=== PATIENT | female | born 1945 | race Caucasian/White ===

== ENCOUNTER 2019-09-20 18:37 | Emergency (ER) | payer MEDICARE, SELFPAY ==
--- NOTE | ~2019-09-20 | XR_ITS ---
XR chest 2V 09/20/2019 19:46 Indication: Shortness of breath. Pedal stuck in throat. Procedure: 2 views of the chest Comparison: 03/27/2019 Findings: Status post median sternotomy for CABG. Borderline heart size. No focal air space disease, pulmonary edema, pleural effusion or suspected pneumothorax. Impression: 1: No acute cardiopulmonary disease. Reviewed, dictated and finalized at location A. Impression: 1: No acute cardiopulmonary disease.
--- NOTE | ~2019-09-20 | XR_ITS ---
XR soft tissue neck 09/20/2019 19:47 Indication: Difficulty swallowing. Foreign body in throat. Procedure: 2 views of the neck soft tissues Comparison: No prior studies for comparison. Findings: Prevertebral soft tissues are normal. Epiglottis and area epiglottic folds are within aminata l limits. No significant subglottic narrowing. Visualized cervical spine is unremarkable. Impression: 1: No significant abnormality of the neck soft tissues. Reviewed, dictated and finalized at location A. Impression: 1: No significant abnormality of the neck soft tissues.
[2019-09-20 18:45] VITALS: BP 179/63; PULSE 76; RESP 25; TEMP 36.6; O2SAT 97
--- NOTE | 2019-09-20 18:55 | ECG_ITS ---
Measurements Intervals [place] Rate: 72 P: -33 IN: 110 QRS: -23 QRSD: 86 T: 150 QT: 358 QTc: 393 Interpretive Statements SINUS RHYTHM WITH SHORT IN INTERVAL INFERIOR INFARCT, AGE INDETERMINATE ST-T WAVE ABNORMALITY IN HIGH LATERAL LEADS- CONSIDER ISCHEMIA BASELINE WANDER- V1-V2 ABNORMAL ECG Electronically Signed On 09-21-2019 7:04:16 CDT by Howard Marino D.O.
[2019-09-20 19:29] VITALS: BP 150/95; PULSE 70; RESP 26; O2SAT 96
--- NOTE | 2019-09-20 19:29 | ED.GENADULT ---
HPI - General Adult General Chief complaint: Skin/Abscess/Foreign Body Stated complaint: pill stuck in throat Time Seen by Provider: 09/20/19 19:25 Source: RN notes reviewed History of Present Illness HPI narrative: Patient presents emergency department from home for pill stuck in throat. Patient states approximately 2 hours ago she attempted to swallow and atorvastatin pill became stuck in her throat. Patient states that since that time she is felt that something was stuck in her throat and is painful to swallow. She states she is able to drink water but that it does hurt. Patient states she has had difficulty swallowing before in the past with food impaction and has had to have EGD done in past. She denies any fevers or chills chest pain or any other symptoms at this time Related Data Home Medications Medication Instructions Recorded Confirmed clopidogrel [Plavix] 75 mg PO DAILY 03/27/19 05/01/19 Tylenol-Codeine #3 1 tablet PO BID 05/01/19 05/01/19 amlodipine [Norvasc] 5 mg PO DAILY 05/01/19 09/20/19 atorvastatin [Lipitor] 80 mg PO HS 05/01/19 05/01/19 metoprolol tartrate [Lopressor] 50 mg PO DAILY 05/01/19 05/01/19 acetaminophen-codeine tablet 09/20/19 aspirin 325 mg PO DAILY 09/20/19 09/20/19 ezetimibe [Zetia] mg 09/20/19 Allergies Allergy/AdvReac Type Severity Reaction Status Date / Time hydrocodone Allergy Unknown Vomiting Verified 09/20/19 18:50 Review of Systems Review of Systems: Narrative: Gen.: Denies fevers or chills ENT: Denies congestion Respiratory: Reports feeling of shortness of breath CV: Denies chest pain or palpitations GI: Denies abdominal pain nausea, emesis Musculoskeletal: Denies back pain or muscle pain Neuro: Denies numbness, tingling, weakness or focal weakness Skin: Denies rash Except as documented, all other systems reviewed and negative [facility] Past Medical History Medical History CAD (coronary artery disease) Erosive esophagitis Esophageal dilatation Esophageal stricture HLD (hyperlipidemia) HTN (hypertension) NSAID long-term use Surgical History Surgical History History of esophagogastroduodenoscopy (EGD) Hx of CABG Social History Social History Smoking status: Former smoker Gender identity (if verbalized by the patient): Female Exam Narrative: Exam Narrative: APPEARANCE: No acute distress, nontoxic, resting in bed EYES: EOMI HEENT: Normocephalic, atraumatic, OMMairway patent, tolerating own secretions, voice normal RESPIRATORY: No respiratory distress Clear to auscultation bilaterally with no rhonchi wheezing or rales. CARDIOVASCULAR: Regular rate and rhythm without murmurs rubs or gallops. ABDOMINAL: Soft, nontender, nondistended, MUSCULOSKELETAl: Moves all extremities. No clubbing, cyanosis or edema. NEURO: Awake and alert. Following commands, speech normal, no focal deficits SKIN:: Warm, dry. No rashes lesions or abrasions PSYCHIATRIC: Normal affect/mood,, Course Course Emergency Course: Patient able to drink GI cocktail with resolution of symptoms tolerating own secretions with no difficulty in ED As per Dr. Carrasquillo for GI presentation work-up recommends patient continue on PPI with follow-up with GI as outpatient Discussed with patient results of workup and diagnosis. Discussed need for follow-up with primary care, proper use of medication, and reasons to return to the emergency department. Patient understands and agrees to current treatment plan. Patient still on PPI will continue to take Vital Signs Vital signs: Vital Signs Temperature 97.8 F 09/20/19 18:45 Pulse Rate 76 09/20/19 18:45 Respiratory Rate 25 H 09/20/19 18:45 Blood Pressure 179/63 H 09/20/19 18:45 Pulse Oximetry 97 09/20/19 18:45 Temperature 97.8 F 09/20/19 18:45 Pulse Rate 60 09/20/19 20:40 Respira
--- NOTE | 2019-09-20 19:30 | PC.NURSE ---
Assumed care of pt at this time. Report from JUSTIN Bell
[2019-09-20 20:40] VITALS: BP 133/87; PULSE 60; RESP 13; O2SAT 100
[2019-09-20 21:15] VITALS: BP 171/66; PULSE 74; RESP 21; O2SAT 98
== END 2019-09-20 21:15 | disposition home or self-care (01) ==
PROVIDERS: Emergency Provider Emergency Medicine; PCP Family Medicine
DX: R13.10 Dysphagia, unspecified (principal); I25.10 Atherosclerotic heart disease of native coronary artery without angina pectoris; E78.5 Hyperlipidemia, unspecified; I10 Essential (primary) hypertension; Z95.1 Presence of aortocoronary bypass graft; R94.31 Abnormal electrocardiogram [ECG] [EKG]
CPT/HCPCS: 70360; 71046; 93005; 99283; A9270

== ENCOUNTER 2020-03-12 11:59 | Observation (INO) | payer MEDICARE, SELFPAY ==
--- NOTE | ~2020-03-12 | CT_ITS ---
EXAMINATION: CT abdomen pelvis wo con DATE: 03/12/2020 14:43 INDICATION: Left lower quadrant abdominal pain. TECHNIQUE: Computed tomography (CT) of the abdomen and pelvis was performed without intravenous contr ast. Automated exposure control and iterative reconstruction technique were employed. The dose-length product was 438.46 mGy-cm. COMPARISON: CT abdomen and pelvis 08/06/17 FINDINGS: The visualized portions of the lung bases demonstrate mild atelectasis. No pleural effusion . The heart size is normal. No pericardial effusion. There is a moderate-sized sliding hiatal hernia. The liver, gallbladder, spleen, pancreas, and adrenal glands are normal. There is a 1.3 cm cyst in r ight kidney. There are cysts in left kidney measuring up to 2.9 cm. There is mild left hydronephrosis and hydroureter. There is a 2 mm stone at left ureterovesicular junction. There is diverticulosis of the colon without evidence of diverticulitis. The appendix is normal. There are no dilated loops of bowel. There are no pathologically enlarged lymph nodes. There is no free intraperitoneal fluid. Ther e is a subxiphoid ventral hernia containing fat. There is a stent in right superficial femoral artery . There is severe lumbar spondylosis. IMPRESSION: 1. 2 mm stone at left ureterovesicular junction with mild left hydronephrosis and hydroureter. 2. Moderate-sized sliding hiatal hernia. 3. Subxiphoid ventral hernia containing fat. Reviewed, dictated and finalized at location A. PARTS DELIVERY DRIVER IMPRESSION: 1. 2 mm stone at left ureterovesicular junction with mild left hydronephrosis a nd hydroureter. 2. Moderate-sized sliding hiatal hernia. 3. Subxiphoid ventral hernia containing fat.
--- NOTE | ~2020-03-12 | US_ITS ---
EXAMINATION: US renal BI DATE: 03/13/2020 09:38 INDICATION: Left ureteral stone. TECHNIQUE: Multiple ultrasound grayscale images of the kidneys were obtained. COMPARISON: CT abdomen and pelvis 03/12/2020 FINDINGS: The right kidney measures 9.5 x 4.9 x 4.4 cm. The left kidney measures 7.7 x 4.6 x 3.4 cm. The kidney s demonstrate normal parenchymal echogenicity. There are cysts in the kidneys measuring up to 2.3 cm on the left. There is no hydronephrosis. The bladder is normal. IMPRESSION: 1. Mild atrophy of left kidney. No hydronephrosis. Reviewed, dictated and finalized at location A. /REC/DOC CONTROL
[2020-03-12 12:05] VITALS: BP 171/68; PULSE 68; RESP 69; TEMP 36.7; O2SAT 96
[2020-03-12 12:24] LABS: Basophils Absolute Auto 0.1 K/mm3 (0.0-0.1); Basophils Percent Auto 0.7 % (0.2-1.2); Eosinophils Absolute Auto 0.7 K/mm3 (0-0.3); Eosinophils Percent Auto 7.6 % (0-4.4); Hemoglobin 14.1 g/dL (12.0-15.0); Immature Granulocyte Absolute 0.04 K/mm3 (0.00-0.031); Immature Granulocyte Percent A 0.4 % (0-0.5); Lymphocytes Percent Auto 17.6 % (18.3-44.2); Mean Corpuscular HGB Conc 33.6 g/dl (32-36); Mean Corpuscular Hemoglobin 28.3 pg (26-34); Mean Corpuscular Volume 84.2 fl (80-100); Mean Platelet Volume 9.8 fl (7.4-10.4); Monocytes Absolute Auto 1.2 K/mm3 (0.1-0.6); Monocytes Percent Auto 12.7 % (2.6-8.5); Neutrophils Absolute Auto 5.6 K/mm3 (1.3-6.7); Platelet Count Result 324 k/mm3 (150-375); Red Blood Count 4.99 M/mm3 (4.2-5.4); Red Cell Distribution Width 14.9 % (11.5-14.5); White Blood Count 9.1 K/mm3 (4.5-10.0)
--- NOTE | 2020-03-12 12:34 | ED.GENADULT ---
HPI - General Adult General Chief complaint: Back Pain/Injury Stated complaint: lower mid back pain Time Seen by Provider: 03/12/20 12:16 Source: patient Mode of arrival: ambulatory Limitations: no limitations History of Present Illness HPI narrative: 74 years old white female came to the emergency room because of left lower quadrant pain started this morning. Constant. No radiation. Patient reports that the pain is associated with nausea. Patient denies any fever, chills, vomiting, radiation of pain. History of chronic lower back pain for 2 months. Today is not worse than before. Is okay Currently patient on aspirin and Plavix, history of hysterectomy Related Data Home Medications Medication Instructions Recorded Confirmed clopidogrel [Plavix] 75 mg PO DAILY 03/27/19 05/01/19 Tylenol-Codeine #3 1 tablet PO BID 05/01/19 05/01/19 amlodipine [Norvasc] 5 mg PO DAILY 05/01/19 09/20/19 metoprolol tartrate [Lopressor] 50 mg PO DAILY 05/01/19 05/01/19 acetaminophen-codeine tablet 09/20/19 ezetimibe [Zetia] mg 09/20/19 aspirin 325 mg tablet 81 mg PO DAILY tablet 10/02/19 atorvastatin 80 mg tablet 40 mg PO HS tablet 10/02/19 Allergies Allergy/AdvReac Type Severity Reaction Status Date / Time hydrocodone Allergy Unknown Vomiting Verified 03/12/20 12:09 Review of Systems Review of Systems: Narrative: CONSTITUTIONAL: Denies fever, chills, or sweats. EYES: Denies visual changes, redness, or discharge. ENT: Denies rhinorrhea, congestion, sore throat, or otalgia. CARDIOVASCULAR: Denies chest pain, palpitations, or edema. RESPIRATORY: Denies cough or dyspnea. GASTROINTESTINAL: Denies abdominal pain, nausea, vomiting, or diarrhea. GENITOURINARY: Denies dysuria or hematuria. SKIN: Denies rash or itching. MUSCULOSKELETAL: Denies back pain, joint pain, or myalgia. NEUROLOGIC: Denies headache, numbness, or weakness. PSYCHIATRIC: Denies anxiety or depression. [facility] Past Medical History Medical History CAD (coronary artery disease) Erosive esophagitis Esophageal dilatation Esophageal stricture GERD (gastroesophageal reflux disease) Hiatal hernia HLD (hyperlipidemia) HTN (hypertension) NSAID long-term use Surgical History Surgical History History of esophagogastroduodenoscopy (EGD) Hx of CABG Social History Social History Smoking status: Former smoker Gender identity (if verbalized by the patient): Female Exam Narrative: Exam Narrative: General appearance: Well-developed, well-nourished Skin: Normal color Head: Normocephalic, nontraumatic Eyes: Clear conjunctiva ENT: Oropharynx normal, ears normal, nose normal Neck: Supple, nontender Chest and respiratory: Airway patent, no respiratory distress, no accessory muscle use Heart: Regular rate/rhythm Abdomen: Soft, mild tenderness left lower quadrant with deep palpation, no organomegaly, quiet bowel sounds Vascular: Normal peripheral pulses, normal capillary refill. Musculoskeletal: Normal range of motion, nontender back Neurologic: Alert and oriented ?3, [employer] is normal as tested, no gross motor deficit Course Course Emergency Course: Stable Consultations Consultation #1: DR JOHSNON Date: 03/12/20 Time: 15:51 Vital Signs Vital signs: Vital Signs Temperature 36.7 C 03/12/20 12:05 Pulse Rate 68 03/12/20 12:05 Respiratory Rate 69 H 03/12/20 12:05 Blood Pressure 171/68 H 03/12/20 12:05 Pulse Oximetry 96 03/12/20 12:05 Temperature 36.7 C 03/12/20 12:05 Pulse Rate 68 03/12/20 12:05 Respiratory Rate 69 H 11
[2020-03-12 12:36] LABS: Alanine Aminotransferase 29 U/L (4-35); Albumin Level 4.5 g/dL (3.5-5.1); Alkaline Phosphatase 88 U/L (38-126); Anion Gap 12 mmol/L (8-16); Aspartate Amino Transferase 41 U/L (14-36); Bilirubin,Total 0.7 mg/dL (0.2-1.3); Blood Urea Nitrogen 27 mg/dL (7-17); Calcium 10.8 mg/dL (8.4-10.2); Carbon Dioxide 22 mmol/L (22-30); Chloride 109 mmol/L (98-107); Estimated CRCL calculation 18 ml/min; Estimated Glomerular Filt Rate 22; Glucose 100 mg/dL (65-105); Lipase 93 U/L (23-300); Sodium 143 mmol/L (137-145)
[2020-03-12] MEDS: MORPHINE SULFATE (*CRX) 4 MG/ML INJ IV PUSH ×2 (12:52→21:07)
[2020-03-12] MEDS: ONDANSETRON INJ 4 MG/2 ML VIAL IV PUSH (12:52)
[2020-03-12] MEDS: SODIUM CHLORIDE 0.9% IV 1,000 ML 999 ML IV CONT (12:52)
[2020-03-12 13:09] LABS: Add Urine Microscopic? YES; Appearance Urine Cloudy (Clear); Bacteria Urine Trace /hpf; Bilirubin Urine Negative (Negative); Blood Urine 3+ (Negative); Color Urine Yellow (Yellow); Glucose Urine UA Negative (Negative); Ketones Urine Negative (Negative); Leukocyte Esterase Ur Trace LEU/UL (Negative); Mucus Urine Rare /lpf; Nitrate Urine Negative (Negative); Protein Urine 1+ mg/dL (Negative); RBC Urine >75 /hpf (0-2); Specific Grav Ur 1.012 (1.001-1.035); Squamous Epithelial Cell Urine Occasional /hpf (Few); Urobilinogen Urine Negative mg/dL (<2.0); WBC Urine 31-50 /hpf
--- NOTE | 2020-03-12 16:45 | PM.IMHP ---
H&P: HPI History of Present Illness Date/Time: 03/12/20 16:45 Chief complaint: Left ureterolithiasis/PIPPA/Urinary Tract Infection Narrative: Danielle Swan is a 74 year old female Who stated that she has been having back pain on and off for couple months. 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 But she was not getting any relief. The patient has had no prior history of any kidney stones. She has had no fever chills but tells me that she feels cold in the emergency room. The patient stated that she had 2 cardiac caths [id number] years ago and it affected her kidneys in the past. She does not see a box sorter. She stated that her primary care doctor said she was going to be referred to a box sorter but has never seen one . Patient's creatinine is 2.2 today previously on 03/27/2019 is 1.4. The patient was not sure where her numbers usually stand. Calcium is 10.8 but had been 11.1 in the past. Abdominal pelvis CT was read as 2 mm stone at left ureterovesicalar junction with mild left hydronephrosis and hydroureter. Moderate size sliding hiatal hernia. Subxiphoid ventral hernia containing fat. urology has been consulted. Patient was started on normal saline Zofran morphine and ceftriaxone. Patient was admitted/ placed into observation status date of service 03/12/2020 Review of Systems Review of Systems: All systems reviewed & are unremarkable except as noted in HPI and below Constitutional: Constitutional: Reports as per HPI and Reports no additional constitutional complaints Eyes: Eyes: Reports as per HPI and Reports no additional eye complaints ENT: Reports system reviewed and no additional complaints, except as documented and Reports Normal hearing present Cardiovascular: Cardiovascular: Reports no additional cardiovascular complaints Respiratory: Respiratory: Reports no additional respiratory complaints and Reports no additional respiratory complaints Gastrointestinal: Gastrointestinal: Reports as per HPI and Reports no additional gastrointestinal complaints Musculoskeletal: Musculoskeletal: Reports no additional musculoskeletal complaints Integumentary/Breasts: Skin/Breast: Reports system reviewed and no additional complaints, except as docu and Reports as per HPI Neurologic: Reports system reviewed and no additional complaints, except as documented, Reports as per HPI and Reports Normal hearing present Psychiatric: Psychiatric: Reports no additional psychiatric complaints and Reports as per HPI Endocrine: Endocrine: Reports no additional endocrine complaints Hematologic/Lymphatic: Hematologic/Lymphatic: Reports no additional hematologic/lymphatic complaints Allergic/Immunologic: Allergic/Immunologic: Reports no additional allergic/immunologic complaints [facility] Past Medical History Medical History CAD (coronary artery disease) Erosive esophagitis Esophageal dilatation Esophageal stricture Esophageal stricture GERD (gastroesophageal reflux disease) Hiatal hernia HLD (hyperlipidemia) HTN (hypertension) NSAID long-term use Surgical History Surgical History H/O: hysterectomy History of coronary artery stent placement after her CABG 2 stents which she claims have restenosed History of esophagogastroduodenoscopy (EGD) Hx of CABG triple bypass Status post 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 She is retired from the [employer] in the [place] and the [facility]. She l
--- NOTE | 2020-03-12 16:55 | ADMGEN ---
This patient, Danielle Swan, was admitted to Medical Room 349-01. Patient/family oriented to hospital policies and general routines including ID bracelet, bed and alarms, visiting hours, pain management, procedures, bathroom and other care routines, personal items, smoking policy, room service/diet, and visiting hours. Information on how to activate the Rapid Response Team has been discussed. Patient/Family are encouraged to report perceived risks to care and to ask questions if they do not understand what they are told or what they should do.
[2020-03-12 17:05] VITALS: BMI 30.1
[2020-03-12 17:13] VITALS: BP 176/77; PULSE 72; RESP 16; TEMP 36; O2SAT 98
[2020-03-12 17:15] VITALS: BMI 30.2
[2020-03-12] MEDS: LACTATED RINGERS 1,000 ML 100 ML IV CONT (17:28)
--- NOTE | 2020-03-12 19:28 | WPDURCON ---
Assessment and Plan Assessment and plan (1) PIPPA (acute kidney injury): Code(s): N17.9 - Acute kidney failure, unspecified Status: Acute (2) Urinary tract infection: Qualifiers: Hematuria presence: with hematuria Urinary tract infection type: site unspecified Qualified Code(s): N39.0 - Urinary tract infection, site not specified; R31.9 - Hematuria, unspecified Code(s): N39.0 - Urinary tract infection, site not specified Status: Acute (3) Ureterolithiasis: Code(s): N20.1 - Calculus of ureter Status: Acute Assessment and Plan: Patient appears to have either mild chronic kidney disease or acute kidney injury of uncertain etiology. Possible urinary tract infection. - Ceftriaxone pending culture 2 mm calculus either at her left ureterovesical junction or possibly in her bladder. - Highly likely pt. will pass this tiny stone - will not make any immediate plans for intervention. - Will re-evaluate after morning labs and renal u/s tomorrow. Urology Consult Note HPI Date Seen: 03/12/20 Requesting Physician: Sierra Ortega MD Primary Care Provider: Bhavik Bah, DO Consult Narrative Narrative: Danielle Swan is a 74 year old female without prior significant urological history in without history of urolithiasis. She presents to the ER with some atypical complaints. First, she reports a several week history of atypical back pain that is more centered over her iliac crest then in her flank or abdomen. This is not been associated with irritable voiding or hematuria. Additionally, she reports having been told by her primary care physician that she has renal insufficiency and is awaiting referral to a sawyer helper for several weeks. When seen in the ER here she did have a rise in her baseline serum creatinine from approximately 1.4-2.2. A CT scan of the abdomen and pelvis without contrast shows a tiny, 2 mm stone either at her ureterovesical junction or in her bladder with very scant left hydronephrosis. Review of Systems Cardiovascular: Cardiovascular: Denies chest pain, Denies lightheadedness, Denies palpitations and Denies dyspnea Respiratory: Respiratory: Denies dyspnea Gastrointestinal: Gastrointestinal: Denies diarrhea, Denies nausea and Denies vomiting Genitourinary: Genitourinary: Denies hematuria and Denies dysuria Endocrine: Endocrine: Denies palpitations PMFSH Past Medical History Medical History CAD (coronary artery disease) Erosive esophagitis Esophageal dilatation Esophageal stricture Esophageal stricture GERD (gastroesophageal reflux disease) Hiatal hernia HLD (hyperlipidemia) HTN (hypertension) NSAID long-term use Surgical History Surgical History H/O: hysterectomy History of coronary artery stent placement after her CABG 2 stents which she claims have restenosed History of esophagogastroduodenoscopy (EGD) Hx of CABG triple bypass Status post surgical removal of neoplasm of skin right thigh Family History Family History Father Diabetes mellitus Heart disease Mother Acute myocardial infarction Sibling Diabetes mellitus Social History Social History Social History: patient has 3 daughters and she is . 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 She is retired from the [employer] in the [place] and the [employer]. She lives with daughter and son-in-law. She denies any current tobacco use alcohol marijuana or illicit drugs. Smoking packs per day: 1 Smoking cigarettes per day: 20.0 Years smoked: 10 Smoking pack-years: 10.00 Smoking status: Former smoker Additional smoking assessment comments: Haven't had one in almost 12 years. Alcohol intake: never [place]
[2020-03-12 20:32] VITALS: BP 155/72; PULSE 69; RESP 20; TEMP 36.6; O2SAT 93
[2020-03-12] MEDS: ATORVASTATIN 40 MG TABLET PO (21:03)
[2020-03-12] MEDS: ROSUVASTATIN 10 MG TABLET 40 MG PO (21:03)
[2020-03-13] MEDS: LACTATED RINGERS 1,000 ML 100 ML IV CONT (05:19)
[2020-03-13 06:00] VITALS: BP 152/53; PULSE 57; RESP 12; TEMP 36.2; O2SAT 96
[2020-03-13 08:25] LABS: Basophils Percent Auto 0.5 % (0.2-1.2); Eosinophils Absolute Auto 0.4 K/mm3 (0-0.3); Eosinophils Percent Auto 7.1 % (0-4.4); Hematocrit 38.4 % (37.0-47.0); Hemoglobin 12.6 g/dL (12.0-15.0); Immature Granulocyte Absolute 0.02 K/mm3 (0.00-0.031); Immature Granulocyte Percent A 0.3 % (0-0.5); Lymphocytes Absolute Auto 1.44 K/mm3 (0.9-3.2); Lymphocytes Percent Auto 23.2 % (18.3-44.2); Mean Corpuscular HGB Conc 32.8 g/dl (32-36); Mean Corpuscular Hemoglobin 27.4 pg (26-34); Mean Corpuscular Volume 83.5 fl (80-100); Mean Platelet Volume 9.9 fl (7.4-10.4); Monocytes Absolute Auto 0.8 K/mm3 (0.1-0.6); Monocytes Percent Auto 12.9 % (2.6-8.5); Neutrophils Absolute Auto 3.5 K/mm3 (1.3-6.7); Platelet Count Result 277 k/mm3 (150-375); Red Cell Distribution Width 14.8 % (11.5-14.5); White Blood Count 6.2 K/mm3 (4.5-10.0)
[2020-03-13 08:39] LABS: Alanine Aminotransferase 25 U/L (4-35); Albumin Level 3.7 g/dL (3.5-5.1); Alkaline Phosphatase 73 U/L (38-126); Anion Gap 6 mmol/L (8-16); Aspartate Amino Transferase 41 U/L (14-36); Bilirubin,Total 0.7 mg/dL (0.2-1.3); Blood Urea Nitrogen 23 mg/dL (7-17); Calcium 10.1 mg/dL (8.4-10.2); Carbon Dioxide 24 mmol/L (22-30); Chloride 109 mmol/L (98-107); Estimated CRCL calculation 21 ml/min; Estimated Glomerular Filt Rate 26; Glucose 91 mg/dL (65-105); Magnesium 2.1 mg/dL (1.6-2.3); Potassium 4.1 mmol/L (3.4-5.0); Sodium 139 mmol/L (137-145)
--- NOTE | 2020-03-13 09:08 | PC.NURSE ---
Patient to ultrasound via wheelchair.
--- NOTE | 2020-03-13 10:04 | PC.NURSE ---
Patient returned from ultrasound to room 349 via wheelchair.
[2020-03-13] MEDS: amLODIPine BESYLATE 5 MG TABLET 10 MG PO (10:20)
[2020-03-13] MEDS: ASPIRIN 81 MG CHEWABLE TABLET PO (10:20)
[2020-03-13 10:21] VITALS: PULSE 64
[2020-03-13] MEDS: TICAGRELOR 90 MG TABLET PO (10:21)
[2020-03-13] MEDS: METOPROLOL TARTRATE 50 MG TAB PO (10:21)
--- NOTE | 2020-03-13 11:11 | WPDUROPN2 ---
Progress Note: A&P Assessment and Plan (1) Ureterolithiasis: Code(s): N20.1 - Calculus of ureter Status: Acute Assessment and Plan: Given absence of pain, improvement in serum creatinine and normal renal u/s this morning (no hydronephrosis), I'll presume she has passed her tiny left UVJ stone. No plans for intervention. Subjective Subjective Date/Time Seen: 03/13/20 11:11 Comfortable, no complaints Review of Systems Cardiovascular: Cardiovascular: Denies chest pain, Denies lightheadedness, Denies palpitations and Denies dyspnea Respiratory: Respiratory: Denies dyspnea Gastrointestinal: Gastrointestinal: Denies diarrhea, Denies nausea and Denies vomiting Genitourinary: Genitourinary: Denies hematuria and Denies dysuria Endocrine: Endocrine: Denies palpitations Objective Data Vital Signs Vital Signs: Vital Signs - 24 hr 03/12/20 12:05 03/12/20 17:13 03/12/20 20:32 Temperature 98.0 F 96.8 F L 97.8 F Pulse Rate 68 72 69 Respiratory Rate 69 H 16 20 Blood Pressure 171/68 H 176/77 H 155/72 H Pulse Oximetry 96 98 93 03/13/20 06:00 03/13/20 10:21 Temperature 97.2 F L Pulse Rate 57 L 64 Respiratory Rate 12 Blood Pressure 152/53 H Pulse Oximetry 96 Intake/Output Intake/Output: Intake & Output 03/10/20 03/11/20 03/12/20 03/13/20 23:59 23:59 23:59 23:59 Intake Total 1290 1400 Output Total 600 Balance 1290 800 Meds/Results Medications: Active Medications Generic Name Dose Route Start Last Admin Trade Name Freq PRN Reason Stop Dose Admin Amlodipine Besylate 10 mg 03/13/20 09:00 03/13/20 10:20 Amlodipine Besylate 5 Mg Tablet PO 10 mg DAILY DEVON Administration Aspirin 81 mg 03/13/20 08:00 03/13/20 10:20 Aspirin 81 Mg Chewable Tablet PO 81 mg DAILY@0800 DEVON Administration Atorvastatin Calcium 40 mg 03/12/20 21:00 03/12/20 21:03 Atorvastatin 40 Mg Tablet PO 40 mg HS DEVON Administration Hydralazine HCl 10 mg 03/12/20 20:04 Hydralazine Hcl 20 Mg/Ml Vial IV PUSH Q8H PRN Blood Pressure - High Acetaminophen 1,000 mg in 100 mls @ 400 mls/hr 03/12/20 15:22 Ofirmev 1,000 Mg Ivpb IVPB 03/13/20 15:23 Q6H PRN Mild Pain (1-3) or Fever Lactated Ringer's 1,000 mls @ 100 mls/hr 03/12/20 15:25 03/13/20 05:19 Lr - Lactated Ringers Iv IV CONT 100 mls/hr .Q10H DEVON Administration Ceftriaxone Sodium/Dextrose 1 gm in 50 mls @ 100 mls/hr 03/13/20 12:00 Rocephin 1 Gm/D5w 50 Ml IVPB Q24H DEVON Lactated Ringer's 1,000 mls @ 30 mls/hr 03/13/20 08:15 Lr - Lactated Ringers Iv IV CONT .Q24H DEVON Metoprolol Tartrate 50 mg 03/13/20 09:00 03/13/20 10:21 Metoprolol Tartrate 50 Mg Tab PO 50 mg DAILY DEVON Administration Morphine Sulfate 4 mg 03/12/20 15:22 03/12/20 21:07 Morphine Sulfate (*Crx) 4 Mg/Ml Inj IV PUSH 4 mg Q2H PRN Administration Pain Rated 7-10 Ondansetron HCl 4 mg 03/12/20 15:22 Ondansetron Inj 4 Mg/2 Ml Vial IV PUSH Q4H PRN Nausea Rosuvastatin Calcium 40 mg 03/12/20 21:00 03/12/20 21:03 Rosuvastatin 10 Mg Tablet PO 40 mg HS DEVON Administration Ticagrelor 90 mg 03/13/20 09:00 03/13/20 10:21 Ticagrelor 90 Mg Tablet PO 90 mg DAILY DEVON Administration Radiology Results: ITS Impressions Abdomen/Pelvis CT 03/12/20 14:47 IMPRESSION: 1. 2 mm stone at left ureterovesicular junction with mild left hydronephrosis and hydroureter. 2. Moderate-sized sliding hiatal hernia. 3. Subxiphoid ventral hernia containing fat. Renal Ultrasound 03/13/20 09:45 IMPRESSION: 1. Mild atrophy of left kidney. No hydronephrosis. Labs Labs: Laboratory Results - last 24 hr 03/12/20 03/12/20 03/12/20 12:12 12:12 12:54 WBC 9.1 RBC 4.99 Hgb 14.1 Hct 42.0 MCV 84.2 MCH 28.3 MCHC 33.6 RDW 14.9 H Plt Count 324 MPV 9.8 Immature Gran % (Auto) 0.4 Neut % (Auto) 61.0 Lymph % (Auto) 17.
[2020-03-13 13:21] LABS: Free T4 Free Thyroxine Reflex 1.19 ng/dL (0.78-2.19)
[2020-03-13 14:00] VITALS: BP 186/68; PULSE 64; RESP 18; TEMP 36.2; O2SAT 98
--- NOTE | 2020-03-13 14:17 | PM.CNNEP ---
Assessment and Plan Assessment and plan (1) PIPPA (acute kidney injury): Code(s): N17.9 - Acute kidney failure, unspecified Status: Acute Assessment and Plan: The patient has acute kidney injury. Her creatinine is normally around 1. Her creatinine was high when she was admitted. She was felt to be dehydrated and she was given some IV fluids. Her creatinine has improved a little bit since admission. The patient also had a kidney stone with hydronephrosis on the left side. Interestingly the renal ultrasound shows that the left kidney is only 7cm long suggesting less than half of the total kidney function. However the renal function is improving after having passed the stone. There are other causes of kidney disease 2 including allergic interstitial nephritis or glomerulonephritis but in this scenario these are less likely. I will check urine electrolytes and eosinophils. (2) Urinary tract infection: Qualifiers: Hematuria presence: with hematuria Urinary tract infection type: site unspecified Qualified Code(s): N39.0 - Urinary tract infection, site not specified; R31.9 - Hematuria, unspecified Code(s): N39.0 - Urinary tract infection, site not specified Status: Acute Assessment and Plan: The patient is getting antibiotics. Culture is pending (3) Ureterolithiasis: Code(s): N20.1 - Calculus of ureter Status: Acute Assessment and Plan: The patient had a kidney stone. This is her 1st 1 and there are no others up there. I do not think she needs a in intensive workup for nephrolithiasis at this point. Advised to drink plenty of fluids to keep her urine colorless or very light jewell at the dark is to. I told her she should avoid dark sodas and that she should drink white sodas and better yet lemonade. She did have hypercalcemia on admission. I will check a PTH and vitamin-D to be sure that these are okay. She has never had pancreatitis. (4) HTN (hypertension): Code(s): I10 - Essential (primary) hypertension Status: Chronic Assessment and Plan: The patient's blood pressure is quite high. If her calcium remains normal going forward consider hydrochlorothiazide for blood pressure treatment as this would also help reduce calcium in the urine. (5) HLD (hyperlipidemia): Code(s): E78.5 - Hyperlipidemia, unspecified Status: Chronic Assessment and Plan: The patient is on a statin. (6) CAD (coronary artery disease): Code(s): I25.10 - Atherosclerotic heart disease of [place] coronary artery without angina pectoris Status: Acute Assessment and Plan: No chest pain History of Present Illness Reason for Consult Consult date: 03/13/20 Chief Complaint Chief complaint: Left ureterolithiasis/PIPPA/Urinary Tract Infection History of Present Illness Narrative: Danielle is a very pleasant 74-year-old lady who has multiple medical problems including hypertension, hyperlipidemia, coronary artery disease status post coronary artery bypass graft a long time ago and then CO earlier this year. She had cardiac catheterizations x2 and stents x2 just before the CO. The patient came in the hospital this time with back pain it had been going on for couple of weeks. She was evaluated found to have a bladder infection. CT scan was done which showed stone at the left ureteropelvic junction associated with some hydronephrosis.. She was admitted to the floor and given IV fluids and antibiotics. Her creatinine was elevated but improved today. Renal ultrasound done today showed no hydronephrosis. Urology saw the patient in felt the stone has passed. Renal consultation was requested because of the elevated creatinine. She has never had kidney problems before. No bloody urine, foamy urine, painful urination, or kidney stones in the past. There are no more kidney stones besides the 1 that past according to the CT. [facility]
--- NOTE | 2020-03-13 14:17 | PM.DS ---
DS: Admitting Diagnosis Admitting Diagnosis Admitting Diagnosis: Left ureterolithiasis/PIPPA/Urinary Tract Infection DS: Discharge Diagnosis Discharge Diagnosis (1) HLD (hyperlipidemia): Code(s): E78.5 - Hyperlipidemia, unspecified Status: Chronic Assessment and Plan: Monitor in the outpatient setting. Continue home meds. (2) HTN (hypertension): Code(s): I10 - Essential (primary) hypertension Status: Chronic Assessment and Plan: Stable Continue home meds (3) PIPPA (acute kidney injury): Code(s): N17.9 - Acute kidney failure, unspecified Status: Acute Assessment and Plan: Likely pre renal azotemia Resolved (4) Ureterolithiasis: Code(s): N20.1 - Calculus of ureter Status: Acute Assessment and Plan: Patient passed her kidney stone on her own as it was small able to pass. (5) GERD (gastroesophageal reflux disease): Code(s): K21.9 - Gastro-esophageal reflux disease without esophagitis Status: Acute Assessment and Plan: Stable Hx of Esophageal dilatation in the past Follow up in the outpatient setting. (6) CAD (coronary artery disease): Code(s): I25.10 - Atherosclerotic heart disease of [place] coronary artery without angina pectoris Status: Acute Assessment and Plan: Stable Continue home meds. DS: Summary Hospital Course Reason for hospitalization: Nephritic colic. Hospital Course: Patient was admitted to Med/Surg unit Urology was consulted as patient was found to have some hydronephrosis, elevated Cr as well, however no intervention was needed as patient was able to pass the stone on her own. Nephrology was consulted as well it was felt that her Bun/Cr transient elevation was due to pre renal azotemia. Patient was discharged home in good condition. Status at Discharge Cognitive/behavioral status at discharge: Patient's baseline. Functional status at discharge: independent ambulation Overall status at discharge: patient is back to baseline Time Spent with Patient Time attestation: Total time spent providing and/or coordinating discharge services: Time spent: Greater than 30 minutes Exam Narrative: Exam Narrative: Lying in bed. Const: General: cooperative, healthy appearing, comfortable, no acute distress, alert, awake and Physically active Nutritional Appearance: average body habitus Orientation/consciousness: patient oriented x3 HENMT: Head: normal to inspection and normocephalic Ears: hearing grossly normal bilaterally General nose exam: Normal external nose present Face and sinus: normal facial exam Mouth: Yes Normal oral and palatal mucosa present Eyes: General: appearance normal, both eyes and all related structures Conjunctivae: conjunctivae normal Pupils: Equal, round and reactive pupils present EOM: EOMs intact bilaterally Neck: Neck: full ROM, no lymphadenopathy and no JVD Resp: Effort & Inspection: normal respiratory effort Auscultation: clear to auscultation bilaterally Cardio: Jugular venous distension: no JVD Rate: regular rate Rhythm: regular rhythm GI: Inspection: normal to inspection GI Palp: Yes Soft to palpation and Yes No hepatosplenomegaly present : General: Yes no CVA tenderness Skin: General skin exam: normal color Wounds: no wounds Neuro: General: patient oriented x3 Cranial nerves: Yes CN's II-XII intact bilaterally and Yes Equal, round and reactive pupils present Cognition (Neuro): normal cognition Speech: normal speech Motor exam (neuro): 5/5 motor strength present throughout Sensory Exam: normal sensation Extrem: General: normal to inspection and full ROM DS: Data Data Completed and Pending Pending studies at discharge: Pending at discharge 03/13/20 09:04 Surgical [PTH] Routine Labs on day of discharge: Labs from last 24 hours 03/13/20 03/13/20 03/13/20 08:15 08:15 08:15 WBC RBC Hgb Hct MCV MCH MCHC RDW
--- NOTE | 2020-03-13 17:17 | PC.NURSE ---
Patient leaving via wheelchair through ED by personal vehicle. All belongings are with patient. Education has been given, and no further questions. IV has been removed.
== END 2020-03-13 17:18 | disposition home or self-care (01) ==
LOC: ANHED 15:50 → ANH3MED 03-13 07:00
PROVIDERS: Emergency Medicine; Nurse Practitioner; Admitting Provider Family Medicine; Emergency Provider Emergency Medicine; PCP Family Medicine; Visit Provider Internal Medicine
DX: N20.1 Calculus of ureter (principal); E78.5 Hyperlipidemia, unspecified; I10 Essential (primary) hypertension; K21.9 Gastro-esophageal reflux disease without esophagitis; I25.10 Atherosclerotic heart disease of native coronary artery without angina pectoris; K44.9 Diaphragmatic hernia without obstruction or gangrene; K43.9 Ventral hernia without obstruction or gangrene; N39.0 Urinary tract infection, site not specified; R31.9 Hematuria, unspecified; I25.2 Old myocardial infarction; Z79.82 Long term (current) use of aspirin; Z79.02 Long term (current) use of antithrombotics/antiplatelets; Z95.2 Presence of prosthetic heart valve; Z95.1 Presence of aortocoronary bypass graft; Z87.891 Personal history of nicotine dependence
CPT/HCPCS: 36415; 74176; 76775; 80053; 81001; 82365; 83690; 83735; 84439; 84443; 84480; 85025; 87040; 87086; 87088; 88300; 96361; 96365; 96375; 96376; 99285; A9270; G0378; J0696; J2270; J2405; J7030; J7120

== ENCOUNTER 2020-10-10 20:34 | Emergency (ER) | payer MEDICARE, SELFPAY ==
[2020-10-10] VITALS (7 sets, daily range): BP systolic 155–208; BP diastolic 54–94; PULSE 67–86; RESP 15–24; TEMP 36.7–37.2; O2SAT 93–99
--- NOTE | ~2020-10-10 | XR_ITS ---
XR chest 1V portable DATE: 10/10/2020 20:58 INDICATION: Left arm pain. History of coronary disease, gastritis and reflux, hypertension, coronary artery bypass graft surgery TECHNIQUE: Portable AP chest on 10/10/2020 at 2058 hours COMPARISON: 09/20/2019 AP and lateral chest FINDINGS: Status post sternotomy and coronary bypass graft surgery. Cardiomegaly. Aortic calcificatio n. No hilar or mediastinal enlargement. Lungs appear mildly hyperinflated but clear of infiltrate or con solidation. No pleural effusion or pulmonary vascular congestion or pneumothorax. Diffuse osteopenia. IMPRESSION: Status post sternotomy and coronary artery bypass graft surgery Cardiomegaly Aortic atherosclerosis Moderate hyperinflation; no active pulmonary disease Reviewed, dictated and finalized at location A.
--- NOTE | ~2020-10-10 | XR_ITS ---
EXAMINATION: XR elbow LT min 3V DATE: 10/10/2020 21:44 INDICATION: Left elbow pain and swelling TECHNIQUE: Anteroposterior, oblique, and lateral views of the left elbow were obtained. COMPARISON: 07/07/2011 FINDINGS: Alignment is normal. No fracture or joint effusion. There is unchanged mild osteoarthritis. Soft tissues are unremarkable. IMPRESSION: 1. No acute osseous abnormality. Reviewed, dictated and finalized at location A.
--- NOTE | 2020-10-10 20:45 | ECG_ITS ---
Measurements Intervals [place] Rate: 86 P: 27 NC: 134 QRS: -3 QRSD: 85 T: 33 QT: 304 QTc: 364 Interpretive Statements SINUS RHYTHM FREQUENT VENTRICULAR PREMATURE COMPLEXES LEFT VENTRICULAR HYPERTROPHY WITH ST-T CHANGE INFERIOR INFARCT, AGE INDETERMINATE BORDERLINE ST-T WAVE ABNORMALITY- ANTEROLATERAL LEADS BASELINE ARTIFACT- I, II, AVR, AVF, V1, V5 ABNORMAL ECG Electronically Signed On 10-11-2020 8:19:13 CDT by Howard Marino D.O.
[2020-10-10 21:04] LABS: Basophils Percent Auto 0.4 % (0.2-1.2); Eosinophils Absolute Auto 0.7 K/mm3 (0-0.3); Eosinophils Percent Auto 7.1 % (0-4.4); Hematocrit 38.2 % (37.0-47.0); Hemoglobin 12.4 g/dL (12.0-15.0); Immature Granulocyte Absolute 0.03 K/mm3 (0.00-0.031); Immature Granulocyte Percent A 0.3 % (0-0.5); Lymphocytes Percent Auto 25.7 % (18.3-44.2); Mean Corpuscular HGB Conc 32.5 g/dl (32-36); Mean Corpuscular Hemoglobin 27.5 pg (26-34); Mean Corpuscular Volume 84.7 fl (80-100); Monocytes Absolute Auto 1.2 K/mm3 (0.1-0.6); Monocytes Percent Auto 12.6 % (2.6-8.5); Neutrophils Percent Auto 53.9 % (45.5-73.1); Platelet Count Result 302 k/mm3 (150-375); Red Blood Count 4.51 M/mm3 (4.2-5.4); Red Cell Distribution Width 14.4 % (11.5-14.5); White Blood Count 9.4 K/mm3 (4.5-10.0)
[2020-10-10 21:14] LABS: Partial Thromboplastin Time 34.9 SECONDS (22.3-36.8); Prothrombin Time 13.3 Seconds (11.1-14.7)
[2020-10-10 21:15] LABS: Anion Gap 13 mmol/L (8-16); Blood Urea Nitrogen 16 mg/dL (7-17); Calcium 10.2 mg/dL (8.4-10.2); Carbon Dioxide 20 mmol/L (22-30); Chloride 113 mmol/L (98-107); Estimated CRCL calculation 21 ml/min; Estimated Glomerular Filt Rate 26; Glucose 117 mg/dL (65-105); Potassium 3.4 mmol/L (3.4-5.0); Sodium 146 mmol/L (137-145)
[2020-10-10 21:27] LABS: Troponin I 0.032 ng/mL (0.000-0.034)
[2020-10-10] MEDS: MORPHINE SULFATE (*CRX) 4 MG/ML INJ IV PUSH (21:48)
--- NOTE | 2020-10-10 23:15 | ED.GENADULT ---
HPI - General Adult General Chief complaint: Extremity Problem,Nontraumatic Stated complaint: Left arm swelling Time Seen by Provider: 10/10/20 20:46 History of Present Illness HPI narrative: Patient is a 75-year-old female who presents ER with left elbow/forearm pain and swelling. Sudden onset last couple of hours. Patient concerned she may have a DVT. Patient takes Brilinta. No known trauma to the affected area. Very tender to palpation. No redness. No rash. Patient denies any current chest pain or shortness of breath. Reports that over the last couple years she has been having brief less than 1 second episodes of chest pain underneath her left breast that does not seem to be related to this. Related Data Home Medications Medication Instructions Recorded Confirmed amlodipine [Norvasc] 10 mg PO DAILY 05/01/19 03/12/20 metoprolol tartrate [Lopressor] 50 mg PO DAILY 05/01/19 03/12/20 aspirin 325 mg tablet 81 mg PO DAILY tablet 10/02/19 03/12/20 atorvastatin 80 mg tablet 40 mg PO HS tablet 10/02/19 03/12/20 Brilinta 90 mg PO DAILY 03/12/20 03/12/20 rosuvastatin 40 mg PO HS 03/12/20 03/12/20 Allergies Allergy/AdvReac Type Severity Reaction Status Date / Time hydrocodone Allergy Unknown Vomiting Verified 03/12/20 17:04 Review of Systems Review of Systems: All systems reviewed & are unremarkable except as noted in HPI and below Constitutional: Constitutional: Denies chills, Denies fever(s) and Denies weakness ENT: Denies nasal congestion and Denies sore throat Cardiovascular: Cardiovascular: Denies chest pain and Denies radiating jaw, neck or arm pain Respiratory: Respiratory: Denies cough, Denies dyspnea and Denies wheezing Musculoskeletal: Musculoskeletal: Denies arthralgias and Denies joint swelling Comments: Left elbow/forearm pain and swelling not in the joint. Neurologic: Denies numbness and Denies weakness PMFSH Past Medical History Medical History CAD (coronary artery disease) Erosive esophagitis Esophageal dilatation Esophageal stricture Esophageal stricture GERD (gastroesophageal reflux disease) Hiatal hernia HLD (hyperlipidemia) HTN (hypertension) NSAID long-term use Surgical History Surgical History H/O: hysterectomy History of coronary artery stent placement after her CABG 2 stents which she claims have restenosed History of esophagogastroduodenoscopy (EGD) Hx of CABG triple bypass Status post surgical removal of neoplasm of skin right thigh Family History Family History Father Diabetes mellitus Heart disease Mother Acute myocardial infarction Sibling Diabetes mellitus Social History Social History Social History: patient has 3 daughters and she is . She is a full code but does not have a power of litigation attorney. She is retired from the [email or web address] in the [place] and the [facility]. She lives with daughter and son-in-law. She denies any current tobacco use alcohol marijuana or illicit drugs. Smoking packs per day: 1 Smoking cigarettes per day: 20.0 Years smoked: 10 Smoking pack-years: 10.00 Smoking status: Former smoker Additional smoking assessment comments: Haven't had one in almost 12 years. Alcohol intake: never Substance use: never Gender identity (if verbalized by the patient): Female Spiritual care concerns: No Exam Narrative: Exam Narrative: GENERAL: Well-appearing, well-nourished, and in no acute distress. HEAD: Normocephalic, atraumatic. CHEST: Clear to auscultation. No respiratory distress. HEART: Regular rate and rhythm. Normal peripheral pulses. ABDOMEN: Soft, nontender, nondistended. EXTREMITIES: Left upper extremity with tenderness at the medial aspect of the elbow and proximal forearm with patient pulls away
== END 2020-10-10 23:31 | disposition home or self-care (01) ==
PROVIDERS: Emergency Provider Emergency Medicine; PCP Family Medicine
DX: M79.89 Other specified soft tissue disorders (principal); M25.522 Pain in left elbow; I25.10 Atherosclerotic heart disease of native coronary artery without angina pectoris; K21.00 Gastro-esophageal reflux disease with esophagitis, without bleeding; K22.10 Ulcer of esophagus without bleeding; E78.5 Hyperlipidemia, unspecified; I10 Essential (primary) hypertension; Z79.82 Long term (current) use of aspirin; Z95.1 Presence of aortocoronary bypass graft; Z95.5 Presence of coronary angioplasty implant and graft; Z87.891 Personal history of nicotine dependence
CPT/HCPCS: 36415; 71045; 73080; 80048; 84484; 85025; 85610; 85730; 93005; 96374; 99284; J2270

== ENCOUNTER 2021-10-27 01:43 | Emergency (ER) | payer MEDICARE, SELFPAY ==
--- NOTE | ~2021-10-27 | CT_ITS ---
EXAMINATION: CT abdomen pelvis wo con DATE: 10/27/2021 02:56 INDICATION: Left lower quadrant pain TECHNIQUE: Computed tomography (CT) of the abdomen and pelvis was performed without intravenous contr ast. The dose-length product was 582.52 mGy-cm. Automated exposure control and iterative reconstructi on technique were employed. COMPARISON: CT dated 03/12/2020 FINDINGS: The liver, spleen, pancreas, adrenal glands and right kidney are unremarkable. Gallbladder is present. There is a 2.8 cm left renal cyst anteriorly. Gallbladder is present. Nonobstructive connre l gas pattern. Mild thickening of the sigmoid colon proximally with subtle pericolonic fatty infiltra tion, consistent with mild diverticulitis. There is mild-moderate lower thoracic and lumbar spondylos is. No acute osseous abnormality. IMPRESSION: 1. Mild uncomplicated sigmoid diverticulitis. Reviewed, dictated and finalized at location A.
[2021-10-27 02:25] VITALS: BP 155/50; PULSE 56; RESP 16; TEMP 36.9; O2SAT 99
[2021-10-27 02:25] LABS: Basophils Absolute Auto 0.1 K/mm3 (0.0-0.1); Basophils Percent Auto 0.6 % (0.2-1.2); Eosinophils Absolute Auto 0.6 K/mm3 (0-0.3); Eosinophils Percent Auto 5.1 % (0-4.4); Hematocrit 39.8 % (37.0-47.0); Immature Granulocyte Absolute 0.02 K/mm3 (0.00-0.031); Immature Granulocyte Percent A 0.2 % (0-0.5); Lymphocytes Absolute Auto 1.81 K/mm3 (0.9-3.2); Lymphocytes Percent Auto 16.7 % (18.3-44.2); Mean Corpuscular HGB Conc 32.7 g/dl (32-36); Mean Corpuscular Hemoglobin 28.6 pg (26-34); Mean Corpuscular Volume 87.5 fl (80-100); Mean Platelet Volume 9.8 fl (7.4-10.4); Monocytes Percent Auto 9.3 % (2.6-8.5); Neutrophils Absolute Auto 7.4 K/mm3 (1.3-6.7); Neutrophils Percent Auto 68.1 % (45.5-73.1); Platelet Count Result 285 k/mm3 (150-375); Red Blood Count 4.55 M/mm3 (4.2-5.4); Red Cell Distribution Width 13.8 % (11.5-14.5); White Blood Count 10.8 K/mm3 (4.5-10.0)
[2021-10-27 02:26] LABS: Appearance Urine Clear (Clear); Bilirubin Urine Negative (Negative); Blood Urine Negative (Negative); Color Urine Yellow (Yellow); Glucose Urine UA Negative (Negative); Ketones Urine Negative (Negative); Leukocyte Esterase Ur 3+ LEU/UL (Negative); Nitrate Urine Negative (Negative); Protein Urine Trace mg/dL (Negative); Specific Grav Ur 1.015 (1.001-1.035); Urobilinogen Urine 0.2 mg/dL (<2.0); pH Urine 5.5 (5.0-9.0)
--- NOTE | 2021-10-27 02:28 | ED.ABDPAIN ---
HPI - Abdominal Pain General Chief Complaint: Abdominal Pain Stated Complaint: LLQ pain x3 days Time Seen by Provider: 10/27/21 02:21 History of Present Illness HPI narrative: 76-year-old female presented to the emergency department for evaluation of left lower quadrant pain that has been persistent for the last 3 days. Patient denies any associated nausea or vomiting. Patient denies any pain with urination. Patient states she is still passing stool and passing flatus. Patient states her last bowel movement was this morning. Patient states an response to the above her pain did improve slightly. Patient denies any recent constipation. Patient does have a prior history of hysterectomy Related Data Home Medications Medication Instructions Recorded Confirmed amlodipine 5 mg tablet (Norvasc) 10 mg PO DAILY 05/01/19 03/12/20 metoprolol tartrate 50 mg tablet 50 mg PO DAILY 05/01/19 03/12/20 (Lopressor) aspirin 325 mg tablet 81 mg PO DAILY 10/02/19 03/12/20 atorvastatin 80 mg tablet (Lipitor) 40 mg PO HS 10/02/19 03/12/20 rosuvastatin 40 mg tablet 40 mg PO HS 03/12/20 03/12/20 ticagrelor 90 mg tablet (Brilinta) 90 mg PO DAILY 03/12/20 03/12/20 Allergies Allergy/AdvReac Type Severity Reaction Status Date / Time hydrocodone AdvReac Unknown Vomiting Verified 10/27/21 01:46 Review of Systems Review of Systems: CONSTITUTIONAL: Denies fever, chills, or sweats. EYES: Denies visual changes, redness, or discharge. ENT: Denies rhinorrhea, congestion, sore throat, or otalgia. CARDIOVASCULAR: Denies chest pain, palpitations, or edema. RESPIRATORY: Denies cough or dyspnea. GASTROINTESTINAL: See HPI GENITOURINARY: Denies dysuria or hematuria. SKIN: Denies rash or itching. MUSCULOSKELETAL: Denies back pain, joint pain, or myalgia. NEUROLOGIC: Denies headache, numbness, or weakness. [facility] Past Medical History Medical History CAD (coronary artery disease) Erosive esophagitis Esophageal dilatation Esophageal stricture Esophageal stricture GERD (gastroesophageal reflux disease) Hiatal hernia HLD (hyperlipidemia) HTN (hypertension) NSAID long-term use Surgical History Surgical History H/O: hysterectomy History of coronary artery stent placement after her CABG 2 stents which she claims have restenosed History of esophagogastroduodenoscopy (EGD) Hx of CABG triple bypass Status post surgical removal of neoplasm of skin right thigh Family History Family History Father Diabetes mellitus Heart disease Mother Acute myocardial infarction Sibling Diabetes mellitus Social History Social History Social History: patient has 3 daughters and she is . 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 She is retired from the [employer] in the [place] and the [facility]. She lives with daughter and son-in-law. She denies any current tobacco use alcohol marijuana or illicit drugs. Smoking packs per day: 1 Smoking cigarettes per day: 20.0 Years smoked: 10 Smoking pack-years: 10.00 Smoking status: Former smoker Additional smoking assessment comments: Haven't had one in almost 12 years. Alcohol intake: never Substance use: never Gender identity (if verbalized by the patient): Female Spiritual care concerns: No Exam Narrative: APPEARANCE: Well appearing, no pain, no distress, well-nourished. HEAD: normocephalic, atraumatic. EYES: PERRLA/EOMI, conjunctivae clear. NOSE: Normal no drainage THROAT: Pharynx clear, no exudate. NECK: Supple. No adenopathy, no masses. RESPIRATORY: Airway patent, respirations nonlabored. Clear to auscultation bilaterally, no rales, rhonchi, wheezing. CARDIOVASCULAR: Regular rate and rhythm without murmurs rubs or gallops. ABDOMINAL: Lower abdominal t
[2021-10-27 02:29] LABS: Bacteria Urine Trace /hpf; Mucus Urine Rare /lpf; Squamous Epithelial Cell Urine Few /hpf (Few)
[2021-10-27 02:30] LABS: Add Urine Microscopic? YES
[2021-10-27 02:40] LABS: Alanine Aminotransferase 18 U/L (6-35); Albumin Level 4.4 g/dL (3.5-5.1); Alkaline Phosphatase 90 U/L (38-126); Anion Gap 8 mmol/L (8-16); Aspartate Amino Transferase 25 U/L (14-36); Bilirubin,Total 0.5 mg/dL (0.2-1.3); Blood Urea Nitrogen 26 mg/dL (7-17); Calcium 10.2 mg/dL (8.4-10.2); Carbon Dioxide 22 mmol/L (22-30); Chloride 114 mmol/L (98-107); Estimated CRCL calculation 21 ml/min; Estimated Glomerular Filt Rate 26; Glucose 108 mg/dL (65-110); Lipase 88 U/L (23-300); Potassium 4.1 mmol/L (3.4-5.0); Sodium 144 mmol/L (137-145)
[2021-10-27] MEDS: ONDANSETRON INJ 4 MG/2 ML VIAL IV PUSH (02:42)
[2021-10-27] MEDS: fentaNYL CITRATE INJ (*CRX) 100 MCG/2 ML VIAL 50 MCG IV PUSH (02:43)
[2021-10-27] MEDS: AMOXICILLIN/CLAVULANATE K 875-125 MG TAB 1 TABLET PO (04:31)
[2021-10-27 04:32] VITALS: BP 146/57; PULSE 59; RESP 16; O2SAT 99
== END 2021-10-27 04:33 | disposition home or self-care (01) ==
PROVIDERS: Emergency Provider Emergency Medicine; PCP Family Medicine
DX: K57.92 Diverticulitis of intestine, part unspecified, without perforation or abscess without bleeding (principal); I25.10 Atherosclerotic heart disease of native coronary artery without angina pectoris; E78.5 Hyperlipidemia, unspecified; I10 Essential (primary) hypertension; Z87.891 Personal history of nicotine dependence
CPT/HCPCS: 36415; 74176; 80053; 81001; 83690; 85025; 96374; 96375; 99284; A9270; J2405; J3010

== ENCOUNTER 2022-10-02 12:29 | Emergency (ER) | payer MEDICARE, SELFPAY ==
--- NOTE | ~2022-10-02 | XR_ITS ---
XR elbow RT min 3V 10/02/2022 13:17 INDICATION: Right elbow pain after fall PROCEDURE: 4 views right elbow COMPARISON: No prior studies for comparison. FINDINGS: Fracture, dislocation or subluxation is not identified. There is osteoarthritis of the elbo w. No significant joint effusion. The soft tissues appear within normal limits. No foreign bodies ar e identified. IMPRESSION: 1: NO ACUTE BONE OR JOINT ABNORMALITY IDENTIFIED. Reviewed, dictated and finalized at location A.
[2022-10-02 12:41] VITALS: BP 151/57; PULSE 88; RESP 12; TEMP 37.1; O2SAT 100
--- NOTE | 2022-10-02 12:58 | ED.FALL ---
HPI - Fall General Chief Complaint: Fall Stated Complaint: Fall Right Arm pain Time Seen by Provider: 10/02/22 12:45 Source: patient Mode of arrival: ambulatory Limitations: no limitations History of Present Illness HPI Narrative: Danielle is a 77-year-old female patient presenting to the clinic today with complaints of a fall. She reports that she was standing on a 3 step step-stool reaching out to in cleaning when she fell down and hit her left elbow. She does have skin tear to left elbow and some discomfort to the distal humerus. She denies hitting her head or any loss of consciousness. She denies any neck or back pain. Related Data Home Medications Medication Instructions Recorded Confirmed amlodipine 5 mg tablet (Norvasc) 10 mg PO DAILY 05/01/19 03/12/20 metoprolol tartrate 50 mg tablet 50 mg PO DAILY 05/01/19 03/12/20 (Lopressor) aspirin 325 mg tablet 81 mg PO DAILY 10/02/19 03/12/20 atorvastatin 80 mg tablet (Lipitor) 40 mg PO HS 10/02/19 03/12/20 rosuvastatin 40 mg tablet 40 mg PO HS 03/12/20 03/12/20 ticagrelor 90 mg tablet (Brilinta) 90 mg PO DAILY 03/12/20 03/12/20 carvedilol 6.25 mg tablet mg 10/02/22 lisinopril 40 mg tablet mg 10/02/22 Allergies Allergy/AdvReac Type Severity Reaction Status Date / Time hydrocodone AdvReac Unknown Vomiting Verified 10/02/22 12:49 Review of Systems Review of Systems: Pertinent positives per HPI. Patient denies any fever, chills, rash, headache, visual changes, dizziness, cough, shortness of breath, chest pain, palpitations, nausea, vomiting, diarrhea, constipation, abdominal pain, or any urinary issues. [facility] Past Medical History Medical History CAD (coronary artery disease) Erosive esophagitis Esophageal dilatation Esophageal stricture Esophageal stricture GERD (gastroesophageal reflux disease) Hiatal hernia HLD (hyperlipidemia) HTN (hypertension) NSAID long-term use Surgical History Surgical History H/O: hysterectomy History of coronary artery stent placement after her CABG 2 stents which she claims have restenosed History of esophagogastroduodenoscopy (EGD) Hx of CABG triple bypass Status post surgical removal of neoplasm of skin right thigh Family History Family History Father Diabetes mellitus Heart disease Mother Acute myocardial infarction Sibling Diabetes mellitus Social History Social History Social History: patient has 3 daughters and she is . She is a full code but does not have a power of health care attorney. She is retired from the [employer] in the [place] and the [facility] [employer] [facility]. She lives with daughter and son-in-law. She denies any current tobacco use alcohol marijuana or illicit drugs. Smoking packs per day: 1 Smoking cigarettes per day: 20.0 Years smoked: 10 Smoking pack-years: 10.00 Smoking status: Former smoker Additional smoking assessment comments: Haven't had one in almost 12 years. Alcohol intake: never Substance use: never Occupation/Education: retired Gender identity (if verbalized by the patient): Female Spiritual care concerns: No Comments At the time of my signature, I reviewed and agree with the nursing past medical, surgical, social, and family history. There is no relevant family history pertinent to the patient complaint. Exam Narrative: General: Well-developed, well nourished, in no apparent distress Head: Normocephalic, atraumatic. Cardio: Regular rate and rhythm, s1 and s2 normal, no murmur appreciated. Resp: Clear to auscultation bilaterally, no rhonchi, rales, wheezing or rubs. Musculoskeletal: No deformity, tender to palpation over the distal humerus and elbow, skin tear measuring 5 cm in length noted over the posterior elbow, grossly amintaa
[2022-10-02] MEDS: TETANUS,DIPHTHERIA,AC PERTUSSIS ADULT (0.5 ML) BOOSTRIX IM (13:20)
== END 2022-10-02 13:39 | disposition home or self-care (01) ==
PROVIDERS: Emergency Provider Nurse Practitioner Family; PCP Family Medicine
DX: S51.011A Laceration without foreign body of right elbow, initial encounter (principal); S50.01XA Contusion of right elbow, initial encounter; W17.89XA Other fall from one level to another, initial encounter; Z23 Encounter for immunization; Z87.891 Personal history of nicotine dependence; I25.10 Atherosclerotic heart disease of native coronary artery without angina pectoris; K21.9 Gastro-esophageal reflux disease without esophagitis; E78.5 Hyperlipidemia, unspecified; I10 Essential (primary) hypertension; Z95.5 Presence of coronary angioplasty implant and graft; Z79.82 Long term (current) use of aspirin
CPT/HCPCS: 73080; 90471; 90715; 99213; G0463

== ENCOUNTER 2022-12-30 16:23 | Emergency (ER) | payer MEDICARE, SELFPAY ==
--- NOTE | ~2022-12-30 | XR_ITS ---
EXAMINATION: XR hand RT min 3V DATE: 12/30/2022 16:52 INDICATION: Pain at the base of the right thumb and at the right fourth digit post fall TECHNIQUE: Posteroanterior, oblique and lateral views of the right hand were obtained. COMPARISON: None. FINDINGS: Diffuse osteopenia. Second and fourth mallet finger deformities. There are small ossicles dorsal to t he heads of the second and fourth middle phalanges which appear chronic in corticated at the second d igit. Cortication cannot be definitively identified at the distal margin of the ossicle at the fourth digit and there appears to be a potential avulsion fracture donor site at the dorsal base of the fou rth distal phalanx and could not exclude an acute avulsion injury. No other lesions suspicious for ac jennifer fracture identified. Polyarticular osteoarthritis, severe at the second distal interphalangeal viridiana int, moderate severity at the first carpometacarpal, second and third metacarpophalangeal, the first interphalangeal and third-fifth distal interphalangeal joints and mild at the wrist, triscaphe, midca rpal and remaining metacarpophalangeal and interphalangeal joints. IMPRESSION: 1. Second and fourth mallet finger deformities with suggestion of a possible acute extensor tendon av ulsion fracture at the dorsal base of the fourth distal phalanx. Correlate for point tenderness at th is location. 2. Moderate to severe polyarticular osteoarthritis. Reviewed, dictated and finalized at location A. IMPRESSION: 1. Second and fourth mallet finger deformities with suggestion of a possible ac jennifer extensor tendon avulsion fracture at the dorsal base of the fourth distal p halanx. Correlate for point tenderness at this location. 2. Moderate to severe polyarticular osteoarthritis.
[2022-12-30 16:39] VITALS: BP 156/69; PULSE 67; RESP 16; TEMP 36.4; O2SAT 99
--- NOTE | 2022-12-30 17:16 | ED.UPPEXIN ---
HPI - Extremity Injury (Upper) General Chief Complaint: Extremity Injury, Upper Stated Complaint: right arm and finger injury Time Seen by Provider: 12/30/22 17:16 Source: patient Mode of arrival: ambulatory Limitations: no limitations History of Present Illness HPI narrative: 77-year-old female presents with skin tear to right forearm, pain to right ring finger. Patient reports that she was leaving a friend's house and was frightened by a bug and fell backwards. Patient states that she hit her head on air conditioner. Van dizzy initially after fall but that has resolved. Denies LOC. A neighbor helped her get up off the ground. She drove herself to the [place]. She is ambulatory with steady gait. Complaining of a mild headache.tetanus up-to-date. All systems reviewed and negative except as noted above. Related Data Home Medications Medication Instructions Recorded Confirmed amlodipine 5 mg tablet (Norvasc) 10 mg PO DAILY 05/01/19 03/12/20 metoprolol tartrate 50 mg tablet 50 mg PO DAILY 05/01/19 03/12/20 (Lopressor) aspirin 325 mg tablet 81 mg PO DAILY 10/02/19 03/12/20 rosuvastatin 40 mg tablet 40 mg PO HS 03/12/20 03/12/20 ticagrelor 90 mg tablet (Brilinta) 90 mg PO DAILY 03/12/20 03/12/20 carvedilol 6.25 mg tablet mg 10/02/22 Allergies Allergy/AdvReac Type Severity Reaction Status Date / Time hydrocodone AdvReac Unknown Vomiting Verified 12/30/22 16:31 Review of Systems Review of Systems: CONSTITUTIONAL: Denies fever, chills, or sweats. EYES: Denies visual changes, redness, or discharge. ENT: Denies rhinorrhea, congestion, sore throat, or otalgia. CARDIOVASCULAR: Denies chest pain, palpitations, or edema. RESPIRATORY: Denies cough or dyspnea. GASTROINTESTINAL: Denies abdominal pain, nausea, vomiting, or diarrhea. GENITOURINARY: Denies dysuria or hematuria. SKIN: Denies rash or itching. Skin tear to right forearm. MUSCULOSKELETAL: Denies back pain, joint pain, or myalgia. reports pain to right ring finger. NEUROLOGIC: Reports headache. Denies numbness, or weakness. PSYCHIATRIC: Denies anxiety or depression. All other systems reviewed are negative, except as documented in HPI. [facility] Past Medical History Medical History CAD (coronary artery disease) Erosive esophagitis Esophageal dilatation Esophageal stricture Esophageal stricture GERD (gastroesophageal reflux disease) Hiatal hernia HLD (hyperlipidemia) HTN (hypertension) NSAID long-term use Surgical History Surgical History H/O: hysterectomy History of coronary artery stent placement after her CABG 2 stents which she claims have restenosed History of esophagogastroduodenoscopy (EGD) Hx of CABG triple bypass Status post surgical removal of neoplasm of skin right thigh Family History Family History Father Diabetes mellitus Heart disease Mother Acute myocardial infarction Sibling Diabetes mellitus Social History Social History Social History: patient has 3 daughters and she is . 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 She is retired from the [employer] in the [place] and the [employer]. She lives with daughter and son-in-law. She denies any current tobacco use alcohol marijuana or illicit drugs. Smoking packs per day: 1 Smoking cigarettes per day: 20.0 Years smoked: 10 Smoking pack-years: 10.00 Smoking status: Former smoker Additional smoking assessment comments: Haven't had one in almost 12 years. Alcohol intake: never Substance use: never Occupation/Education: retired Gender identity (if verbalized by the patient): Female Spiritual care concerns: No Comments At time of signature, agree with nursing past medical, surgical, so
== END 2022-12-30 17:37 | disposition left against medical advice (07) ==
PROVIDERS: Emergency Provider Nurse Practitioner Family; PCP Family Medicine
DX: S62.604A Fracture of unspecified phalanx of right ring finger, initial encounter for closed fracture (principal); S51.811A Laceration without foreign body of right forearm, initial encounter; W19.XXXA Unspecified fall, initial encounter; Z87.891 Personal history of nicotine dependence; I25.10 Atherosclerotic heart disease of native coronary artery without angina pectoris; K21.9 Gastro-esophageal reflux disease without esophagitis; E78.5 Hyperlipidemia, unspecified; I10 Essential (primary) hypertension; Z95.5 Presence of coronary angioplasty implant and graft; Z79.82 Long term (current) use of aspirin
CPT/HCPCS: 29130; 73130; 99214; G0463

== ENCOUNTER 2023-12-08 15:33 | Emergency (ER) | payer MEDICARE, SELFPAY ==
[2023-12-08 15:42] VITALS: BP 150/49; PULSE 79; RESP 20; TEMP 37.5; O2SAT 94
--- NOTE | 2023-12-08 16:10 | ED.WOUNDLAC ---
HPI - Wound/Laceration General Chief Complaint: Wound/Laceration Stated Complaint: injury left arm Time Seen by Provider: 12/08/23 16:10 Source: patient Mode of arrival: ambulatory Limitations: no limitations History of Present Illness HPI narrative: 78-year-old female presents with skin tear to left forearm. Patient states that she was walking into room and bumped arm against light switch. Injury happened approximately 30 minutes prior to arrival. Bleeding controlled. All systems reviewed and negative except as noted above. Related Data Home Medications Medication Instructions Recorded Confirmed amlodipine 5 mg tablet (Norvasc) 10 mg PO DAILY 05/01/19 12/08/23 metoprolol tartrate 50 mg tablet 50 mg PO DAILY 05/01/19 12/08/23 (Lopressor) aspirin 325 mg tablet 81 mg PO DAILY 10/02/19 12/08/23 rosuvastatin 40 mg tablet 40 mg PO HS 03/12/20 12/08/23 ticagrelor 90 mg tablet (Brilinta) 90 mg PO DAILY 03/12/20 12/08/23 carvedilol 6.25 mg tablet 6.25 mg PO DAILY 10/02/22 12/08/23 Allergies Allergy/AdvReac Type Severity Reaction Status Date / Time hydrocodone AdvReac Unknown Vomiting Verified 12/08/23 15:50 Review of Systems Review of Systems: CONSTITUTIONAL: Denies fever, chills, or sweats. EYES: Denies visual changes, redness, or discharge. ENT: Denies rhinorrhea, congestion, sore throat, or otalgia. CARDIOVASCULAR: Denies chest pain, palpitations, or edema. RESPIRATORY: Denies cough or dyspnea. GASTROINTESTINAL: Denies abdominal pain, nausea, vomiting, or diarrhea. GENITOURINARY: Denies dysuria or hematuria. SKIN: Denies rash or itching. Reports skin tear to left forearm. MUSCULOSKELETAL: Denies back pain, joint pain, or myalgia. NEUROLOGIC: Denies headache, numbness, or weakness. PSYCHIATRIC: Denies anxiety or depression. All other systems reviewed are negative, except as documented in HPI. [facility] Past Medical History Medical History CAD (coronary artery disease) Erosive esophagitis Esophageal dilatation Esophageal stricture Esophageal stricture GERD (gastroesophageal reflux disease) Hiatal hernia HLD (hyperlipidemia) HTN (hypertension) NSAID long-term use Surgical History Surgical History H/O: hysterectomy History of coronary artery stent placement after her CABG 2 stents which she claims have restenosed History of esophagogastroduodenoscopy (EGD) Hx of CABG triple bypass Status post surgical removal of neoplasm of skin right thigh Family History Family History Father Diabetes mellitus Heart disease Mother Acute myocardial infarction Sibling Diabetes mellitus Social History Social History Social History: patient has 3 daughters and she is . 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 She is retired from the [employer] in the [place] and the [employer]. She lives with daughter and son-in-law. She denies any current tobacco use alcohol marijuana or illicit drugs. Smoking packs per day: 1 Smoking cigarettes per day: 20.0 Years smoked: 10 Smoking pack-years: 10.00 Smoking status: Former smoker Additional smoking assessment comments: Haven't had one in almost 12 years. Alcohol intake: never Substance use: never Occupation/Education: retired Gender identity (if verbalized by the patient): Female Spiritual care concerns: No Comments At time of signature, agree with nursing past medical, surgical, social and family history. There is no relevant family history pertinent to the presenting complaint. Exam Narrative: GENERAL: This is a well-nourished, well-developed patient, in no apparent distress. HEAD: normocephalic, atraumatic. EYES: PERRL. Sclera clear/white. Vision is grossly intact. EARS: Externa
== END 2023-12-08 16:25 | disposition home or self-care (01) ==
PROVIDERS: Emergency Provider Nurse Practitioner Family; PCP Family Medicine
DX: S51.812A Laceration without foreign body of left forearm, initial encounter (principal); W22.09XA Striking against other stationary object, initial encounter; Z87.891 Personal history of nicotine dependence; I25.10 Atherosclerotic heart disease of native coronary artery without angina pectoris; K22.10 Ulcer of esophagus without bleeding; E78.5 Hyperlipidemia, unspecified; I10 Essential (primary) hypertension; Z95.5 Presence of coronary angioplasty implant and graft
CPT/HCPCS: 99212; G0463

== ENCOUNTER 2024-01-08 17:52 | Emergency (ER) | payer MEDICARE, SELFPAY ==
--- NOTE | ~2024-01-08 | CT_ITS ---
Non-contrast CT scan of the Abdomen and Pelvis Clinical indication: Abdominal pain Technique: 2.5 mm axial scans were obtained through the abdomen and pelvis without intravenous or or al contrast. Dose reduction technique was used on this scan by utilizing automated exposure control a nd iterative reconstruction technique. The dose-length product (DLP) was 464.81 mGy-cm. COMPARISON: 10/27/2021 Findings: Images through the lung bases reveal moderate hiatal hernia. There is no evidence of renal or ureteral calculi. The kidneys and the ureters are nondilated. Stable 3 cm left renal mass. The liver, spleen, pancreas, gallbladder, and adrenals appear normal. There is sigmoid diverticulosis . There is no evidence of bowel obstruction. Small fat-containing superior ventral hernia present just below the xiphoid process. Images through the pelvis were performed. There is no evidence of ascites or lymphadenopathy. Urinary bladder unremarkable. No pelvic mass seen. Impression: No acute abnormality. Stable 3 cm left renal mass. Stability since 10/27/2021 suggests benignity. Small fat-containing ventral hernia just below the xiphoid process. Moderate hiatal hernia. Reviewed, dictated and finalized at [facility]. Impression: No acute abnormality. Stable 3 cm left renal mass. Stability since 10/27/2021 suggests benignity. Small fat-containing ventral hernia just below the xiphoid process. Moderate hiatal hernia.
[2024-01-08 18:03] VITALS: BP 174/54; PULSE 85; RESP 20; TEMP 36.6; O2SAT 97
[2024-01-08 23:01] VITALS: BP 167/60; PULSE 58; RESP 18; O2SAT 96
[2024-01-09 00:14] VITALS: BP 149/48; PULSE 63; RESP 19; TEMP 36.8; O2SAT 98
[2024-01-09] MEDS: ONDANSETRON INJ 4 MG/2 ML VIAL IV PUSH (00:17)
[2024-01-09] MEDS: SODIUM CHLORIDE 0.9% IV 1,000 ML 999 ML IV CONT ×2 (00:17→02:52)
[2024-01-09 00:20] LABS: Basophils Percent Auto 0.4 % (0.2-1.2); Eosinophils Absolute Auto 0.5 K/mm3 (0-0.3); Eosinophils Percent Auto 5.2 % (0-4.4); Hemoglobin 13.4 g/dL (12.0-15.0); Immature Granulocyte Absolute 0.02 K/mm3 (0.00-0.031); Immature Granulocyte Percent A 0.2 % (0-0.5); Lymphocytes Percent Auto 19.9 % (18.3-44.2); Mean Corpuscular HGB Conc 32.7 g/dl (32-36); Mean Corpuscular Hemoglobin 30.2 pg (26-34); Mean Corpuscular Volume 92.3 fl (80-100); Mean Platelet Volume 10.1 fl (7.4-10.4); Monocytes Absolute Auto 1.1 K/mm3 (0.1-0.6); Monocytes Percent Auto 10.6 % (2.6-8.5); Neutrophils Absolute Auto 6.4 K/mm3 (1.3-6.7); Neutrophils Percent Auto 63.7 % (45.5-73.1); Platelet Count Result 244 k/mm3 (150-375); Red Blood Count 4.44 M/mm3 (4.2-5.4); Red Cell Distribution Width 13.4 % (11.5-14.5)
[2024-01-09 00:37] LABS: Alanine Aminotransferase 20 U/L (6-35); Albumin Level 4.5 g/dL (3.5-5.1); Alkaline Phosphatase 81 U/L (38-126); Anion Gap 10 mmol/L (4-12); Aspartate Amino Transferase 32 U/L (14-36); Bilirubin,Total 0.6 mg/dL (0.2-1.3); Blood Urea Nitrogen 32 mg/dL (7-17); Calcium 10.9 mg/dL (8.4-10.2); Carbon Dioxide 18 mmol/L (22-30); Chloride 111 mmol/L (98-107); Estimated CRCL calculation 21 ml/min; Estimated Glomerular Filt Rate 29; Glucose 90 mg/dL (65-110); Lipase 94 U/L (23-300); Potassium 5.1 mmol/L (3.4-5.0); Sodium 139 mmol/L (137-145)
[2024-01-09 00:47] LABS: Strep Group A RT-PCR NOT DETECTED (Negative)
[2024-01-09 01:30] LABS: Lactic Acid Reflex 0.7 mmol/L (0.7-2.0)
[2024-01-09 01:48] LABS: Influenza A QL RT-PCR Negative (Negative); Influenza B QL RT-PCR Negative (Negative); RSV RNA, RT-PCR Negative (Negative); SARS-CoV-2 RNA PCR Negative (Negative)
--- NOTE | 2024-01-09 02:20 | ED.GENADULT ---
HPI - General Adult General Chief complaint: Abdominal Pain Stated complaint: abd pain Time Seen by Provider: 01/08/24 23:46 History of Present Illness HPI narrative: Patient is a 78-year-old female who presents emergency department with chief complaint body aches sore throat abdominal pain. Patient reports that study nausea vomiting or diarrhea reports no fever reports started having symptoms yesterday. The patient states she generally feels unwell Related Data Home Medications Medication Instructions Recorded Confirmed amlodipine 5 mg tablet (Norvasc) 10 mg PO DAILY 05/01/19 12/08/23 metoprolol tartrate 50 mg tablet 50 mg PO DAILY 05/01/19 12/08/23 (Lopressor) aspirin 325 mg tablet 81 mg PO DAILY 10/02/19 12/08/23 rosuvastatin 40 mg tablet 40 mg PO HS 03/12/20 12/08/23 ticagrelor 90 mg tablet (Brilinta) 90 mg PO DAILY 03/12/20 12/08/23 carvedilol 6.25 mg tablet 6.25 mg PO DAILY 10/02/22 12/08/23 Allergies Allergy/AdvReac Type Severity Reaction Status Date / Time hydrocodone AdvReac Unknown Vomiting Verified 01/08/24 17:53 Review of Systems Review of Systems: A 10 system review of systems was completed on the patient and is negative except for what is stated in the HPI. Nursing and ancillary documentation was reviewed. [facility] Past Medical History Medical History CAD (coronary artery disease) Erosive esophagitis Esophageal dilatation Esophageal stricture Esophageal stricture GERD (gastroesophageal reflux disease) Hiatal hernia HLD (hyperlipidemia) HTN (hypertension) NSAID long-term use Surgical History Surgical History H/O: hysterectomy History of coronary artery stent placement after her CABG 2 stents which she claims have restenosed History of esophagogastroduodenoscopy (EGD) Hx of CABG triple bypass Status post surgical removal of neoplasm of skin right thigh Family History Family History Father Diabetes mellitus Heart disease Mother Acute myocardial infarction Sibling Diabetes mellitus Social History Social History Social History: patient has 3 daughters and she is . She is a full code but does not have a power of criminal attorney. She is retired from the [employer] in the [place] and the [employer]. She lives with daughter and son-in-law. She denies any current tobacco use alcohol marijuana or illicit drugs. Smoking packs per day: 1 Smoking cigarettes per day: 20.0 Years smoked: 10 Smoking pack-years: 10.00 Smoking status: Former smoker Additional smoking assessment comments: Haven't had one in almost 12 years. Alcohol intake: never Substance use: never Occupation/Education: retired Gender identity (if verbalized by the patient): Female Spiritual care concerns: No Exam Narrative: GENERAL: Well-appearing, well-nourished, and in no acute distress. HEAD: Normocephalic, atraumatic. EYES: PERRLA and EOMI. ENT: Nares clear, no rhinorrhea or epistaxis. Mucous membranes moist. NECK: Supple. CHEST: Clear to auscultation. No respiratory distress. HEART: Regular rate and rhythm. No murmur heard. Normal peripheral pulses. ABDOMEN: Soft, tenderness to palpation in lower quadrants of the abdomen, nondistended, normal active bowel sounds. EXTREMITIES: Normal range of motion. No edema. SKIN: Warm, dry, no rash. NEURO: No focal deficits. Alert and oriented x3. PSYCH: Normal mood and affect. Course Vital Signs Vital signs: Vital Signs Temperature 36.6 C 01/08/24 18:03 Pulse Rate 85 01/08/24 18:03 Respiratory Rate 20 01/08/24 18:03 Blood Pressure 174/54 H 01/08/24 18:03 Pulse Oximetry 97 01/08/24 18:03 Oxygen Delivery Room Air 01/08/24 18:03 Temperature 36.6 C 01/09/24 02:43
[2024-01-09 02:43] VITALS: BP 160/61; PULSE 60; RESP 16; TEMP 36.6; O2SAT 95
--- NOTE | 2024-01-09 02:46 | PC.NURSE ---
Patient declines a straight catheter for a urine specimen
[2024-01-09 03:41] LABS: Add Urine Microscopic? NO; Appearance Urine Clear (Clear); Bilirubin Urine Negative (Negative); Blood Urine Negative (Negative); Color Urine Yellow (Yellow); Glucose Urine UA Negative (Negative); Ketones Urine Negative (Negative); Leukocyte Esterase Ur Negative LEU/UL (Negative); Nitrate Urine Negative (Negative); Protein Urine Negative (Negative); Specific Grav Ur 1.009 (1.001-1.035); Urobilinogen Urine 0.2 mg/dL (<2.0); pH Urine 5.5 (5.0-9.0)
[2024-01-09 04:00] VITALS: BP 150/63; PULSE 57; RESP 15; TEMP 36.6; O2SAT 96
== END 2024-01-09 05:20 | disposition home or self-care (01) ==
PROVIDERS: Emergency Provider Emergency Medicine; PCP Family Medicine
DX: R10.9 Unspecified abdominal pain (principal); N28.89 Other specified disorders of kidney and ureter; Z20.822 Contact with and (suspected) exposure to COVID-19; I25.10 Atherosclerotic heart disease of native coronary artery without angina pectoris; I10 Essential (primary) hypertension; E78.5 Hyperlipidemia, unspecified; K22.10 Ulcer of esophagus without bleeding; K21.9 Gastro-esophageal reflux disease without esophagitis; K44.9 Diaphragmatic hernia without obstruction or gangrene; Z95.5 Presence of coronary angioplasty implant and graft; Z95.1 Presence of aortocoronary bypass graft; Z87.891 Personal history of nicotine dependence; Z90.710 Acquired absence of both cervix and uterus; Z79.02 Long term (current) use of antithrombotics/antiplatelets; Z79.899 Other long term (current) drug therapy; Z79.82 Long term (current) use of aspirin
CPT/HCPCS: 36415; 74176; 80053; 81003; 83605; 83690; 85025; 87637; 87651; 96361; 96374; 99284; J2405; J7030

== ENCOUNTER 2024-01-17 13:56 | Emergency (ER) | payer MEDICARE, SELFPAY ==
[2024-01-17 13:59] VITALS: BP 187/71; PULSE 78; RESP 24; TEMP 37.1; O2SAT 97
--- NOTE | 2024-01-17 14:03 | ED.CHESTPAIN ---
HPI - Chest Pain General Chief Complaint: Chest Pain Stated Complaint: chest pain Time Seen by Provider: 01/17/24 14:02 Source: patient Mode of arrival: ambulatory Limitations: no limitations History of Present Illness HPI narrative: 78 year old female presents with concern for chest pain, SOB that started yesterday. She reports history of [place] and triple bipass. She reports symptoms worsen with exertion. MD complaint: chest pain Related Data Home Medications Medication Instructions Recorded Confirmed amlodipine 5 mg tablet (Norvasc) 10 mg PO DAILY 05/01/19 01/17/24 metoprolol tartrate 50 mg tablet 50 mg PO DAILY 05/01/19 01/17/24 (Lopressor) rosuvastatin 40 mg tablet 40 mg PO HS 03/12/20 01/17/24 ticagrelor 90 mg tablet (Brilinta) 90 mg PO DAILY 03/12/20 01/17/24 aspirin 81 mg tablet,delayed 81 mg DIRECTED 01/17/24 01/17/24 release (Adult Low Dose Aspirin) lisinopril 40 mg tablet 40 mg DIRECTED 01/17/24 01/17/24 Allergies Allergy/AdvReac Type Severity Reaction Status Date / Time hydrocodone AdvReac Unknown Vomiting Verified 01/17/24 14:53 Review of Systems Review of Systems: CONSTITUTIONAL: Denies malaise, chills, sweats, or fever. CARDIOVASCULAR: Reports chest pain, palpitations, or edema. RESPIRATORY: Denies cough. Reports dyspnea. SKIN: Denies rash or itching. MUSCULOSKELETAL: Denies back pain, joint pain, or myalgia. NEUROLOGIC: Denies numbness, weakness, or headache. All systems reviewed & are unremarkable except as noted in HPI and below PMFSH Past Medical History Medical History CAD (coronary artery disease) Erosive esophagitis Esophageal dilatation Esophageal stricture Esophageal stricture GERD (gastroesophageal reflux disease) Hiatal hernia HLD (hyperlipidemia) HTN (hypertension) NSAID long-term use Surgical History Surgical History H/O: hysterectomy History of coronary artery stent placement after her CABG 2 stents which she claims have restenosed History of esophagogastroduodenoscopy (EGD) Hx of CABG triple bypass Status post surgical removal of neoplasm of skin right thigh Family History Family History Father Diabetes mellitus Heart disease Mother Acute myocardial infarction Sibling Diabetes mellitus Social History Social History Social History: patient has 3 daughters and she is . 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 She is retired from the [employer] in [facility] and the [employer]. She lives with daughter and son-in-law. She denies any current tobacco use alcohol marijuana or illicit drugs. Smoking packs per day: 1 Smoking cigarettes per day: 20.0 Years smoked: 10 Smoking pack-years: 10.00 Smoking status: Former smoker Additional smoking assessment comments: Haven't had one in almost 12 years. Alcohol intake: never Substance use: never Occupation/Education: retired Gender identity (if verbalized by the patient): Female Spiritual care concerns: No Comments At time of signature, agree with nursing past medical, surgical, social and family history. There is no relevant family history pertinent to the presenting complaint Exam Narrative: GENERAL: Well-appearing, well-nourished, and in no acute distress. HEAD: Normocephalic, atraumatic. EYES: PERRLA, sclera clear, and EOMI. No nystagmus. ENT: Nares clear. Mucous membranes moist. NECK: Supple. CHEST: No respiratory distress. Clear to auscultation. No bony deformities, no asymmetry. Speaks in full sentences. HEART: Regular rate and rhythm. No murmur heard. Normal peripheral pulses. EXTREMITIES: Normal range of motion. No edema. SKIN: Warm, dry, no visible rash. NEURO: Alert and oriented x3. PSYCH: Nor
[2024-01-17] MEDS: ASPIRIN 81 MG CHEWABLE TABLET 324 MG PO (14:13)
[2024-01-17 14:24] VITALS: BP 154/69; PULSE 65; RESP 18; O2SAT 99
--- NOTE | 2024-01-17 14:26 | PC.NURSE ---
Ems here for pt. report given.
--- NOTE | 2024-01-17 14:35 | ECG_ITS ---
Test Date: 2024-01-17 14:05:31 Measurements Intervals [place] Rate: 71 P: 6 DC: 132 QRS: -3 QRSD: 85 T: 83 QT: 354 QTc: 386 Interpretive Statements SINUS RHYTHM LEFT VENTRICULAR HYPERTROPHY WITH ST-T CHANGE BASELINE ARTIFACT- I, II, III, AVR, AVF BORDERLINE ECG No previous ECG available for comparison Electronically Signed On 01-17-2024 14:53:58 CDT by Howard Marino D.O.
== END 2024-01-17 14:29 | disposition short-term general hospital (02) ==
PROVIDERS: Emergency Provider Nurse Practitioner; PCP Family Medicine
DX: R07.9 Chest pain, unspecified (principal); Z87.891 Personal history of nicotine dependence; I25.10 Atherosclerotic heart disease of native coronary artery without angina pectoris; K22.10 Ulcer of esophagus without bleeding; K21.9 Gastro-esophageal reflux disease without esophagitis; E78.5 Hyperlipidemia, unspecified; I10 Essential (primary) hypertension; Z95.5 Presence of coronary angioplasty implant and graft; I25.2 Old myocardial infarction; Z79.82 Long term (current) use of aspirin
CPT/HCPCS: 93005; 99215; A9270; G0463

== ENCOUNTER 2024-01-17 14:44 | Emergency (ER) | payer MEDICARE, SELFPAY ==
[2024-01-17] VITALS (23 sets, daily range): BP systolic 163–181; BP diastolic 54–73; PULSE 56–84; RESP 14–35; TEMP 36.6; O2SAT 93–100
--- NOTE | ~2024-01-17 | XR_ITS ---
EXAMINATION: XR chest 2V DATE: 01/17/2024 15:15 INDICATION: Chest pain TECHNIQUE: frontal and lateral views of the chest were obtained. COMPARISON: Chest radiograph dated 10/10/[address] abdomen and pelvis dated 01/09/2024 FINDINGS: The lungs are clear with no focal airspace opacities, pulmonary edema, pleural effusion or pneumothor ax. Heart size within normal limits for AP technique. Median sternotomy wires, ostial markers and med iastinal surgical clips consistent with prior coronary artery bypass grafting. Small to moderate-size d hiatal hernia. IMPRESSION: 1. No acute cardiopulmonary disease. 2. Small to moderate-sized hiatal hernia. Reviewed, dictated and finalized at location A.
--- NOTE | 2024-01-17 14:48 | ECG_ITS ---
Test Date: 2024-01-17 14:49:54 Measurements Intervals [place] Rate: 61 P: 24 [place]: 147 QRS: -5 QRSD: 85 T: 77 QT: 381 QTc: 386 Interpretive Statements SINUS RHYTHM LEFT VENTRICULAR HYPERTROPHY WITH ST-T CHANGE BASELINE ARTIFACT- I, II, III, AVR, AVL, AVF, V1 BORDERLINE ECG Compared to ECG 01/17/2024 14:05:31 No significant changes Electronically Signed On 01-17-2024 14:52:59 CDT by Howard Marino D.O.
[2024-01-17 14:58] LABS: Basophils Percent Auto 0.6 % (0.2-1.2); Eosinophils Absolute Auto 0.4 K/mm3 (0-0.3); Eosinophils Percent Auto 5.1 % (0-4.4); Hematocrit 40.2 % (37.0-47.0); Hemoglobin 13.3 g/dL (12.0-15.0); Immature Granulocyte Absolute 0.02 K/mm3 (0.00-0.031); Immature Granulocyte Percent A 0.3 % (0-0.5); Lymphocytes Absolute Auto 1.88 K/mm3 (0.9-3.2); Lymphocytes Percent Auto 25.9 % (18.3-44.2); Mean Corpuscular HGB Conc 33.1 g/dl (32-36); Mean Corpuscular Hemoglobin 29.8 pg (26-34); Mean Corpuscular Volume 90.1 fl (80-100); Mean Platelet Volume 9.9 fl (7.4-10.4); Monocytes Absolute Auto 0.8 K/mm3 (0.1-0.6); Monocytes Percent Auto 10.3 % (2.6-8.5); Neutrophils Absolute Auto 4.2 K/mm3 (1.3-6.7); Neutrophils Percent Auto 57.8 % (45.5-73.1); Platelet Count Result 279 k/mm3 (150-375); Red Blood Count 4.46 M/mm3 (4.2-5.4); Red Cell Distribution Width 13.1 % (11.5-14.5); White Blood Count 7.3 K/mm3 (4.5-10.0)
[2024-01-17 15:09] LABS: Prothrombin Time 13.3 Seconds (11.1-14.7)
[2024-01-17 15:10] LABS: Partial Thromboplastin Time 32.5 Seconds (22.3-36.8)
[2024-01-17 15:17] LABS: Alanine Aminotransferase 20 U/L (6-35); Albumin Level 4.3 g/dL (3.5-5.1); Alkaline Phosphatase 76 U/L (38-126); Anion Gap 9 mmol/L (4-12); Aspartate Amino Transferase 29 U/L (14-36); Bilirubin,Total 0.5 mg/dL (0.2-1.3); Blood Urea Nitrogen 18 mg/dL (7-17); Calcium 10.6 mg/dL (8.4-10.2); Carbon Dioxide 21 mmol/L (22-30); Chloride 110 mmol/L (98-107); Estimated CRCL calculation 24 ml/min; Estimated Glomerular Filt Rate 31; Glucose 86 mg/dL (65-110); Lipase 77 U/L (23-300); Potassium 4.3 mmol/L (3.4-5.0); Sodium 140 mmol/L (137-145)
[2024-01-17] MEDS: MORPHINE SULFATE (*CRX) 4 MG/ML INJ IV PUSH (15:20)
[2024-01-17 15:29] LABS: Troponin I 0.015 ng/mL (0.000-0.034)
--- NOTE | 2024-01-17 17:52 | ECG_ITS ---
Test Date: 2024-01-17 17:59:17 Measurements Intervals [place] Rate: 70 P: 20 [place]: 149 QRS: -7 QRSD: 78 T: 85 QT: 367 QTc: 399 Interpretive Statements SINUS RHYTHM LEFT VENTRICULAR HYPERTROPHY WITH ST-T CHANGE CONSIDER INFERIOR INFARCT, AGE INDETERMINATE BASELINE ARTIFACT- I, II, III, AVR, AVL, AVF, V1-V6 ABNORMAL ECG Compared to ECG 01/17/2024 14:49:54 NO SIGNIFICANT CHANGE Electronically Signed On 01-18-2024 05:32:48 CDT by Howard Marino D.O.
[2024-01-17 18:24] LABS: Troponin I 0.019 ng/mL (0.000-0.034)
--- NOTE | 2024-01-17 19:40 | ED.CHESTPAIN ---
HPI - Chest Pain General Chief Complaint: Chest Pain Stated Complaint: chest pain Time Seen by Provider: 01/17/24 14:46 History of Present Illness HPI narrative: Patient is a 78-year-old female who presents ER with left-sided chest pain. Aching in in the upper chest. Does not radiate down her arm. Reports she had been caring around 5 gal buckets of water because they were doing a planting activity where she lives. Pain is worse when she lifts her left arm. No exertional chest discomfort or dyspnea. Has history of heart disease. She has had an [place] before and this feels different. Related Data Home Medications Medication Instructions Recorded Confirmed amlodipine 5 mg tablet (Norvasc) 10 mg PO DAILY 05/01/19 01/17/24 metoprolol tartrate 50 mg tablet 50 mg PO DAILY 05/01/19 01/17/24 (Lopressor) rosuvastatin 40 mg tablet 40 mg PO HS 03/12/20 01/17/24 ticagrelor 90 mg tablet (Brilinta) 90 mg PO DAILY 03/12/20 01/17/24 aspirin 81 mg tablet,delayed 81 mg DIRECTED 01/17/24 01/17/24 release (Adult Low Dose Aspirin) lisinopril 40 mg tablet 40 mg DIRECTED 01/17/24 01/17/24 Allergies Allergy/AdvReac Type Severity Reaction Status Date / Time hydrocodone AdvReac Unknown Vomiting Verified 01/17/24 14:53 Review of Systems Review of Systems: All systems reviewed & are unremarkable except as noted in HPI and below Constitutional: Constitutional: Reports no additional constitutional complaints Cardiovascular: Cardiovascular: Reports no additional cardiovascular complaints Respiratory: Respiratory: Reports no additional respiratory complaints Musculoskeletal: Musculoskeletal: Reports no additional musculoskeletal complaints [facility] Past Medical History Medical History CAD (coronary artery disease) Erosive esophagitis Esophageal dilatation Esophageal stricture Esophageal stricture GERD (gastroesophageal reflux disease) Hiatal hernia HLD (hyperlipidemia) HTN (hypertension) NSAID long-term use Surgical History Surgical History H/O: hysterectomy History of coronary artery stent placement after her CABG 2 stents which she claims have restenosed History of esophagogastroduodenoscopy (EGD) Hx of CABG triple bypass Status post surgical removal of neoplasm of skin right thigh Family History Family History Father Diabetes mellitus Heart disease Mother Acute myocardial infarction Sibling Diabetes mellitus Social History Social History Social History: patient has 3 daughters and she is . 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 She is retired from the [employer] in [facility] and the [facility] [facility]. She lives with daughter and son-in-law. She denies any current tobacco use alcohol marijuana or illicit drugs. Smoking packs per day: 1 Smoking cigarettes per day: 20.0 Years smoked: 10 Smoking pack-years: 10.00 Smoking status: Former smoker Additional smoking assessment comments: Haven't had one in almost 12 years. Alcohol intake: never Substance use: never Occupation/Education: retired Gender identity (if verbalized by the patient): Female Spiritual care concerns: No Exam Narrative: GENERAL: Well-appearing, well-nourished, and in no acute distress. HEAD: Normocephalic, atraumatic. ENT: Mucous membranes moist. CHEST: Clear to auscultation. No respiratory distress. Tender palpation left upper chest wall HEART: Regular rate and rhythm. Normal peripheral pulses. ABDOMEN: Soft, nontender, nondistended. EXTREMITIES: Normal range of motion. No edema. SKIN: Warm, dry, no rash. NEURO: Alert and oriented x3. PSYCH: Normal mood and affect. Course Course Emergency Course: Pain resolved with morphine. Troponin
== END 2024-01-17 20:34 | disposition home or self-care (01) ==
PROVIDERS: Emergency Provider Emergency Medicine; PCP Family Medicine
DX: R07.89 Other chest pain (principal); I10 Essential (primary) hypertension; I25.10 Atherosclerotic heart disease of native coronary artery without angina pectoris; E78.5 Hyperlipidemia, unspecified; K22.10 Ulcer of esophagus without bleeding; K44.9 Diaphragmatic hernia without obstruction or gangrene; Z95.1 Presence of aortocoronary bypass graft; Z95.5 Presence of coronary angioplasty implant and graft; Z85.828 Personal history of other malignant neoplasm of skin; Z87.891 Personal history of nicotine dependence; Z90.710 Acquired absence of both cervix and uterus; Z79.82 Long term (current) use of aspirin; Z79.899 Other long term (current) drug therapy; Z79.02 Long term (current) use of antithrombotics/antiplatelets; I51.7 Cardiomegaly; R94.31 Abnormal electrocardiogram [ECG] [EKG]
CPT/HCPCS: 36415; 71046; 80053; 83690; 84484; 85025; 85610; 85730; 93005; 96374; 99284; A9270; J2270

== ENCOUNTER 2024-05-22 23:05 | Emergency (ER) | payer MEDICARE, SELFPAY ==
--- NOTE | ~2024-05-22 | XR_ITS ---
XR chest 1V portable 05/23/2024 02:21 Indication: Cough Procedure: AP portable chest Comparison: Comparison to multiple prior studies sequentially, with oldest reviewed study dated 07/2018. Findings: Status post median sternotomy for CABG. Cardiomegaly. Small hiatal hernia. No focal air spa ce disease, pulmonary edema, pleural effusion or suspected pneumothorax. Impression: 1: No acute cardiopulmonary disease. Reviewed, dictated and finalized at location A. S OFFICER Impression: 1: No acute cardiopulmonary disease.
--- OUTSIDE RECORDS SUMMARY | 2024-05-22 23:07 | XMS_ITS | Encounter Summary ---
Author Organization [facility] Healthcare Address [address] [place] [address] Care Team Providers Care Craniologist Name Role Phone Bhavik Bah DO Primary Care Provider Encounter Details Date Type Department Care Team (Late st Contact Info) Description 01/17/2024 Orders Only [facility] Health Information Management [address] [place] [id number] Scanning, Provider Social History Tobacco Use Types Packs/Day Years Used Date Smoking Tobacco: Former Cigarettes Smokeless Tobacco: Never [facility] Utilities Answer Date Recorded In the past 12 months has [employer], gas, oil, or water [employer] threatened to shut off services in your home? No 06/13/2023 Social Connection and Isolat ion Panel [NHANES] Answer Date Recorded In a typical week, how many times do you talk on the phone with family, friends, or neighbors? More than three times a week 06/14/2023 How often do you get togethe r with friends or relatives? More than three times a week 06/14/2023 How often do you attend chur ch or restorationism services? 1 to 4 times per year 06/14/2023 Do you belong to any clubs o r organizations such as tenriism groups, unions, fraternal or athletic groups, or school groups? No 06/14/2023 How often do you attend meet ings of the clubs or organizations you belong to? Never 06/14/2023 Are you , , di vorced, , never , or living with a partner? 06/14/2023 AUDIT-C Answer Date Recorded Q1: How often do you have a drink containing alcohol? Never 06/12/2023 Q2: How many drinks containi ng alcohol do you have on a typical day when you are drinking? Patient does not drink Q3: How often do you have si x or more drinks on one occasion? Never 06/12/2023 Overall Financial Resource Strain (CARDIA) Answe r Date Recorded How hard is it for you to pa y for the very basics like food, housing, medical care, and heating? Not very hard 06/13/2023 Hunger Vital Sign Answer Date Recorded Within the past 12 months, y ou worried that your food would run out before you got the money to buy more. Never true 06/13/19 24 Within the past 12 months, t he food you bought just didn't last and you didn't have money to get more. Never true 06/13/2023 PRAPARE - Transportation Answer Date Re corded In the past 12 months, has l ack of transportation kept you from medical appointments or from getting medications? No 05/26 In the past 12 months, has l ack of transportation kept you from meetings, work, or from getting things needed for daily living? No 06/13/2023 Housing Stability Vital Sign Answer Donavon e Recorded In the last 12 months, was t here a time when you were not able to pay the mortgage or rent on time? No 06/13/2023 In the last 12 months, how many places have you lived? 1 06/13/2023 In the last 12 months, was t here a time when you did not have a steady place to sleep or slept in a prison (including now)? No 06/13/2023 Personal Safety Answer Date Recorded Have you ever been in or are you currently in a harmful physical or emotional relationship or is someone making you feel afraid or unsafe? 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 Gender Identity Not on file Sexual Orientation Not on file documented as of this encounter Plan of Treatment Not on file documented as of this encounter Procedures Procedure Name Priority Date/Time Associated Diagnosis Comments SCAN - RADIOLOGY/IMAGING 01/17/2024 documented in this encounter Results * SCAN - RADIOLOGY/IMAGING (01/17/2024) Anatomical Region Laterality Modality Other us Provider Scanning Final Result documented in this encounter Visit Diagnoses Not on filedocumented in this encounter Care Teams Craniologist Relationship Specialty Start Date End Date Bhavik Bah DO PCP - General 09/02/18 documented as of this encounter
--- OUTSIDE RECORDS SUMMARY | 2024-05-22 23:07 | XMS_ITS | Clinical Summary ---
Author Organization [facility] Address [address] [place] [address] [place] [address] Care Team Providers Care Dispatch Officer Name Role Phone Bhavik Bah DO Primary Care Provider [phone] Rg Morgan MD Unavailable [phone] Allergies Active Allergy Reactions Criticality Noted Date Comments Hydrocodone-Acetaminophen Nausea and Vomiting 0 10/02/2015 Rosuvastatin Myalgias 02/17/2023 Medications aspirin 81 MG chewable tablet Chew 1 tablet (81 mg total) by mouth daily. Active nitroglycerin (NITROSTAT) 0.[address] 1 tablet (0.4 mg total) under the tongue every 5 (five) minutes as needed. Max 3 tabs, then call 911 25 tablet 1 1 Active lisinopril (PRINIVIL) 40 MG tablet TAKE 1 TABLET(40 MG) BY MOUTH DAILY 90 tablet 1 4 Active amLODIPine (NORVASC) 10 MG tabletIndications :Benign essential hypertension TAKE 1 TABLET(10 MG) BY MOUTH DAILY 90 tablet 1 4 Active ticagrelor (BRILINTA) 60 MG tablet Take 1 tablet (60 mg total) by mouth 2 (two) times daily. 180 tablet 4 4 Active atorvastatin (LIPITOR) 10 MG tablet TAKE 1 TABLET(10 MG) BY MOUTH EVERY NIGHT AT BEDTIME 90 tablet 1 4 Active Active Problems Problem Noted Date Diagnosed Date Acute cystitis without hematuria 06/15/2023 PIPPA (acute kidney injury) 06/12/2023 Influenza A 06/12/2023 Rash 06/12/2023 Coronary artery disease invo lving [place] coronary artery of [place] heart without angina pectoris 06/12/2023 Benign essential HTN 06/12/2023 Chronic kidney disease (CKD) , stage IV (severe) ([facility]) 06/12/2023 Assessment & Plan (11/07/2023 9:39 AM CDT): She had an acute and chronic kidney injury during hospitalization in May. We'll check another basic metabolic panel. Chest pain 08/30/2022 Diastolic dysfunction 11/15/2021 Overview (11/15/2021): Noted on Echo October 2021 Skin tear of right forearm without complication 01/27/2021 Stage 4 chronic kidney disease ([facility]) 03/27/2020 Assessment & Plan (09/29/2021 2:04 PM CDT): Followed by nephrology Lisinopril Assessment & Plan (04/01/2021 10:44 AM CHILD CARE TEAM LEAD): Stable with re-initiation of lisinopril at last appt - Assessment & Plan (02/26/2021 9:27 PM CDT): She has chronic kidney disease likely from hypertension and possibly peripheral vascular disease. I have started lisinopril as above. We will recheck a basic metabolic panel to make sure that there is not worsening renal function. Aortic atherosclerosis 10/14/2019 Overview (10/14/2019): Noted on CT abd/pelvis 09/24/19 Intracranial atherosclerosis 10/14/2019 Overview (10/14/2019): Noted on CT brain 01/28/19 Old myocardial infarction 10/14/2019 ST elevation myocardial infa rction involving left circumflex coronary artery ([facility]) 09/25/2019 STEMI involving oth coronary artery of inferior wall ([facility]) 09/25/2019 Stage 3 chronic kidney disease ([facility]) 08/28/2019 Trochanteric bursitis of left hip 06/15/2019 Right shoulder injury 11/02/2018 Hypertensive CHF ([facility]) 08/15/2018 Assessment & Plan (09/30/2021 9:15 AM CDT): Blood pressure is elevated today and confirmed at home - increasing lisinopril to 40mg daily Encouraged to continue to monitor at home and log and call office with any concerns in future. Peripheral arteriosclerosis 05/01/2018 Assessment & Plan (04/01/2021 10:44 AM CHILD CARE TEAM LEAD): Hx of peripheral vascular disease with prior interventions to her right superficial femoral artery Assessment & Plan (02/26/2021 9:29 PM CDT): She has a history of peripheral vascular disease with prior interventions to her right superficial femoral artery. Resume statin therapy continue dual antiplatelet therapy. 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 Continue Aspirin, Ticagrelor. She is currently on a PCSK9 inhibitor, but has not been approved by insurance. We'll check with the pharmacy about a smaller Statin pill to see if that will help with insurance coverage. Assessment & Plan (05/11/2023 12:14 PM CHILD CARE TEAM LEAD): She is not having angina.Continue aspirin, ticagrelor, metoprolol and Repatha Assessment & Plan (07/17/2022 10:26 AM CDT): She is not having angina.Continue aspirin, ticagrelor, metoprolol and Repatha S/P AVR (aortic valve replacement) 06/13/2016 Assessment & Plan (11/07/2023 9:38 AM CDT): She has aortic valve replacement in 2017 with a 21 millimeter mosaic. We'll get another echo next year. Assessment & Plan (05/11/2023 12:15 PM CHILD CARE TEAM LEAD): She requires dental prophylaxis and her most recent echo showed appropriate valve function. Assessment & Plan (07/17/2022 10:28 AM CDT): She requires dental prophylaxis and her most recent echo showed appropriate valve function. Assessment & Plan (09/29/2021 2:03 PM CDT): Last echo 2019 revealed a well functioning bioprosthetic aortic valve ? Assessment & Plan (04/01/2021 10:43 AM CHILD CARE TEAM LEAD): Last echo 2019 revealed a well functioning bioprosthetic aortic valve Assessment & Plan (02/26/2021 9:28 PM CDT): She requires dental prophylaxis and her most recent echo showed appropriate valve function. S/P CABG (coronary artery bypass graft) 06/13/19 17 Overview (10/26/2018): Description: AVR and 2v CABG 05/26/16 Aortic stenosis 12/07/2015 Fatigue 09/29/2014 Enteritis 03/04/2014 Backache 11/05/2013 Radiculopathy 11/05/2013 Diverticulitis of colon 10/01/2013 Coronary atherosclerosis 09/04/2013 Assessment & Plan (09/30/2021 9:14 AM CDT): S/p CABG S/p PCI CFX 09/2019 - Brilinta dose decreasing to 60mg BID continued with ASA 81mg daily crestor - Adding repatha ?? Assessment & Plan (04/01/2021 11:08 AM CHILD CARE TEAM LEAD): S/p CABG S/p PCI CFX 09/2019 - Brilinta dose decreasing to 60mg BID continued with ASA 81mg daily Statin therapy was restarted at last APPT - will need repeat lipid panel in 4-6 weeks Assessment & Plan (02/26/2021 9:19 PM CDT): She is not having angina.Continue aspirin, ticagrelor, metoprolol and I restarted rosuvastatin today. CHF (congestive heart failure) ([facility]) 09/02/2013 Gastroesophageal reflux disease without esophagi tis 09/02/2013 Mixed hyperlipidemia 09/02/2013 Assessment & Plan (11/07/2023 9:39 AM CDT): We checked with the pharmacy, Atorvastatin 10mg is a smaller pill. Start Atorvastatin 10mg, and we'll try to get her PCSK9 inhibitor approved. Assessment & Plan (05/11/2023 12:15 PM CHILD CARE TEAM LEAD): Her most recent LDL is elevated. She was not taking Repatha. Asked her to resume Repatha and continue fenofibrate. Assessment & Plan (07/17/2022 10:30 AM CDT): Continue Repatha and fenofibrate. Assessment & Plan (09/30/2021 9:14 AM CDT): Statin therapy is well tolerated without any reports of Statin-associated muscle symptoms ([facility]). Target goal of LDL < 70 Component Ref Range & Units 09/24/21 1044 CHOLESTEROL <200 MG/DL 266??High?? TRIGLYCERIDE <150 MG/DL 193??High?? HDL >40.0 MG/DL 55 LDL (CALCULATED) <100 MG/DL 172??High?? NON HDL CHOLESTEROL <130 MG/DL 211??High?? CHOL/HDL RATIO 0.0 - 4.5 4.8??High?? Adding repatha 420mg once monthly Assessment & Plan (02/26/2021 9:19 PM CDT): Her lipids are not well controlled. Her LDL is 197. I restart his statin therapy. We will need to recheck a lipid panel after 3 months to make sure her lipids have gone down appropriately. If they have not, we will have to consider PCSK9 inhibitor therapy. Primary hypertension 09/02/2013 Assessment & Plan (11/07/2023 9:39 AM CDT): Her blood pressure is well controlled. Continue antihypertensive therapy. Assessment & Plan (07/17/2022 10:30 AM CDT): Her BP is elevated in the office. Encouraged home BP monitoring. Continue amlodipine, metoprolol and lisinopril. Assessment & Plan (04/01/2021 11:07 AM CHILD CARE TEAM LEAD): Blood pressure is midly increased - increasing lisinopril to 20mg daily Encouraged to continue to monitor at home and log and call office with any concerns in future. Assessment & Plan (02/26/2021 9:20 PM CDT): Her blood pressure is not well controlled. I have asked her to start lisinopril and we will recheck a basic metabolic panel after 1 to 2 weeks to make sure that she does not have worsening kidney function. Peripheral vascular disease 09/02/2013 Overview (10/26/2018): Description: dt. [facility]erson Peptic ulcer 09/02/2013 Peripheral neuropathy 09/02/2013 Resolved Problems Problem Noted Date Diagnosed Date Resolved Date Encounter for preventive health examination 08/14/2013 01/03/2020 Encounters Date Type Department Care Team Description 02/29/2024 Telephone [facility] [address] Tonie Jeter, [facility] Patient Assistance (Tariqilinta - 2024) from Last 3 Months Immunizations Name Administration Dates Next Due Flublok (Quadrivalent) 02/05/2019 Influenza (Generic) 02/17/2017,02/23/2016,2013 Influenza Adult (Generic) 01/12/2023,09/2021,01/26/2021,2019,02/06/2018,03/09/2015 MODERNA COVID-19 (12+) MRNA, LNP-S, PF, 100 MCG/ 0.5 ML DOSE 06/16/2020,05/19/2020 MODERNA COVID-19 (DOWELER FRANCISCA NAIN), MRNA, LNP-S, PF, 50 MCG/ 0.25 ML DOSE 05/07/2021 PFIZER COVID-19 BIVALENT (12 +) mRNA, LNP-S, PF, 30 MCG/0.3 ML DOSE 01/05/2022 Pneumococcal (Prevnar 20) 01/27/2022 Shingrix 02/14/2023 Tdap (Generic) 10/02/2022 Family History Medical History Relation Comments Diabetes Father Heart Father CAD Heart Mother CAD Heart Sister CAD Relation Status Comments Father Mother Sister Social History Tobacco Use Types Packs/Day Years Used Date Smoking Tobacco: Former Cigarettes Q uit: 2007 Smokeless Tobacco: Never Tobacco Cessation:Counseling Given: Not Answered Alcohol Use Standard Drinks/Week Comments Not Currently 0 (1 standard drink = 0.6 oz pur e alcohol) Humiliation, Afraid, Rape, and Kick questionnair e Answer Date Recorded Within the last year, have y ou been afraid of your partner or ex-partner? No 08/31/2022 Within the last year, have y ou been humiliated or emotionally abused in other ways by your partner or ex-partner? No Within the last year, have y ou been kicked, hit, slapped, or otherwise physically hurt by your partner or ex-partner? No 08/31/2022 Within the last year, have y ou been raped or forced to have any kind of sexual activity by your partner or ex-partner? No 08/31/2022 Overall Financial Resource Strain (CARDIA) Answe r Date Recorded How hard is it for you to pa y for the very basics like food, housing, medical care, and heating? Not hard at all 08/31/2022 PHQ-2 Answer Date Recorded Patient Health Questionnaire-2 Score 0 02/17/2023 Hunger Vital Sign Answer Date Recorded Within the past 12 months, y ou worried that your food would run out before you got the money to buy more. Never true 09/01/19 23 Within the past 12 months, t he food you bought just didn't last and you didn't have money to get more. Never true 08/31/2022 PRAPARE - Transportation Answer Date Re corded In the past 12 months, has l ack of transportation kept you from medical appointments or from getting medications? No 08/22 In the past 12 months, has l ack of transportation kept you from meetings, work, or from getting things needed for daily living? No 08/31/2022 Housing Stability Vital Sign Answer Donavon e Recorded In the last 12 months, was t here a time when you were not able to pay the mortgage or rent on time? No 08/31/2022 In the last 12 months, how many places have you lived? 1 08/31/2022 In the last 12 months, was t here a time when you did not have a steady place to sleep or slept in a penitentiary (including now)? No 08/31/2022 Comments No Sex and Gender Information Value Date Recorded Sex Assigned at Female 10/13/2020 2:35 PM CDT Legal Sex Female 11:45 PM CDT Gender Identity Female 10/13/2020 2:35 PM CDT Sexual Orientation Straight 10/13/2020 2: 35 PM CDT Occupation Industry Job Start Date Job End Date Retired Not on file Not on file Not on file Last Filed Vital Signs Vital Sign Reading Time Taken Comments Blood Pressure 138/62 11/06/2023 1:00 PM CDT Pulse 88 11/06/2023 1:00 PM CDT Temperature 36.6 ??C (97.9 ??F) 09/01/2022 11:44 AM C DT Respiratory Rate 18 09/01/2022 11:44 AM CDT Oxygen Saturation 98% 11/06/2023 1:00 PM CDT Inhaled Oxygen Concentration - - Weight 63.6 kg (140 lb 3.2 oz) 11/06/2023 1:00 P M CDT Height 151.1 cm (4' 11.5 ) 11/06/2023 1:00 PM CD T Body Mass Index 27.84 11/06/2023 1:00 PM CDT Plan of Treatment Upcoming Encounters Date Type Department Care Team (Late st Contact Info) Description 06/24/2024 1:00 PM CHILD CARE TEAM LEAD Office Visit [facility], [address] [place] [address] Rg Morgan MD [facility]. [address] [place] [address] Mamta Plata PA [address] [facility], [address] [place] [address] Health Maintenance Due Date Last Done Comments Hepatitis C 1963 Dexa Scan (General) 07/23/2011 RSV Immunization or 60+ Years (1 - 1-dose 75+ series) 2021 Annual Medicare Wellness Visit 09/02/2021 09/01/2020 Zoster Vaccines (2 of 2) 04/11/2023 02/14/2023 COVID-19 Vaccine ( season) 2023 02/08/2023, 01/05/2022, 05/07/2021, Additional history exists Influenza Adult (#1) 2024 01/12/2023, 01/27/2022, 01/26/2021, Additional history exists ASCVD LDL 02/18/2024 02/17/2023, 0504/2022, 08/31/2022, Additional history exists DTaP, Tdap and Td Vaccines (2 - Td or Tdap) 10/02/2032 10/02/2022 Colorectal Cancer Screening Colonoscopy (10 Years) Discontinued 05/25/2013 Pneumococcal Vaccine: 65+ Years Completed 01/27/2022 Meningococcal B Vaccine Aged Out No l onger eligible based on patient's age to complete this topic Meningococcal Vaccine Aged Out No danielle armen eligible based on patient's age to complete this topic RSV Immunizations Under 20 Months Aged Out No longer eligible based on patient's age to complete this topic Goals Goal Patient Goal Type Associated Problems Recent Progress Patient-Stated? Author Patient will return to prior living situation and remain independent in ADLs upon discharge from hospital Lifestyle No Mamta Nunez, layout designer Procedure Name Priority Date/Time Associated Diagnosis Comments LIPID PANEL Routine 02/17/2023 10:04 AM CDT Mixed hyperlipidemia COLONOSCOPY Routine 05/25/2013 12:00 AM CHILD CARE TEAM LEAD from Last 3 Months or Most Recently Relevant to Health Maintenance Results * (ABNORMAL) LIPID PANEL (02/17/2023 10:04 AM CDT) [facility] CHOLESTEROL 251(H) 0 - 199 MG/DL [facility] TRIGLYCERIDES 228(H) 0.00 - 150.00 MG/DL [facility] Comment: NCEP REFERENCE VALUES FOR TRIGLYCERIDES: NORMAL: ? <150 MG/DL BORDERLINE HIGH: ?150 - 199 MG/DL HIGH: ? 200 - 499 MG/DL VERY HIGH: ?>/= 500 MG/DL HDL 61 >40 MG/DL [facility] LDL (CALCULATED) 151(H) 0 - 99 MG/DL [facility] Comment: CUTOFF VALUES RECOMMENDED BY THE NATIONAL CHOLESTEROL EDUCATION PROGRAM: DESIRABLE: ?CHOLESTEROL <200 MG/DL ? LDL <100 MG/DL BORDERLINE: ?? CHOLESTEROL 200-239 MG/DL ?LDL 101-159 MG/DL HIGHER RISK: ??CHOLESTEROL >240 MG/DL ? LDL >160 MG/DL, HDL <40 MG/DL NON HDL CHOLESTEROL 190 NO REFERENCE RANGE MG/DL [facility] Comment: A REASONABLE GOAL FOR NON-HDL CHOLESTEROL IS ONE THAT IS 30 MG/DL HIGHER THAN THE LDL CHOLESTEROL GOAL. CHOL/HDL RATIO 4.1 0.0 - 5.0 . [facility] Comment: IS PATIENT FASTING?->YES ON AUGUST 16, 2022, [facility] CHANGED THE EQUATION FOR CALCULATING ESTIMATED LOW-DENSITY LIPOPROTEIN-CHOLESTEROL (LDL-C) FROM THE FRIEDEWALD EQUATION TO THE EVAN/FITZPATRICK EQUATION. THIS NEW EQUATION IS ONLY VALID FOR LIPID PANELS WITH TRIGLYCERIDES < 400 MG/DL. STUDIES HAVE DEMONSTRATED THAT THIS NEW EQUATION WILL IMPROVE THE ACCURACY OF LDL-C, ESPECIALLY IN SCENARIOS WHEN LDL-C CONCENTRATIONS ARE RELATIVELY LOW (< 100 MG/DL), TRIGLYCERIDES ARE ELEVATED, OR PATIENT IS NON-FASTING. REFERENCES: - ARMOND GRODON, MARIFER RODRIGUEZ, AYESHA SANTIAGO, BERNADETTE YATES, BERNADETTE DALAL, GONSALO KAUFFMAN, AND COLIN ANDERSON. 2013. COMPARISON OF A NOVEL METHOD VS THE FRIEDEWALD EQUATION FOR ESTIMATING LOW-DENSITY LIPOPROTEIN CHOLESTEROL LEVELS FROM THE STANDARD LIPID PROFILE. RITU: THE JOURNAL OF THE [employer] 310 (19): 2061-68. - MEGHAN V, TRINA J, RAMON A, FRAN M, LILIA R, JOHN E, DALY RS, MONICA SR, EVAN SS. FASTING VERSUS NONFASTING AND LOW-DENSITY LIPOPROTEIN CHOLESTEROL ACCURACY. CIRCULATION. 2018 APR 25;137(1):10-19. 02/17/2023 10:0 4 AM CDT 02/18/2023 6:22 AM CDT Bhavik Bah DO LABORATORY Final Resul t [id number] [place] [address], * Colonoscopy (05/25/2013 12:00 AM CHILD CARE TEAM LEAD) 05/25/2013 05/25/2013 Narrative [facility] TO EPIC CONVERSION - 05/25/2013 12:00 AM CHILD CARE TEAM LEAD Documented hx of procedure Procedure Note Md Generic ConversionMD - 02/25/2018 Documented hx of procedure Generic Conversion Md [facility] PROCEDURE ORDERABLES Final Result [facility] TO EPIC CONVERSION from Last 3 Months or Most Recently Relevant to Health Maintenance Insurance UHC [facility] * Guarantor: Danielle Swan Account Type Relation to Patient Date of Phone Billing Address Personal/Family Self 1945 [address] [facility] [facility] [address] [address] [place] [address] [facility] Advance Directives * Full Code (Latest Code Status on File) Date Activated Date Inactivated Comments 08/31/2022 12:07 AM 09/01/2022 4:43 PM * Full Code Date Activated Date Inactivated Comments 09/25/2019 8:26 PM 09/27/2019 2:56 PM * Full Code Date Activated Date Inactivated Comments 09/25/2019 7:59 PM 09/25/2019 8:26 PM Care Teams Dispatch Officer Relationship Specialty Start Date End Date Bhavik Bah DO PCP - General 11/20/16 Rg Morgan MD [address] [id number] Consulting Physician INTERVENTIONAL CARDIOLOGY 03/31/22
--- OUTSIDE RECORDS SUMMARY | 2024-05-22 23:07 | XMS_ITS | Clinical Summary ---
Author Organization [facility] at [facility] [place] [facility] Address [address] [place] [address] Care Team Providers Care Host Hostess Name Role Phone [place] monk Primary Care Provider Allergies Active Allergy Reactions Criticality Noted Date Comments Acetaminophen Stomach upset Low 09/14/2019 Stomach/GI Upset Hydrocodone Stomach upset Low 09/14/2019 Stomach/GI Upset Metronidazole Unknown 09/14/2019 unknown-is per outside record Rosuvastatin Muscle pain Medium 02/17/2023 Hydrocodone-Acetaminophen Nausea & Vomiting Low Medications amLODIPine (NORVASC) 10 mg tablet Take 1 tablet (10 mg total) by mouth daily Active evolocumab (Repatha Pushtronex) 420 mg/3.5 mL wearable injector Inject 420 mg under the skin every 30 (thirty) days Near the end of the month Active aspirin 81 mg enteric coated tablet Take 1 tablet (81 mg total) by mouth daily Active ticagrelor (BRILINTA) 60 mg tablet Take 1 tablet (60 mg total) by mouth 2 (two) times a day Active cetirizine (ZyrTEC) 5 mg tablet Take 1 tablet (5 mg total) by mouth daily for 7 days 7 tablet 06/16/2023 Active lansoprazole (PREVACID) 30 mg capsuleIndicatio ns:Gastroesophag eal reflux disease without esophagitis Take 1 capsule (30 mg total) by mouth daily 90 capsule 3 03/19/2024 03/19/20 Active cyclobenzaprine (FLEXERIL) 5 mg tablet Take 1 tablet (5 mg total) by mouth 2 (two) times a day as needed for muscle spasms 60 tablet 1 03/19/2024 Active Active Problems Problem Noted Date Diagnosed Date Chronic obstructive pulmonary disease with bronc hospasm 03/19/2024 Overview (03/19/2024): COPD stable Former smoker No inhaler use necessary at this time Obstructive sleep apnea syndrome 03/19/2024 Overview (03/19/2024): MAREK is overall stable Routine physical examination 03/19/2024 Overview (03/19/2024): February 17, 2023 March 19, 2024 Stage 3b chronic kidney disease 03/19/2024 Overview (03/19/2024): GFR 32 in October 2023 GFR 33 in May 2023 Aortic atherosclerosis 03/19/2024 Overview (03/19/2024): Noted on CT September 24, 2019 Continue Repatha Intracranial atherosclerosis 03/19/2024 Overview (03/19/2024): Noted on CT brain January 28, 2019 No concerns or symptoms Continue her bath Coronary artery disease invo lving [place] coronary artery of [place] heart without angina pectoris 06/12/2023 Overview (03/19/2024): Coronary artery disease status post 2 vessel CABG in May 2016 with AVR She is on Repatha and Brilinta Continue same medications and routine follow up with Cardiology Benign essential HTN 06/12/2023 Overview (03/19/2024): Chronic, stable condition on Norvasc Continue same medications Mixed hyperlipidemia 06/12/2023 Overview (03/19/2024): Chronic, stable condition on Repatha Does not tolerate statins Continue same medications and follow up with Cardiology Gastroesophageal reflux disease without esophagi tis 06/12/2023 Overview (03/19/2024): Chronic, stable condition with p.r.n. use of Prevacid Continue same medications Diastolic dysfunction 11/15/2021 Overview (03/19/2024): Noted on Echo October 2021 Continue routine follow up with Cardiology Old myocardial infarction 10/14/2019 Overview (03/19/2024): Coronary artery disease status post CABG with old [place] Continue same medications and follow up with Cardiology Hypertensive CHF 08/15/2018 Overview (03/19/2024): Hypertension with congestive heart failure is overall stable Continue same medications Continue follow up with Cardiology S/P AVR (aortic valve replacement) 06/13/2016 Overview (03/19/2024): AVR and 2 vessel CABG May 26, 2016 S/P CABG (coronary artery bypass graft) 06/13/19 17 Overview (03/19/2024): Description: AVR and 2v CABG 05/26/16 Aortic valve stenosis 12/07/2015 Overview (03/19/2024): AV stenosis s/p AVR Doing well Continue with Cardiology CHF (congestive heart failure) ([facility] 014 Overview (03/19/2024): CHF is overall stable No volume overload Continue same medications Continue with Cardiology Peripheral neuropathy 09/02/2013 Overview (03/19/2024): Chronic, stable condition not on medication Trying to stay active Peripheral vascular disease 09/02/2013 Overview (03/19/2024): Chronic condition is stable She is on Repatha Continue same medications Resolved Problems Problem Noted Date Diagnosed Date Resolved Date Acute cystitis without hematuria 06/15/2023 03/19/2024 Influenza A 06/12/2023 03/19/2024 PIPPA (acute kidney injury) 06/12/2023 Chronic kidney disease (CKD) , stage IV (severe) (CMS/HCC) 06/12/2023 03/19/2024 Rash 06/12/2023 03/19/2024 Encounters Date Type Department Care Team Description 03/28/[address] [address] Rosaline Purdy, [facility] Chart Review 03/19/2024 2:00 PM SURGICAL TERRITORY MANAGER Office Visit [facility] Primary Care [address] [place] [phone] Bhavik Bah DO Routine physical examination (Primary Dx); Need for hepatitis C screening test; Benign essential HTN; Mixed hyperlipidemia; Hypertensive heart disease with congestive heart failure, unspecified heart failure type (HCC); Chronic congestive heart failure, unspecified heart failure type (HCC); Nonrheumatic aortic valve stenosis; Chronic obstructive pulmonary disease with bronchospasm (HCC); Coronary artery disease involving [place] coronary artery of [place] heart without angina pectoris; Diastolic dysfunction; Gastroesophageal reflux disease without esophagitis; Obstructive sleep apnea syndrome; Old myocardial infarction; Peripheral polyneuropathy (CMS/HCC); Peripheral vascular disease (HCC); S/P AVR (aortic valve replacement); S/P CABG (coronary artery bypass graft); Stage 3b chronic kidney disease (HCC); Aortic atherosclerosis (HCC); Intracranial atherosclerosis 03/12/2024 Telephone [facility] [address] [place] [phone] Mayra Thomas Unsuccessful Phone Call 1 ([facility] Med adherence) from Last 3 Months Immunizations Name Administration Dates Next Due Influenza, Quad, Adjuvantate d, Intramuscular 01/23/2020 Influenza, Quadrivalent, Hig h Dose, Preservative Free, Intrr 01/27/2022,01/26/2021 Influenza, Quadrivalent, Rec ombinant, Egg Free, Preservative Free, Intramuscular 02/05/2019 Influenza, Trivalent, High D ose, Split, Preservative Free, Intramuscular 03/08/2015 Influenza, Trivalent, IM (MDV) 01/23/2016 Influenza, Unspecified 02/23/2024,2022,02/06/2018,02/17,02/23/2016,03/09/2015,01/20/2014 Pneumococcal Conjugate Pcv20 01/27/2022 Tdap 10/02/2022 ZOSTER Recombinant 02/14/2023 Surgical History Surgery Date Site/Laterality Comments LEG SURGERY tumor removal VALVE REPLACEMENT CORONARY ARTERY BYPASS GRAFT Family History Medical History Relation Name Comments Heart attack Brother Diabetes Father Heart attack Father Heart attack Mother Heart attack Sister Relation Name Status Comments Brother Father Mother Sister Social History Tobacco Use Types Packs/Day Years Used Date Smoking Tobacco: Former Cigarettes 0.5 10 1 994 - 2003 Smokeless Tobacco: Never Tobacco Cessation:Counseling Given: Not Answered [facility] Utilities Answer Date Recorded In the past 12 months has [employer], gas, oil, or water company threatened to shut off services in your [...] often do you attend chur ch or rastafari services? 1 to 4 times per year 06/14/2023 Do you belong to any clubs o r organizations such as scientologist groups, unions, fraternal or athletic groups, or school groups? No 06/14/2023 How often do you attend meet ings of the clubs or organizations you belong to? Never 06/14/2023 Are you , , di vorced, , never , or living with a partner? 06/14/2023 AUDIT-C Answer Date Recorded Q1: How often do you have a drink containing alcohol? Never 03/19/2024 Q2: How many drinks containi ng alcohol do you have on a typical day when you are drinking? Patient does not drink Q3: How often do you have si x or more drinks on one occasion? Never 03/19/2024 Overall Financial Resource Strain (CARDIA) Answe r Date Recorded How hard is it for you to pa y for the very basics like food, housing, medical care, and heating? Not very hard 06/13/2023 PHQ-2 Answer Date Recorded PHQ-2 Total Score (If total score is 3 or more points, staff should administer the PHQ-9) 0 03/19/2024 Hunger Vital Sign Answer Date Recorded Within [...] place to sleep or slept in a custodial (including now)? No 06/13/2023 Personal Safety Answer Date Recorded Have you ever been in or are you currently in a harmful physical or emotional relationship or is someone making you feel afraid or unsafe? Denies 06/22/2023 Comments No Sex and Gender Information Value Date Recorded Sex Assigned at Not on file Legal Sex Female 6:42 PM SURGICAL TERRITORY MANAGER Gender Identity Not on file Sexual Orientation Not on file Obstetrics History Last Filed Vital Signs Vital Sign Reading Time Taken Comments Blood Pressure 120/68 03/19/2024 1:38 PM SURGICAL TERRITORY MANAGER Pulse 82 03/19/2024 1:38 PM SURGICAL TERRITORY MANAGER Temperature 36.3 ??C (97.4 ??F) 03/19/2024 1:38 PM CS T Respiratory Rate 18 03/19/2024 1:38 PM SURGICAL TERRITORY MANAGER Oxygen Saturation 96% 03/19/2024 1:38 PM SURGICAL TERRITORY MANAGER Inhaled Oxygen Concentration - - Weight 66.7 kg (147 lb) 03/19/2024 1:38 PM SURGICAL TERRITORY MANAGER Height 152.4 cm (5') 03/19/2024 1:38 PM SURGICAL TERRITORY MANAGER Body Mass Index 28.71 03/19/2024 1:38 PM SURGICAL TERRITORY MANAGER Plan of Treatment Health Maintenance Due Date Last Done Comments Hepatitis C Screening 1945 Osteoporosis Screening-Bone Density Scan 1945 Hepatitis B Screening 1963 Zoster Vaccine (2 of 2) 04/11/2023 02/14/2023 Covid-19 Vaccine (5 - 2023-2 5 season) 2023 01/05/2022, 05/07/2021, 06/16/2020, Additional history exists Depression Screening 03/19/2025 03/19/2024 Fall Risk Assessment 03/19/2025 03/19/2024, 06/16/19 Well Visit 65+ 03/19/2025 03/19/2024 DTaP/Tdap/Td Vaccine (2 - Td or Tdap) 10/02/2032 10/02/2022 Pneumococcal vaccine 65+ Completed 01/27/2022 Influenza Vaccine Completed 02/23/2024, , 01/27/2022, Additional history exists Insurance [address] [place] [address] MDCR HMO [facility] Address: [facility] [address] [place] [address] [place] [address] MEDICARE SOLUTIONS Advance Directives For more information, please contact: [phone] * LIMITED - No CPR (Latest Code Status on File) Date Activated Date Inactivated Comments 06/12/2023 5:01 PM 06/16/2023 7:03 PM Care Teams Host Hostess Relationship Specialty Start Date End Date Bhavik Bah DO PCP - General 09/02/18
--- OUTSIDE RECORDS SUMMARY | 2024-05-22 23:07 | XMS_ITS | Referral Summary ---
Author Organization [facility] Address [address] [place] [address] Care Team Providers Care Natural Gas Plant Technician Name Role Phone Bhavik Bah DO Primary Care Provider Encounters Date Type Department Care Team Description 03/28/2024 Telephone [facility] Care Organization [address] [place] [phone] Rosaline Purdy, [facility] Chart Review 03/19/2024 2:00 PM LIVESTOCK SALES REPRESENTATIVE Office Visit [facility] Primary Care [address] [place] [phone] Bhavik Bah DO Routine physical examination (Primary Dx); Need for hepatitis C screening test; Benign essential HTN; Mixed hyperlipidemia; Hypertensive heart disease with congestive heart failure, unspecified heart failure type (HCC); Chronic congestive heart failure, unspecified heart failure type (HCC); Nonrheumatic aortic valve stenosis; Chronic obstructive pulmonary disease with bronchospasm (HCC); Coronary artery disease involving [place] coronary artery of [place] heart without angina pectoris; Diastolic dysfunction; Gastroesophageal reflux disease without esophagitis; Obstructive sleep apnea syndrome; Old myocardial infarction; Peripheral polyneuropathy (CMS/HCC); Peripheral vascular disease (HCC); S/P AVR (aortic valve replacement); S/P CABG (coronary artery bypass graft); Stage 3b chronic kidney disease (HCC); Aortic atherosclerosis (HCC); Intracranial atherosclerosis 03/12/2024 Telephone [facility] [address] [place] [address] [address] [place] [phone] Mayra Thomas Unsuccessful Phone Call 1 ([facility] Med adherence) from Last 3 Months Allergies Active Allergy Reactions Criticality Noted Date [...] mouth daily 90 capsule 3 03/19/2024 03/19/20 25 Active cyclobenzaprine (FLEXERIL) 5 mg tablet Take [...] her bath Coronary artery disease invo lving [place] coronary artery of [place] heart without angina pectoris 06/12/2023 Overview (03/19/2024): [...] artery disease status post CABG with old [place] Continue same medications and follow up with [...] Continue with Cardiology CHF (congestive heart failure) ([facility]) 014 Overview (03/19/2024): CHF is overall stable [...] kidney disease (CKD) , stage IV (severe) ([facility]) 06/12/2023 03/19/2024 Rash 06/12/2023 03/19/2024 Immunizations Name Administration Dates Next Due Influenza, Quad, Adjuvantate d, Intramuscular 01/23/2020 Influenza, Quadrivalent, Hig h Dose, Preservative Free, Intrr 01/27/2022,01/26/2021 Influenza, Quadrivalent, Rec ombinant, Egg Free, Preservative Free, Intramuscular 02/05/2019 Influenza, Trivalent, High D ose, Split, Preservative Free, Intramuscular 03/08/2015 Influenza, Trivalent, IM (MDV) 01/23/2016 Influenza, Unspecified 02/23/2024,2022,02/06/2018,02/17,02/23/2016,03/09/2015,01/20/2014 Pneumococcal Conjugate Pcv20 01/27/2022 Tdap 10/02/2022 ZOSTER Recombinant 02/14/2023 Social History Tobacco Use Types Packs/Day Years Used Date Smoking Tobacco: Former Cigarettes 0.5 10 1 994 - 2004 Smokeless Tobacco: Never Tobacco Cessation:Counseling Given: Not Answered [facility] Utilities Answer Date Recorded In the past 12 months has [employer], [employer], [employer], or water [employer] threatened to shut off services in your [...] week 06/14/2023 How often do you attend [facility] or zoroastrianism services? 1 to 4 times per year 06/14/2023 Do you belong to any clubs o r organizations such as hinduism groups, unions, fraternal or athletic groups, or [...] place to sleep or slept in a chcf (including now)? No 06/13/2023 Personal Safety Answer Date Recorded Have you ever been in or are you currently in a harmful physical or emotional relationship or is someone making you feel afraid or unsafe? Denies 06/22/2023 Comments No Sex and Gender Information Value Date Recorded Sex Assigned at Not on file Legal Sex Female 6:42 PM LIVESTOCK SALES REPRESENTATIVE Gender Identity Not on file Sexual Orientation Not on file Last Filed Vital Signs Vital Sign Reading Time Taken Comments Blood Pressure 120/68 03/19/2024 1:38 PM LIVESTOCK SALES REPRESENTATIVE Pulse 82 03/19/2024 1:38 PM LIVESTOCK SALES REPRESENTATIVE Temperature 36.3 ??C (97.4 ??F) 03/19/2024 1:38 PM CS T Respiratory Rate 18 03/19/2024 1:38 PM LIVESTOCK SALES REPRESENTATIVE Oxygen Saturation 96% 03/19/2024 1:38 PM LIVESTOCK SALES REPRESENTATIVE Inhaled Oxygen Concentration - - Weight 66.7 kg (147 lb) 03/19/2024 1:38 PM LIVESTOCK SALES REPRESENTATIVE Height 152.4 cm (5') 03/19/2024 1:38 PM LIVESTOCK SALES REPRESENTATIVE Body Mass Index 28.71 03/19/2024 1:38 PM LIVESTOCK SALES REPRESENTATIVE Plan of Treatment Not on file Insurance [address] [facility] [address] [place] [id number] [facility] MDCR HMO [facility] Address: [address] [address] [place] [address] MEDICARE SOLUTIONS [facility] Address: [address] [address] [place] [address] Advance Directives For more information, please contact: [phone] * LIMITED - No CPR (Latest Code Status on File) Date Activated Date Inactivated Comments 06/12/2023 5:01 PM 06/16/2023 7:03 PM Care Teams Natural Gas Plant Technician Relationship Specialty Start Date End Date Bhavik Bah DO PCP - General 09/02/18
--- OUTSIDE RECORDS SUMMARY | 2024-05-22 23:07 | XMS_ITS | Encounter Summary ---
Author Organization [facility] Care Team Providers Care Overlay Plastician Name Role Phone Bhavik Bah Primary Care Provider Encounter Details Date Type Department Care Team (Latest Contact Info) Description 05/26/2016 Orders Only [facility]INCON[facility] ProviderSkyla MD [address] [place] [id number] Social History Tobacco Use Types Packs/Day Years Used Date Smoking Tobacco: Never Assessed Comments Unknown Sex and Gender Information Value Date Recorded Sex Assigned at Not on file Legal Sex Female 6:42 PM CANTEEN OPERATOR Gender Identity Not on file Sexual Orientation Not on file documented as of this encounter Plan of Treatment Not on file documented as of this encounter Procedures Procedure Name Priority Date/Time Associated Diagnosis Comments CARDIOLOGY REPORT 07/01/2016 12: 00 AM CANTEEN OPERATOR documented in this encounter Results * CARDIOLOGY REPORT (07/01/2016 12:00 AM CANTEEN OPERATOR) Anatomical Region Laterality Modality Other Narrative 07/01/2016 12:00 AM CANTEEN OPERATOR Ordered by an unspecified provider. Historical Provider [facility] LEXIE CARRENO Final Result documented in this encounter Visit Diagnoses Not on filedocumented in this encounter Additional Health Concerns Infection Onset Date Last Indicated Resolved Time COVID: Suspected 06/12/2023 06/12/2023 06/12/2023 12:05 PM CANTEEN OPERATOR Influenza, adult 06/12/2023 06/12/2023 06/19/2023 3:05 AM CANTEEN OPERATOR documented as of this encounter Care Teams Overlay Plastician Relationship Specialty Start Date End Date Bhavik Bah DO PCP - General 09/02/18 documented as of this encounter
--- OUTSIDE RECORDS SUMMARY | 2024-05-22 23:07 | XMS_ITS | Encounter Summary ---
Author Organization [facility] Address [address] [facility] [place] [address] [place] [address] Care Team Providers Care Assisted Sales Representative Name Role Phone Bhavik Bah DO Primary Care Provider [phone] Rg Morgan MD Unavailable [phone] Encounter Details Date Type Department Care Team (Late Contact Info) Description 09/30/2019 Hospital Follow-up Call [facility] Telemetry Unit [address] [place] [address] Tasia Blanca RN Social History Tobacco Use Types Packs/Day Years Used Date Smoking Tobacco: Former Cigarettes Q uit: 2008 Smokeless Tobacco: Never Alcohol Use Standard Drinks/Week Comments Not Currently 0 (1 standard drink = 0.6 oz pur e alcohol) PHQ-2 Answer Date Recorded PHQ-2 Score 0 08/28/2019 Comments Unknown Sex and Gender Information Value Date Recorded Sex Assigned at Female 10/13/2020 2:35 PM CDT Legal Sex Female 11:45 PM CDT Gender Identity Female 10/13/2020 2:35 PM CDT Sexual Orientation Straight 10/13/2020 2: 35 PM CDT Occupation Industry Job Start Date Job End Date Retired Not on file Not on file Not on file COVID-19 Exposure Response Date Recorded In the last month, have you been in contact with someone who was confirmed or suspected to have Coronavirus / COVID-19? No / Unsure 09/25/2019 5:28 PM CDT documented as of this encounter Plan of Treatment Upcoming Encounters Date Type Department Care Team (Late Contact Info) Description 06/24/2024 1:00 PM SCHOOL BUS MECHANIC Office Visit [facility], [address] [place] [address] Rg Morgan MD [facility]. [address] [place], [place] [address] Mamta Plata PA [address] [facility], [address] [place], [place] [id number] documented as of this encounter Visit Diagnoses Not on filedocumented in this encounter Care Teams Assisted Sales Representative Relationship Specialty Start Date End Date Bhavik Bah DO PCP - General 11/20/16 Rg Morgan MD Three [facility]. [address] [place], [place] [address] Consulting Physician INTERVENTIONAL CARDIOLOGY 03/31/22 documented as of this encounter
[2024-05-22 23:09] VITALS: BP 150/58; PULSE 86; RESP 19; TEMP 37.4; O2SAT 97
--- NOTE | 2024-05-23 01:52 | ED.URI ---
HPI - URI/Sore Throat General Chief Complaint: Upper Respiratory Infection Stated Complaint: flu-like sx Time Seen by Provider: 05/23/24 01:42 Source: patient Mode of arrival: ambulatory Limitations: no limitations History of Present Illness HPI Narrative: This is a 78-year-old female who presents to the ED via EMS from assisted living for chief complaint of URI symptoms beginning today. Patient reports cough, congestion, sore throat, body aches and headache. Patient states multiple people at the [facility] have been sick with similar symptoms but she has been trying to stay in her room. Denies chest pain, shortness of breath, back pain, syncope, sweats, dizziness, abdominal pain, nausea, vomiting, diarrhea. Related Data Home Medications ?Medication ?Instructions ?Recorded ?Confirmed ?Last Taken ?Type amlodipine 5 mg tablet (Norvasc) 10 mg PO DAILY 05/01/19 01/17/24 03/12/20 History metoprolol tartrate 50 mg tablet 50 mg PO DAILY 05/01/19 01/17/24 03/12/20 History (Lopressor) rosuvastatin 40 mg tablet 40 mg PO HS 03/12/20 01/17/24 03/12/20 History ticagrelor 90 mg tablet (Brilinta) 90 mg PO DAILY 03/12/20 01/17/24 03/12/20 History aspirin 81 mg tablet,delayed 81 mg DIRECTED 01/17/24 01/17/24 Unknown History release (Adult Low Dose Aspirin) lisinopril 40 mg tablet 40 mg DIRECTED 01/17/24 01/17/24 Unknown History Allergies Allergy/AdvReac Type Severity Reaction Status Date / Time hydrocodone AdvReac Unknown Vomiting Verified 05/22/24 23:12 Review of Systems Review of Systems: All systems as dictated in HPI COUNTS INCLUDE 234 BEDS AT THE [facility] Past Medical History Medical History CAD (coronary artery disease) Erosive esophagitis Esophageal dilatation Esophageal stricture Esophageal stricture GERD (gastroesophageal reflux disease) Hiatal hernia HLD (hyperlipidemia) HTN (hypertension) NSAID long-term use Surgical History Surgical History H/O: hysterectomy History of coronary artery stent placement after her CABG 2 stents which she claims have restenosed History of esophagogastroduodenoscopy (EGD) Hx of CABG triple bypass Status post surgical removal of neoplasm of skin right thigh Family History Family History Father Diabetes mellitus Heart disease Mother Acute myocardial infarction Sibling Diabetes mellitus Social History Social History Social History: patient has 3 daughters and she is . She is a full code but does not have a power of family law attorney. She is retired from the [employer] and the [employer]. She lives with daughter and son-in-law. She denies any current tobacco use alcohol marijuana or illicit drugs. Smoking packs per day: 1 Smoking cigarettes per day: 20.0 Years smoked: 10 Smoking pack-years: 10.00 Smoking status: Former smoker Additional smoking assessment comments: Haven't had one in almost 12 years. Alcohol intake: never Substance use: never Occupation/Education: retired Gender identity (if verbalized by the patient): Female Spiritual care concerns: No Exam Narrative: GENERAL: Well-appearing, well-nourished, and in no acute distress. HEAD: Normocephalic, atraumatic. EYES: PERRLA and EOMI. ENT: Nares clear, no rhinorrhea or epistaxis. Mucous membranes moist. Oropharynx without tonsillar hypertrophy exudate or other lesions. NECK: Supple. No adenopathy or masses. CHEST: No respiratory distress. Clear to auscultation. No wheezes rales or rhonchi HEART: Regular rate and rhythm. No murmur heard. Normal peripheral pulses. ABDOMEN: Soft, nontender, nondistended, normal active bowel sounds. MSK: Normal range of motion. No edema. SKIN: Warm, dry, no rash. NEURO: Alert and oriented x4. No focal deficits. PSYCH: Normal mood and affect. Course Vital Signs Vital signs: Vital Signs Temperature 99.4 F 05/22/24 23:09 Pulse Rate 86 05/22/24 23:09 Respiratory Rate 19 05/22/24 23:09 Blood Pressure 150/58 H 05/22/24 23:09 Pulse Oximetry 97 05/22/24 23:09 Oxygen Delivery Room Air 05/22/24 23:09 Temperature 99.4 F 05/22/24 23:09 Pulse Rate 80 05/23/24 02:31 Respiratory Rate 17 05/23/24 02:31 Blood Pressure 164/60 H 05/23/24 02:31 Pulse Oximetry 97 05/23/24 02:31 Oxygen Delivery Room Air 05/23/24 02:30 MDM - URI/Sore Throat MDM Narrative Medical decision making narrative: This is a 78-year-old female who presents to the ED for chief complaint of cough, congestion, body aches beginning today. Vitals are normal. Exam is benign and she does not appear toxic. Fully alert oriented. Viral swabs are negative. Lab work unremarkable. Chest x-ray preliminary read shows no acute findings. She is saturating well on room air and does not appear to be in respiratory distress. Presentation consistent with viral syndrome. DX include pneumonia, dehydration, streptococcal pharyngitis, URI. Patient will be discharged in stable condition. Supportive measures discussed and return precautions given. Patient is understanding and agreeable with plan for discharge with PCP follow-up. Differential Diagnosis Differential diagnosis: Likely upper respiratory infection, otitis media, sinusitis, viral infection, bronchitis, influenza and pharyngitis Lab Data 05/23/24 01:54 05/23/24 01:54 Labs: Lab Results 05/23/24 Range/Units 01:54 WBC 9.8 (4.5-10.0) K/mm3 RBC 4.51 (4.2-5.4) M/mm3 Hgb 13.4 (12.0-15.0) g/dL Hct 40.8 (37.0-47.0) % MCV 90.5 (80-100) fl MCH 29.7 (26-34) pg MCHC 32.8 (32-36) g/dl RDW 13.5 (11.5-14.5) % Plt Count 256 (150-375) k/mm3 MPV 10.0 (7.4-10.4) fl Immature Gran % (Auto) 0.2 (0-0.5) % Neut % (Auto) 79.5 H (45.5-73.1) % Lymph % (Auto) 6.5 L (18.3-44.2) % [place] % (Auto) 10.2 H (2.6-8.5) % Eos % (Auto) 3.1 (0-4.4) % Baso % (Auto) 0.5 (0.2-1.2) % Lymph # (Auto) 0.64 L (0.9-3.2) K/mm3 [place] # (Auto) 1.0 H (0.1-0.6) K/mm3 Eos # (Auto) 0.3 (0-0.3) K/mm3 Baso # (Auto) 0.1 (0.0-0.1) K/mm3 Abs Immat Gran (auto) 0.02 (0.00-0.031) K/mm3 Absolute Neuts (auto) 7.8 H (1.3-6.7) K/mm3 Absolute Nucleated RBC 0.000 (0.0-0.012) K/mm3 Nucleated RBC % 0.0 (0.0-0.2) % Sodium 143 (137-145) mmol/L Potassium 4.8 (3.4-5.0) mmol/L Chloride 110 H (98-107) mmol/L Carbon Dioxide 22 (22-30) mmol/L Anion Gap 11 (4-12) mmol/L BUN 22 H (7-17) mg/dL Creatinine 1.63 H (0.7-1.0) mg/dL Estim Creat Clear Calc 22 ml/min Estimated GFR 31 L (59 - ) Glucose 109 (65-110) mg/dL Calcium 10.9 H (8.4-10.2) mg/dL Influenza A (RT-PCR) Negative (Negative) Influenza B (RT-PCR) Negative (Negative) RSV (RT-PCR) Negative (Negative) SARS-CoV-2 RNA (RT-PCR) Negative (Negative) Discharge Plan Discharge Clinical Impression: Upper respiratory infection Patient Disposition: NH Longterm/Asst Living Condition: Stable Instructions: Antibiotic Form Additional Instructions: Exam and imaging today are reassuring overall. No evidence of pneumonia on the chest x-ray. Viral swabs came back negative for COVID or influenza, however symptoms are probably related to a viral syndrome which should resolve over the next several days. If you have any new or worsening symptoms please return to the ER for further evaluation. Patient Language: Czech Prescriptions: No Action lisinopril 40 mg tablet 40 mg DIRECTED aspirin [Adult Low Dose Aspirin] 81 mg Tablet,Delayed Release (Dr/Ec) 81 mg DIRECTED cyclobenzaprine 7.5 mg tablet 7.5 mg PO TID PRN (Reason: muscle spasm) Qty: 14 0RF amlodipine [Norvasc] 5 mg Tablet 10 mg PO DAILY metoprolol tartrate [Lopressor] 50 mg Tablet 50 mg PO DAILY Brilinta 90 mg tablet 90 mg PO DAILY rosuvastatin 40 mg Tablet 40 mg PO HS Follow-up/Referrals: Niurka,Bhavik Khan DO [Primary Care Provider] - Stand Alone Forms: Half-Way Discharge Time of Disposition: 02:48
[2024-05-23] MEDS: ACETAMINOPHEN 500 MG TABLET 1000 MG PO (01:59)
[2024-05-23 02:10] LABS: Basophils Absolute Auto 0.1 K/mm3 (0.0-0.1); Basophils Percent Auto 0.5 % (0.2-1.2); Eosinophils Absolute Auto 0.3 K/mm3 (0-0.3); Eosinophils Percent Auto 3.1 % (0-4.4); Hematocrit 40.8 % (37.0-47.0); Hemoglobin 13.4 g/dL (12.0-15.0); Immature Granulocyte Absolute 0.02 K/mm3 (0.00-0.031); Immature Granulocyte Percent A 0.2 % (0-0.5); Lymphocytes Absolute Auto 0.64 K/mm3 (0.9-3.2); Lymphocytes Percent Auto 6.5 % (18.3-44.2); Mean Corpuscular HGB Conc 32.8 g/dl (32-36); Mean Corpuscular Hemoglobin 29.7 pg (26-34); Mean Corpuscular Volume 90.5 fl (80-100); Monocytes Percent Auto 10.2 % (2.6-8.5); Neutrophils Absolute Auto 7.8 K/mm3 (1.3-6.7); Neutrophils Percent Auto 79.5 % (45.5-73.1); Platelet Count Result 256 k/mm3 (150-375); Red Blood Count 4.51 M/mm3 (4.2-5.4); Red Cell Distribution Width 13.5 % (11.5-14.5); White Blood Count 9.8 K/mm3 (4.5-10.0)
[2024-05-23 02:21] LABS: Anion Gap 11 mmol/L (4-12); Blood Urea Nitrogen 22 mg/dL (7-17); Calcium 10.9 mg/dL (8.4-10.2); Carbon Dioxide 22 mmol/L (22-30); Chloride 110 mmol/L (98-107); Estimated CRCL calculation 22 ml/min; Estimated Glomerular Filt Rate 31; Glucose 109 mg/dL (65-110); Potassium 4.8 mmol/L (3.4-5.0); Sodium 143 mmol/L (137-145)
[2024-05-23 02:30] VITALS: O2SAT 97
[2024-05-23 02:31] VITALS: BP 164/60; PULSE 80; RESP 17; O2SAT 97
--- OUTSIDE RECORDS SUMMARY | 2024-05-23 02:36 | XMS_ITS | Encounter Summary ---
Author Organization [facility] Address [address] [place] [address] [place] [address] Care Team Providers Care Environmental Aide Name Role Phone Bhavik Bah DO Primary Care Provider [phone] Rg Morgan MD Unavailable [phone] Encounter Details Date Type Department Care Team (Late Contact Info) Description 09/30/2019 Hospital Follow-up Call [facility] [place] Telemetry Unit [address] [place] [address] Tasia Blanca RN Social History Tobacco Use [...] (Late Contact Info) Description 06/24/2024 1:00 PM RADIATION / CHEMISTRY TECHNICIAN Office Visit [facility] THREE [facility], [address] [place], [place] [address] Rg Morgan MD Three [facility]. [address] [place], [place] [address] Mamta Plata PA [address] [facility], [address] [place], [place] [id number] documented as of this encounter Visit Diagnoses Not on filedocumented in this encounter Care Teams Environmental Aide Relationship Specialty Start Date End Date Bhavik Bah DO PCP - General 11/20/16 Rg Morgan MD Three [facility]. [address] [place], [place] [phone] Consulting Physician INTERVENTIONAL CARDIOLOGY 03/31/22 documented as of this encounter
--- OUTSIDE RECORDS SUMMARY | 2024-05-23 02:36 | XMS_ITS | Encounter Summary ---
Author Organization [facility] Care Team Providers Care Bobcat Operator Name Role Phone Bhavik Bah Primary Care Provider Encounter Details Date Type Department Care Team (Latest Contact Info) Description 05/26/2016 Orders Only [facility] CLINCONV ProviderSkyla MD [address] [place] [id number] Social History Tobacco Use Types Packs/Day Years Used Date Smoking Tobacco: Never Assessed Comments Unknown Sex and Gender Information Value Date Recorded Sex Assigned at Not on file Legal Sex Female 6:42 PM CLASSIFIED ADVERTISING MANAGER Gender Identity Not on file Sexual Orientation Not on file documented as of this encounter Plan of Treatment Not on file documented as of this encounter Procedures Procedure Name Priority Date/Time Associated Diagnosis Comments CARDIOLOGY REPORT 07/01/2016 12: 00 AM CLASSIFIED ADVERTISING MANAGER documented in this encounter Results * CARDIOLOGY REPORT (07/01/2016 12:00 AM CLASSIFIED ADVERTISING MANAGER) Anatomical Region Laterality Modality Other Narrative 07/01/2016 12:00 AM CLASSIFIED ADVERTISING MANAGER Ordered by an unspecified provider. Historical Provider [facility] LEXIE CARRENO Final Result documented in this encounter Visit Diagnoses Not on filedocumented in this encounter Additional Health Concerns Infection Onset Date Last Indicated Resolved Time COVID: Suspected 06/12/2023 06/12/2023 06/12/2023 12:05 PM CLASSIFIED ADVERTISING MANAGER Influenza, adult 06/12/2023 06/12/2023 06/19/2023 3:05 AM CLASSIFIED ADVERTISING MANAGER documented as of this encounter Care Teams Bobcat Operator Relationship Specialty Start Date End Date Bhavik Bah DO PCP - General 09/02/18 documented as of this encounter
--- OUTSIDE RECORDS SUMMARY | 2024-05-23 02:36 | XMS_ITS | Clinical Summary ---
Author Organization [facility] Address [address] [place] [address] [place] [address] Care Team Providers Care Sandwich And Drink Cart Operator Name Role Phone Bhavik Bah DO Primary Care Provider Rg Morgan MD Unavailable [phone] Allergies Active Allergy Reactions Criticality Noted Date [...] Rash 06/12/2023 Coronary artery disease invo lving tonawanda coronary artery of tonawanda heart without angina pectoris 06/12/2023 Benign essential HTN 06/12/2023 Chronic kidney disease (CKD) , stage IV (severe) ([facility]) 06/12/2023 Assessment & Plan (11/07/2023 9:39 AM CDT): She had an acute and chronic kidney injury during hospitalization in May. We'll check another basic metabolic panel. Chest pain 08/30/2022 Diastolic dysfunction 11/15/2021 Overview (11/15/2021): Noted on Echo October 2021 Skin tear of right forearm without complication 01/27/2021 Stage 4 chronic kidney disease ([facility]) 03/27/2020 Assessment & Plan (09/29/2021 2:04 PM CDT): Followed by nephrology Lisinopril Assessment & Plan (04/01/2021 10:44 AM SEARCH MARKETING ANALYST): Stable with re-initiation of lisinopril at last [...] infa rction involving left circumflex coronary artery ([facility]) 09/25/2019 STEMI involving oth coronary artery of inferior wall ([facility]) 09/25/2019 Stage 3 chronic kidney disease ([facility]) 08/28/2019 Trochanteric bursitis of left hip 06/15/2019 Right shoulder injury 11/02/2018 Hypertensive CHF ([facility]) 08/15/2018 Assessment & Plan (09/30/2021 9:15 AM CDT): Blood pressure is elevated today and confirmed at home - increasing lisinopril to 40mg daily Encouraged to continue to monitor at home and log and call office with any concerns in future. 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 Continue Aspirin, Ticagrelor. She is currently on a PCSK9 inhibitor, but has not been approved by insurance. We'll check with the pharmacy about a smaller Statin pill to see if that will help with insurance coverage. Assessment & Plan (05/11/2023 12:14 PM SEARCH MARKETING ANALYST): She is not having angina.Continue aspirin, ticagrelor, [...] year. Assessment & Plan (05/11/2023 12:15 PM SEARCH MARKETING ANALYST): She requires dental prophylaxis and her most recent echo showed appropriate valve function. Assessment & Plan (07/17/2022 10:28 AM CDT): She requires dental prophylaxis and her most recent echo showed appropriate valve function. Assessment & Plan (09/29/2021 2:03 PM CDT): Last echo 2019 revealed a well functioning bioprosthetic aortic valve ? Assessment & Plan (04/01/2021 10:43 AM SEARCH MARKETING ANALYST): Last echo 2019 revealed a well functioning [...] ?? Assessment & Plan (04/01/2021 11:08 AM SEARCH MARKETING ANALYST): S/p CABG S/p PCI CFX 09/2019 - Brilinta dose decreasing to 60mg BID continued with ASA 81mg daily Statin therapy was restarted at last APPT - will need repeat lipid panel in 4-6 weeks Assessment & Plan (02/26/2021 9:19 PM CDT): She is not having angina.Continue aspirin, ticagrelor, metoprolol and I restarted rosuvastatin today. CHF (congestive heart failure) ([facility]) 09/02/2013 Gastroesophageal reflux disease without esophagi tis 09/02/2013 Mixed hyperlipidemia 09/02/2013 Assessment & Plan (11/07/2023 9:39 AM CDT): We checked with the pharmacy, Atorvastatin 10mg is a smaller pill. Start Atorvastatin 10mg, and we'll try to get her PCSK9 inhibitor approved. Assessment & Plan (05/11/2023 12:15 PM SEARCH MARKETING ANALYST): Her most recent LDL is elevated. She [...] lisinopril. Assessment & Plan (04/01/2021 11:07 AM SEARCH MARKETING ANALYST): Blood pressure is midly increased - increasing [...] Type Department Care Team Description 02/29/2024 Telephone [facility] [address] Tonie Jeter, [facility] Patient Assistance (Tariqilinta - 2024) from Last 3 Months Immunizations Name Administration Dates Next Due Flublok (Quadrivalent) 02/05/2019 Influenza (Generic) 02/17/2017,02/23/2016,2013 Influenza Adult (Generic) 01/12/2023,09/2021,01/26/2021,2019,02/06/2018,03/09/2015 MODERNA COVID-19 (12+) MRNA, LNP-S, PF, 100 MCG/ 0.5 ML DOSE 06/16/2020,05/19/2020 MODERNA COVID-19 (TERRAZZO POLISHER FRANCISCA NAIN), MRNA, LNP-S, PF, 50 MCG/ [...] slept in a custodial (including now)? No 08/31/2022 Comments No Sex [...] st Contact Info) Description 06/24/2024 1:00 PM SEARCH MARKETING ANALYST Office Visit [facility], [address] [place] [address] Rg Morgan MD [facility] [place] [address] Mamta Plata PA [address] [facility], [address] [place] [address] Health Maintenance Due Date Last Done Comments [...] discharge from hospital Lifestyle No Mamta Nunez, bath attendant Procedure Name Priority Date/Time Associated Diagnosis Comments LIPID PANEL Routine 02/17/2023 10:04 AM CDT Mixed hyperlipidemia COLONOSCOPY Routine 05/25/2013 12:00 AM SEARCH MARKETING ANALYST from Last 3 Months or Most Recently Relevant to Health Maintenance Results * (ABNORMAL) LIPID PANEL (02/17/2023 10:04 AM CDT) [facility] CHOLESTEROL 251(H) 0 - 199 MG/DL [facility] TRIGLYCERIDES 228(H) 0.00 - 150.00 MG/DL [facility] Comment: NCEP REFERENCE VALUES FOR TRIGLYCERIDES: NORMAL: ? <150 MG/DL BORDERLINE HIGH: ?150 - 199 MG/DL HIGH: ? 200 - 499 MG/DL VERY HIGH: ?>/= 500 MG/DL HDL 61 >40 MG/DL [facility] LDL (CALCULATED) 151(H) 0 - 99 MG/DL [facility] Comment: CUTOFF VALUES RECOMMENDED BY THE NATIONAL CHOLESTEROL EDUCATION PROGRAM: DESIRABLE: ?CHOLESTEROL <200 MG/DL ? LDL <100 MG/DL BORDERLINE: ?? CHOLESTEROL 200-239 MG/DL ?LDL 101-159 MG/DL HIGHER RISK: ??CHOLESTEROL >240 MG/DL ? LDL >160 MG/DL, HDL <40 MG/DL NON HDL CHOLESTEROL 190 NO REFERENCE RANGE MG/DL [facility] Comment: A REASONABLE GOAL FOR NON-HDL CHOLESTEROL IS ONE THAT IS 30 MG/DL HIGHER THAN THE LDL CHOLESTEROL GOAL. CHOL/HDL RATIO 4.1 0.0 - 5.[address] [facility] Comment: IS PATIENT FASTING?->YES ON AUGUST 16, 2022, [facility] CHANGED THE EQUATION FOR CALCULATING ESTIMATED [...] OR PATIENT IS NON-FASTING. REFERENCES: - ARMOND GORDON, MARIFER RODRIGUEZ, AYESHA SANTIAGO, BERNADETTE YATES, BERNADETTE DALAL, GONSALO KAUFFMAN, AND COLIN ANDERSON. 2013. COMPARISON OF A NOVEL METHOD VS THE [employer] EQUATION FOR ESTIMATING LOW-DENSITY LIPOPROTEIN CHOLESTEROL LEVELS FROM THE STANDARD LIPID PROFILE. RITU: THE JOURNAL OF THE [employer] 310 (19): 2061-68. - MEGHAN V, TRINA J, RAMON A, FRAN M, LILIA R, JOHN E, DALY RS, MONICA SR, EVAN SS. FASTING VERSUS NONFASTING AND LOW-DENSITY LIPOPROTEIN CHOLESTEROL ACCURACY. CIRCULATION. 2018 APR 25;137(1):10-19. 02/17/2023 10:0 4 AM CDT 02/18/2023 6:22 AM CDT Bhavik Bah DO LABORATORY Final Resul t [facility] [address] [place] [address], * Colonoscopy (05/25/2013 12:00 AM SEARCH MARKETING ANALYST) 05/25/2013 05/25/2013 Narrative [facility] TO EPIC CONVERSION - 05/25/2013 12:00 AM SEARCH MARKETING ANALYST Documented hx of procedure Procedure Note Md Generic ConversionMD - 02/25/2018 Documented hx of procedure Generic Conversion Md [facility] PROCEDURE ORDERABLES Final Result [facility] TO EPIC CONVERSION from Last 3 Months or Most Recently Relevant to Health Maintenance Insurance [employer] [facility] * Guarantor: Danielle Swan Account Type Relation to Patient Date of Phone Billing Address Personal/Family Self 1945 [address] [facility] [address] [place] [address] [facility] Advance Directives * Full Code (Latest Code Status on File) Date Activated Date Inactivated Comments 08/31/2022 12:07 AM 09/01/2022 4:43 PM * Full Code Date Activated Date Inactivated Comments 09/25/2019 8:26 PM 09/27/2019 2:56 PM * Full Code Date Activated Date Inactivated Comments 09/25/2019 7:59 PM 09/25/2019 8:26 PM Care Teams Sandwich And Drink Cart Operator Relationship Specialty Start Date End Date Bhavik Bah DO PCP - General 11/20/16 Rg Morgan MD [address] [id number] Consulting Physician INTERVENTIONAL CARDIOLOGY 03/31/22
--- OUTSIDE RECORDS SUMMARY | 2024-05-23 02:36 | XMS_ITS | Referral Summary ---
Author Organization [facility] Address [address] [place] [address] Care Team Providers Care Tonnage Compilation Clerk Name Role Phone Bhavik Bah DO Primary Care Provider Encounters Date Type Department Care Team Description 03/28/2024 Telephone [facility] Care Organization [address] [place] [address] Rosaline Purdy, [facility] Chart Review 03/19/2024 2:00 PM FURNACE ERECTOR Office Visit [facility] Primary Care [address] [place] [phone] Bhavik Bah DO Routine physical examination (Primary Dx); Need for hepatitis C screening test; Benign essential HTN; Mixed hyperlipidemia; Hypertensive heart disease with congestive heart failure, unspecified heart failure type (HCC); Chronic congestive heart failure, unspecified heart failure type (HCC); Nonrheumatic aortic valve stenosis; Chronic obstructive pulmonary disease with bronchospasm (HCC); Coronary artery disease involving comanche coronary artery of comanche heart without angina pectoris; Diastolic dysfunction; Gastroesophageal reflux disease without esophagitis; Obstructive sleep apnea syndrome; Old myocardial infarction; Peripheral polyneuropathy (CMS/HCC); Peripheral vascular disease (HCC); S/P AVR (aortic valve replacement); S/P CABG (coronary artery bypass graft); Stage 3b chronic kidney disease (HCC); Aortic atherosclerosis (HCC); Intracranial atherosclerosis 03/12/2024 Telephone [facility] Care [address] [place] [address] [address] [place] [phone] Mayra Thomas Unsuccessful Phone Call 1 ([facility] Med adherence) from Last 3 Months Allergies [...] her bath Coronary artery disease invo lving comanche coronary artery of comanche heart without angina pectoris 06/12/2023 Overview (03/19/2024): [...] artery disease status post CABG with old NV Continue same medications and follow up with [...] Continue with Cardiology CHF (congestive heart failure) ([facility]) 014 Overview (03/19/2024): CHF is overall stable [...] kidney disease (CKD) , stage IV (severe) ([facility]) 06/12/2023 03/19/2024 Rash 06/12/2023 03/19/2024 Immunizations Name [...] Tobacco: Never Tobacco Cessation:Counseling Given: Not Answered [facility] Utilities Answer Date Recorded In the past 12 months has [employer], [employer], [employer] or water [employer] threatened to shut off services in your [...] week 06/14/2023 How often do you attend [facility] or jain services? 1 to 4 times per year 06/14/2023 Do you belong to any clubs o r organizations such as lutheran groups, unions, fraternal or athletic groups, or [...] place to sleep or slept in a assisted (including now)? No 06/13/2023 Personal Safety Answer Date Recorded Have you ever been in or are you currently in a harmful physical or emotional relationship or is someone making you feel afraid or unsafe? Denies 06/22/2023 Comments No Sex and Gender Information Value Date Recorded Sex Assigned at Not on file Legal Sex Female 6:42 PM FURNACE ERECTOR Gender Identity Not on file Sexual Orientation Not on file Last Filed Vital Signs Vital Sign Reading Time Taken Comments Blood Pressure 120/68 03/19/2024 1:38 PM FURNACE ERECTOR Pulse 82 03/19/2024 1:38 PM FURNACE ERECTOR Temperature 36.3 ??C (97.4 ??F) 03/19/2024 1:38 PM CS T Respiratory Rate 18 03/19/2024 1:38 PM FURNACE ERECTOR Oxygen Saturation 96% 03/19/2024 1:38 PM FURNACE ERECTOR Inhaled Oxygen Concentration - - Weight 66.7 kg (147 lb) 03/19/2024 1:38 PM FURNACE ERECTOR Height 152.4 cm (5') 03/19/2024 1:38 PM FURNACE ERECTOR Body Mass Index 28.71 03/19/2024 1:38 PM FURNACE ERECTOR Plan of Treatment Not on file Insurance [employer] Advance Directives For more information, please contact: [phone] * LIMITED - No CPR (Latest Code Status on File) Date Activated Date Inactivated Comments 06/12/2023 5:01 PM 06/16/2023 7:03 PM Care Teams Tonnage Compilation Clerk Relationship Specialty Start Date End Date Bhavik Bah DO PCP - General 09/02/18
--- OUTSIDE RECORDS SUMMARY | 2024-05-23 02:36 | XMS_ITS | Encounter Summary ---
Author Organization [facility] Healthcare Address [address] [place] [address] Care Team Providers Care Greek Professor Name Role Phone Bhavik Bah DO Primary Care Provider Encounter Details Date Type Department Care Team (Late st Contact Info) Description 01/17/2024 [place] Only [facility] [place] Information Management [address] [place] [id number] Scanning, Provider Social History Tobacco Use Types Packs/Day Years Used Date Smoking Tobacco: Former Cigarettes Smokeless Tobacco: Never [facility] Utilities Answer Date Recorded In the past 12 months has [employer], gas, oil, or water [employer] threatened to shut off services in your [...] often do you attend chur ch or confucianist services? 1 to 4 times per year 06/14/2023 Do you belong to any clubs o r organizations such as anabaptism groups, unions, fraternal or athletic groups, or [...] place to sleep or slept in a care home (including now)? No 06/13/2023 Personal Safety Answer Date Recorded Have you ever been in or are you currently in a harmful physical or emotional relationship or is someone making you feel afraid or unsafe? Denies 06/22/2023 Comments No Sex and Gender Information Value Date Recorded Sex Assigned at Not on file Legal Sex Female 6:42 PM DEPARTMENT OPERATIONS MANAGER Gender Identity Not on file Sexual [...] on filedocumented in this encounter Care Teams Greek Professor Relationship Specialty Start Date End Date Bhavik Bah DO PCP - General 09/02/18 documented as of this encounter
--- OUTSIDE RECORDS SUMMARY | 2024-05-23 02:36 | XMS_ITS | Clinical Summary ---
Author Organization [facility] Address [address] [place] [address] Care Team Providers Care Division Roadmaster Name Role Phone [place] monk Primary Care Provider Allergies Active Allergy [...] her bath Coronary artery disease invo lving [place] coronary artery of [place] heart without angina pectoris 06/12/2023 Overview (03/19/2024): [...] artery disease status post CABG with old UT Continue same medications and follow up with [...] Continue with Cardiology CHF (congestive heart failure) ([facility]) 014 Overview (03/19/2024): CHF is [...] Type Department Care Team Description 03/28/[address] [address] Rosaline Purdy, [facility] Chart Review 03/19/2024 2:00 PM DIRECTOR FIXED INCOME Office Visit [facility] Primary Care [address] [place] [phone] Bhavik Bah DO Routine physical examination (Primary Dx); Need for hepatitis C screening test; Benign essential HTN; Mixed hyperlipidemia; Hypertensive heart disease with congestive heart failure, unspecified heart failure type (HCC); Chronic congestive heart failure, unspecified heart failure type (HCC); Nonrheumatic aortic valve stenosis; Chronic obstructive pulmonary disease with bronchospasm (HCC); Coronary artery disease involving [place] coronary artery of [place] heart without angina pectoris; Diastolic dysfunction; Gastroesophageal reflux disease without esophagitis; Obstructive sleep apnea syndrome; Old myocardial infarction; Peripheral polyneuropathy (CMS/HCC); Peripheral vascular disease (HCC); S/P AVR (aortic valve replacement); S/P CABG (coronary artery bypass graft); Stage 3b chronic kidney disease (HCC); Aortic atherosclerosis (HCC); Intracranial atherosclerosis 03/12/2024 Telephone [facility] Care [address] [place] [phone] Mayra Thomas Unsuccessful Phone Call 1 ([facility] Med adherence) from Last 3 Months Immunizations [...] Tobacco: Never Tobacco Cessation:Counseling Given: Not Answered [facility] Utilities Answer Date Recorded In the past 12 months has [employer], gas, oil, or water company threatened to [...] often do you attend chur ch or orthodox services? 1 to 4 times per year 06/14/2023 Do you belong to any clubs o r organizations such as episcopal groups, unions, fraternal or athletic groups, or [...] place to sleep or slept in a long-term (including now)? No 06/13/2023 Personal Safety Answer Date Recorded Have you ever been in or are you currently in a harmful physical or emotional relationship or is someone making you feel afraid or unsafe? Denies 06/22/2023 Comments No Sex and Gender Information Value Date Recorded Sex Assigned at Not on file Legal Sex Female 6:42 PM DIRECTOR FIXED INCOME Gender Identity Not on file Sexual Orientation Not on file Obstetrics History Last Filed Vital Signs Vital Sign Reading Time Taken Comments Blood Pressure 120/68 03/19/2024 1:38 PM DIRECTOR FIXED INCOME Pulse 82 03/19/2024 1:38 PM DIRECTOR FIXED INCOME Temperature 36.3 ??C (97.4 ??F) 03/19/2024 1:38 PM CS T Respiratory Rate 18 03/19/2024 1:38 PM DIRECTOR FIXED INCOME Oxygen Saturation 96% 03/19/2024 1:38 PM DIRECTOR FIXED INCOME Inhaled Oxygen Concentration - - Weight 66.7 kg (147 lb) 03/19/2024 1:38 PM DIRECTOR FIXED INCOME Height 152.4 cm (5') 03/19/2024 1:38 PM DIRECTOR FIXED INCOME Body Mass Index 28.71 03/19/2024 1:38 PM DIRECTOR FIXED INCOME Plan of Treatment Health Maintenance Due Date [...] , 01/27/2022, Additional history exists Insurance [address] [place] [address] [employer] HMO REF [address] [place] [address] MEDICARE [employer]UTIONS Advance Directives For more information, please contact: [phone] * LIMITED - No CPR (Latest Code Status on File) Date Activated Date Inactivated Comments 06/12/2023 5:01 PM 06/16/2023 7:03 PM Care Teams Division Roadmaster Relationship Specialty Start Date End Date Bhavik Bah DO PCP - General 09/02/18
[2024-05-23 02:45] LABS: Influenza A QL RT-PCR Negative (Negative); Influenza B QL RT-PCR Negative (Negative); RSV RNA, RT-PCR Negative (Negative); SARS-CoV-2 RNA PCR Negative (Negative)
== END 2024-05-23 03:14 ==
PROVIDERS: Emergency Provider Physician Assistant; PCP Family Medicine
DX: J06.9 Acute upper respiratory infection, unspecified (principal); Z20.822 Contact with and (suspected) exposure to COVID-19; I10 Essential (primary) hypertension; I25.10 Atherosclerotic heart disease of native coronary artery without angina pectoris; E78.5 Hyperlipidemia, unspecified; K21.9 Gastro-esophageal reflux disease without esophagitis; K44.9 Diaphragmatic hernia without obstruction or gangrene; Z95.1 Presence of aortocoronary bypass graft; Z95.5 Presence of coronary angioplasty implant and graft; Z87.891 Personal history of nicotine dependence; Z90.710 Acquired absence of both cervix and uterus
CPT/HCPCS: 36415; 71045; 80048; 85025; 87637; 99283; A9270

== ENCOUNTER 2024-06-17 20:06 | Emergency (ER) | payer MEDICARE, SELFPAY ==
--- NOTE | ~2024-06-17 | CT_ITS ---
CT of the Abdomen and Pelvis: Indication: Abdominal pain Technique: 2.5 mm axial scans were obtained through the abdomen and pelvis following intravenous adm inistration of 100 cc of Omnipaque 350. Dose reduction technique was used on this scan by utilizing a utomated exposure control and iterative reconstruction technique. The dose-length product (DLP) was 5 43.22 mGy-cm. COMPARISON: 01/09/2024 Findings: Scans through the lung bases are unremarkable. Moderate hiatal hernia present. The liver, spleen, pancreas, gallbladder, and left adrenal gland are within normal limits. Small bila teral renal cysts are present. Stable small right adrenal nodule, likely adenoma. There are extensive atherosclerotic calcifications of the aorta and iliac vessels. No lymphadenopathy. No bowel obstruction. Possible minimal acute sigmoid diverticulitis versus chronic muscular hypertrop hy due to diverticular disease. Images through the pelvis were performed. Urinary bladder unremarkable. Status post hysterectomy. No pelvic mass seen. No ascites. Impression: Probable minimal acute sigmoid diverticulitis. Stable small right adrenal nodule, likely adenoma. Moderate hiatal hernia. Reviewed, dictated and finalized at [facility]. [place] PROJECT MANAGER Impression: Probable minimal acute sigmoid diverticulitis. Stable small right adrenal nodule, likely adenoma. Moderate hiatal hernia.
--- OUTSIDE RECORDS SUMMARY | 2024-06-17 20:09 | XMS_ITS | Encounter Summary ---
Author Organization [facility] Care Team Providers Care Machine Washer Name Role Phone Bhavik Bah Primary Care Provider Encounter Details Date Type Department Care Team (Latest Contact Info) Description 05/26/2016 Orders Only [facility] ProviderSkyla MD [address] [place] [id number] Social History Tobacco Use Types Packs/Day Years Used Date Smoking Tobacco: Never Assessed Comments Unknown Sex and Gender Information Value Date Recorded Sex Assigned at Not on file Legal Sex Female 6:42 PM STEP DOWN NURSE Gender Identity Not on file Sexual Orientation Not on file documented as of this encounter Plan of Treatment Not on file documented as of this encounter Procedures Procedure Name Priority Date/Time Associated Diagnosis Comments CARDIOLOGY REPORT 07/01/2016 12: 00 AM STEP DOWN NURSE documented in this encounter Results * CARDIOLOGY REPORT (07/01/2016 12:00 AM STEP DOWN NURSE) Anatomical Region Laterality Modality Other Narrative 07/01/2016 12:00 AM STEP DOWN NURSE Ordered by an unspecified provider. Historical Provider [facility] LEXIE CARRENO Final Result documented in this encounter Visit Diagnoses Not on filedocumented in this encounter Additional Health Concerns Infection Onset Date Last Indicated Resolved Time COVID: Suspected 06/12/2023 06/12/2023 06/12/2023 12:05 PM STEP DOWN NURSE Influenza, adult 06/12/2023 06/12/2023 06/19/2023 3:05 AM STEP DOWN NURSE COVID: Suspected 05/24/2024 05/24/2024 05/24/2024 8:36 PM STEP DOWN NURSE documented as of this encounter Care Teams Machine Washer Relationship Specialty Start Date End Date Bhavik Bah DO PCP - General 09/02/18 documented as of this encounter
--- OUTSIDE RECORDS SUMMARY | 2024-06-17 20:09 | XMS_ITS | Referral Summary ---
Author Organization [facility] Address [address] [place] [address] Care Team Providers Care Blood Bank Specialist Name Role Phone Bhavik Bah DO Primary Care Provider Encounters Date Type Department Care Team Description 05/24/2024 7:15 PM DEPUTY DIRECTOR OF FINANCE - 05/25/2024 3:50 AM [facility] Emergency [facility] [address] [place] [address] Nausea and vomiting, unspecified vomiting type (Primary Dx); Urinary tract infection in female Discharge Disposition: Discharge to home or self care 05/23/2024 Orders Only [facility] Health Information Management [address] [place] [address] Scanning, Provider 03/28/[address] [facility] Accountable Care Organization [address] [place] [address] Rosaline Purdy [facility] Chart Review 03/19/2024 2:00 PM DEPUTY DIRECTOR OF FINANCE Office Visit [facility] Medical Group Primary Care [address] [place] [phone] Bhavik Bah DO Routine physical examination (Primary Dx); Need for hepatitis C screening test; Benign essential HTN; Mixed hyperlipidemia; Hypertensive heart disease with congestive heart failure, unspecified heart failure type (HCC); Chronic congestive heart failure, unspecified heart failure type (HCC); Nonrheumatic aortic valve stenosis; Chronic obstructive pulmonary disease with bronchospasm (HCC); Coronary artery disease involving [place] coronary artery of [place] heart without angina pectoris; Diastolic dysfunction; Gastroesophageal reflux disease without esophagitis; Obstructive sleep apnea syndrome; Old myocardial infarction; Peripheral polyneuropathy (CMS/HCC); Peripheral vascular disease ([facility]); S/P AVR (aortic valve replacement); S/P CABG (coronary artery bypass graft); Stage 3b chronic kidney disease ([facility]); Aortic atherosclerosis ([facility]); Intracranial atherosclerosis from Last 3 Months Allergies Active Allergy [...] mouth daily for 7 days 7 tablet 4 Active lansoprazole (PREVACID) 30 mg capsuleIndications :Gastroesophageal reflux disease without esophagitis Take 1 capsule (30 mg total) by mouth daily 90 capsule 3 4 03/19/20 25 Active cyclobenzaprine (FLEXERIL) 5 mg tablet Take 1 tablet (5 mg total) by mouth 2 (two) times a day as needed for muscle spasms 60 tablet 1 4 Active ondansetron ODT (ZOFRAN-ODT) 4 mg disintegrating tablet Take 1 tablet (4 mg total) by mouth every 8 (eight) hours as needed for nausea or vomiting 20 tablet 5 Active cephalexin (KEFLEX) 500 mg capsule Take 0.5 capsules (250 mg total) by mouth 3 (three) times a day for 10 days 30 capsule 5 06/04/19 25 Active Problems Problem Noted Date Diagnosed Date [...] her bath Coronary artery disease invo lving [place] coronary artery of [place] heart without angina pectoris 06/12/2023 Overview (03/19/2024): [...] artery disease status post CABG with old SD Continue same medications and follow up with Cardiology Hypertensive CHF 08/15/2018 Overview (03/19/2024): Hypertension with congestive heart failure is overall stable Continue same medications Continue follow up with Cardiology S/P AVR (aortic valve replacement) 06/13/2016 Overview (03/19/2024): AVR and 2 vessel CABG May 26, 2016 S/P CABG (coronary artery bypass graft) 06/13/19 Overview (03/19/2024): Description: AVR and 2v CABG 05/26/16 Aortic valve stenosis 12/07/2015 Overview (03/19/2024): AV stenosis s/p AVR Doing well Continue with Cardiology CHF (congestive heart failure) ([facility]) 014 Overview (03/19/2024): CHF is overall [...] kidney disease (CKD) , stage IV (severe) ([facility]) 06/12/2023 03/19/2024 Rash 06/12/2023 03/19/2024 Immunizations Immunization Administration Dates Next Due Influenza, Quad, Adjuvantate [...] Smoking Tobacco: Former Cigarettes 0.5 10 1 4 - 2003 Smokeless Tobacco: Never Tobacco Cessation:Counseling Given: Not Answered [facility] [employer] Answer Date Recorded In the past 12 months has [employer], gas, oil, or water [employer] threatened to shut off services in your [...] week 06/14/2023 How often do you attend [facility] or hoahaoism services? 1 to 4 times per year 06/14/2023 Do you belong to any clubs o r organizations such as amish groups, unions, fraternal or athletic groups, or [...] place to sleep or slept in a residential (including now)? No 06/13/2023 Personal Safety Answer Date Recorded Have you ever been in or are you currently in a harmful physical or emotional relationship or is someone making you feel afraid or unsafe? Denies 05/24/2024 Comments No Sex and Gender Information Value Date Recorded Sex Assigned at Not on file Legal Sex Female 6:42 PM DEPUTY DIRECTOR OF FINANCE Gender Identity Not on file Sexual Orientation Not on file Last Filed Vital Signs Vital Sign Reading Time Taken Comments Blood Pressure 138/70 05/25/2024 1:37 AM DEPUTY DIRECTOR OF FINANCE Pulse 78 05/25/2024 1:37 AM DEPUTY DIRECTOR OF FINANCE Temperature 37.1 C (98.7 F) 05/24/2024 7:17 PM DEPUTY DIRECTOR OF FINANCE Respiratory Rate 16 05/25/2024 1:37 AM DEPUTY DIRECTOR OF FINANCE Oxygen Saturation 98% 05/25/2024 1:37 AM DEPUTY DIRECTOR OF FINANCE Inhaled Oxygen Concentration - - Weight 66.7 kg (147 lb) 03/19/2024 1:38 PM DEPUTY DIRECTOR OF FINANCE Height 152.4 cm (5') 05/24/2024 7:17 PM DEPUTY DIRECTOR OF FINANCE Body Mass Index 28.71 03/19/2024 1:38 PM DEPUTY DIRECTOR OF FINANCE Plan of Treatment Not on file Procedures Procedure Name Priority Date/Time Associated Diagnosis Comments CT ABDOMEN PELVIS WO CONTRAST ED 05/24/2024 9:23 PM DEPUTY DIRECTOR OF FINANCE URINALYSIS, MICROSCOPIC ONLY STAT 05/24/2024 7:54 PM DEPUTY DIRECTOR OF FINANCE URINE CULTURE STAT 05/24/2024 7:54 PM DEPUTY DIRECTOR OF FINANCE URINALYSIS AND REFLEX TO MICROSCOPIC AND CULTURE STAT 05/24/2024 7:54 PM DEPUTY DIRECTOR OF FINANCE EGFR STAT 05/24/2024 7:46 PM DEPUTY DIRECTOR OF FINANCE DIFFERENTIAL AUTO STAT 05/24/2024 7:4 6 PM DEPUTY DIRECTOR OF FINANCE COMPREHENSIVE METABOLIC PANEL STAT 05/24/2024 7:46 PM DEPUTY DIRECTOR OF FINANCE CBC WITH AUTO DIFFERENTIAL STAT 05/24/2024 7:46 PM DEPUTY DIRECTOR OF FINANCE INFLUENZA A/B, RSV, AND COVID-19 PCR Routine 05/24/2024 7:46 PM DEPUTY DIRECTOR OF FINANCE SCAN - RADIOLOGY/IMAGING 05/23/2024 from Last 3 Months Results * CT Abdomen Pelvis WO Contrast (05/24/2024 9:23 PM DEPUTY DIRECTOR OF FINANCE) Anatomical Region Laterality Modality Body N/A Computed Tomogra phy 05/24/2024 9:26 PM DEPUTY DIRECTOR OF FINANCE Narrative 05/24/2024 9:37 PM DEPUTY DIRECTOR OF FINANCE EXAM DESCRIPTION: CT ABDOMEN PELVIS WO CONTRAST REASON FOR STUDY: Nausea with vomiting. Vomiting since Monday. TECHNIQUE: CT scan of the abdomen and pelvis performed without intravenous and without oral contrast using helical scanning technique. Reconstructed coronal and sagittal MPR images reviewed. All images stored on PACS. Automated exposure control was used as a dose optimization technique for this examination. COMPARISON: CT abdomen and pelvis 09/23/2019 FINDINGS: The sensitivity for detection of visceral lesions is diminished without the use of intravenous contrast. LOWER CHEST: Noncalcified 4 mm nodule in the lingula (image 14) is new. According to recent guidelines by the Fleischner Society, no follow up is required for incidental nodules less than 6 mm found on incomplete thoracic imaging on the basis of estimated low risk of malignancy. These recommendations do not apply to patients with immunosuppression, or patients with known primary cancer. Prior sternotomy. Aortic valve replacement. LIVER: No focal liver lesion. GALLBLADDER: No calcified gallstones. BILE DUCTS: No intrahepatic or extrahepatic ductal dilatation. SPLEEN: Normal size. No focal lesions. PANCREAS: No masses. No adjacent inflammation or peripancreatic fluid collections. No pancreatic ductal dilatation. ADRENALS: Normal. KIDNEYS/URINARY TRACT: Cyst in the interpolar left kidney with a thin peripheral calcification measures 2.3 cm and requires no specific follow-up. Small cyst in the upper pole of the right kidney is unchanged and requires no specific follow-up. Cyst in the lower pole of the right kidney requires no specific follow-up. No hydronephrosis. Urinary bladder is unremarkable. GI: Severe sigmoid colon diverticulosis. No diverticulitis. Normal appendix. Small to moderate-sized hiatal hernia. No dilated loops of bowel to suggest obstruction. PERITONEUM: No ascites or free air. RETROPERITONEUM: No mass or lymphadenopathy. REPRODUCTIVE: No significant abnormality. VASCULATURE: Atherosclerotic calcification of the abdominal aorta without aneurysm. MUSCULOSKELETAL: Moderate thoracolumbar spondylosis. OTHER: No other abnormality. IMPRESSION: No abnormality to explain the patient's symptoms. Severe sigmoid colon diverticulosis. No diverticulitis. Small to moderate-sized hiatal hernia. THIS IS AN ELECTRONICALLY VERIFIED FINAL REPORT 05/24/2024 9:37 PM - Electronically signed by Jaziel Casillas M.D. LB T: Report ID: [id number] Reading Location: [id number] Procedure Note Jaziel Casillas MD - 05/24/2024 EXAM DESCRIPTION: CT ABDOMEN PELVIS WO CONTRAST REASON FOR STUDY: Nausea with vomiting. Vomiting since Monday. TECHNIQUE: CT scan of the abdomen and pelvis performed without intravenousand without oral contrast using helical scanning technique. Reconstructed coronal and sagittal MPR images reviewed. All images stored on PACS.Automated exposure control was used as a dose optimization technique for this examination. COMPARISON: CT abdomen and pelvis 09/23/2019 FINDINGS: The sensitivity for detection of visceral lesions is diminished withoutthe use of intravenous contrast. LOWER CHEST: Noncalcified 4 mm nodule in the lingula (image 14) is new. According to recent guidelines by the Fleischner Society, no follow up is required for incidental nodules less than 6 mm found on incompletethoracic imaging on the basis of estimated low risk of malignancy. These recommendations do not apply to patients with immunosuppression, orpatients with known primary cancer. Prior sternotomy. Aortic valve replacement. LIVER: No focal liver lesion. GALLBLADDER: No calcified gallstones. BILE DUCTS: No intrahepatic or extrahepatic ductal dilatation. SPLEEN: Normal size. No focal lesions. PANCREAS: No masses. No adjacent inflammation or peripancreatic fluid collections. No pancreatic ductal dilatation. ADRENALS: Normal. KIDNEYS/URINARY TRACT: Cyst in the interpolar left kidney with a thin peripheral calcification measures 2.3 cm and requires no specificfollow-up. Small cyst in the upper pole of the right kidney is unchanged and requiresno specific follow-up. Cyst in the lower pole of the right kidney requiresno specific follow-up. No hydronephrosis. Urinary bladder isunremarkable. GI: Severe sigmoid colon diverticulosis. No diverticulitis. Normal appendix. Small to moderate-sized hiatal hernia. No dilated loops ofbowel to suggest obstruction. PERITONEUM: No ascites or free air. RETROPERITONEUM: No mass or lymphadenopathy. REPRODUCTIVE: No significant abnormality. VASCULATURE: Atherosclerotic calcification of the abdominal aortawithout aneurysm. MUSCULOSKELETAL: Moderate thoracolumbar spondylosis. OTHER: No other abnormality. IMPRESSION: No abnormality to explain the patient's symptoms. Severe sigmoid colon diverticulosis. No diverticulitis. Small to moderate-sized hiatal hernia. THIS IS AN ELECTRONICALLY VERIFIED FINAL REPORT 05/24/2024 9:37 PM - Electronically signed by Jazielgabe Casillas M.D. LB T: Report ID: [id number] Reading Location: [id number] Jennyfer Srivastava MAINTENANCE CUSTODIAN IMG CT PROCEDURES Final Result * (ABNORMAL) Urinalysis reflex to microscopic and culture Urine (05/24/2024 7:54 PM DEPUTY DIRECTOR OF FINANCE) Color, ur Yellow Yellow Clarity, ur Cloudy(A) Clear [facility] Specific gravity, ur 1.015 1.003 - 1.030 [facility] pH, urine 5.5 [facility] Comment: Interpretive Data U rine pH is affected by diet, medications, systemic acid-base disturbances, and renal tubular function. pH may affect urinary stone formation. For example, urine pH below 6.0 may help reduce the tendency for calcium phosphate stones and pH greater than 6.0 may reduce the tendency for uric acid stone formation. Source: [facility] Current Interpretive Data was last revised on 2017 Protein, ur ql 1+(A) Negative [facility] Glucose, ur ql Negative Negative [facility] Ketones, ur Negative Negative [facility] Bilirubin, ur Negative Negative [facility] Blood, ur Negative Negative [facility] Urobilinogen, ur <2.0 <2.0 mg/dL [facility] Nitrite, ur Negative Negative [facility] Leukocyte esterase, ur 4+(A) Negative [facility] UA reflex comment Reflex to microscopic UA will be performed. [facility] Urine 05/24/2024 7:54 PM DEPUTY DIRECTOR OF FINANCE 05/24/2024 8:00 PM DEPUTY DIRECTOR OF FINANCE us Nadege BARAKAT LAB MICROBIOLOGY - GENERAL ORDER ENEIDA Final Result [facility] [address] [facility] [place] [address] * (ABNORMAL) Urinalysis, microscopic only (05/24/2024 7:54 PM DEPUTY DIRECTOR OF FINANCE) WBC, ur >50(A) 0 - 5 /HPF RBC, ur 11-20(A) 0 - 2 /HPF [facility] Epithelial cells, squamous, ur 6-10(A) 0 - 5 /HPF [facility] Comment:Suggestive of contam ination. Consider recollection by clean catch. Mucous, ur Present(A) [facility] Culture Reflex Comment Reflex to urine culture will be performed. [facility] Urine 05/24/2024 7:54 PM DEPUTY DIRECTOR OF FINANCE 05/24/2024 8:00 PM DEPUTY DIRECTOR OF FINANCE [facility] [place] LAB URINE ORDERABLES Final Resul t Performing Organization Address [facility] de Phone Number [place] [phone] [facility] [place] [address] * Urine culture Urine (05/24/2024 7:54 PM DEPUTY DIRECTOR OF FINANCE) Report Final Report: Less than 100,000 colonies/mL (clinically insignificant growth based on current clinical standards) Comment:Testing performed by : [facility], [address] [place]., [address] Organism (CLINICALLY INSIGNIFICANT GROWTH [facility] Urine 05/24/2024 7:54 PM DEPUTY DIRECTOR OF FINANCE 05/25/2024 1:24 AM DEPUTY DIRECTOR OF FINANCE Narrative [facility] - 05/26/2024 7:09 AM DEPUTY DIRECTOR OF FINANCE Urine culture reflexed based upon urinalysis results. Testing performed by [facility] ([phone]) Nadege BARAKAT [facility] MICROBIOLOGY - GENERAL ORDER ENEIDA Final Result Performing Organization Address [facility] de Phone Number [facility] [address] [facility] Department [place] [address] * Influenza A/B, RSV, and COVID-19 PCR Nasopharyngeal (05/24/2024 7:46 PM DEPUTY DIRECTOR OF FINANCE) COVID-19 RNA Negative Negative Influenza A RNA Negative Negative [facility] Influenza B RNA Negative Negative [facility] RSV RNA Negative Negative [facility] Comment: Interpretive data: Testing performed by [facility]. This test is performed using the RadPadert Xpress CoV-2/Flu/RSV plus assay. This is a multiplex, real-time reverse transcriptase PCR assay intended for the qualitative detection of nucleic acid from SARS-CoV-2, influenza A, influenza B, and respiratory syncytial virus. This assay has been cleared by the [place] Food and Drug administration. The performance characteristics have been verified by the [facility]. Results must be considered in the clinical context, and a negative result does not rule out infection. Interpretive Data last revised 2023 Nasopharyngeal 05/24/2024 7: 46 PM DEPUTY DIRECTOR OF FINANCE 05/24/2024 7:54 PM DEPUTY DIRECTOR OF FINANCE Narrative [facility] - 05/24/2024 8:34 PM DEPUTY DIRECTOR OF FINANCE Is the Patient experiencing symptoms consistent with COVID?->Yes Nadege BARAKAT LAB MICROBIOLOGY - GENERAL ORDER ENEIDA Final Result [facility] [address] [facility] Department [place] [address] * (ABNORMAL) eGFR (05/24/2024 7:46 PM DEPUTY DIRECTOR OF FINANCE) eGFR 28(L) >=60 mL/min/1. 73 m2 Comment: Interpretive Data Reference Interval Normal >/= 90 mL/min/1.73m2 Mildly decreased* 60 - 89 mL/min/1.73m2 Mildly to moderately decreased 45 - 59 mL/min/1.73m2 Moderately to severely decreased 30 - 44 mL/min/1.73m2 Severely decreased 15 - 29 mL/min/1.73m2 Kidney Failure < 15 mL/min/1.73m2 *Relative to young adult level Estimated glomerular filtration rate is determined by the 2020 CKD-EPI equation recommended by the National Kidney Foundation (A Unifying Approach to GFR Estimation: Recommendations of the NKF-ASK Task Force on Reassessing the Inclusion of Race in Diagnosing Kidney Disease, JASN 202). The CKD-EPI equation should not be used for patients with unstable renal function and has not been validated in children and those over 70. Current interpretive data was last reviewed 2021. Blood 05/24/2024 7:46 PM DEPUTY DIRECTOR OF FINANCE 05/24/2024 7:54 PM DEPUTY DIRECTOR OF FINANCE us Nadege BARAKAT LAB BLOOD ORDERABLES Final Resul t [facility] [address] [facility] Department [place] [address] * (ABNORMAL) Differential, auto (05/24/2024 7:46 PM DEPUTY DIRECTOR OF FINANCE) Neutrophil abs 6.6(H) 1.5 - 6.5 K/cumm Imm gran abs 0.0 0.0 - 0.1 K/cumm [facility] Lymphocyte abs 1.0 0.8 - 3.3 K/cumm [facility] Monocyte abs 0.6 0.2 - 0.8 K/cumm [facility] Eosinophil abs 0.0 0.0 - 0.5 K/cumm [facility] Basophil abs 0.0 0.0 - 0.1 K/cumm [facility] Neutrophil pct 79.8 % [facility] Comment: Interpretive Data Percent cell count reference ranges are not reported, since discordance with absolute values may lead to misinterpretation of CBC data. Current Interpretive Data was last revised on 2017. Imm gran pct 0.2 % [facility] Comment: Interpretive Data Percent cell count reference ranges are not reported, since discordance with absolute values may lead to misinterpretation of CBC data. Current Interpretive Data was last revised on 2017. Lymphocyte pct 11.5 % [facility] Comment: Interpretive Data Percent cell count reference ranges are not reported, since discordance with absolute values may lead to misinterpretation of CBC data. Current Interpretive Data was last revised on 2017. Monocyte pct 7.6 % [facility] Comment: Interpretive Data Percent cell count reference ranges are not reported, since discordance with absolute values may lead to misinterpretation of CBC data. Current Interpretive Data was last revised on 2017. Eosinophil pct 0.5 % [facility] Comment: Interpretive Data Percent cell count reference ranges are not reported, since discordance with absolute values may lead to misinterpretation of CBC data. Current Interpretive Data was last revised on 2017. Basophil pct 0.4 % [facility] Comment: Interpretive Data Percent cell count reference ranges are not reported, since discordance with absolute values may lead to misinterpretation of CBC data. Current Interpretive Data was last revised on 2017. Blood 05/24/2024 7:46 PM DEPUTY DIRECTOR OF FINANCE 05/24/2024 7:54 PM DEPUTY DIRECTOR OF FINANCE Nadege BARAKAT LAB BLOOD ORDERABLES Final Resul t Performing Organization Address [facility] de Phone Number [facility] [address] [place] [address] * (ABNORMAL) CBC with auto differential (05/24/2024 7:46 PM DEPUTY DIRECTOR OF FINANCE) WBC 8.3 3.8 - 9.9 K/cumm Hgb 14.5 11.9 - 15.5 g/dL [facility] Hct 45.2 35.6 - 45.5 % [facility] Plt 235 150 - 400 K/cumm [facility] MPV 10.4 9.1 - 12.3 fL [facility] RBC 4.96 3.90 - 5.20 M/cumm [facility] MCV 91.1 81.3 - 96.4 fL [facility] MCH 29.2 27.1 - 33.3 pg [facility] MCHC 32.1(L) 32.3 - 35.7 g/dL [facility] RDW CV 13.5 11.1 - 14.9 % [facility] RDW SD 45.7 35.7 - 48.1 fL [facility] NRBC abs 0.00 0.00 - 0.01 K/cumm [facility] Blood (Blood, Venous) 05/24/2024 7:46 PM DEPUTY DIRECTOR OF FINANCE 05/24/2024 7:54 PM DEPUTY DIRECTOR OF FINANCE Nadege BARAKAT LAB BLOOD ORDERABLES Final Resul t Performing Organization Address [facility] de Phone Number [facility] [address] [place] [address] * (ABNORMAL) Comprehensive metabolic panel (05/24/2024 7:46 PM DEPUTY DIRECTOR OF FINANCE) Sodium 142 135 - 145 mmol/L Potassium, pl 4.3 3.3 - 4.9 mmol/L [facility] Comment:Hemolyzed; Potassium value may be falsely elevated by as much as 1.0 mmol/L. Suggest redraw and reanalysis. Chloride 109 97 - 110 mmol/L [facility] CO2 20(L) 22 - 32 mmol/L [facility] Anion gap 13 2 - 15 mmol/L [facility] BUN 23 6 - 25 mg/dL [facility] Creatinine 1.81(H) 0.60 - 1.10 mg/dL [facility] Glucose 116 70 - 199 mg/dL [facility] Comment: Interpretive Data Fasting glucose >/= 126 mg/dl is diagnostic for diabetes. Fasting is defined as no caloric intake for at least 8 hours. Fasting glucose between 100 mg/dl to 125 mg/dl is diagnostic of prediabetes. In a patient with classic symptoms of hyperglycemia or hyperglycemic crisis, a random glucose >/= 200 mg/dl is diagnostic for diabetes. In the absence of unequivocal hyperglycemia, results should be confirmed by repeat testing. The classification and Diagnosis of Diabetes Diabetes Care 202; 46: S19-S40. Current interpretive data was last revised 2022. Calcium 10.1 8.5 - 10.3 mg/dL [facility] Bilirubin, total 0.4 0.1 - 1.2 mg/dL [facility] Protein, pl 7.2 6.5 - 8.5 g/dL [facility] Albumin 4.2 3.5 - 5.0 g/dL [facility] Alk phos 72 40 - 130 Units/L [facility] ALT 23 7 - 45 Units/L [facility] AST 36 10 - 45 Units/L [facility] Comment:Hemolyzed; result ma y be falsely elevated Blood (Blood, Venous) 05/24/2024 7:46 PM DEPUTY DIRECTOR OF FINANCE 05/24/2024 7:54 PM DEPUTY DIRECTOR OF FINANCE us Nadege BARAKAT LAB BLOOD ORDERABLES Final Resul t [facility] [address] [facility] [place] [address] * SCAN - RADIOLOGY/IMAGING (05/23/2024) Anatomical Region Laterality Modality Other us Provider Scanning Final Result from Last 3 Months Insurance [facility] MDCR HMO REF [facility] MEDICARE Address: [facility] [address] [place] [address] [address]IONS [facility] MEDICARE Address: [address] [address] [place] [address] Advance Directives For more information, please contact: [phone] * LIMITED - No CPR (Latest Code Status on File) Date Activated Date Inactivated Comments 06/12/2023 5:01 PM 06/16/2023 7:03 PM Care Teams Blood Bank Specialist Relationship Specialty Start Date End Date Bhavik Bah DO PCP - General 09/02/18
--- OUTSIDE RECORDS SUMMARY | 2024-06-17 20:09 | XMS_ITS | Encounter Summary ---
Author Organization [facility] Healthcare Address [address] [place] [address] Care Team Providers Care Bobtail Driver Name Role Phone Bhavik Bah DO Primary Care Provider Encounter Details Date Type Department Care Team (Late st Contact Info) Description 01/17/2024 Orders Only [facility] Health Information Management [address] [place] [id number] Scanning, Provider Social History Tobacco Use Types Packs/Day Years Used Date Smoking Tobacco: Former Cigarettes Smokeless Tobacco: Never [facility] Utilities Answer Date Recorded In the past 12 months has [facility], gas, oil, or water [employer] threatened to shut off services in your [...] often do you attend chur ch or scientology services? 1 to 4 times per year 06/14/2023 Do you belong to any clubs o r organizations such as caodaism groups, unions, fraternal or athletic groups, or [...] on file Legal Sex Female 6:42 PM CLUB FORMER Gender Identity Not on file Sexual Orientation [...] Date Last Indicated Resolved Time COVID: Suspected 05/24/2024 05/24/2024 05/24/2024 8:36 PM CLUB FORMER documented as of this encounter Care Teams Bobtail Driver Relationship Specialty Start Date End Date Bhavik Bah DO PCP - General 09/02/18 documented as of this encounter
--- OUTSIDE RECORDS SUMMARY | 2024-06-17 20:09 | XMS_ITS | Encounter Summary ---
Author Organization [facility] Address [address] [place] [address] Care Team Providers Care Oil Heat Technician Name Role Phone Bhavik Bah DO Primary Care Provider [phone] Rg Morgan MD Unavailable [phone] Encounter Details Date Type Department Care Team (Late Contact Info) Description 09/30/2019 Hospital Follow-up Call [facility] [place] [address] Tasia Blanca, RN Social History Tobacco Use Types Packs/Day [...] (Late Contact Info) Description 06/24/2024 1:00 PM MOLD WORKER Office Visit [facility], [address] [place], [place] [id number] Rg Morgan MD Three [facility]. [address] [place], [place] [id number] Mamta Plata PA [address] [facility], [address] [place], [place] [address] documented as of this encounter Visit Diagnoses Not on filedocumented in this encounter Care Teams Oil Heat Technician Relationship Specialty Start Date End Date Bhavik Bah DO PCP - General 11/20/16 Rg Morgan MD Three [facility]. [address] [place] [address] Consulting Physician [facility] CARDIOLOGY 03/31/22 documented as of this encounter
--- OUTSIDE RECORDS SUMMARY | 2024-06-17 20:09 | XMS_ITS | Clinical Summary ---
Author Organization 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 06/12/2023 Overview (03/19/2024): [...] artery disease status post CABG with old OK Continue same medications and follow up with [...] Cardiology CHF (congestive heart failure) ([facility]) 014 Overview (03/19/2024): CHF is overall stable [...] Department Care Team Description 05/24/2024 7:15 PM STITCH RUBBER - 05/25/2024 3:50 AM STITCH RUBBER Emergency [address] [address] Nausea and vomiting, unspecified vomiting type (Primary Dx); Urinary tract infection in female Discharge Disposition: Discharge to home or self care 05/23/2024 Orders Only [facility] Health Information Management [address] [place] [address] Scanning, Provider 03/28/2024 Telephone [facility] Accountable Care Organization [address] [place] [address] Rosaline Purdy, [facility] Chart Review 03/19/2024 2:00 PM STITCH RUBBER Office Visit [facility] Medical Group Primary Care [address] [place] [address] [phone] Bhavik Bah, Routine physical examination (Primary Dx); Need for hepatitis C screening test; Benign essential HTN; Mixed hyperlipidemia; Hypertensive heart disease with congestive heart failure, unspecified heart failure type (HCC); Chronic congestive heart failure, unspecified heart failure type (HCC); Nonrheumatic aortic valve stenosis; Chronic obstructive pulmonary disease with bronchospasm (HCC); 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; Diastolic dysfunction; Gastroesophageal reflux disease without esophagitis; Obstructive sleep apnea syndrome; Old myocardial infarction; Peripheral polyneuropathy (CMS/HCC); Peripheral vascular disease (HCC); S/P AVR (aortic valve replacement); S/P CABG (coronary artery bypass graft); Stage 3b chronic kidney disease (HCC); Aortic atherosclerosis (HCC); Intracranial atherosclerosis from Last 3 Months Immunizations Immunization Administration Dates Next Due Influenza, [...] Tobacco: Never Tobacco Cessation:Counseling Given: Not Answered [facility] [employer] Answer Date Recorded In the past 12 months has th e [employer], gas, oil, or water [employer] threatened to shut off services in your [...] often do you attend chur ch or orthodoxy services? 1 to 4 times per year 06/14/2023 Do you belong to any clubs o r organizations such as mormon groups, unions, fraternal or athletic groups, or [...] place to sleep or slept in a fdc (including now)? No 06/13/2023 Personal Safety Answer Date Recorded Have you ever been in or are you currently in a harmful physical or emotional relationship or is someone making you feel afraid or unsafe? Denies 05/24/2024 Comments No Sex and Gender Information Value Date Recorded Sex Assigned at Not on file Legal Sex Female 6:42 PM STITCH RUBBER Gender Identity Not on file Sexual Orientation Not on file Obstetrics History Last Filed Vital Signs Vital Sign Reading Time Taken Comments Blood Pressure 138/70 05/25/2024 1:37 AM STITCH RUBBER Pulse 78 05/25/2024 1:37 AM STITCH RUBBER Temperature 37.1 C (98.7 F) 05/24/2024 7:17 PM STITCH RUBBER Respiratory Rate 16 05/25/2024 1:37 AM STITCH RUBBER Oxygen Saturation 98% 05/25/2024 1:37 AM STITCH RUBBER Inhaled Oxygen Concentration - - Weight 66.7 kg (147 lb) 03/19/2024 1:38 PM STITCH RUBBER Height 152.4 cm (5') 05/24/2024 7:17 PM STITCH RUBBER Body Mass Index 28.71 03/19/2024 1:38 PM STITCH RUBBER Plan of Treatment Health Maintenance Due Date Last Done Comments Hepatitis C Screening 1945 Osteoporosis Screening-Bone Density Scan 1945 Hepatitis B Screening 1963 Zoster Vaccine (2 of 2) 04/11/2023 02/14/2023 Covid-19 Vaccine (5 - 2023-2 5 season) 2023 01/05/2022, 05/07/2021, 06/16/2020, Additional history exists Depression Screening 03/19/2025 03/19/2024 Fall Risk Assessment 03/19/2025 03/19/2024, 06/16/19 24 Well Visit 65+ 03/19/2025 03/19/2024 DTaP/Tdap/Td Vaccine (2 - Td or Tdap) 10/02/2032 10/02/2022 Breast Cancer Screening-Mammogram Discontinued 016 Pneumococcal vaccine 65+ Completed 01/27/2022 Influenza Vaccine Completed 02/23/2024, , 01/27/2022, Additional history exists Procedures Procedure Name Priority Date/Time Associated Diagnosis Comments CT ABDOMEN PELVIS WO CONTRAST ED 05/24/2024 9:23 PM STITCH RUBBER URINALYSIS, MICROSCOPIC ONLY STAT 05/24/2024 7:54 PM STITCH RUBBER URINE CULTURE STAT 05/24/2024 7:54 PM STITCH RUBBER URINALYSIS AND REFLEX TO MICROSCOPIC AND CULTURE STAT 05/24/2024 7:54 PM STITCH RUBBER EGFR STAT 05/24/2024 7:46 PM STITCH RUBBER DIFFERENTIAL AUTO STAT 05/24/2024 7:4 6 PM STITCH RUBBER COMPREHENSIVE METABOLIC PANEL STAT 05/24/2024 7:46 PM STITCH RUBBER CBC WITH AUTO DIFFERENTIAL STAT 05/24/2024 7:46 PM STITCH RUBBER INFLUENZA A/B, RSV, AND COVID-19 PCR Routine 05/24/2024 7:46 PM STITCH RUBBER SCAN - RADIOLOGY/IMAGING 05/23/2024 from Last 3 Months Results * CT Abdomen Pelvis WO Contrast (05/24/2024 9:23 PM STITCH RUBBER) Anatomical Region Laterality Modality Body N/A Computed Tomogra phy 05/24/2024 9:26 PM STITCH RUBBER Narrative 05/24/2024 9:37 PM STITCH RUBBER EXAM DESCRIPTION: CT ABDOMEN PELVIS WO CONTRAST [...] Jaziel Casillas M.D. LB T: Report ID: [id number] Reading Location: [id number] Procedure Note Jaziel Casillas MD - 05/24/2024 [...] - Electronically signed by Jaziel Casillas M.D. T: Report ID: [id number] Reading Location: [place] [address] [address] PROCEDURES Final Result * (ABNORMAL) Urinalysis reflex to microscopic and culture Urine (05/24/2024 7:54 PM STITCH RUBBER) Color, ur Yellow Yellow Clarity, ur Cloudy(A) Clear [facility] Specific gravity, ur 1.015 1.003 - 1.030 EDGAR GUZMAN pH, urine 5.5 ED[facility]AR GUZMAN Comment: Interpretive Data U rine pH is affected by diet, medications, systemic acid-base disturbances, and renal tubular function. pH may affect urinary stone formation. For example, urine pH below 6.0 may help reduce the tendency for calcium phosphate stones and pH greater than 6.0 may reduce the tendency for uric acid stone formation. Source: [employer] Current Interpretive Data was last revised on 2017 Protein, ur ql 1+(A) Negative [facility] Glucose, ur ql Negative Negative [facility] Ketones, ur Negative Negative [facility] Bilirubin, ur Negative Negative [facility] Blood, ur Negative Negative [facility] Urobilinogen, ur <2.0 <2.0 mg/dL [facility] Nitrite, ur Negative Negative [facility] Leukocyte esterase, ur 4+(A) Negative [facility] UA reflex comment Reflex to microscopic UA will be performed. [facility] Urine 05/24/2024 7:54 PM STITCH RUBBER 05/24/2024 8:00 PM STITCH RUBBER Nade[facility] MICROBIOLOGY - GENERAL ORDER ENEIDA Final Result Performing Organization Address [facility] de Phone Number [address] [place] [address] * (ABNORMAL) Urinalysis, microscopic only (05/24/2024 7:54 PM STITCH RUBBER) WBC, ur >50(A) 0 - 5 /HPF RBC, ur 11-20(A) 0 - 2 /HPF [facility] Epithelial cells, squamous, ur 6-10(A) 0 - 5 /HPF [facility] Comment:Suggestive of contam ination. Consider recollection by clean catch. Mucous, ur Present(A) [facility] Culture Reflex Comment Reflex to urine culture will be performed. [facility] Urine 05/24/2024 7:54 PM STITCH RUBBER 05/24/2024 8:00 PM STITCH RUBBER [facility] URINE ORDERABLES Final Resul t Performing Organization Address [facility] Co de Phone Number [address] [place] [address] * Urine culture Urine (05/24/2024 7:54 PM STITCH RUBBER) Report Final Report: Less than 100,000 colonies/mL (clinically insignificant growth based on current clinical standards) Comment:Testing performed by : [facility], [address] [place]., [address] Organism (CLINICALLY INSIGNIFICANT GROWTH [facility] Urine 05/24/2024 7:54 PM STITCH RUBBER 05/25/2024 1:24 AM STITCH RUBBER Narrative EDGAR - 05/26/2024 7:09 AM STITCH RUBBER Urine culture reflexed based upon urinalysis results. Testing performed by [facility] ([phone]) [facility] MICROBIOLOGY - GENERAL ORDER ENEIDA Final Result Performing Organization Address City/[facility]/ZIP Co de Phone Number [place] [address] [facility] [place] [address] * Influenza A/B, RSV, and COVID-19 PCR Nasopharyngeal (05/24/2024 7:46 PM STITCH RUBBER) Pathologist [facility] COVID-19 RNA Negative Negative Influenza A RNA Negative Negative [facility] Influenza B RNA Negative Negative [facility] RSV RNA Negative Negative [facility] Comment: Interpretive data: Testing performed by [facility]. This test is performed using the [employer] Xpert Xpress CoV-2/Flu/RSV plus assay. This is a multiplex, real-time reverse transcriptase PCR assay intended for the qualitative detection of nucleic acid from SARS-CoV-2, influenza A, influenza B, and respiratory syncytial virus. This assay has been cleared by the [place] Food and Drug administration. The performance characteristics have been verified by the [facility]. Results must be considered in the clinical context, and a negative result does not rule out infection. Interpretive Data last revised 2023 Nasopharyngeal 05/24/2024 7: 46 PM STITCH RUBBER 05/24/2024 7:54 PM STITCH RUBBER Narrative [facility] - 05/24/2024 8:34 PM STITCH RUBBER Is the Patient experiencing symptoms consistent with COVID?->Yes [facility] MICROBIOLOGY - GENERAL ORDER ENEIDA Final Result Performing Organization Address City/[facility]/ZIP Co de Phone Number [facility] [address] [facility] [place] [address] * (ABNORMAL) eGFR (05/24/2024 7:46 PM STITCH RUBBER) [facility] eGFR 28(L) >=60 mL/min/1. 73 m2 Comment: [...] of Race in Diagnosing Kidney Disease, JASN 2020). The CKD-EPI equation should not be used for patients with unstable renal function and has not been validated in children and those over 70. Current interpretive data was last reviewed 2021. Blood 05/24/2024 7:46 PM STITCH RUBBER 05/24/2024 7:54 PM STITCH RUBBER us Nadege [facility] BLOOD ORDERABLES Final Resul t [facility] [address] [facility] Department [place] [address] * (ABNORMAL) Differential, auto (05/24/2024 7:46 PM STITCH RUBBER) [facility] Neutrophil abs 6.6(H) 1.5 - 6.5 K/cumm Imm gran abs 0.0 0.0 - 0.1 K/cumm [facility] Lymphocyte abs 1.0 0.8 - 3.3 K/cumm [facility] Monocyte abs 0.6 0.2 - 0.8 K/cumm [facility] Eosinophil abs 0.0 0.0 - 0.5 K/cumm [facility] Basophil abs 0.0 0.0 - 0.1 K/cumm [facility] Neutrophil pct 79.8 % [facility] Comment: Interpretive Data Percent cell count reference ranges are not reported, since discordance with absolute values may lead to misinterpretation of CBC data. Current Interpretive Data was last revised on 2017. Imm gran pct 0.2 % [facility] Comment: Interpretive Data Percent cell count reference ranges are not reported, since discordance with absolute values may lead to misinterpretation of CBC data. Current Interpretive Data was last revised on 2017. Lymphocyte pct 11.5 % [facility] Comment: Interpretive Data Percent cell count reference ranges are not reported, since discordance with absolute values may lead to misinterpretation of CBC data. Current Interpretive Data was last revised on 2017. Monocyte pct 7.6 % [facility] Comment: Interpretive Data Percent cell count reference ranges are not reported, since discordance with absolute values may lead to misinterpretation of CBC data. Current Interpretive Data was last revised on 2017. Eosinophil pct 0.5 % [facility] Comment: Interpretive Data Percent cell count reference ranges are not reported, since discordance with absolute values may lead to misinterpretation of CBC data. Current Interpretive Data was last revised on 2017. Basophil pct 0.4 % [facility] Comment: Interpretive Data Percent cell count reference ranges are not reported, since discordance with absolute values may lead to misinterpretation of CBC data. Current Interpretive Data was last revised on 2017. Blood 05/24/2024 7:46 PM STITCH RUBBER 05/24/2024 7:54 PM STITCH RUBBER us Nadege [facility] LAB BLOOD ORDERABLES Final Resul t [facility] [address] [facility] Department [place] [address] * (ABNORMAL) CBC with auto differential (05/24/2024 7:46 PM STITCH RUBBER) WBC 8.3 3.8 - 9.9 K/cumm Hgb 14.5 11.9 - 15.5 g/dL [facility] Hct 45.2 35.6 - 45.5 % [facility] Plt 235 150 - 400 K/cumm [facility] MPV 10.4 9.1 - 12.3 fL [facility] RBC 4.96 3.90 - 5.20 M/cumm [facility] MCV 91.1 81.3 - 96.4 fL [facility] MCH 29.2 27.1 - 33.3 pg [facility] MCHC 32.1(L) 32.3 - 35.7 g/dL [facility] RDW CV 13.5 11.1 - 14.9 % [facility] RDW SD 45.7 35.7 - 48.1 fL [facility] NRBC abs 0.00 0.00 - 0.01 K/cumm [facility] Blood (Blood, Venous) 05/24/2024 7:46 PM STITCH RUBBER 05/24/2024 7:54 PM STITCH RUBBER us Nadege [facility] LAB BLOOD ORDERABLES Final Resul t [facility] [address] [facility] Department [place] [address] * (ABNORMAL) Comprehensive metabolic panel (05/24/2024 7:46 PM STITCH RUBBER) Sodium 142 135 - 145 mmol/L Potassium, pl 4.3 3.3 - 4.9 mmol/L [facility] Comment:Hemolyzed; Potassium value may be falsely elevated by as much as 1.0 mmol/L. Suggest redraw and reanalysis. Chloride 109 97 - 110 mmol/L [facility] CO2 20(L) 22 - 32 mmol/L [facility] Anion gap 13 2 - 15 mmol/L [facility] BUN 23 6 - 25 mg/dL [facility] Creatinine 1.81(H) 0.60 - 1.10 mg/dL [facility] Glucose 116 70 - 199 mg/dL [facility] Comment: Interpretive Data Fasting glucose >/= 126 [...] classification and Diagnosis of Diabetes Diabetes Care 2021; 46: S19-S40. Current interpretive data was last revised 2022. Calcium 10.1 8.5 - 10.3 mg/dL [facility] Bilirubin, total 0.4 0.1 - 1.2 mg/dL [facility] Protein, pl 7.2 6.5 - 8.5 g/dL [facility] Albumin 4.2 3.5 - 5.0 g/dL [facility] Alk phos 72 40 - 130 Units/L [facility] ALT 23 7 - 45 Units/L [facility] AST 36 10 - 45 Units/L [facility] Comment:Hemolyzed; result ma y be falsely elevated Blood (Blood, Venous) 05/24/2024 7:46 PM STITCH RUBBER 05/24/2024 7:54 PM STITCH RUBBER us Nadege [facility] BLOOD ORDERABLES Final Resul t Performing Organization Address City/State/[facility] Co de Phone Number [facility] [address] [facility] [place] [address] * SCAN - RADIOLOGY/IMAGING (05/23/2024) Anatomical Region Laterality Modality Other us Provider Scanning Final Result from Last 3 Months Insurance [facility] MDCR HMO REF MEDICARE SOLUTIONS Advance Directives For more information, please contact: [phone] * LIMITED - No CPR (Latest Code Status on File) Date Activated Date Inactivated Comments 06/12/2023 5:01 PM 06/16/2023 7:03 PM Care Teams Uptwist Spinner Relationship Specialty Start Date End Date Bhavik Bah DO PCP - General 09/02/18
--- OUTSIDE RECORDS SUMMARY | 2024-06-17 20:09 | XMS_ITS | Clinical Summary ---
Author Organization [facility] Address [address] [place] [address] Care Team Providers Care Nozzle Tender Name Role Phone Bhavik Bah DO Primary Care Provider [phone] Rg Morgan MD Unavailable [phone] Allergies Active Allergy Reactions Criticality Noted Date [...] Rash 06/12/2023 Coronary artery disease invo lving [place] coronary artery of [place] heart without angina pectoris 06/12/2023 Benign essential HTN 06/12/2023 Chronic kidney disease (CKD) , stage IV (severe) ([facility]) 06/12/2023 Assessment & Plan (11/07/2023 9:39 AM CDT): She had an acute and chronic kidney injury during hospitalization in May. We'll check another basic metabolic panel. Chest pain 08/30/2022 Diastolic dysfunction 11/15/2021 Overview (11/15/2021): Noted on Echo October 2021 Skin tear of right forearm without complication 01/27/2021 Stage 4 chronic kidney disease ([facility]) 03/27/2020 Assessment & Plan (09/29/2021 2:04 PM CDT): Followed by nephrology Lisinopril Assessment & Plan (04/01/2021 10:44 AM BLASTER HELPER): Stable with re-initiation of lisinopril at last [...] infa rction involving left circumflex coronary artery ([facility]) 09/25/2019 STEMI involving oth coronary artery of inferior wall ([facility]) 09/25/2019 Stage 3 chronic kidney disease ([facility]) 08/28/2019 Trochanteric bursitis of left hip 06/15/2019 Right shoulder injury 11/02/2018 Hypertensive CHF ([facility]) 08/15/2018 Assessment & Plan (09/30/2021 9:15 AM CDT): Blood pressure is elevated today and confirmed at home - increasing lisinopril to 40mg daily Encouraged to continue to monitor at home and log and call office with any concerns in future. Peripheral arteriosclerosis 05/01/2018 Assessment & Plan (04/01/2021 10:44 AM BLASTER HELPER): Hx of peripheral vascular disease with prior [...] AM CDT): She has a history of SD involving her circumflex arteries, for which she underwent PTCA. Continue Aspirin, Ticagrelor. She is currently on a PCSK9 inhibitor, but has not been approved by insurance. We'll check with the pharmacy about a smaller Statin pill to see if that will help with insurance coverage. Assessment & Plan (05/11/2023 12:14 PM BLASTER HELPER): She is not having angina.Continue aspirin, ticagrelor, metoprolol and Repatha Assessment & Plan (07/17/2022 10:26 AM CDT): She is not having angina.Continue aspirin, ticagrelor, metoprolol and Repatha S/P AVR (aortic valve replacement) 06/13/2016 Assessment & Plan (11/07/2023 9:38 AM CDT): She has aortic valve replacement in 2016 with a 21 millimeter mosaic. We'll get another echo next year. Assessment & Plan (05/11/2023 12:15 PM BLASTER HELPER): She requires dental prophylaxis and her most recent echo showed appropriate valve function. Assessment & Plan (07/17/2022 10:28 AM CDT): She requires dental prophylaxis and her most recent echo showed appropriate valve function. Assessment & Plan (09/29/2021 2:03 PM CDT): Last echo 2019 revealed a well functioning bioprosthetic aortic valve Assessment & Plan (04/01/2021 10:43 AM BLASTER HELPER): Last echo 2019 revealed a well functioning [...] ASA 81mg daily crestor - Adding repatha Assessment & Plan (04/01/2021 11:08 AM BLASTER HELPER): S/p CABG S/p PCI CFX 09/2019 - Brilinta dose decreasing to 60mg BID continued with ASA 81mg daily Statin therapy was restarted at last APPT - will need repeat lipid panel in 4-6 weeks Assessment & Plan (02/26/2021 9:19 PM CDT): She is not having angina.Continue aspirin, ticagrelor, metoprolol and I restarted rosuvastatin today. CHF (congestive heart failure) ([facility]) 09/02/2013 Gastroesophageal reflux disease without esophagi tis 09/02/2013 Mixed hyperlipidemia 09/02/2013 Assessment & Plan (11/07/2023 9:39 AM CDT): We checked with the pharmacy, Atorvastatin 10mg is a smaller pill. Start Atorvastatin 10mg, and we'll try to get her PCSK9 inhibitor approved. Assessment & Plan (05/11/2023 12:15 PM BLASTER HELPER): Her most recent LDL is elevated. She [...] & Units 09/24/21 1044 CHOLESTEROL <200 MG/DL 266 High TRIGLYCERIDE <150 MG/DL 193 High HDL >40.0 MG/DL 55 LDL (CALCULATED) <100 MG/DL 172 High NON HDL CHOLESTEROL <130 MG/DL 211 High CHOL/HDL RATIO 0.0 - 4.5 4.8 High Adding repatha 420mg once monthly Assessment & [...] lisinopril. Assessment & Plan (04/01/2021 11:07 AM BLASTER HELPER): Blood pressure is midly increased - increasing [...] Encounter for preventive health examination 08/14/2013 01/03/2020 Immunizations Name Administration Dates Next Due Flublok (Quadrivalent) 02/05/2019 Influenza (Generic) 02/17/2017,02/23/2016,2013 Influenza Adult (Generic) 01/12/2023,09/2021,01/26/2021,2019,02/06/2018,03/09/2015 MODERNA COVID-19 (12+) MRNA, LNP-S, PF, 100 MCG/ 0.5 ML DOSE 06/16/2020,05/19/2020 MODERNA COVID-19 (GARMENT SORTER FRANCISCA NAIN), MRNA, LNP-S, PF, 50 MCG/ [...] Cigarettes Q uit: 2008 Smokeless Tobacco: Never Tobacco Cessation:Counseling Given: Not [...] in a care home (including now)? No 08/31/2022 Comments No Sex [...] 89 11/06/2023 1:00 PM CDT Temperature 36.6 C (97.9 F) 09/01/2022 11:44 AM CDT Respiratory Rate 18 09/01/2022 11:44 AM CDT [...] st Contact Info) Description 06/24/2024 1:00 PM BLASTER HELPER Office Visit [facility], [address] [place], [place] [phone] Rg Morgan MD [facility]. [address] [place], [place] [phone] Mamta Plata PA [address] [facility], [address] [place], [place] [phone] Health Maintenance Due Date Last Done Comments Hepatitis C 1963 Dexa Scan (General) 07/23/2011 RSV Immunization or 60+ Years (1 - 1-dose 75+ series) 2021 Annual Medicare Wellness Visit 09/02/2021 09/01/2020 Zoster Vaccines (2 of 2) 04/11/2023 02/14/2023 COVID-19 Vaccine ( - season) 2023 02/08/2023, 01/05/2022, 05/07/2021, Additional history exists Influenza Adult (#1) 2024 02/23/2024, 01/12/2023, 01/27/2022, Additional history exists ASCVD LDL 02/18/2024 02/17/2023, 08/22, 08/31/2022, Additional history exists DTaP, Tdap and [...] upon discharge from hospital Lifestyle No Mamta Nunez intrusion analyst Procedure Name Priority Date/Time Associated Diagnosis Comments LIPID PANEL Routine 02/17/2023 10:04 AM CDT Mixed hyperlipidemia COLONOSCOPY Routine 05/25/2013 12:00 AM BLASTER HELPER from Last 3 Months or Most Recently Relevant to Health Maintenance Results * (ABNORMAL) LIPID PANEL (02/17/2023 10:04 AM CDT) [facility] CHOLESTEROL 251(H) 0 - 199 MG/DL [facility] TRIGLYCERIDES 228(H) 0.00 - 150.00 MG/DL [facility] Comment: NCEP REFERENCE VALUES FOR TRIGLYCERIDES: NORMAL: <150 MG/DL BORDERLINE HIGH: 150 - 199 MG/DL HIGH: 200 - 499 MG/DL VERY HIGH: >/= 500 MG/DL HDL 61 >40 MG/DL [facility] LDL (CALCULATED) 151(H) 0 - 99 MG/DL [facility] Comment: CUTOFF VALUES RECOMMENDED BY THE NATIONAL CHOLESTEROL EDUCATION PROGRAM: DESIRABLE: CHOLESTEROL <200 MG/DL LDL <100 MG/DL BORDERLINE: CHOLESTEROL 200-239 MG/DL LDL 101-159 MG/DL HIGHER RISK: CHOLESTEROL >240 MG/DL LDL >160 MG/DL, HDL <40 MG/DL NON HDL CHOLESTEROL 190 NO REFERENCE RANGE MG/DL [facility] Comment: A REASONABLE GOAL FOR NON-HDL CHOLESTEROL IS ONE THAT IS 30 MG/DL HIGHER THAN THE LDL CHOLESTEROL GOAL. CHOL/HDL RATIO 4.1 0.0 - 5.0 . [facility] Comment: IS PATIENT FASTING?->YES ON AUGUST 16, 2022, [facility] CHANGED THE EQUATION FOR CALCULATING ESTIMATED LOW-DENSITY LIPOPROTEIN-CHOLESTEROL (LDL-C) FROM THE FRIEDEWALD EQUATION TO THE EVAN/NANETTE EQUATION. THIS NEW EQUATION IS ONLY VALID [...] LIPID PROFILE. RITU: THE JOURNAL OF THE [employer] 310 (19): [id number]. - MEGHAN V, TRINA J, RAMON A, FRAN M, LILIA R, JOHN E, DALY RS, MONICA SR, EVAN SS. FASTING VERSUS NONFASTING AND LOW-DENSITY LIPOPROTEIN CHOLESTEROL ACCURACY. CIRCULATION. 2018 APR 25;137(1):10-19. 02/17/2023 10:0 4 AM CDT 02/18/2023 6:22 AM CDT us Bhavik Bah DO LABORATORY Final Resul t [employer] [address] [place] [address], * Colonoscopy (05/25/2013 12:00 AM BLASTER HELPER) 05/25/2013 05/25/2013 Narrative [facility] TO EPIC CONVERSION - 05/25/2013 12:00 AM BLASTER HELPER Documented hx of procedure Procedure Note Aleksandra Viera MD - 02/25/2018 Documented hx of procedure us Generic Conversion Md [facility] PROCEDURE ORDERABLES Final Result [facility] TO EPIC CONVERSION from Last 3 Months or Most Recently Relevant to Health Maintenance Insurance * Guarantor: BenyDanielle Account Type Relation to Patient Date of Phone Billing Address Personal/Family Self 1945 [address] [place] [address] [facility] Advance Directives * Full Code (Latest Code Status on File) Date Activated Date Inactivated Comments 08/31/2022 12:07 AM 09/01/2022 4:43 PM * Full Code Date Activated Date Inactivated Comments 09/25/2019 8:26 PM 09/27/2019 2:56 PM * Full Code Date Activated Date Inactivated Comments 09/25/2019 7:59 PM 09/25/2019 8:26 PM Care Teams Nozzle Tender Relationship Specialty Start Date End Date Bhavik Bah DO PCP - General 11/20/16 Rg Morgan MD [address] [address] Consulting Physician INTERVENTIONAL CARDIOLOGY 03/31/22
[2024-06-17 20:10] VITALS: BP 106/80; PULSE 78; RESP 22; TEMP 36.7; O2SAT 100
[2024-06-18] VITALS (7 sets, daily range): BP systolic 138–163; BP diastolic 47–63; PULSE 60–79; RESP 16–21; TEMP 36.4–36.7; O2SAT 94–100
[2024-06-18 02:15] LABS: Basophils Percent Auto 0.3 % (0.2-1.2); Eosinophils Absolute Auto 0.1 K/mm3 (0-0.3); Eosinophils Percent Auto 0.6 % (0-4.4); Hematocrit 39.7 % (37.0-47.0); Immature Granulocyte Absolute 0.07 K/mm3 (0.00-0.031); Immature Granulocyte Percent A 0.5 % (0-0.5); Lymphocytes Absolute Auto 1.29 K/mm3 (0.9-3.2); Lymphocytes Percent Auto 8.7 % (18.3-44.2); Mean Corpuscular HGB Conc 32.7 g/dl (32-36); Mean Corpuscular Hemoglobin 29.7 pg (26-34); Mean Corpuscular Volume 90.8 fl (80-100); Mean Platelet Volume 9.4 fl (7.4-10.4); Monocytes Absolute Auto 0.9 K/mm3 (0.1-0.6); Monocytes Percent Auto 5.8 % (2.6-8.5); Neutrophils Absolute Auto 12.5 K/mm3 (1.3-6.7); Neutrophils Percent Auto 84.1 % (45.5-73.1); Platelet Count Result 360 k/mm3 (150-375); Red Blood Count 4.37 M/mm3 (4.2-5.4); Red Cell Distribution Width 13.3 % (11.5-14.5); White Blood Count 14.8 K/mm3 (4.5-10.0)
--- NOTE | 2024-06-18 02:28 | ECG_ITS ---
Test Date: 2024-06-18 02:43:33 Measurements Intervals [place] Rate: 75 P: 6 WI: 132 QRS: 5 QRSD: 74 T: 112 QT: 342 QTc: 382 Interpretive Statements SINUS RHYTHM LEFT VENTRICULAR HYPERTROPHY WITH ST-T CHANGE CONSIDER INFERIOR INFARCT, AGE INDETERMINATE BASELINE ARTIFACT- I, II, III, AVR, AVL, AVF, V1-V6 ABNORMAL ECG Compared to ECG 01/17/2024 17:59:17 NO SIGNIFICANT CHANGE Electronically Signed On 06-18-2024 06:51:38 SNUFF MAKER by Howard Marino D.O.
--- NOTE | 2024-06-18 02:41 | ED_ITS ---
HPI - Nausea/Vomiting/Diarrhea General Chief complaint: Nausea/Vomiting/Diarrhea Stated complaint: n/v/d Time Seen by Provider: 06/18/24 02:24 History of Present Illness HPI Narrative: 78-year-old female with a past medical history including coronary artery disease, hypertension, hyperlipidemia, esophagitis, strictures, esophageal dilatation. Patient presents to the emergency room with a chief complaint of profound diarrhea and nauseousness and vomiting. Patient states symptoms going on for several days. Recently was admitted to [facility] and treated with antibiotics but is not sure what they were treating. Patient states that this feels similar to last time she had C diff infection. She denies any fever chills. No chest pain shortness a breath. She has been going to bathroom with frequent loose watery stools throughout the last few days associated with some vomiting. No one around her with similar symptoms. Related Data Home Medications ?Medication ?Instructions ?Recorded ?Confirmed ?Last Taken ?Type amlodipine 5 mg tablet (Norvasc) 10 mg PO DAILY 05/01/19 01/17/24 03/12/20 History metoprolol tartrate 50 mg tablet 50 mg PO DAILY 05/01/19 01/17/24 03/12/20 History (Lopressor) rosuvastatin 40 mg tablet 40 mg PO HS 03/12/20 01/17/24 03/12/20 History ticagrelor 90 mg tablet (Brilinta) 90 mg PO DAILY 03/12/20 01/17/24 03/12/20 History aspirin 81 mg tablet,delayed 81 mg DIRECTED 01/17/24 01/17/24 Unknown History release (Adult Low Dose Aspirin) lisinopril 40 mg tablet 40 mg DIRECTED 01/17/24 01/17/24 Unknown History Allergies Allergy/AdvReac Type Severity Reaction Status Date / Time hydrocodone AdvReac Unknown Vomiting Verified 06/17/24 20:16 Review of Systems 2 Review of Systems: As reviewed above in HPI [facility] Past Medical History Medical History Esophageal stricture Hiatal hernia GERD (gastroesophageal reflux disease) Erosive esophagitis NSAID long-term use HLD (hyperlipidemia) HTN (hypertension) CAD (coronary artery disease) Esophageal dilatation Esophageal stricture Surgical History Surgical History H/O: hysterectomy Status 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 She is a full code but does not have a power of trust and estates attorney. She is retired from the [employer] in [employer] and the [employer]. She lives with daughter and son-in-law. She denies any current tobacco use alcohol marijuana or illicit drugs. Smoking packs per day: 1 Smoking cigarettes per day: 20.0 Years smoked: 10 Smoking pack-years: 10.00 Smoking status: Former smoker Additional smoking assessment comments: Haven't had one in almost 12 years. Alcohol intake: never Substance use: never Occupation/Education: retired Gender identity (if verbalized by the patient): Female Spiritual care concerns: No Exam 2 Narrative: GENERAL: [Well-appearing, well-nourished, and in no acute distress.] HEAD: [Normocephalic, atraumatic.] EYES: [PERRLA and EOMI.] ENT: Nares clear, no rhinorrhea or epistaxis. Mucous membranes mildly dehydrated. NECK: Supple. CHEST: [Clear to auscultation. No respiratory distress.] HEART: [Regular rate and rhythm]. No murmur heard. [Normal peripheral pulses.] ABDOMEN: [Soft, nondistended], minimally tender in the bilateral lower quadrants without any overlying skin changes, [No rigidity or guarding] EXTREMITIES: Normal range of motion. [No edema.] SKIN: Warm, dry, no rash. NEURO: [No focal deficits]. Alert and oriented [x3.] PSYCH: [Normal mood and affect.] Course Vital Signs Vital signs: Vital Signs Temperature 36.7 C 06/17/24 20:10 Pulse Rate 78 06/17/24 20:10 Respiratory Rate 22 H 06/17/24 20:10 Blood Pressure 106/80 06/17/24 20:10 Pulse Oximetry 100 06/17/24 20:10 Oxygen Delivery Room Air 06/17/24 20:10 Temperature 36.7 C 06/18/24 03:52 Pulse Rate 71 06/18/24 03:52 Respiratory Rate 16 06/18/24 03:52 Blood Pressure 150/47 H 06/18/24 03:52 Pulse Oximetry 94 06/18/24 03:52 Oxygen Delivery Nasal Cannula 06/18/24 03:37 Oxygen Flow Rate 2 06/18/24 03:37 MDM - Nausea/Vomiting/Diarrhea MDM Narrative Medical decision making narrative: 78-year-old female with history of coronary disease, hypertension, hyperlipidemia, esophagitis and esophageal stricture status post dilation. Patient presents to the emergency room with complaints of profoundly watery diarrhea, nauseous with vomiting and some bilateral lower quadrant abdominal pain. She has otherwise been in her normal state of health but had the symptoms for last 3 days. Recently had outpatient treatment with antibiotics for unclear etiology or infection. Patient has a history of C diff according to herself. She is otherwise well-appearing, not any acute distress but does have some mild dehydration in her mucous membranes and mild tenderness on examination. Suspicion presently is for potential diarrheal illness, gastroenteritis, rotavirus or norovirus. Suspicion for intra-abdominal pathology such as appendicitis, pancreatitis or bowel ischemia is very low. C difficile is on the differential special within recent antibiotics. Stool sample testing was ordered including toxigenic C diff, laboratory studies such as CBC, CMP, urinalysis, coagulation studies obtained as well as an EKG given her cardiac history and presentations including nauseousness although suspicion for coronary syndrome is low. She was treated with morphine, Zofran and fluid bolus. CT scan with contrast ordered. Workup shows patient has leukocytosis of 14.8, normal hemoglobin, normal platelet count. Electrolytes show mild hyperkalemia 5.2, BUN and creatinine are elevated secondary to dehydration volume deficits. Normal glucose, normal lactic acid, normal LFTs. Urinalysis shows some white blood cells and leukocyte esterase. Rare bacteria and she has no urinary complaints of this could be asymptomatic bacteriuria. Negative viral panel. CT scan reveals diverticulitis which likely explains basis divert Lety, abdominal discomfort and laboratory studies. Unlikely she has C difficile and she was not able to give us any stool samples here in the emergency department. I discussed the CT results and plan of care going forward. Original plan was to admit the patient for IV antibiotics including ciprofloxacin Flagyl and continued hydration and evaluation. Patient politely declined and wished to go home with oral antibiotics. She felt that other people needed the hospital more than she did and she felt comfortable going home. After some shared decision- making I was comfortable with this plan given her vital stability, overall well appearance and clinical exam and ability to tolerate oral intake with oral antibiotics. She was given very strict return precautions however which she verbalized understanding. We will send her home with 10days of ciprofloxacin and Flagyl and Zofran. Patient is safe for discharge at this time. Medical Records Attestation: I reviewed the patient's medical records. Lab Data Attestation: I reviewed the patient's lab results. 06/18/24 02:08 06/18/24 02:08 Labs: Lab Results 06/18/24 06/18/24 06/18/24 Range/Units 02:08 02:31 03:35 WBC 14.8 H (4.5-10.0) K/mm3 RBC 4.37 (4.2-5.4) M/mm3 Hgb 13.0 (12.0-15.0) g/dL Hct 39.7 (37.0-47.0) % MCV 90.8 (80-100) fl MCH 29.7 (26-34) pg MCHC 32.7 (32-36) g/dl RDW 13.3 (11.5-14.5) % Plt Count 360 (150-375) k/mm3 MPV 9.4 (7.4-10.4) fl Immature Gran % (Auto) 0.5 (0-0.5) % Neut % (Auto) 84.1 H (45.5-73.1) % Lymph % (Auto) 8.7 L (18.3-44.2) % [place] % (Auto) 5.8 (2.6-8.5) % Eos % (Auto) 0.6 (0-4.4) % Baso % (Auto) 0.3 (0.2-1.2) % Lymph # (Auto) 1.29 (0.9-3.2) K/mm3 [place] # (Auto) 0.9 H (0.1-0.6) K/mm3 Eos # (Auto) 0.1 (0-0.3) K/mm3 Baso # (Auto) 0.0 (0.0-0.1) K/mm3 Abs Immat Gran (auto) 0.07 H (0.00-0.031) K/mm3 Absolute Neuts (auto) 12.5 H (1.3-6.7) K/mm3 Absolute Nucleated RBC 0.000 (0.0-0.012) K/mm3 Nucleated RBC % 0.0 (0.0-0.2) % Sodium 144 (137-145) mmol/L Potassium 5.2 H (3.4-5.0) mmol/L Chloride 114 H (98-107) mmol/L Carbon Dioxide 17 L (22-30) mmol/L Anion Gap 13 H (4-12) mmol/L BUN 37 H D (7-17) mg/dL Creatinine 1.97 H (0.7-1.0) mg/dL Estim Creat Clear Calc 19 ml/min Estimated GFR 25 L (59 - ) Glucose 115 H (65-110) mg/dL Lactic Acid 1.5 (0.7-2.0) mmol/L Calcium 11.2 H (8.4-10.2) mg/dL Total Bilirubin 0.6 (0.2-1.3) mg/dL AST 29 (14-36) U/L ALT 19 (6-35) U/L Alkaline Phosphatase 84 (38-126) U/L Total Protein 8.0 (6.3-8.2) g/dL Albumin 4.4 (3.5-5.1) g/dL Lipase 52 (23-300) U/L Urine Color Yellow (Yellow) Urine Appearance Cloudy H (Clear) Urine pH 5.0 (5.0-9.0) Ur Specific [place] 1.014 (1.001-1.035) Urine Protein Negative (Negative) mg/dL Urine Glucose (UA) Negative (Negative) mg/dL Urine Ketones Negative (Negative) mg/dL Ur Blood (Man) Negative (Negative) Urine Nitrate Negative (Negative) Urine Bilirubin Negative (Negative) Urine Urobilinogen 0.2 (<2.0) mg/dL Add Ur Microanalysis Reviewed Leukocyte Esterase Rfl 3+ H (Negative) WES/UL Urine RBC 0-2 (0-2) /hpf Urine WBC 51-100 H (0-3) /hpf Ur Squamous Epith Cells Moderate (Few) /hpf Urine Bacteria Rare /hpf Urine Casts 6-10 Influenza A (RT-PCR) Negative (Negative) Influenza B (RT-PCR) Negative (Negative) RSV (RT-PCR) Negative (Negative) SARS-CoV-2 RNA (RT-PCR) Negative (Negative) Imaging Data Attestation: I personally reviewed and interpreted this imaging study as follows: My impression: Acute diverticulitis, uncomplicated Discharge Plan Discharge Clinical Impression: Acute diverticulitis, Abdominal pain, vomiting, and diarrhea, Leukocytosis Patient Disposition: Home, Self-Care Condition: Stable Instructions: Antibiotic Form, Diverticulitis (ED), Dehydration (ED), Clear Liquid Diet (ED), Acute Nausea and Vomiting (ED), Acute Diarrhea (ED) Additional Instructions: You have acute diverticulitis which is an inflammation of some outpouches in your colon. We will treat this with oral antibiotics and nausea controlling medications. Finish the antibiotics as prescribed. If you have any worsening pain, inability to tolerate oral intake, profound diarrhea or bloody diarrhea, worsening fever or any other concerns please return to the emergency department. Call your doctor for close outpatient follow-up. Patient Language: Nepalese Prescriptions: New ciprofloxacin HCl 500 mg tablet 500 mg PO Q12H 10 Days Qty: 20 0RF metronidazole 500 mg tablet 500 mg PO Q12H 10 Days Qty: 20 0RF ondansetron 4 mg tablet,disintegrating 4 mg PO Q8H PRN (Reason: nausea and vomiting) Qty: 20 0RF No Action lisinopril 40 mg tablet 40 mg DIRECTED aspirin [Adult Low Dose Aspirin] 81 mg Tablet,Delayed Release (Dr/Ec) 81 mg DIRECTED cyclobenzaprine 7.5 mg tablet 7.5 mg PO TID PRN (Reason: muscle spasm) Qty: 14 0RF amlodipine [Norvasc] 5 mg Tablet 10 mg PO DAILY metoprolol tartrate [Lopressor] 50 mg Tablet 50 mg PO DAILY Brilinta 90 mg tablet 90 mg PO DAILY rosuvastatin 40 mg Tablet 40 mg PO HS Follow-up/Referrals: Niurka,Bhavik Khan DO [Primary Care Provider] - Time of Disposition: 05:51
[2024-06-18 02:45] LABS: Alanine Aminotransferase 19 U/L (6-35); Albumin Level 4.4 g/dL (3.5-5.1); Alkaline Phosphatase 84 U/L (38-126); Anion Gap 13 mmol/L (4-12); Aspartate Amino Transferase 29 U/L (14-36); Bilirubin,Total 0.6 mg/dL (0.2-1.3); Blood Urea Nitrogen 37 mg/dL (7-17); Calcium 11.2 mg/dL (8.4-10.2); Carbon Dioxide 17 mmol/L (22-30); Chloride 114 mmol/L (98-107); Estimated CRCL calculation 19 ml/min; Estimated Glomerular Filt Rate 25; Glucose 115 mg/dL (65-110); Lipase 52 U/L (23-300); Potassium 5.2 mmol/L (3.4-5.0); Sodium 144 mmol/L (137-145)
--- OUTSIDE RECORDS SUMMARY | 2024-06-18 02:46 | XMS_ITS | Referral Summary ---
Author Organization [facility] Address [address] [place] [address] Care Team Providers Care Relationship Counselor Name Role Phone Bhavik Bah DO Primary Care Provider Encounters Date Type Department Care Team Description 05/24/2024 7:15 PM FLUE GAS ANALYST - 05/25/2024 3:50 AM [facility] [[email or web address] Emergency [facility] [address] [place] [address] Nausea and vomiting, unspecified vomiting type (Primary Dx); Urinary tract infection in female Discharge Disposition: Discharge to home or self care 05/23/2024 Orders Only [facility] Health Information Management [address] [place] [address] Scanning, Provider 03/28/2024 Telephone [facility] Accountable Care Organization [address] [place] [address] Rosaline Purdy [facility] Chart Review 03/19/2024 2:00 PM FLUE GAS ANALYST Office Visit [facility] Medical [facility] Primary Care [address] [place] [phone] Bhavik Bah DO Routine physical examination (Primary Dx); Need for hepatitis C screening test; Benign essential HTN; Mixed hyperlipidemia; Hypertensive heart disease with congestive heart failure, unspecified heart failure type (HCC); Chronic congestive heart failure, unspecified heart failure type (HCC); Nonrheumatic aortic valve stenosis; Chronic obstructive pulmonary disease with bronchospasm (HCC); Coronary artery disease involving [place] coronary artery of [place] heart without angina pectoris; Diastolic dysfunction; Gastroesophageal reflux disease without esophagitis; Obstructive sleep apnea syndrome; Old myocardial infarction; Peripheral polyneuropathy (CMS/HCC); Peripheral vascular disease ([facility]); S/P AVR (aortic valve replacement); S/P CABG (coronary artery bypass graft); Stage 3b chronic kidney disease ([facility]); Aortic atherosclerosis ([facility]); Intracranial atherosclerosis from Last 3 Months [...] her bath Coronary artery disease invo lving [place] coronary artery of [place] heart without angina pectoris 06/12/2023 Overview (03/19/2024): [...] Continue with Cardiology CHF (congestive heart failure) ([facility]) 014 Overview (03/19/2024): CHF is overall [...] kidney disease (CKD) , stage IV (severe) ([facility]) 06/12/2023 03/19/2024 Rash 06/12/2023 03/19/2024 Immunizations [...] Tobacco Cessation:Counseling Given: Not Answered [facility] [employer] Answer Date Recorded In the past 12 months has [employer], gas, oil, or water [employer] threatened to shut off services in your [...] week 06/14/2023 How often do you attend [facility] or [facility] services? 1 to 4 times per year 06/14/2023 Do you belong to any clubs o r organizations such as samaritan groups, unions, fraternal or athletic groups, or [...] place to sleep or slept in a usp (including now)? No 06/13/2023 Personal Safety Answer Date Recorded Have you ever been in or are you currently in a harmful physical or emotional relationship or is someone making you feel afraid or unsafe? Denies 05/24/2024 Comments No Sex and Gender Information Value Date Recorded Sex Assigned at Not on file Legal Sex Female 6:42 PM FLUE GAS ANALYST Gender Identity Not on file Sexual Orientation Not on file Last Filed Vital Signs Vital Sign Reading Time Taken Comments Blood Pressure 138/70 05/25/2024 1:37 AM FLUE GAS ANALYST Pulse 78 05/25/2024 1:37 AM FLUE GAS ANALYST Temperature 37.1 C (98.7 F) 05/24/2024 7:17 PM FLUE GAS ANALYST Respiratory Rate 16 05/25/2024 1:37 AM FLUE GAS ANALYST Oxygen Saturation 98% 05/25/2024 1:37 AM FLUE GAS ANALYST Inhaled Oxygen Concentration - - Weight 66.7 kg (147 lb) 03/19/2024 1:38 PM FLUE GAS ANALYST Height 152.4 cm (5') 05/24/2024 7:17 PM FLUE GAS ANALYST Body Mass Index 28.71 03/19/2024 1:38 PM FLUE GAS ANALYST Plan of Treatment Not on file Procedures Procedure Name Priority Date/Time Associated Diagnosis Comments CT ABDOMEN PELVIS WO CONTRAST ED 05/24/2024 9:23 PM FLUE GAS ANALYST URINALYSIS, MICROSCOPIC ONLY STAT 05/24/2024 7:54 PM FLUE GAS ANALYST URINE CULTURE STAT 05/24/2024 7:54 PM FLUE GAS ANALYST URINALYSIS AND REFLEX TO MICROSCOPIC AND CULTURE STAT 05/24/2024 7:54 PM FLUE GAS ANALYST EGFR STAT 05/24/2024 7:46 PM FLUE GAS ANALYST DIFFERENTIAL AUTO STAT 05/24/2024 7:4 6 PM FLUE GAS ANALYST COMPREHENSIVE METABOLIC PANEL STAT 05/24/2024 7:46 PM FLUE GAS ANALYST CBC WITH AUTO DIFFERENTIAL STAT 05/24/2024 7:46 PM FLUE GAS ANALYST INFLUENZA A/B, RSV, AND COVID-19 PCR Routine 05/24/2024 7:46 PM FLUE GAS ANALYST SCAN - RADIOLOGY/IMAGING 05/23/2024 from Last 3 Months Results * CT Abdomen Pelvis WO Contrast (05/24/2024 9:23 PM FLUE GAS ANALYST) Anatomical Region Laterality Modality Body N/A Computed Tomogra phy 05/24/2024 9:26 PM FLUE GAS ANALYST Narrative 05/24/2024 9:37 PM FLUE GAS ANALYST EXAM DESCRIPTION: CT ABDOMEN PELVIS WO CONTRAST [...] Jaziel Casillas M.D. LB T: Report ID: [id number] Reading Location: [id number] Procedure Note Jaziel Casillas MD - 05/24/2024 [...] Jazielgabe Casillas M.D. LB T: Report ID: [id number] Reading Location: [id number] Jennyfer Srivastava DELINQUENT [employer] COLLECTION ASSISTANT IMG CT PROCEDURES Final Result * (ABNORMAL) Urinalysis reflex to microscopic and culture Urine (05/24/2024 7:54 PM FLUE GAS ANALYST) Color, ur Yellow Yellow Clarity, ur Cloudy(A) Clear [facility] Specific gravity, ur 1.015 1.003 - 1.030 [facility] pH, urine 5.5 [facility] Comment: Interpretive Data U rine pH is affected by diet, medications, systemic acid-base disturbances, and renal tubular function. pH may affect urinary stone formation. For example, urine pH below 6.0 may help reduce the tendency for calcium phosphate stones and pH greater than 6.0 may reduce the tendency for uric acid stone formation. Source: [facility] Current Interpretive Data was last revised on 2017 Protein, ur ql 1+(A) Negative [facility] Glucose, ur ql Negative Negative [facility] Ketones, ur Negative Negative [facility] Bilirubin, ur Negative Negative [facility] Blood, ur Negative Negative [facility] Urobilinogen, ur <2.0 <2.0 mg/dL [facility] Nitrite, ur Negative Negative [facility] Leukocyte esterase, ur 4+(A) Negative [facility] UA reflex comment Reflex to microscopic UA will be performed. [facility] Urine 05/24/2024 7:54 PM FLUE GAS ANALYST 05/24/2024 8:00 PM FLUE GAS ANALYST us Nadege [facility] LAB MICROBIOLOGY - GENERAL ORDER ENEIDA Final Result [facility] [address] [facility] Department [place] [address] * (ABNORMAL) Urinalysis, microscopic only (05/24/2024 7:54 PM FLUE GAS ANALYST) WBC, ur >50(A) 0 - 5 /HPF RBC, ur 11-20(A) 0 - 2 /HPF [facility] Epithelial cells, squamous, ur 6-10(A) 0 - 5 /HPF [facility] Comment:Suggestive of contam ination. Consider recollection by clean catch. Mucous, ur Present(A) [facility] Culture Reflex Comment Reflex to urine culture will be performed. [facility] Urine 05/24/2024 7:54 PM FLUE GAS ANALYST 05/24/2024 8:00 PM FLUE GAS ANALYST [facility] [place] LAB URINE ORDERABLES Final Resul t Performing Organization Address [facility] de Phone Number [place] [phone] [facility] [place] [address] * Urine culture Urine (05/24/2024 7:54 PM FLUE GAS ANALYST) Report Final Report: Less than 100,000 colonies/mL (clinically insignificant growth based on current clinical standards) Comment:Testing performed by : [facility], [address] [place]., [address] Organism (CLINICALLY INSIGNIFICANT GROWTH [facility] Urine 05/24/2024 7:54 PM FLUE GAS ANALYST 05/25/2024 1:24 AM FLUE GAS ANALYST Narrative [facility] - 05/26/2024 7:09 AM FLUE GAS ANALYST Urine culture reflexed based upon urinalysis results. Testing performed by [facility] Microbiology Laboratory ([phone]) Nadege [facility] MICROBIOLOGY - GENERAL ORDER ENEIDA Final Result Performing Organization Address [facility] de Phone Number [facility] [address] [facility] Department [place] [address] * Influenza A/B, RSV, and COVID-19 PCR Nasopharyngeal (05/24/2024 7:46 PM FLUE GAS ANALYST) COVID-19 RNA Negative Negative Influenza A RNA Negative Negative [facility] Influenza B RNA Negative Negative [facility] RSV RNA Negative Negative [facility] Comment: Interpretive data: Testing performed by [facility]. This test is performed using the [employer] Xpress CoV-2/Flu/RSV plus assay. This is a multiplex, real-time reverse transcriptase PCR assay intended for the qualitative detection of nucleic acid from SARS-CoV-2, influenza A, influenza B, and respiratory syncytial virus. This assay has been cleared by the [place] Food and Drug administration. The performance characteristics have been verified by the [facility]. Results must be considered in the clinical context, and a negative result does not rule out infection. Interpretive Data last revised 2023 Nasopharyngeal 05/24/2024 7: 46 PM FLUE GAS ANALYST 05/24/2024 7:54 PM FLUE GAS ANALYST Narrative [facility] - 05/24/2024 8:34 PM FLUE GAS ANALYST Is the Patient experiencing symptoms consistent with COVID?->Yes Nadege [facility] MICROBIOLOGY - GENERAL ORDER ENEIDA Final Result [facility] [address] [facility] Department [place] [address] * (ABNORMAL) eGFR (05/24/2024 7:46 PM FLUE GAS ANALYST) eGFR 28(L) >=60 mL/min/1. 73 m2 Comment: [...] last reviewed 2021. Blood 05/24/2024 7:46 PM FLUE GAS ANALYST 05/24/2024 7:54 PM FLUE GAS ANALYST us Nadege [facility]AK[facility] LAB BLOOD ORDERABLES Final Resul t [facility] [address] [facility] Department [place] [address] * (ABNORMAL) Differential, auto (05/24/2024 7:46 PM FLUE GAS ANALYST) Neutrophil abs 6.6(H) 1.5 - 6.5 K/cumm Imm gran abs 0.0 0.0 - 0.1 K/cumm [facility] Lymphocyte abs 1.0 0.8 - 3.3 K/cumm [facility] Monocyte abs 0.6 0.2 - 0.8 K/cumm [facility] Eosinophil abs 0.0 0.0 - 0.5 K/cumm [facility] Basophil abs 0.0 0.0 - 0.1 K/cumm [facility] Neutrophil pct 79.8 % [facility] Comment: Interpretive Data Percent cell count reference ranges are not reported, since discordance with absolute values may lead to misinterpretation of CBC data. Current Interpretive Data was last revised on 2017. Imm gran pct 0.2 % [facility] Comment: Interpretive Data Percent cell count reference ranges are not reported, since discordance with absolute values may lead to misinterpretation of CBC data. Current Interpretive Data was last revised on 2017. Lymphocyte pct 11.5 % [facility] Comment: Interpretive Data Percent cell count reference ranges are not reported, since discordance with absolute values may lead to misinterpretation of CBC data. Current Interpretive Data was last revised on 2017. Monocyte pct 7.6 % [facility] Comment: Interpretive Data Percent cell count reference ranges are not reported, since discordance with absolute values may lead to misinterpretation of CBC data. Current Interpretive Data was last revised on 2017. Eosinophil pct 0.5 % [facility] Comment: Interpretive Data Percent cell count reference ranges are not reported, since discordance with absolute values may lead to misinterpretation of CBC data. Current Interpretive Data was last revised on 2017. Basophil pct 0.4 % [facility] Comment: Interpretive Data Percent cell count reference ranges are not reported, since discordance with absolute values may lead to misinterpretation of CBC data. Current Interpretive Data was last revised on 2017. Blood 05/24/2024 7:46 PM FLUE GAS ANALYST 05/24/2024 7:54 PM FLUE GAS ANALYST Nadege [facility]AK[facility] LAB BLOOD ORDERABLES Final Resul t Performing Organization Address [facility] de Phone Number [facility] [address] [place] [address] * (ABNORMAL) CBC with auto differential (05/24/2024 7:46 PM FLUE GAS ANALYST) WBC 8.3 3.8 - 9.9 K/cumm Hgb 14.5 11.9 - 15.5 g/dL [facility] Hct 45.2 35.6 - 45.5 % [facility] Plt 235 150 - 400 K/cumm [facility] MPV 10.4 9.1 - 12.3 fL [facility] RBC 4.96 3.90 - 5.20 M/cumm [facility] MCV 91.1 81.3 - 96.4 fL [facility] MCH 29.2 27.1 - 33.3 pg [facility] MCHC 32.1(L) 32.3 - 35.7 g/dL [facility] RDW CV 13.5 11.1 - 14.9 % [facility] RDW SD 45.7 35.7 - 48.1 fL [facility] NRBC abs 0.00 0.00 - 0.01 K/cumm [facility] Blood (Blood, Venous) 05/24/2024 7:46 PM FLUE GAS ANALYST 05/24/2024 7:54 PM FLUE GAS ANALYST Nadege [facility]AK[facility] LAB BLOOD ORDERABLES Final Resul t Performing Organization Address [facility] Co de Phone Number [facility] [address] [place] [address] * (ABNORMAL) Comprehensive metabolic panel (05/24/2024 7:46 PM FLUE GAS ANALYST) Sodium 142 135 - 145 mmol/L Potassium, pl 4.3 3.3 - 4.9 mmol/L [facility] Comment:Hemolyzed; Potassium value may be falsely elevated by as much as 1.0 mmol/L. Suggest redraw and reanalysis. Chloride 109 97 - 110 mmol/L [facility] CO2 20(L) 22 - 32 mmol/L [facility] Anion gap 13 2 - 15 mmol/L [facility] BUN 23 6 - 25 mg/dL [facility] Creatinine 1.81(H) 0.60 - 1.10 mg/dL [facility] Glucose 116 70 - 199 mg/dL [facility] Comment: Interpretive Data Fasting glucose >/= 126 [...] 2022. Calcium 10.1 8.5 - 10.3 mg/dL [facility] Bilirubin, total 0.4 0.1 - 1.2 mg/dL [facility] Protein, pl 7.2 6.5 - 8.5 g/dL [facility] Albumin 4.2 3.5 - 5.0 g/dL [facility] Alk phos 72 40 - 130 Units/L [facility] ALT 23 7 - 45 Units/L [facility] AST 36 10 - 45 Units/L [facility] Comment:Hemolyzed; result ma y be falsely elevated Blood (Blood, Venous) 05/24/2024 7:46 PM FLUE GAS ANALYST 05/24/2024 7:54 PM FLUE GAS ANALYST us Nadege [facility]AK[facility] LAB BLOOD ORDERABLES Final Resul t [facility] [address] [facility] Department [place] [address] * SCAN - RADIOLOGY/IMAGING (05/23/2024) Anatomical Region Laterality Modality Other us Provider Scanning Final Result from Last 3 Months Insurance [facility] MDCR HMO REF MEDICARE SOLUTIONS Advance Directives For more information, please contact: [phone] * LIMITED - No CPR (Latest Code Status on File) Date Activated Date Inactivated Comments 06/12/2023 5:01 PM 06/16/2023 7:03 PM Care Teams Relationship Counselor Relationship Specialty Start Date End Date Bhavik Bah DO PCP - General 09/02/18
--- OUTSIDE RECORDS SUMMARY | 2024-06-18 02:46 | XMS_ITS | Clinical Summary ---
Author Organization [facility] Office Center Address [address] [place] [address] Care Team Providers Care Monkey Keeper Name Role Phone TempletonBhavik monk Primary Care Provider Allergies Active Allergy [...] her bath Coronary artery disease invo [place]ving [place] coronary artery of [place] heart without angina pectoris 06/12/2023 Overview (03/19/2024): [...] Continue with Cardiology CHF (congestive heart failure) ([facility]) 014 Overview (03/19/2024): CHF is overall stable [...] Department Care Team Description 05/24/2024 7:15 PM FLOOR COVERING PRINTER ASSISTANT - 05/25/2024 3:50 AM FLOOR COVERING PRINTER ASSISTANT Emergency [address] [address] Nausea and vomiting, unspecified vomiting type (Primary Dx); Urinary tract infection in female Discharge Disposition: Discharge to home or self care 05/23/2024 Orders Only [facility] Health Information Management [address] [place] [address] Scanning, Provider 03/28/2024 Telephone [facility] Accountable Care Organization [address] [place] [address] Rosaline Purdy, [facility] Chart Review 03/19/2024 2:00 PM FLOOR COVERING PRINTER ASSISTANT Office Visit [facility] Medical Group Primary Care [address] [place] [phone] Bhavik Bah, Routine physical examination (Primary Dx); Need for hepatitis C screening test; Benign essential HTN; Mixed hyperlipidemia; Hypertensive heart disease with congestive heart failure, unspecified heart failure type (HCC); Chronic congestive heart failure, unspecified heart failure type (HCC); Nonrheumatic aortic valve stenosis; Chronic obstructive pulmonary disease with bronchospasm (HCC); Coronary artery disease involving [place] coronary artery of [place] heart without angina pectoris; Diastolic dysfunction; Gastroesophageal [...] Tobacco Cessation:Counseling Given: Not Answered [facility] [employer] Answer Date Recorded In the past 12 months has th e [employer], gas, oil, or water [employer] threatened to shut off services in your [...] often do you attend chur ch or islam services? 1 to 4 times per year 06/14/2023 Do you belong to any clubs o r organizations such as sikhism groups, unions, fraternal or athletic groups, or [...] place to sleep or slept in a fci (including now)? No 06/13/2023 Personal Safety Answer Date Recorded Have you ever been in or are you currently in a harmful physical or emotional relationship or is someone making you feel afraid or unsafe? Denies 05/24/2024 Comments No Sex and Gender Information Value Date Recorded Sex Assigned at Not on file Legal Sex Female 6:42 PM FLOOR COVERING PRINTER ASSISTANT Gender Identity Not on file Sexual Orientation Not on file Obstetrics History Last Filed Vital Signs Vital Sign Reading Time Taken Comments Blood Pressure 138/70 05/25/2024 1:37 AM FLOOR COVERING PRINTER ASSISTANT Pulse 78 05/25/2024 1:37 AM FLOOR COVERING PRINTER ASSISTANT Temperature 37.1 C (98.7 F) 05/24/2024 7:17 PM FLOOR COVERING PRINTER ASSISTANT Respiratory Rate 16 05/25/2024 1:37 AM FLOOR COVERING PRINTER ASSISTANT Oxygen Saturation 98% 05/25/2024 1:37 AM FLOOR COVERING PRINTER ASSISTANT Inhaled Oxygen Concentration - - Weight 66.7 kg (147 lb) 03/19/2024 1:38 PM FLOOR COVERING PRINTER ASSISTANT Height 152.4 cm (5') 05/24/2024 7:17 PM FLOOR COVERING PRINTER ASSISTANT Body Mass Index 28.71 03/19/2024 1:38 PM FLOOR COVERING PRINTER ASSISTANT Plan of Treatment Health Maintenance Due Date [...] PELVIS WO CONTRAST ED 05/24/2024 9:23 PM FLOOR COVERING PRINTER ASSISTANT URINALYSIS, MICROSCOPIC ONLY STAT 05/24/2024 7:54 PM FLOOR COVERING PRINTER ASSISTANT URINE CULTURE STAT 05/24/2024 7:54 PM FLOOR COVERING PRINTER ASSISTANT URINALYSIS AND REFLEX TO MICROSCOPIC AND CULTURE STAT 05/24/2024 7:54 PM FLOOR COVERING PRINTER ASSISTANT EGFR STAT 05/24/2024 7:46 PM FLOOR COVERING PRINTER ASSISTANT DIFFERENTIAL AUTO STAT 05/24/2024 7:4 6 PM FLOOR COVERING PRINTER ASSISTANT COMPREHENSIVE METABOLIC PANEL STAT 05/24/2024 7:46 PM FLOOR COVERING PRINTER ASSISTANT CBC WITH AUTO DIFFERENTIAL STAT 05/24/2024 7:46 PM FLOOR COVERING PRINTER ASSISTANT INFLUENZA A/B, RSV, AND COVID-19 PCR Routine 05/24/2024 7:46 PM FLOOR COVERING PRINTER ASSISTANT SCAN - RADIOLOGY/IMAGING 05/23/2024 from Last 3 Months Results * CT Abdomen Pelvis WO Contrast (05/24/2024 9:23 PM FLOOR COVERING PRINTER ASSISTANT) Anatomical Region Laterality Modality Body N/A Computed Tomogra phy 05/24/2024 9:26 PM FLOOR COVERING PRINTER ASSISTANT Narrative 05/24/2024 9:37 PM FLOOR COVERING PRINTER ASSISTANT EXAM DESCRIPTION: CT ABDOMEN PELVIS WO CONTRAST [...] Jaziel Casillas M.D. LB T: Report ID: [id number] Reading Location: [id number] Procedure Note Jaziel Casillas MD - 05/24/2024 [...] by Jaziel Casillas M.D. T: Report ID: [id number] Reading Location: [place] [address] [address] PROCEDURES Final Result * (ABNORMAL) Urinalysis reflex to microscopic and culture Urine (05/24/2024 7:54 PM FLOOR COVERING PRINTER ASSISTANT) Color, ur Yellow Yellow Clarity, ur Cloudy(A) [...] tendency for uric acid stone formation. Source: Linkage Current Interpretive Data was last revised on 2017 Protein, ur ql 1+(A) Negative [facility] Glucose, ur ql Negative Negative [facility] Ketones, ur Negative Negative [facility] Bilirubin, ur Negative Negative [facility] Blood, ur Negative Negative [facility] Urobilinogen, ur <2.0 <2.0 mg/dL [facility] Nitrite, ur Negative Negative [facility] Leukocyte esterase, ur 4+(A) Negative [facility] UA reflex comment Reflex to microscopic UA will be performed. [facility] Urine 05/24/2024 7:54 PM FLOOR COVERING PRINTER ASSISTANT 05/24/2024 8:00 PM FLOOR COVERING PRINTER ASSISTANT Nadege [facility] LAB MICROBIOLOGY - GENERAL ORDER ENEIDA Final Result Performing Organization Address [facility] de Phone Number [address] [employer] [place] [address] * (ABNORMAL) Urinalysis, microscopic only (05/24/2024 7:54 PM FLOOR COVERING PRINTER ASSISTANT) WBC, ur >50(A) 0 - 5 /HPF RBC, ur 11-20(A) 0 - 2 /HPF [facility] Epithelial cells, squamous, ur 6-10(A) 0 - 5 /HPF [facility] Comment:Suggestive of contam ination. Consider recollection by clean catch. Mucous, ur Present(A) [facility] Culture Reflex Comment Reflex to urine culture will be performed. [facility] Urine 05/24/2024 7:54 PM FLOOR COVERING PRINTER ASSISTANT 05/24/2024 8:00 PM FLOOR COVERING PRINTER ASSISTANT [facility] OR LAB URINE ORDERABLES Final Resul t Performing Organization Address [facility] Co de Phone Number [address] [employer] [place] [address] * Urine culture Urine (05/24/2024 7:54 PM FLOOR COVERING PRINTER ASSISTANT) Report Final Report: Less than 100,000 colonies/mL (clinically insignificant growth based on current clinical standards) Comment:Testing performed by : [facility], [address] [place]., [address] Organism (CLINICALLY INSIGNIFICANT GROWTH [facility] Urine 05/24/2024 7:54 PM FLOOR COVERING PRINTER ASSISTANT 05/25/2024 1:24 AM FLOOR COVERING PRINTER ASSISTANT Narrative [facility] - 05/26/2024 7:09 AM FLOOR COVERING PRINTER ASSISTANT Urine culture reflexed based upon urinalysis results. Testing performed by [facility] ([phone]) [facility] OR LAB MICROBIOLOGY - GENERAL ORDER ENEIDA Final Result Performing Organization Address City/[facility]/ZIP Co de Phone Number [place] [address] [facility] [employer] [address] * Influenza A/B, RSV, and COVID-19 PCR Nasopharyngeal (05/24/2024 7:46 PM FLOOR COVERING PRINTER ASSISTANT) Pathologist [facility] COVID-19 RNA Negative Negative Influenza A RNA Negative Negative [facility] Influenza B RNA Negative Negative [facility] RSV RNA Negative Negative [facility] Comment: Interpretive data: Testing performed by [facility]. This test is performed using the [employer] Xpert Xpress CoV-2/Flu/RSV plus assay. This is a multiplex, real-time reverse transcriptase PCR assay intended for the qualitative detection of nucleic acid from SARS-CoV-2, influenza A, influenza B, and respiratory syncytial virus. This assay has been cleared by the [place] Food and Drug administration. The performance characteristics have been verified by the [facility]. Results must be considered in the clinical context, and a negative result does not rule out infection. Interpretive Data last revised 2023 Nasopharyngeal 05/24/2024 7: 46 PM FLOOR COVERING PRINTER ASSISTANT 05/24/2024 7:54 PM FLOOR COVERING PRINTER ASSISTANT Narrative [facility] - 05/24/2024 8:34 PM FLOOR COVERING PRINTER ASSISTANT Is the Patient experiencing symptoms consistent with COVID?->Yes [facility] MICROBIOLOGY - GENERAL ORDER ENEIDA Final Result Performing Organization Address City/[facility]/ZIP Co de Phone Number [facility] [address] [facility] [employer] [place] [address] * (ABNORMAL) eGFR (05/24/2024 7:46 PM FLOOR COVERING PRINTER ASSISTANT) [facility] eGFR 28(L) >=60 mL/min/1. 73 m2 Comment: [...] last reviewed 2021. Blood 05/24/2024 7:46 PM FLOOR COVERING PRINTER ASSISTANT 05/24/2024 7:54 PM FLOOR COVERING PRINTER ASSISTANT us Nadege [facility] LAB BLOOD ORDERABLES Final Resul t [facility] [address] [facility] [place] [address] * (ABNORMAL) Differential, auto (05/24/2024 7:46 PM FLOOR COVERING PRINTER ASSISTANT) [facility] Neutrophil abs 6.6(H) 1.5 - 6.5 K/cumm Imm gran abs 0.0 0.0 - 0.1 K/cumm [facility] Lymphocyte abs 1.0 0.8 - 3.3 K/cumm [facility] Monocyte abs 0.6 0.2 - 0.8 K/cumm [facility] Eosinophil abs 0.0 0.0 - 0.5 K/cumm [facility] Basophil abs 0.0 0.0 - 0.1 K/cumm [facility] Neutrophil pct 79.8 % [facility] Comment: Interpretive Data Percent cell count reference ranges are not reported, since discordance with absolute values may lead to misinterpretation of CBC data. Current Interpretive Data was last revised on 2017. Imm gran pct 0.2 % [facility] Comment: Interpretive Data Percent cell count reference ranges are not reported, since discordance with absolute values may lead to misinterpretation of CBC data. Current Interpretive Data was last revised on 2017. Lymphocyte pct 11.5 % [facility] Comment: Interpretive Data Percent cell count reference ranges are not reported, since discordance with absolute values may lead to misinterpretation of CBC data. Current Interpretive Data was last revised on 2017. Monocyte pct 7.6 % [facility] Comment: Interpretive Data Percent cell count reference ranges are not reported, since discordance with absolute values may lead to misinterpretation of CBC data. Current Interpretive Data was last revised on 2017. Eosinophil pct 0.5 % [facility] Comment: Interpretive Data Percent cell count reference ranges are not reported, since discordance with absolute values may lead to misinterpretation of CBC data. Current Interpretive Data was last revised on 2017. Basophil pct 0.4 % [facility] Comment: Interpretive Data Percent cell count reference ranges are not reported, since discordance with absolute values may lead to misinterpretation of CBC data. Current Interpretive Data was last revised on 2017. Blood 05/24/2024 7:46 PM FLOOR COVERING PRINTER ASSISTANT 05/24/2024 7:54 PM FLOOR COVERING PRINTER ASSISTANT us Nadege BARAKAT LAB BLOOD ORDERABLES Final Resul t [facility] [address] [facility] [place] [address] * (ABNORMAL) CBC with auto differential (05/24/2024 7:46 PM FLOOR COVERING PRINTER ASSISTANT) WBC 8.3 3.8 - 9.9 K/cumm Hgb 14.5 11.9 - 15.5 g/dL [facility] Hct 45.2 35.6 - 45.5 % [facility] Plt 235 150 - 400 K/cumm [facility] MPV 10.4 9.1 - 12.3 fL [facility] RBC 4.96 3.90 - 5.20 M/cumm [facility] MCV 91.1 81.3 - 96.4 fL [facility] MCH 29.2 27.1 - 33.3 pg [facility] MCHC 32.1(L) 32.3 - 35.7 g/dL [facility] RDW CV 13.5 11.1 - 14.9 % [facility] RDW SD 45.7 35.7 - 48.1 fL [facility] NRBC abs 0.00 0.00 - 0.01 K/cumm [facility] Blood (Blood, Venous) 05/24/2024 7:46 PM FLOOR COVERING PRINTER ASSISTANT 05/24/2024 7:54 PM FLOOR COVERING PRINTER ASSISTANT us Nadege BARAKAT LAB BLOOD ORDERABLES Final Resul t [facility] [address] [facility] [place] [address] * (ABNORMAL) Comprehensive metabolic panel (05/24/2024 7:46 PM FLOOR COVERING PRINTER ASSISTANT) Sodium 142 135 - 145 mmol/L Potassium, pl 4.3 3.3 - 4.9 mmol/L [facility] Comment:Hemolyzed; Potassium value may be falsely elevated by as much as 1.0 mmol/L. Suggest redraw and reanalysis. Chloride 109 97 - 110 mmol/L [facility] CO2 20(L) 22 - 32 mmol/L [facility] Anion gap 13 2 - 15 mmol/L [facility] BUN 23 6 - 25 mg/dL [facility] Creatinine 1.81(H) 0.60 - 1.10 mg/dL [facility] Glucose 116 70 - 199 mg/dL [facility] Comment: Interpretive Data Fasting glucose [...] 2022. Calcium 10.1 8.5 - 10.3 mg/dL [facility] Bilirubin, total 0.4 0.1 - 1.2 mg/dL [facility] Protein, pl 7.2 6.5 - 8.5 g/dL [facility] Albumin 4.2 3.5 - 5.0 g/dL [facility] Alk phos 72 40 - 130 Units/L [facility] ALT 23 7 - 45 Units/L [facility] AST 36 10 - 45 Units/L [facility] Comment:Hemolyzed; result ma y be falsely elevated Blood (Blood, Venous) 05/24/2024 7:46 PM FLOOR COVERING PRINTER ASSISTANT 05/24/2024 7:54 PM FLOOR COVERING PRINTER ASSISTANT us Nadege BARAKAT LAB BLOOD ORDERABLES Final Resul t Performing Organization Address City/State/[facility] Co de Phone Number [facility] [address] [facility] [place] [address] * SCAN - RADIOLOGY/IMAGING (05/23/2024) Anatomical Region Laterality Modality Other us Provider Scanning Final Result from Last 3 Months Insurance [facility] MDCR HMO [facility]F [facility] MEDICARE Address: [facility] [address] [place] [address] MEDICARE SOLUTIONS Advance Directives For more information, please contact: [phone] * LIMITED - No CPR (Latest Code Status on File) Date Activated Date Inactivated Comments 06/12/2023 5:01 PM 06/16/2023 7:03 PM Care Teams Monkey Keeper Relationship Specialty Start Date End Date Bhavik Bah DO PCP - General 09/02/18
--- OUTSIDE RECORDS SUMMARY | 2024-06-18 02:46 | XMS_ITS | Encounter Summary ---
Author Organization [facility] Healthcare Address [address] [place] [address] Care Team Providers Care Waiter/Waitress Cafeteria Name Role Phone Bhavik Bah DO Primary Care Provider Encounter Details Date Type Department Care Team (Late st Contact Info) Description 01/17/2024 Orders Only [facility] [place] Health Information Management [address] [place] [id number] Scanning, Provider Social History Tobacco Use Types Packs/Day Years Used Date Smoking Tobacco: Former Cigarettes Smokeless Tobacco: Never [facility] Utilities Answer Date Recorded In the past 12 months has [employer], gas, oil, or water [employer] threatened to shut off services in your [...] often do you attend chur ch or baptism services? 1 to 4 times per year 06/14/2023 Do you belong to any clubs o r organizations such as confucianist groups, unions, fraternal or athletic groups, or [...] on file Legal Sex Female 6:42 PM [employer] Gender Identity Not on file Sexual Orientation [...] COVID: Suspected 05/24/2024 05/24/2024 05/24/2024 8:36 PM [employer] documented as of this encounter Care Teams Waiter/Waitress Cafeteria Relationship Specialty Start Date End Date Bhavik Bah DO PCP - General 09/02/18 documented as of this encounter
--- OUTSIDE RECORDS SUMMARY | 2024-06-18 02:46 | XMS_ITS | Clinical Summary ---
Author Organization [facility] Address [address] [place] [address] Care Team Providers Care Wood Machinist Name Role Phone Bhavik Bah DO Primary Care Provider [phone] Rg Morgan MD Unavailable Allergies Active Allergy Reactions Criticality Noted Date [...] Rash 06/12/2023 Coronary artery disease invo lving minto coronary artery of minto heart without angina pectoris 06/12/2023 Benign essential HTN 06/12/2023 Chronic kidney disease (CKD) , stage IV (severe) ([facility]) 06/12/2023 Assessment & Plan (11/07/2023 9:39 AM CDT): She had an acute and chronic kidney injury during hospitalization in May. We'll check another basic metabolic panel. Chest pain 08/30/2022 Diastolic dysfunction 11/15/2021 Overview (11/15/2021): Noted on Echo October 2021 Skin tear of right forearm without complication 01/27/2021 Stage 4 chronic kidney disease ([facility]) 03/27/2020 Assessment & Plan (09/29/2021 2:04 PM CDT): Followed by nephrology Lisinopril Assessment & Plan (04/01/2021 10:44 AM HEALTHCARE SALES REPRESENTATIVE): Stable with re-initiation of lisinopril at last [...] infa rction involving left circumflex coronary artery ([facility]) 09/25/2019 STEMI involving oth coronary artery of inferior wall ([facility]) 09/25/2019 Stage 3 chronic kidney disease ([facility]) 08/28/2019 Trochanteric bursitis of left hip 06/15/2019 Right shoulder injury 11/02/2018 Hypertensive CHF ([facility]) 08/15/2018 Assessment & Plan (09/30/2021 9:15 AM CDT): Blood pressure is elevated today and confirmed at home - increasing lisinopril to 40mg daily Encouraged to continue to monitor at home and log and call office with any concerns in future. Peripheral arteriosclerosis 05/01/2018 Assessment & Plan (04/01/2021 10:44 AM HEALTHCARE SALES REPRESENTATIVE): Hx of peripheral vascular disease with prior [...] AM CDT): She has a history of NC involving her circumflex arteries, for which she underwent PTCA. Continue Aspirin, Ticagrelor. She is currently on a PCSK9 inhibitor, but has not been approved by insurance. We'll check with the pharmacy about a smaller Statin pill to see if that will help with insurance coverage. Assessment & Plan (05/11/2023 12:14 PM HEALTHCARE SALES REPRESENTATIVE): She is not having angina.Continue aspirin, ticagrelor, [...] year. Assessment & Plan (05/11/2023 12:15 PM HEALTHCARE SALES REPRESENTATIVE): She requires dental prophylaxis and her most recent echo showed appropriate valve function. Assessment & Plan (07/17/2022 10:28 AM CDT): She requires dental prophylaxis and her most recent echo showed appropriate valve function. Assessment & Plan (09/29/2021 2:03 PM CDT): Last echo 2019 revealed a well functioning bioprosthetic aortic valve Assessment & Plan (04/01/2021 10:43 AM HEALTHCARE SALES REPRESENTATIVE): Last echo 2019 revealed a well functioning [...] repatha Assessment & Plan (04/01/2021 11:08 AM HEALTHCARE SALES REPRESENTATIVE): S/p CABG S/p PCI CFX 09/2019 - Brilinta dose decreasing to 60mg BID continued with ASA 81mg daily Statin therapy was restarted at last APPT - will need repeat lipid panel in 4-6 weeks Assessment & Plan (02/26/2021 9:19 PM CDT): She is not having angina.Continue aspirin, ticagrelor, metoprolol and I restarted rosuvastatin today. CHF (congestive heart failure) ([facility]) 09/02/2013 Gastroesophageal reflux disease without esophagi tis 09/02/2013 Mixed hyperlipidemia 09/02/2013 Assessment & Plan (11/07/2023 9:39 AM CDT): We checked with the pharmacy, Atorvastatin 10mg is a smaller pill. Start Atorvastatin 10mg, and we'll try to get her PCSK9 inhibitor approved. Assessment & Plan (05/11/2023 12:15 PM HEALTHCARE SALES REPRESENTATIVE): Her most recent LDL is elevated. She [...] lisinopril. Assessment & Plan (04/01/2021 11:07 AM HEALTHCARE SALES REPRESENTATIVE): Blood pressure is midly increased - increasing [...] MCG/ 0.5 ML DOSE 06/16/2020,05/19/2020 MODERNA COVID-19 (STEAK TENDERIZER MACHINE FRANCISCA NAIN), MRNA, LNP-S, PF, 50 MCG/ [...] place to sleep or slept in a longterm (including now)? No 08/31/2022 Comments No Sex [...] st Contact Info) Description 06/24/2024 1:00 PM HEALTHCARE SALES REPRESENTATIVE Office Visit [facility] [address] [facility], [address] [place], [place] [id number] Rg Morgan MD [address] [facility], [place] [id number] Mamta Plata PA [address] [facility], [address] [place], [place] [id number] Health Maintenance Due Date Last Done Comments Hepatitis C 1963 Dexa Scan (General) 07/23/2011 RSV Immunization or 60+ Years (1 - 1-dose 75+ series) 2021 Annual Medicare Wellness Visit 09/02/2021 09/01/2020 Zoster Vaccines (2 of 2) 04/11/2023 02/14/2023 COVID-19 Vaccine ( - season) 2023 02/08/2023, 01/05/2022, 05/07/2021, Additional history exists ASCVD LDL 02/18/2024 02/17/2023, 08/22, 08/31/2022, Additional history exists DTaP, Tdap and Td Vaccines (2 - Td or Tdap) 10/02/2032 10/02/2022 Colorectal Cancer Screening Colonoscopy (10 Years) Discontinued 05/25/2013 Pneumococcal Vaccine: 65+ Years Completed 01/27/2022 Influenza Adult Completed 02/23/2024, 12/24, 01/27/2022, Additional history exists Meningococcal B Vaccine Aged Out No l [...] discharge from hospital Lifestyle No Mamta Nunez computer networking instructor Procedure Name Priority Date/Time Associated Diagnosis Comments LIPID PANEL Routine 02/17/2023 10:04 AM CDT Mixed hyperlipidemia COLONOSCOPY Routine 05/25/2013 12:00 AM HEALTHCARE SALES REPRESENTATIVE from Last 3 Months or Most Recently Relevant to Health Maintenance Results * (ABNORMAL) LIPID PANEL (02/17/2023 10:04 AM CDT) [facility] CHOLESTEROL 251(H) 0 - 199 MG/DL [facility] TRIGLYCERIDES 228(H) 0.00 - 150.00 MG/DL [facility] Comment: NCEP REFERENCE VALUES FOR TRIGLYCERIDES: NORMAL: <150 MG/DL BORDERLINE HIGH: 150 - 199 MG/DL HIGH: 200 - 499 MG/DL VERY HIGH: >/= 500 MG/DL HDL 61 >40 MG/DL [facility] LDL (CALCULATED) 151(H) 0 - 99 MG/DL [facility] Comment: CUTOFF VALUES RECOMMENDED BY THE NATIONAL CHOLESTEROL EDUCATION PROGRAM: DESIRABLE: CHOLESTEROL <200 MG/DL LDL <100 MG/DL BORDERLINE: CHOLESTEROL 200-239 MG/DL LDL 101-159 MG/DL HIGHER RISK: CHOLESTEROL >240 MG/DL LDL >160 MG/DL, HDL <40 MG/DL NON HDL CHOLESTEROL 190 NO REFERENCE RANGE MG/DL [facility] Comment: A REASONABLE GOAL FOR NON-HDL CHOLESTEROL IS ONE THAT IS 30 MG/DL HIGHER THAN THE LDL CHOLESTEROL GOAL. CHOL/HDL RATIO 4.1 0.0 - 5.0 . [facility] Comment: IS PATIENT FASTING?->YES ON AUGUST 16, 2022, [facility] CHANGED THE EQUATION FOR CALCULATING ESTIMATED [...] LIPID PROFILE. RITU: THE J[employer]RNA[employer] 310 (19): [id number]. - MEGHAN V, TRINA J, RAMON A, FRAN M, LILIA R, JOHN E, DALY RS, MONICA SR, EVAN SS. FASTING VERSUS NONFASTING AND LOW-DENSITY LIPOPROTEIN CHOLESTEROL ACCURACY. CIRCULATION. 2018 APR 25;137(1):10-19. 02/17/2023 10:0 4 AM CDT 02/18/2023 6:22 AM CDT Bhavik Bah DO LABORATORY Final Resul t [facility] [address] [place], [place] [id number] [place] [address] * Colonoscopy (05/25/2013 12:00 AM HEALTHCARE SALES REPRESENTATIVE) 05/25/2013 05/25/2013 Narrative [facility] TO EPIC CONVERSION - 05/25/2013 12:00 AM HEALTHCARE SALES REPRESENTATIVE Documented hx of procedure Procedure Note , Aleksandra De Leon, - 02/25/2018 Documented hx of procedure us Generic Conversion Md [facility] PROCEDURE ORDERABLES Final Result [facility] TO EPIC CONVERSION from Last 3 Months or Most Recently Relevant to Health Maintenance Insurance * Guarantor: Danielle Swan Account Type Relation to Patient Date of Phone Billing Address Personal/Family Self 1945 [address] [place] [address] [facility] Advance Directives * Full Code (Latest Code Status on File) Date Activated Date Inactivated Comments 08/31/2022 12:07 AM 09/01/2022 4:43 PM * Full Code Date Activated Date Inactivated Comments 09/25/2019 8:26 PM 09/27/2019 2:56 PM * Full Code Date Activated Date Inactivated Comments 09/25/2019 7:59 PM 09/25/2019 8:26 PM Care Teams Wood Machinist Relationship Specialty Start Date End Date Bhavik Bah DO PCP - General 11/20/16 Rg Morgan MD [address] [address] Consulting Physician INTERVENTIONAL CARDIOLOGY 03/31/22
--- OUTSIDE RECORDS SUMMARY | 2024-06-18 02:46 | XMS_ITS | Encounter Summary ---
Author Organization [facility] Care Team Providers Care Traveler Changer Name Role Phone Bhavik Bah Primary Care Provider Encounter Details Date Type Department Care Team (Latest Contact Info) Description 05/26/2016 Orders Only [facility] CLINCONV ProviderSkyla MD [address] [place] [id number] Social History Tobacco Use Types Packs/Day Years Used Date Smoking Tobacco: Never Assessed Comments Unknown Sex and Gender Information Value Date Recorded Sex Assigned at Not on file Legal Sex Female 6:42 PM ORTHOTIST OR PROSTHETIST Gender Identity Not on file Sexual Orientation Not on file documented as of this encounter Plan of Treatment Not on file documented as of this encounter Procedures Procedure Name Priority Date/Time Associated Diagnosis Comments CARDIOLOGY REPORT 07/01/2016 12: 00 AM ORTHOTIST OR PROSTHETIST documented in this encounter Results * CARDIOLOGY REPORT (07/01/2016 12:00 AM ORTHOTIST OR PROSTHETIST) Anatomical Region Laterality Modality Other Narrative 07/01/2016 12:00 AM ORTHOTIST OR PROSTHETIST Ordered by an unspecified provider. Historical Provider [facility] LEXIE CARRENO Final Result documented in this encounter Visit Diagnoses Not on filedocumented in this encounter Additional Health Concerns Infection Onset Date Last Indicated Resolved Time COVID: Suspected 06/12/2023 06/12/2023 06/12/2023 12:05 PM ORTHOTIST OR PROSTHETIST Influenza, adult 06/12/2023 06/12/2023 06/19/2023 3:05 AM ORTHOTIST OR PROSTHETIST COVID: Suspected 05/24/2024 05/24/2024 05/24/2024 8:36 PM ORTHOTIST OR PROSTHETIST documented as of this encounter Care Teams Traveler Changer Relationship Specialty Start Date End Date Bhavik Bah DO PCP - General 09/02/18 documented as of this encounter
--- OUTSIDE RECORDS SUMMARY | 2024-06-18 02:46 | XMS_ITS | Encounter Summary ---
Author Organization [facility] Address [address] [place] [address] Care Team Providers Care Hairmasters Manager Name Role Phone Bhavik Bah DO Primary Care Provider [phone] Rg Morgan MD Unavailable [phone] Encounter Details Date Type Department Care Team (Late Contact Info) Description 09/30/2019 Hospital Follow-up Call [facility] [place] [address] Tasia Blanca, RN Social History Tobacco Use [...] (Late Contact Info) Description 06/24/2024 1:00 PM ENVIRONMENTAL HEALTH TECHNICIAN Office Visit [facility] THREE [facility], [address] [place], [place] [phone] Rg Morgan MD Three [facility]. [address] [place], [place] [address] Mamta Plata PA [address] [facility], [address] [place], [place] [address] documented as of this encounter Visit Diagnoses Not on filedocumented in this encounter Care Teams Hairmasters Manager Relationship Specialty Start Date End Date Bhavik Bah DO PCP - General 11/20/16 Rg Morgan MD Three [facility]. [address] [place] [address] Consulting Physician INTERVENTIONAL CARDIOLOGY 03/31/22 documented as of this encounter
[2024-06-18] MEDS: LACTATED RINGERS 1,000 ML 999 ML IV CONT (02:48)
[2024-06-18] MEDS: ONDANSETRON INJ 4 MG/2 ML VIAL IV PUSH (02:49)
[2024-06-18] MEDS: MORPHINE SULFATE (*CRX) 4 MG/ML INJ IV PUSH (02:50)
[2024-06-18 02:51] LABS: Influenza A QL RT-PCR Negative (Negative); Influenza B QL RT-PCR Negative (Negative); RSV RNA, RT-PCR Negative (Negative); SARS-CoV-2 RNA PCR Negative (Negative)
[2024-06-18 03:14] LABS: Add Urine Microscopic? YES; Appearance Urine Cloudy (Clear); Bacteria Urine Rare /hpf; Bilirubin Urine Negative (Negative); Blood Urine Negative (Negative); Color Urine Yellow (Yellow); Glucose Urine UA Negative (Negative); Ketones Urine Negative (Negative); Leukocyte Esterase Ur 3+ LEU/UL (Negative); Need Manual Microscopic Reviewed; Nitrate Urine Negative (Negative); Protein Urine Negative (Negative); RBC Urine 0-2 /hpf (0-2); Specific Grav Ur 1.014 (1.001-1.035); Squamous Epithelial Cell Urine Moderate /hpf (Few); Urobilinogen Urine 0.2 mg/dL (<2.0); WBC Urine 51-100 /hpf (0-3)
[2024-06-18 04:04] LABS: Lactic Acid Reflex 1.5 mmol/L (0.7-2.0)
[2024-06-18] MEDS: metroNIDAZOLE 500 MG/ISO 100ML 500 MG/100 ML BAG 100 MG IVPB (05:49)
[2024-06-18] MEDS: CIPROFLOXACIN 400 MG/D5W 200ML 200 ML 200 MG IVPB (06:37)
== END 2024-06-18 09:38 | disposition home or self-care (01) ==
PROVIDERS: Emergency Provider Student in an Organized Health Care Education/Training Program; PCP Family Medicine
DX: K57.32 Diverticulitis of large intestine without perforation or abscess without bleeding (principal); R11.10 Vomiting, unspecified; R19.7 Diarrhea, unspecified; D72.829 Elevated white blood cell count, unspecified; Z20.822 Contact with and (suspected) exposure to COVID-19; I25.10 Atherosclerotic heart disease of native coronary artery without angina pectoris; I10 Essential (primary) hypertension; E78.5 Hyperlipidemia, unspecified; K21.9 Gastro-esophageal reflux disease without esophagitis; K44.9 Diaphragmatic hernia without obstruction or gangrene; Z95.1 Presence of aortocoronary bypass graft; Z95.5 Presence of coronary angioplasty implant and graft; Z85.828 Personal history of other malignant neoplasm of skin; Z87.891 Personal history of nicotine dependence; Z90.710 Acquired absence of both cervix and uterus; Z79.82 Long term (current) use of aspirin; Z79.899 Other long term (current) drug therapy; Z79.02 Long term (current) use of antithrombotics/antiplatelets; E27.9 Disorder of adrenal gland, unspecified
CPT/HCPCS: 36415; 74177; 80053; 81001; 83605; 83690; 85025; 87637; 93005; 96361; 96365; 96367; 96375; 99284; J0744; J1836; J2270; J2405; J7120; Q9967

== ENCOUNTER 2024-11-07 17:50 | Observation (INO) | payer MEDICARE, SELFPAY ==
--- NOTE | ~2024-11-07 | CT_ITS ---
CT brain wo con Ordering provider: Darci Tobin MD History: 79 years Female with . Dizziness . Comparison: January 28, 2019 Technique: CT of the head without contrast. Radiation reduction technique utilized.The dose-length pr oduct was 605.33 mGy-cm. FINDINGS: BRAIN PARENCHYMA AND CSF SPACES: Mild leukoaraiosis and diffuse cortical atrophy. Mild atheromatous d isease. No midline shift, mass effect or hemorrhage. The brain parenchyma and CSF spaces are otherwi se normal. Empty sella turcica. VISUALIZED PARANASAL SINUSES: Well aerated. MASTOIDS: Well aerated. BONES: The bones appear intact. SOFT TISSUES: Visualized nasopharynx is normal. Superficial soft tissues are normal. IMPRESSION: No acute intracranial findings. Reviewed, dictated and finalized at location A.
--- NOTE | ~2024-11-07 | US_ITS ---
US arterial ankle brachial ind INDICATION: Leg pain TECHNIQUE: Segmental pressures and plethysmographic and Doppler waveforms of the brachial and lower e xtremity arteries were obtained. COMPARISON: None. FINDINGS: Right and left brachial artery pressures of 170 mm Hg and 172 mm Hg, respectively, are concordant (no rmal difference <= 30 mmHg). The right ankle-brachial index (COLLETTE) is 0.45 (normal >= 0.9-1.0). The right great toe-brachial index (TBI) is 0.22 (normal >= 0.60). The left COLLETTE is 0.58. The left TBI is 0.3. IMPRESSION: 1. Diminished bilateral ankle and toe brachial indices consistent with moderate bilateral peripheral arterial disease. Reviewed, dictated and finalized at location B.
--- NOTE | ~2024-11-07 | XR_ITS ---
EXAMINATION: XR chest 2V Exam Date/Time: 11/07/2024 18:06 CDT HISTORY: chest pain Comparison: 05/23/2024, 01/17/2024. RESULT: Lines, tubes, and devices: Intact sternotomy wires. Ostial markers. Mediastinal surgical clips. Lungs and pleura: Clear. Cardiomediastinal silhouette: Stable. Hiatal hernia. Other: No acute osseous or upper abdominal finding. IMPRESSION: No acute cardiopulmonary process. Reviewed, dictated and finalized at location K.
--- OUTSIDE RECORDS SUMMARY | 2024-11-07 17:52 | XMS_ITS | Clinical Summary ---
Author Organization [facility] Office Center Address [address] [place] [address] Care Team Providers Care Hog Raiser Name Role Phone StoddardBhavik monk Primary Care Provider Allergies Active Allergy Reactions Criticality Noted Date Comments Acetaminophen Stomach upset Low 09/14/2019 Stomach/GI Upset Hydrocodone Stomach upset Low 09/14/2019 Stomach/GI Upset Metronidazole Unknown 09/14/2019 unknown-is per outside record Rosuvastatin Muscle pain Medium 02/17/2023 Yolmacg-Tbr-Ijf Reductase Inhibitors Diarrhea Low 09/26/2024 Hydrocodone-Acetaminophen Nausea & Vomiting Low Medications amLODIPine (NORVASC) 10 mg tablet Take 1 tablet (10 mg total) by mouth daily Active aspirin 81 mg enteric coated tablet Take 1 tablet (81 mg total) by mouth daily Active ticagrelor (BRILINTA) 60 mg tablet Take 1 tablet (60 mg total) by mouth 2 (two) times a day Active cetirizine (ZyrTEC) 5 mg tablet Take 1 tablet (5 mg total) by mouth daily for 7 days 7 tablet 06/16/19 24 026 Active Additional Information Patient not taking.Reported on 11/05/2024 lansoprazole (PREVACID) 30 mg capsuleIndications :Gastroesophageal reflux disease without esophagitis Take 1 capsule (30 mg total) by mouth daily 90 capsule 3 03/19/20 24 025 Active ondansetron ODT (ZOFRAN-ODT) 4 mg disintegrating tablet Take 1 tablet (4 mg total) by mouth every 4 (four) hours as needed for nausea or vomiting 20 tablet 08/30/19 25 Active Additional Information Patient not taking.Reported on 11/05/2024 cyclobenzaprine (FLEXERIL) 5 mg tablet Take 1 tablet (5 mg total) by mouth 2 (two) times a day as needed for muscle spasms 60 tablet 1 09/27/19 25 Active Additional Information Patient not taking.Reported on 11/05/2024 Active Problems Problem Noted Date Diagnosed Date [...] her bath Coronary artery disease invo lving [place] coronary artery of [place] heart without angina pectoris 06/12/2023 Overview (03/19/2024): [...] 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 Continue same medications and follow up with [...] Continue with Cardiology CHF (congestive heart failure) 09/02/2013 Overview (03/19/2024): CHF is overall stable No [...] kidney disease (CKD) , stage IV (severe) 06/12/2023 03/19/2024 Rash 06/12/2023 03/19/2024 Encounters Date Type Department Care Team Description 11/05/2024 3:15 PM CDT Office Visit [facility] [address] [place] [address] [address] [place] [address] Bhavik Bah DO Bilateral hip pain (Primary Dx); Sacroiliitis; Peripheral polyneuropathy 11/05/2024 Telephone [facility] [address] [place] [address] [address] [place] [address] Bhavik Bah DO Medical Question/Miscellaneous 11/04/2024 Nurse Triage [facility] Primary [address] [address] Bhavik Bah DO 09/26/2024 4:00 PM CDT Office Visit [address] [place] [address] Bhavik Bah DO Benign essential HTN (Primary Dx); Postmenopausal; Peripheral polyneuropathy; Chronic right-sided thoracic back pain 09/26/2024 Nurse Triage [address] [address] Bhavik Bah DO 09/26/[address] [address] Bhavik Bah DO Additional Services Or Orders 09/02/[address] [address] Bhavik Bah DO Hospital Follow Up (ED f/u from 08/28 and 09/02) 09/02/2024 [facility] Accountable Care Organization [address] [place] [address] Amisha Wilson MA 08/30/2024 [facility] Out[facility] Care [address] [address] Amisha Wilson MA 08/28/2024 9:13 PM CDT - 08/29/2024 2:06 AM CDT Emergency [address] [address] Ahsan Anderson DO Gastroenteritis (Primary Dx) Discharge Disposition: Discharge to home or self care from Last 3 Months Immunizations Immunization Administration [...] Tobacco: Never Tobacco Cessation:Counseling Given: Not Answered [facility] Utilities Answer Date Recorded In the past 12 months has [place], gas, oil, or water company threatened to [...] often do you attend chur ch or sikh services? 1 to 4 times per year 06/14/2023 Do you belong to any clubs o r organizations such as gnosticist groups, unions, fraternal or athletic groups, or [...] points, staff should administer the PHQ-9) 0 09/26/2024 Hunger Vital Sign Answer Date Recorded Within [...] slept in a penitentiary (including now)? No 06/13/2023 Personal Safety Answer Date Recorded Have you ever been in or are you currently in a harmful physical or emotional relationship or is someone making you feel afraid or unsafe? Denies 08/28/2024 Comments No Sex and Gender Information Value Date Recorded Sex Assigned at Not on file Legal Sex Female 6:42 PM [facility] Gender Identity Not on file Sexual Orientation Not on file Obstetrics History Last Filed Vital Signs Vital Sign Reading Time Taken Comments Blood Pressure 106/62 11/05/2024 2:30 PM CDT Pulse 56 11/05/2024 2:30 PM CDT Temperature 36 C (96.8 F) 11/05/2024 2:30 PM CDT Respiratory Rate 20 09/26/2024 3:34 PM CDT Oxygen Saturation 97% 11/05/2024 2:30 PM CDT Inhaled Oxygen Concentration - - Weight 67.1 kg (147 lb 14.4 oz) 11/05/2024 2:30 PM CDT Height 152.4 cm (5') 11/05/2024 2:30 PM CDT Body Mass Index 28.88 11/05/2024 2:30 PM CDT Plan of Treatment Health Maintenance Due Date Last Done Comments Hepatitis C Screening 1945 Osteoporosis Screening-Bone Density Scan 1945 Hepatitis B Screening 1963 Zoster Vaccine (2 of 2) 04/11/2023 02/14/2023 Covid-19 Vaccine (2023-2 5 season) 2023 01/05/2022, 05/07/2021, 06/16/2020, Additional history exists Influenza Vaccine (#1) 2024 , 01/12/2023, 01/27/2022, Additional history exists Fall Risk Assessment 03/19/2025 03/19/2024, 06/16/19 24 Well Visit 65+ 03/19/2025 03/19/2024 Depression Screening 09/26/2025 09/26/2024, 03/19/20 24 DTaP/Tdap/Td Vaccine (2 - Td or Tdap) 10/02/2032 10/02/2022 Breast Cancer Screening-Mammogram Discontinued 016 Pneumococcal vaccine 65+ Completed 01/27/2022 Procedures Procedure Name Priority Date/Time Associated Diagnosis Comments URINALYSIS, MICROSCOPIC ONLY STAT 08/29/2024 12:58 AM CDT URINALYSIS AND REFLEX TO MICROSCOPIC AND CULTURE STAT 08/29/2024 12:[address] ABDOMEN PELVIS W CONTRAST ED 08/28/2024 11:44 PM CDT ECG 12-LEAD STAT 08/28/2024 10:58 PM CDT TROPONIN T HIGH-SENSITIVITY SERIES (BASELINE, 2HR, 4HR, 6HR) STAT 08/28/2024 9:30 PM CDT EGFR STAT 08/28/2024 9:30 PM CDT DIFFERENTIAL AUTO STAT 08/28/2024 9:3 0 PM CDT LIPASE STAT 08/28/2024 9:30 PM CDT COMPREHENSIVE METABOLIC PANEL STAT 08/28/2024 9:30 PM CDT CBC WITH AUTO DIFFERENTIAL STAT 08/28/2024 9:30 PM CDT from Last 3 Months Results * (ABNORMAL) Urinalysis reflex to microscopic and culture Urine (08/29/2024 12:58 AM CDT) Color, ur Yellow Yellow Clarity, ur Clear Clear [facility] Specific gravity, ur 1.019 1.003 - 1.030 [facility] pH, urine 5.0 [facility] GUZMAN Comment: Interpretive Data U rine pH is affected by diet, medications, systemic acid-base disturbances, and renal tubular function. pH may affect urinary stone formation. For example, urine pH below 6.0 may help reduce the tendency for calcium phosphate stones and pH greater than 6.0 may reduce the tendency for uric acid stone formation. Source: [facility] Current Interpretive Data was last revised on 2017 Protein, ur ql Negative Negative [facility] Glucose, ur ql Negative Negative [facility] Ketones, ur Negative Negative [facility] Bilirubin, ur Negative Negative [facility] Blood, ur Negative Negative [facility] Urobilinogen, ur <2.0 <2.0 mg/dL [facility] Nitrite, ur Negative Negative [facility] Leukocyte esterase, ur 2+(A) Negative [facility] UA reflex comment Reflex to microscopic UA will be performed. [facility] Urine 08/29/2024 12:5 8 AM CDT 08/29/2024 1:07 AM CDT curated.by LAB MICROBIOLOGY - GENERAL ORD ERABLES Final Result Performing Organization Address [facility] de Phone Number [address] [place] [address] * (ABNORMAL) Urinalysis, microscopic only (08/29/2024 12:58 AM CDT) WBC, ur 0-5 0 - 5 /HPF RBC, ur 0-2 0 - 2 /HPF [facility] Epithelial cells, squamous, ur 1-5 0 - 5 /HPF [facility] Bacteria, ur Trace(A) [facility] Mucous, ur Present(A) [facility] Culture Reflex Comment Reflex conditions for urine culture (WBC >10) not met. [facility] Urine 08/29/2024 12:5 8 AM CDT 08/29/2024 1:07 AM CDT curated.by LAB URINE ORDERABLES Final Res ult Performing Organization Address [facility] Co de Phone Number [address] [place] [place] [address] * CT Abdomen Pelvis W Contrast (08/28/2024 11:44 PM CDT) Anatomical Region Laterality Modality Body N/A Computed Tomogra phy 08/28/2024 11:5 8 PM CDT Narrative 08/29/2024 12:05 AM CDT EXAM DESCRIPTION: CT ABDOMEN PELVIS W CONTRAST REASON FOR STUDY: LLQ abdominal pain Danielle Swan is a 79 y.o. female w/ PMHx including CAD, HTN, HLD, GERD, presenting to the ED w/ c/o abdominal pain. Pt arrives to the ED c/o abdominal pain that onset earlier today primarily located in the LLQ. Pt states she tried laying down throughout the day, hoping the abdominal pain would go away, but this didn't help. Pt reports that she's been having episodes of diarrhea throughout the day as well. Pt reports her LLE felt huge on her way to the bathroom and caused a mechanical fall w/ no sustained injury or complaints. Pt notes she has a Hx of diverticulitis, and has reportedly been sticking to the recommended diet as appropriate. Pt has no other acute complaints. TECHNIQUE: CT scan of the abdomen and pelvis performed with intravenous and without oral contrast using helical scanning technique with dynamic intravenous contrast injection. Reconstructed coronal and sagittal MPR images reviewed. All images stored on PACS. Automated exposure control was used as a dose optimization technique for this examination. CONTRAST TYPE/DOSE: 100mL of IOVERSOL 350 MG IODINE/ML INTRAVENOUS SYRINGE injected via intravenous COMPARISON: 05/24/2024 FINDINGS: LOWER CHEST: Lung bases clear. Mild cardiomegaly. Coronary artery calcification. LIVER/BILIARY: Liver unremarkable. Biliary tree normal in caliber. GALLBLADDER: Normal. SPLEEN: Moderate atrophy. PANCREAS: Normal. ADRENAL GLANDS: Normal. KIDNEYS/URINARY TRACT: Moderate renal atrophy. Renal cysts. Ureters and bladder unremarkable. GI: Moderate to large hiatal hernia. No wall thickening or inflammation is seen. Fluid-filled but nondistended. Small bowel appears normal. Numerous large sigmoid diverticula including a dominant diverticulum along the inferior margin of the sigmoid colon filled with hyperdense debris. No acute inflammation is seen. Liquid contents in the ascending and transverse colon without wall thickening or inflammation. Normal appendix. OTHER ABDOMINAL/PELVIS: Major vascular structures are grossly patent and normal in caliber with heavy diffuse atherosclerotic plaque. Moderate to severe stenoses of the iliac arteries. Chronic appearing occlusion of the left SFA. Questionable filling defect in the left femoral vein. Right SFA stent with no clear contrast within the lumen. MSK: Moderate disc disease and facet arthropathy. Hip and SI joint arthrosis. BODY WALL: Unremarkable. IMPRESSION: 1. Extensive sigmoid diverticulosis appears similar to priors. No acute inflammation is seen. 2. Liquid contents in the ascending and transverse colon are evidence for mild diarrheal state. No wall thickening/inflammation of the colon is seen. 3. Fluid-filled hiatal hernia. No outlet obstruction is suspected but this could represent an aspiration risk. 4. Questionable thrombus in the left femoral vein versus mixing artifact. Ultrasound correlation may be prudent. THIS IS AN ELECTRONICALLY VERIFIED FINAL REPORT 08/29/2024 12:05 AM - Electronically signed by Sherif SANTOS T: Report ID: [id number] Reading Location: [id number] Procedure Note Sherif Borjas MD - 08/29/2024 EXAM DESCRIPTION: CT ABDOMEN PELVIS W CONTRAST REASON FOR STUDY: LLQ abdominal pain Danielle Swan is a 79 y.o. female w/ PMHx including CAD, HTN, HLD, GERD, presenting to the ED w/ c/o abdominal pain. Pt arrives to the ED c/oabdominal pain that onset earlier today primarily located in the LLQ. Pt statesshe tried laying down throughout the day, hoping the abdominal pain would go away, but this didn't help. Pt reports that she's been having episodes of diarrhea throughout the day as well. Pt reports her LLE felt huge on herway to the bathroom and caused a mechanical fall w/ no sustained injury or complaints. Pt notes she has a Hx of diverticulitis, and has reportedlybeen sticking to the recommended diet as appropriate. Pt has no other acute complaints. TECHNIQUE: CT scan of the abdomen and pelvis performed with intravenousand without oral contrast using helical scanning technique with dynamic intravenous contrast injection. Reconstructed coronal and sagittal MPRimages reviewed. All images stored on PACS. Automated exposure control was usedas a dose optimization technique for this examination. CONTRAST TYPE/DOSE: 100mL of IOVERSOL 350 MG IODINE/ML INTRAVENOUSSYRINGE injected via intravenous COMPARISON: 05/24/2024 FINDINGS: LOWER CHEST: Lung bases clear. Mild cardiomegaly. Coronary artery calcification. LIVER/BILIARY: Liver unremarkable. Biliary tree normal in caliber. GALLBLADDER: Normal. SPLEEN: Moderate atrophy. PANCREAS: Normal. ADRENAL GLANDS: Normal. KIDNEYS/URINARY TRACT: Moderate renal atrophy. Renal cysts. Ureters and bladder unremarkable. GI: Moderate to large hiatal hernia. No wall thickening or inflammationis seen. Fluid-filled but nondistended. Small bowel appears normal.Numerous large sigmoid diverticula including a dominant diverticulum along theinferior margin of the sigmoid colon filled with hyperdense debris. No acute inflammation is seen. Liquid contents in the ascending and transversecolon without wall thickening or inflammation. Normal appendix. OTHER ABDOMINAL/PELVIS: Major vascular structures are grossly patent and normal in caliber with heavy diffuse atherosclerotic plaque. Moderate to severe stenoses of the iliac arteries. Chronic appearing occlusion of the left SFA. Questionable filling defect in the left femoral vein. RightSFA stent with no clear contrast within the lumen. MSK: Moderate disc disease and facet arthropathy. Hip and SI joint arthrosis. BODY WALL: Unremarkable. IMPRESSION: 1. Extensive sigmoid diverticulosis appears similar to priors. No acute inflammation is seen. 2. Liquid contents in the ascending and transverse colon are evidencefor mild diarrheal state. No wall thickening/inflammation of the colon isseen. 3. Fluid-filled hiatal hernia. No outlet obstruction is suspected butthis could represent an aspiration risk. 4. Questionable thrombus in the left femoral vein versus mixingartifact. Ultrasound correlation may be prudent. THIS IS AN ELECTRONICALLY VERIFIED FINAL REPORT 08/29/2024 12:05 AM - Electronically signed by Sherif SANTOS T: Report ID: [id number] Reading Location: [place] [address] Ahsan Anderson DO IMG CT PROCEDURES Final Result * ECG 12 lead (08/28/2024 10:58 PM CDT) Ventricular Rate EKG/Min 84 BPM [facility] Atrial Rate 84 BPM [facility] NV-Interval (MSEC) 112 ms [facility] QRS-Interval (MSEC) 66 ms [facility] QT-Interval (MSEC) 350 ms [facility] QTc 413 ms [facility] P Dwight 5 degrees [facility] R Dwight 12 degrees [facility] T Dwight 121 degrees [facility] Diagnosis Normal sinus rhythm Nonspecific T wave abnormality Confirmed by ERICH SOARES M.D. ([id number]) on 08/29/2024 10:16:52 PM [facility] 08/28/2024 10:5 8 PM CDT 08/29/2024 10:16 PM CDT Ahsan Anderson DO ECG ORDERABLES Final Result Performing Organization Address [facility] de Phone Number [facility] * (ABNORMAL) Troponin T high-sensitivity series (baseline, 2hr, 4hr, 6hr) (08/28/2024 9:30 PM CDT) Trop T hs 28(H) <=14 ng/L Comment: Interpretive Data For further hscTnT resources including the diagnostic algorithm and an aid in interpretation, copy and paste this link: https://nrl.testcatalog.org/show/[email or web address] Current Interpretive Data last revised 2020. Blood 08/28/2024 9:30 PM CDT 08/28/2024 9:32 PM CDT Ahsan Anderson DO LAB BLOOD ORDERABLES Final Res ult Performing Organization Address [facility] Co de Phone Number [facility] [address] [facility] Department [place] [address] * (ABNORMAL) eGFR (08/28/2024 9:30 PM CDT) eGFR 36(L) >=60 mL/min/1. 73 m2 Comment: Interpretive Data [...] interpretive data was last reviewed 2021. Blood 08/28/2024 9:30 PM CDT 08/28/2024 9:32 PM CDT us Javi Major MD LAB BLOOD ORDERABLES Fi nal Result [place] [address] [facility] Department [place] [address] * (ABNORMAL) Differential, auto (08/28/2024 9:30 PM CDT) Neutrophil abs 10.10(H) 1.50 - 6.50 K/cumm Imm gran abs 0.05 0.00 - 0.10 K/cumm [facility] Lymphocyte abs 1.34 0.80 - 3.30 K/cumm [facility] Monocyte abs 1.06(H) 0.20 - 0.80 K/cumm [facility] Eosinophil abs 0.49 0.00 - 0.50 K/cumm [facility] Basophil abs 0.05 0.00 - 0.10 K/cumm [facility] Neutrophil pct 77.2 % [facility] Comment: Interpretive Data Percent cell count reference ranges are not reported, since discordance with absolute values may lead to misinterpretation of CBC data. Current Interpretive Data was last revised on 2017. Imm gran pct 0.4 % [facility] Comment: Interpretive Data Percent cell count reference ranges are not reported, since discordance with absolute values may lead to misinterpretation of CBC data. Current Interpretive Data was last revised on 2017. Lymphocyte pct 10.2 % [facility] Comment: Interpretive Data Percent cell count reference ranges are not reported, since discordance with absolute values may lead to misinterpretation of CBC data. Current Interpretive Data was last revised on 2017. Monocyte pct 8.1 % [facility] Comment: Interpretive Data Percent cell count reference ranges are not reported, since discordance with absolute values may lead to misinterpretation of CBC data. Current Interpretive Data was last revised on 2017. Eosinophil pct 3.7 % [facility] Comment: Interpretive Data Percent cell count reference ranges are not reported, since discordance with absolute values may lead to misinterpretation of CBC data. Current Interpretive Data was last revised on 2017. Basophil pct 0.4 % [facility] Comment: Interpretive Data Percent cell count reference ranges are not reported, since discordance with absolute values may lead to misinterpretation of CBC data. Current Interpretive Data was last revised on 2017. Blood 08/28/2024 9:30 PM CDT 08/28/2024 9:32 PM CDT us Ahsan Anderson DO LAB BLOOD ORDERABLES Final Res ult [facility] [address] [facility] Department [place] [address] * (ABNORMAL) CBC with auto differential (08/28/2024 9:30 PM CDT) WBC 13.09(H) 3.80 - 9.90 K/cumm Hgb 13.6 11.9 - 15.5 g/dL [facility] Hct 42.0 35.6 - 45.5 % [facility] Plt 266 150 - 400 K/cumm [facility] MPV 10.3 9.1 - 12.3 fL [facility] RBC 4.66 3.90 - 5.20 M/cumm [facility] MCV 90.1 81.3 - 96.4 fL [facility] MCH 29.2 27.1 - 33.3 pg [facility] MCHC 32.4 32.3 - 35.7 g/dL [facility] RDW CV 13.9 11.1 - 14.9 % [facility] RDW SD 45.8 35.7 - 48.1 fL [facility] NRBC abs 0.00 0.00 - 0.01 K/cumm [facility] Blood Venous blood specimen / Unknown 08/28/2024 9:30 PM CDT 08/28/2024 9:32 PM CDT Ahsan Anderson DO LAB BLOOD ORDERABLES Final Res ult Performing Organization Address [facility] Co de Phone Number [address] [place] [address] * Lipase (08/28/2024 9:30 PM CDT) Pathologist [facility] Lipase 31 10 - 99 Units/L Blood Venous blood specimen / Unknown 08/28/2024 9:30 PM CDT 08/28/2024 9:32 PM CDT Ahsan Anderson LAB BLOOD ORDERABLES Final Res ult Performing Organization Address [facility] de Phone Number [address] [address] * (ABNORMAL) Comprehensive metabolic panel (08/28/2024 9:30 PM CDT) [facility] Sodium 143 135 - 145 mmol/L Potassium, pl 3.9 3.3 - 4.9 mmol/L [facility] Comment:Hemolyzed; Potassium value may be falsely elevated by as much as 1.0 mmol/L. Suggest redraw and reanalysis. Chloride 121(H) 97 - 110 mmol/L [facility] CO2 10(L) 22 - 32 mmol/L [facility] Anion gap 12 2 - 15 mmol/L [facility] BUN 33(H) 6 - 25 mg/dL [facility] Creatinine 1.48(H) 0.60 - 1.10 mg/dL [facility] Glucose 78 70 - 199 mg/dL [facility] Comment: Interpretive Data Fasting glucose [...] interpretive data was last revised 2022. Calcium 7.3(L) 8.5 - 10.3 mg/dL [facility] Bilirubin, total 0.2 0.1 - 1.2 mg/dL [facility] Protein, pl 4.9(L) 6.5 - 8.5 g/dL [facility] Albumin 2.9(L) 3.5 - 5.0 g/dL [facility] Alk phos 62 40 - 130 Units/L [facility] ALT 13 7 - 45 Units/L [facility] AST See Comment 10 [facility] Comment:Credited; Hemolyzed Specimen Blood 08/28/2024 9:30 PM CDT 08/28/2024 9:32 PM CDT us Ahsan Anderson DO LAB BLOOD ORDERABLES Final Res ult [facility] [address] [facility] Department [place] [address] from Last 3 Months Insurance [facility] MDCR HMO REF [facility] MEDICARE Address: [facility] [address] [place] [address] [facility] MEDICARE ADVANTAGE [facility] MEDICARE Address: [facility] [address] [place] [address] Advance Directives For more information, please contact: [phone] * LIMITED - No CPR (Latest Code Status on File) Date Activated Date Inactivated Comments 06/12/2023 5:01 PM 06/16/2023 7:03 PM Care Teams Hog Raiser Relationship Specialty Start Date End Date Bhavik Bah DO PCP - General 09/02/18
--- OUTSIDE RECORDS SUMMARY | 2024-11-07 17:52 | XMS_ITS | Referral Summary ---
Author Organization [facility] Address [address] [place] [address] Care Team Providers Care Netbackup Engineer Name Role Phone Bhavik Bah DO Primary Care Provider Encounters Date Type Department Care Team Description 11/05/2024 Telephone [facility] [address] [place] [phone] Bhavik Bah DO Medical Question/Miscellaneous 11/05/2024 3:15 PM CDT Office Visit [facility] [address] [place] [phone] Bhavik Bah DO Bilateral hip pain (Primary Dx); Sacroiliitis; Peripheral polyneuropathy 11/04/2024 Nurse Triage [facility] [address] [place] [phone] Bhavik Bah DO 09/26/2024 4:00 PM CDT Office Visit [facility] [address] [place] [phone] Bhavik Bah DO Benign essential HTN (Primary Dx); Postmenopausal; Peripheral polyneuropathy; Chronic right-sided thoracic back pain 09/26/2024 Nurse Triage [facility] [address] [place] [phone] Bhavik Bah DO 09/26/2024 Telephone [facility] [address] [place] [address] [address] [place] [phone] Bhavik Bah DO Additional Services Or Orders 09/02/2024 Telephone [facility] [address] [place] [address] [address] [place] [phone] Bhavik Bah DO Hospital Follow Up (ED f/u from 08/28 and 09/02) 09/02/2024 [facility] [address] [address] Amisha Wilson MA 08/30/2024 [facility] [address] [address] Amisha Wilson MA 08/28/2024 9:13 PM CDT - 08/29/2024 2:06 AM CDT Emergency [address] [address] Ahsan Anderson DO Gastroenteritis (Primary Dx) Discharge Disposition: Discharge to home or self care from Last 3 Months Allergies Active Allergy Reactions Criticality Noted Date Comments Acetaminophen Stomach upset Low 09/14/2019 Stomach/GI Upset Hydrocodone Stomach upset Low 09/14/2019 Stomach/GI Upset Metronidazole Unknown 09/14/2019 unknown-is per outside record Rosuvastatin Muscle pain Medium 02/17/2023 Ahhhpoj-Ulq-Qup Reductase Inhibitors Diarrhea Low 09/26/2024 Hydrocodone-Acetaminophen Nausea [...] her bath Coronary artery disease invo lving [place] coronary artery of [place] heart without angina pectoris 06/12/2023 Overview (03/19/2024): [...] 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 pH may affect urinary stone formation. For example, urine pH below 6.0 may help reduce the tendency for calcium phosphate stones and pH greater than 6.0 may reduce the tendency for uric acid stone formation. Source: [facility] Current Interpretive Data was last revised on [...] 8 AM CDT 08/29/2024 1:07 AM CDT us Ahsan Anderson DO LAB MICROBIOLOGY - GENERAL ORD ERABLES Final Result [facility] [address] [facility] Department [place] [address] * (ABNORMAL) Urinalysis, microscopic only (08/29/2024 12:58 [...] 8 AM CDT 08/29/2024 1:07 AM CDT us Ahsan Anderson DO LAB URINE ORDERABLES Final Res ult [facility] [address] [facility] Department [place] [address] * CT Abdomen Pelvis W Contrast (08/28/2024 [...] signed by Sherif SANTOS T: Report ID: [id number] Reading Location: [id number] Procedure Note Sherif Borjas MD - 08/29/2024 [...] 12:05 AM - Electronically signed by Sherif Borjas M.D. AR T: Report ID: [id number] Reading Location: [place] [address] Ahsan Anderson DO IMG CT PROCEDURES Final Result * ECG 12 lead (08/28/2024 10:58 PM CDT) Pathologist [facility] Ventricular Rate EKG/Min 84 BPM [facility] Atrial Rate 84 BPM [facility] RI-Interval (MSEC) 112 ms [facility] QRS-Interval (MSEC) 66 ms [facility] QT-Interval (MSEC) 350 ms [facility] QTc 413 ms [facility] P [place] 5 degrees [facility] R [place] 12 degrees [facility] T [place] 121 degrees [facility] Diagnosis Normal sinus rhythm Nonspecific T wave abnormality Confirmed by ERICH SOARES M.D. ([id number]) on 08/29/2024 10:16:52 PM [facility] 08/28/2024 10:5 8 PM CDT 08/29/2024 10:16 PM CDT Ahsan Anderson DO ECG ORDERABLES Final Result [facility] * (ABNORMAL) Troponin T high-sensitivity series (baseline, 2hr, 4hr, 6hr) (08/28/2024 9:30 PM CDT) Pathologist [facility] Trop T hs 28(H) <=14 ng/L Comment: Interpretive Data For further hscTnT resources including the diagnostic algorithm and an aid in interpretation, copy and paste this link: https://nrl.testcatalog.org/show/hsTrop Current Interpretive Data last revised 2020. Blood 08/28/2024 9:30 PM CDT 08/28/2024 9:32 PM CDT Ahsan Anderson DO LAB BLOOD ORDERABLES Final Res ult Performing Organization Address [facility] Co de Phone Number [facility] [address] [place] [address] * (ABNORMAL) eGFR (08/28/2024 9:30 PM CDT) [...] 9:30 PM CDT 08/28/2024 9:32 PM CDT Javi Major MD LAB BLOOD ORDERABLES Fi nal Result Performing Organization Address City/[facility]/ZIP Co de Phone Number MARIA TERESA[address] [place] [address] * (ABNORMAL) Differential, auto (08/28/2024 9:30 PM [...] LAB BLOOD ORDERABLES Final Res ult [facility] [address] [facility] Department [place] [address] * (ABNORMAL) CBC with auto differential (08/28/2024 9:30 PM CDT) [facility] WBC 13.09(H) 3.80 - 9.90 K/cumm Hgb [...] ORDERABLES Final Res ult Performing Organization Address City/[facility] Co de Phone Number [address] [place] [address] * Lipase (08/28/2024 9:30 PM CDT) [facility] Lipase 31 10 - 99 Units/L Blood Venous blood specimen / Unknown 08/28/2024 9:30 PM CDT 08/28/2024 9:32 PM CDT Ahsan Anderson DO LAB BLOOD ORDERABLES Final Res ult Performing Organization Address City/[facility]/ZIP Co de Phone Number [address] [place] [address] * (ABNORMAL) Comprehensive metabolic panel (08/28/2024 9:30 PM CDT) Sodium 143 135 - 145 mmol/L Potassium, [...] [facility] AST See Comment 10 - 45 [facility] Comment:Credited; Hemolyzed Specimen Blood 08/28/2024 9:30 PM CDT 08/28/2024 9:32 PM CDT us Ahsan Anderson DO LAB BLOOD ORDERABLES Final Res ult [facility] [address] [facility] Department [place] [address] from Last 3 Months Insurance [employer] HMO REF MEDICARE ADVANTAGE Advance Directives For more information, please contact: [phone] * LIMITED - No CPR (Latest Code Status on File) Date Activated Date Inactivated Comments 06/12/2023 5:01 PM 06/16/2023 7:03 PM Care Teams Netbackup Engineer Relationship Specialty Start Date End Date Bhavik Bah DO PCP - General 09/02/18
--- OUTSIDE RECORDS SUMMARY | 2024-11-07 17:52 | XMS_ITS | Clinical Summary ---
Author Organization [facility] Address [address] [place] [address] Care Team Providers Care Traffic Signal Repairer Name Role Phone Bhavik Bah DO Primary Care Provider [phone] Rg Morgan MD Unavailable [phone] Allergies Active Allergy Reactions Criticality Noted Date Comments Acetaminophen GI Upset Low 09/14/2019 Stomach/GI Upset Hydrocodone GI Upset Low 09/14/2019 Stomach/GI Upset Hydrocodone-Acetaminophe n Nausea and Vomiting 10/02/2015 Metronidazole Unknown 09/14/2019 unknown-is per outside record Rosuvastatin Myalgias 02/17/2023 Medications aspirin 81 MG chewable tablet Chew 1 tablet (81 mg total) by mouth daily. Active nitroglycerin (NITROSTAT) 0.[address] 1 tablet (0.4 mg total) under the tongue every 5 (five) minutes as needed. Max 3 tabs, then call 911 25 tablet 1 1 Active lansoprazole (PREVACID) 30 MG capsule Take 1 capsule (30 mg total) by mouth daily. 4 03/19/20 25 Active amLODIPine (NORVASC) 10 MG tabletIndications :Benign essential hypertension TAKE 1 TABLET(10 MG) BY MOUTH DAILY 90 tablet 1 5 Active lisinopril (PRINIVIL) 40 MG tablet TAKE 1 TABLET(40 MG) BY MOUTH DAILY 90 tablet 1 5 Active ezetimibe (ZETIA) 10 MG tablet Take 1 tablet (10 mg total) by mouth daily. 30 tablet 3 5 Active ticagrelor (BRILINTA) 60 MG tablet Take 1 tablet (60 mg total) by mouth 2 (two) times daily. 180 tablet 4 5 Active atorvastatin (LIPITOR) 10 MG tablet TAKE 1 TABLET(10 MG) BY MOUTH EVERY NIGHT AT BEDTIME 90 tablet 1 5 Active Active Problems Problem Noted Date Diagnosed Date Acute cystitis without hematuria 06/15/2023 PIPPA (acute kidney injury) 06/12/2023 Influenza A 06/12/2023 Rash 06/12/2023 Coronary artery disease invo lving kaguy[place] coronary artery of [place] heart without angina pectoris 06/12/2023 Assessment & Plan (06/24/2024 3:55 PM SAWMILLING OPERATOR): She denies any recent chest pain. Continue aspirin, brilinta, and atorvastatin. If shortness of breath continues consider repeat ischemic evaluation. Benign essential HTN 06/12/2023 Assessment & Plan (06/24/2024 3:57 PM SAWMILLING OPERATOR): Blood pressure well controlled in office today. Continue metoprolol, amlodipine, and lisinopril Chronic kidney disease (CKD) , stage IV (severe) ([facility]) 06/12/2023 Assessment & Plan (11/07/2023 9:39 AM CDT): She had an acute and chronic kidney injury during hospitalization in May. We'll check another basic metabolic panel. Chest pain 08/30/2022 Diastolic dysfunction 11/15/2021 Overview (11/15/2021): Noted on Echo October 2021 Skin tear of right forearm without complication 01/27/2021 Stage 4 chronic kidney disease ([facility]) 03/27/2020 Assessment & Plan (09/29/2021 2:04 PM CDT): Followed by nephrology Lisinopril Assessment & Plan (04/01/2021 10:44 AM SAWMILLING OPERATOR): Stable with re-initiation of lisinopril at last [...] infa rction involving left circumflex coronary artery ([facility]) 09/25/2019 STEMI involving oth coronary artery of inferior wall ([facility]) 09/25/2019 Stage 3 chronic kidney disease 08/28/2019 Trochanteric bursitis of left hip 06/15/2019 Right shoulder injury 11/02/2018 Hypertensive CHF ([facility]) 08/15/2018 Assessment & Plan (09/30/2021 9:15 AM CDT): Blood pressure is elevated today and confirmed at home - increasing lisinopril to 40mg daily Encouraged to continue to monitor at home and log and call office with any concerns in future. Peripheral arteriosclerosis 05/01/2018 Assessment & Plan (04/01/2021 10:44 AM SAWMILLING OPERATOR): Hx of peripheral vascular disease with prior [...] AM CDT): She has a history of UT involving her circumflex arteries, for which she underwent PTCA. Continue Aspirin, Ticagrelor. She is currently on a PCSK9 inhibitor, but has not been approved by insurance. We'll check with the pharmacy about a smaller Statin pill to see if that will help with insurance coverage. Assessment & Plan (05/11/2023 12:14 PM SAWMILLING OPERATOR): She is not having angina.Continue aspirin, ticagrelor, metoprolol and Repatha Assessment & Plan (07/17/2022 10:26 AM CDT): She is not having angina.Continue aspirin, ticagrelor, metoprolol and Repatha S/P AVR (aortic valve replacement) 06/13/2016 Assessment & Plan (06/24/2024 3:56 PM SAWMILLING OPERATOR): History of aortic valve replacement in 2017 with a 21 millimeter mosaic. Will repeat echo now. She requires antibiotic prophylaxis prior to all dental procedures. Assessment & Plan (11/07/2023 9:38 AM CDT): She has aortic valve replacement in 2017 with a 21 millimeter mosaic. We'll get another echo next year. Assessment & Plan (05/11/2023 12:15 PM SAWMILLING OPERATOR): She requires dental prophylaxis and her most recent echo showed appropriate valve function. Assessment & Plan (07/17/2022 10:28 AM CDT): She requires dental prophylaxis and her most recent echo showed appropriate valve function. Assessment & Plan (09/29/2021 2:03 PM CDT): Last echo 2019 revealed a well functioning bioprosthetic aortic valve Assessment & Plan (04/01/2021 10:43 AM SAWMILLING OPERATOR): Last echo 2019 revealed a well functioning [...] repatha Assessment & Plan (04/01/2021 11:08 AM SAWMILLING OPERATOR): S/p CABG S/p PCI CFX 09/2019 - Brilinta dose decreasing to 60mg BID continued with ASA 81mg daily Statin therapy was restarted at last APPT - will need repeat lipid panel in 4-6 weeks Assessment & Plan (02/26/2021 9:19 PM CDT): She is not having angina.Continue aspirin, ticagrelor, metoprolol and I restarted rosuvastatin today. CHF (congestive heart failure) ([facility]) 09/02/2013 Gastroesophageal reflux disease without esophagi tis 09/02/2013 Mixed hyperlipidemia 09/02/2013 Assessment & Plan (06/24/2024 4:01 PM SAWMILLING OPERATOR): Last lipid panel uncontrolled. Patient recently stopped atorvastatin due to myalgias. Previously tried rosuvastatin with associated myalgias. Will repeat lipid panel now and try to get PCSK9 inhibitor approved pending lipid panel results. Assessment & Plan (11/07/2023 9:39 AM CDT): We checked with the pharmacy, Atorvastatin 10mg is a smaller pill. Start Atorvastatin 10mg, and we'll try to get her PCSK9 inhibitor approved. Assessment & Plan (05/11/2023 12:15 PM SAWMILLING OPERATOR): Her most recent LDL is elevated. She [...] lisinopril. Assessment & Plan (04/01/2021 11:07 AM SAWMILLING OPERATOR): Blood pressure is midly increased - increasing [...] Encounters Date Type Department Care Team Description 10/03/2024 Telephone [facility], [address] [address] Tonie Jeter [facility] Patient Assistance (brilinta) 09/02/2024 10:15 AM CDT - 09/02/2024 2:15 PM CDT Emergency [facility] [place] [place] [address] Jodie Carrero MD Back Pain; Weakness Discharge Disposition: Home or Self Care (Routine Discharge) 09/02/2024 Travel from Last 3 Months Immunizations Immunization Administration Dates Next Due Flublok (Quadrivalent) 02/05/2019 Influenza (Generic) 02/17/2017,02/23/2016,2013 Influenza Adult (Generic) 01/12/2023,09/2021,01/26/2021,2019,02/06/2018,03/09/2015 MODERNA COVID-19 (12+) MRNA, LNP-S, PF, 100 MCG/ 0.5 ML DOSE 06/16/2020,05/19/2020 MODERNA COVID-19 (CURRENCY EXAMINER FRANCISCA NAIN), MRNA, LNP-S, PF, 50 MCG/ [...] Smoking Tobacco: Former Cigarettes Q uit: 2008 Passive Smoke Exposure: Past Smokeless Tobacco: Never Tobacco Cessation:Counseling Given: Not [...] place to sleep or slept in a senior care (including now)? No 08/31/2022 Comments No Sex [...] Sign Reading Time Taken Comments Blood Pressure 143/78 09/02/2024 1:30 PM CDT Pulse 66 09/02/2024 1:30 PM CDT Temperature 36.1 C (97 F) 09/02/2024 9:52 AM CDT Respiratory Rate 20 09/02/2024 1:30 PM CDT Oxygen Saturation 99% 09/02/2024 1:30 PM CDT Inhaled Oxygen Concentration - - Weight 67.1 kg (148 lb) 09/02/2024 9:52 AM CDT Height 152.4 cm (5') 09/02/2024 9:52 AM CDT Body Mass Index 28.9 09/02/2024 9:52 AM CDT Plan of Treatment Upcoming Encounters Date Type Department Care Team (Late st Contact Info) Description 01/06/2025 1:45 PM CDT Office Visit [facility], [address] [place], [place] [id number] Rg Morgan MD [facility]. [address] [place] [address] Health Maintenance Due Date Last Done Comments Hepatitis C 1963 Dexa Scan (General) 07/23/2011 RSV Immunization or 60+ Years (1 - 1-dose 75+ series) 2021 Annual Medicare Wellness Visit 09/02/2021 09/01/2020 Zoster Vaccines (2 of 2) 04/11/2023 02/14/2023 COVID-19 Vaccine ( season) 2023 02/08/2023, 01/05/2022, 05/07/2021, Additional history exists DTaP, Tdap and Td Vaccines (2 - Td or Tdap) 10/02/2032 10/02/2022 Colorectal Cancer Screening Colonoscopy (10 Years) Discontinued 05/25/2013 Pneumococcal Vaccine: 50+ Years Completed 01/27/2022 Meningococcal B Vaccine Aged [...] discharge from hospital Lifestyle No Mamta Nunez mercerizing range controller Procedure Name Priority Date/Time Associated Diagnosis Comments URINALYSIS, AUTO, COMPLETE STAT 09/02/2024 12:[address] ABD+PEL WO CON STAT 09/02/2024 11: 38 AM CDT ECG 12-LEAD STAT 09/02/2024 10:23 AM CDT XR CHEST PORTABLE STAT 09/02/2024 10: 19 AM CDT TROPONIN, QUANT STAT 09/02/2024 10:19 AM CDT LIPASE STAT 09/02/2024 10:19 AM CDT COMPREHENSIVE METABOLIC PANEL STAT 09/02/2024 10:19 AM CDT CBC W/DIFF AUTOMATED STAT 09/02/2024 10:19 AM CDT COLONOSCOPY Routine 05/25/2013 12:00 AM SAWMILLING OPERATOR from Last 3 Months or Most Recently Relevant to Health Maintenance Results * (ABNORMAL) Urinalysis, Auto, Complete (09/02/2024 12:16 PM CDT) SPECIMEN TYPE URINE CLEAN CATCH 09/02/2024 12:17 PM CDT [facility] COLOR (U) LIGHT YELLOW 09/02/2024 1:08 PM CDT [facility] TRANSPARENCY CLEAR 09/02/2024 1:08 PM CDT [facility] SPECIFIC GRAVITY (U) 1.015 1.001 - 1.030 09/02/2024 1:08 PM CDT [facility] U PH 5.0 5.0 - 9.0 09/02/2024 1:08 PM CDT [facility] LEUKOCYTES (U) 75(A) NEGATIVE 09/02/2024 1:08 PM CDT [facility] NITRITES NEGATIVE NEGATIVE 09/02/2024 1:08 PM CDT [facility] PROTEIN RANDOM (U) NEGATIVE <30 MG/DL 09/02/2024 1:08 PM CDT [facility] GLUCOSE (U) NORMAL NORMAL MG/DL 09/02/2024 1:08 PM CDT [facility] KETONES MG/DL (U) NEGATIVE NEGATIVE MG/DL 09/02/2024 1:08 PM CDT [facility] UROBILINOGEN NORMAL NORMAL MG/DL 09/02/2024 1:08 PM CDT [facility] BILIRUBIN (U) NEGATIVE NEGATIVE MG/DL 09/02/2024 1:08 PM CDT [facility] BLOOD (U) NEGATIVE NEGATIVE 09/02/2024 1:08 PM CDT [facility] MUCUS RARE /LPF 09/02/2024 1:08 PM CDT [facility] HYALINE CASTS RARE /LPF 09/02/2024 1:08 PM CDT [facility] WBC/HPF 3 <6 /HPF 09/02/2024 1:08 PM CDT [facility] RBC/HPF 2 <6 /HPF 09/02/2024 1:08 PM CDT [facility] BACTERIA (U) RARE(A) NONE /HPF 09/02/2024 1:08 PM CDT [facility] SQUAMOUS EPITHELIALS RARE /HPF 09/02/2024 1:08 PM CDT [facility] URINE SPECIMEN OBTAINED BY CLEAN CATCH PROCEDURE / Unknown 09/02/2024 12:16 PM CDT Jodie Carrero MD URINE ORDERABLES Final Result [facility] [address] [place] [address], [place] [phone] * CT ABD+PEL WO CON (09/02/2024 11:38 AM CDT) Anatomical Region Laterality Modality Abdomen Computed Tomogra phy 09/02/2024 11:4 1 AM CDT Impressions 09/02/2024 12:10 PM CDT IMPRESSION: 1. No apparent bowel obstruction or acute focal inflammation. Stable hiatal hernia. Distal colon diverticulosis with chronic thickening of the sigmoid colon but no appreciable acute diverticulitis. Stable fat-containing ventral abdominal wall hernia inferior to the xiphoid. 2. No acute urinary tract obstruction. Bilateral renal cysts. Evaluation for renal lesions is limited without intravenous contrast. 3. Hysterectomy. Ordered By: JODIE CARRERO Interpreted By: Tone Arellano, 09/02/2024 11:41 AM Narrative 09/02/2024 12:[address] [facility] [address] [place], [place] [address] IMAGING STUDIES: CT ABD+PEL WO CON DATE: 09/02/2024 11:32 AM HISTORY: flank pain 79-year-old female. Right lower flank pain, lower abdominal pain, and diarrhea since 08/28/2024. Patient reports also following that day and undergoing evaluation at [facility] emergency department with CT scan reportedly performed at that time. Patient reports lack of bowel movement since , 08/29/2024. COMPARISON: Chest portable 09/02/2024. CT abdomen and pelvis without contrast 08/30/2022. Ultrasound limited abdomen 07/19/2022. DISCUSSION: CT abdomen and pelvis without intravenous contrast. Coronal and sagittal reconstructions. No enteric contrast. Automated exposure control with radiation dose reduction techniques were used. CHEST: Mild scarring in the lung bases. No acute infiltrate or consolidation in the lung bases. Stable 4 mm subpleural nodule in the posterior left lower lobe on current axial image 19 compared to image 4 on 08/30/2022 and can be considered benign with stability over 2 years. CARDIOVASCULAR: Sternotomy. Heart size is normal. No pericardial effusion. Coronary artery atherosclerotic calcifications. Valvular calcifications. No abdominal aortic aneurysm. At least moderate atherosclerotic calcification of the aorta, aortic branch arteries, iliac arteries, and femoral arteries. Partially visualized stent in the right femoral artery. UPPER ABDOMEN: No apparent acute abnormality of the unopacified liver, gallbladder, common bile duct, pancreas, spleen, and adrenal glands. GENITOURINARY: No hydronephrosis. Stable 2.6 cm maximal dimension cyst with density 14 HU extending from the anterior lower pole left kidney with stable peripheral 3.5 mm calcification. Stable 7.5 mm partially exophytic cyst from the lateral mid left kidney as on axial image 47. Stable 1.5 cm left renal parapelvic cyst. 2.1 cm cyst with density 5 Hu extending from the medial lower pole right kidney. And additional 1.3 cm cyst noted in the lower pole right kidney on 07/19/2022 ultrasound study but not well defined on noncontrast CT studies. No acute urinary bladder abnormality. Hysterectomy. No inguinal hernia. LYMPHATIC: No apparent pathologic adenopathy given limitations of noncontrast study. GASTROINTESTINAL: Stable fat-containing midline anterior abdominal wall hernia just inferior to the xiphoid compared to 08/30/2022. Mild thickening of the distal esophagus suggesting esophagitis. Stable small to moderate-sized hiatal hernia. Colonic diverticulosis most prominent in the sigmoid colon and descending colon with no appreciable acute diverticulitis. Chronic inflammatory thickening of the sigmoid colon. No apparent bowel obstruction or focal inflammation. No appendicitis. No free fluid in the abdomen or pelvis. MUSCULOSKELETAL: Spinal curvature with progressive substantial degenerative changes. Degenerative changes of the pelvis and hips. Procedure Note Tone Arellano MD - 09/02/[address] [address] IMAGING STUDIES: CT ABD+PEL WO CONDATE: 09/02/2024 11:32 AM HISTORY: flank pain 79-year-old female. Right lower flank pain, lowerabdominal pain, and diarrhea since 08/28/2024. Patient reportsalso following that day and undergoing evaluation at [facility] Emergency Room department with CT scan reportedly performed at that time.Patient reports lack of bowel movement since , 08/29/2024. COMPARISON: Chest portable 09/02/2024. CT abdomen and pelvis withoutcontrast 08/30/2022. Ultrasound limited abdomen 07/19/2022. DISCUSSION: CT abdomen and pelvis without intravenous contrast. Coronal and sagittalreconstructions. No enteric contrast. Automated exposure control withradiation dose reduction techniques were used. CHEST: Mild scarring in the lung bases. No acute infiltrate orconsolidation in the lung bases. Stable 4 mm subpleural nodule in theposterior left lower lobe on current axial image 19 compared to image 4 on08/30/2022 and can be considered benign with stability over 2 years. CARDIOVASCULAR: Sternotomy. Heart size is normal. No pericardial effusion.Coronary artery atherosclerotic calcifications. Valvular calcifications. No abdominal aortic aneurysm. At least moderate atheroscleroticcalcification of the aorta, aortic branch arteries, iliac arteries, andfemoral arteries. Partially visualized stent in the right femoralartery. UPPER ABDOMEN: No apparent acute abnormality of the unopacified liver,gallbladder, common bile duct, pancreas, spleen, and adrenal glands. GENITOURINARY: No hydronephrosis. Stable 2.6 cm maximal dimension cystwith density 14 HU extending from the anterior lower pole left kidney withstable peripheral 3.5 mm calcification. Stable 7.5 mm partially exophyticcyst from the lateral mid left kidney as on axial image 47. Stable 1.5 cmleft renal parapelvic cyst. 2.1 cm cyst with density 5 Hu extending fromthe medial lower pole right kidney. And additional 1.3 cm cyst noted inthe lower pole right kidney on 07/19/2022 ultrasound study but not welldefined on noncontrast CT studies. No acute urinary bladder abnormality. Hysterectomy. No inguinal hernia. LYMPHATIC: No apparent pathologic adenopathy given limitations ofnoncontrast study. GASTROINTESTINAL: Stable fat-containing midline anterior abdominal wallhernia just inferior to the xiphoid compared to 08/30/2022. Mild thickeningof the distal esophagus suggesting esophagitis. Stable small tomoderate-sized hiatal hernia. Colonic diverticulosis most prominent in thesigmoid colon and descending colon with no appreciable acutediverticulitis. Chronic inflammatory thickening of the sigmoid colon. No apparent bowel obstruction or focal inflammation. No appendicitis. Nofree fluid in the abdomen or pelvis. MUSCULOSKELETAL: Spinal curvature with progressive substantialdegenerative changes. Degenerative changes of the pelvis and hips. IMPRESSION: 1. No apparent bowel obstruction or acute focal inflammation. Stablehiatal hernia. Distal colon diverticulosis with chronic thickening of thesigmoid colon but no appreciable acute diverticulitis. Stablefat-containing ventral abdominal wall hernia inferior to the xiphoid. 2. No acute urinary tract obstruction. Bilateral renal cysts. Evaluationfor renal lesions is limited without intravenous contrast. 3. Hysterectomy. Ordered By: JODIE CARRERO Interpreted By: Tone Arellano, 09/02/2024 11:41 AM Jodie Carrero MD CT Final Result * ECG 12 lead (09/02/2024 10:23 AM CDT) 09/02/2024 10:2 3 AM CDT Narrative [facility] ([facility] - 09/03/2024 4:[address] [facility] [address] Test Date: 2024-09-02 Pat Name: DANIELLE JUAREZ Department: 41 Room: 3 Gender: Female C.O.D. Audit Clerk: : 1945 Requested By: LLOY BLACKWELL Order Number: [id number] Reading ARABELLA Syed Measurements Intervals [place] Rate: 76 P: 10 AL: 141 QRS: -1 QRSD: 74 T: 108 QT: 337 QTc: 381 Interpretive Statements SINUS RHYTHM MODERATE VOLTAGE CRITERIA FOR LVH, CONSIDER NORMAL VARIANT [MEETS CRITERIA IN ONE OF: R(aVL), S(V1), R(V5), R(V5/V6)+S(V1)] MODERATE T-WAVE ABNORMALITY, CONSIDER LATERAL ISCHEMIA [-0.1+ mV T-WAVE IN I/aVL/V5/V6] Compared to ECG 08/31/2022 07:52:55 Possible ischemia now present Sinus bradycardia no longer present T-wave abnormality still present Procedure Note Zurdo Syed MD - 09/03/[address] Test Date: 2024-09-02 Pat Name: DANIELLE JUAREZ Department: 41 Room: 3 Gender: Female C.O.D. Audit Clerk: : 1945 Requested By: LOLY BLACKWELL Order Number: [id number] Reading ARABELLA Syed Measurements Intervals [place] Rate: 76 P: 10 AL: 141 QRS: -1 QRSD: 74 T: 108 QT: 337 QTc: 381 Interpretive Statements SINUS RHYTHM MODERATE VOLTAGE CRITERIA FOR LVH, CONSIDER NORMAL VARIANT [MEETSCRITERIA IN ONE OF: R(aVL), S(V1), R(V5), R(V5/V6)+S(V1)] MODERATE T-WAVE ABNORMALITY, CONSIDER LATERAL ISCHEMIA [-0.1+ mV T-WAVEIN I/aVL/V5/V6] Compared to ECG 08/31/2022 07:52:55 Possible ischemia now present Sinus bradycardia no longer present T-wave abnormality still present us Loly BARAKAT ECG ORDERABLES Final Result [facility] * XR CHEST PORTABLE (09/02/2024 10:19 AM CDT) Anatomical Region Laterality Modality Chest Radiographic Paige ging 09/02/2024 10:2 0 AM CDT Impressions 09/02/2024 10:20 AM CDT IMPRESSION: No acute findings Ordered By: LOLY BLACKWELL Interpreted By: Silvio Canales MD, 09/02/2024 10:20 AM Narrative 09/02/2024 10:20 AM CDT [place] [address] SINGLE VIEW OF THE CHEST Clinical history: Weakness Comparison: August 30, 2022 A single view of the chest demonstrates the cardiac silhouette to be at the upper limits of normal in size but appears stable. Sternotomy changes are again evident. The pulmonary vessels appear normal. The Lungs are clear. No consolidations or effusions are seen. Procedure Note Silvio Canales MD - 09/02/[address] [address] SINGLE VIEW OF THE CHEST Clinical history: Weakness Comparison: August 30, 2022 A single view of the chest demonstrates the cardiac silhouette to be atthe upper limits of normal in size but appears stable. Sternotomy changesare again evident. The pulmonary vessels appear normal. The Lungs areclear. No consolidations or effusions are seen. IMPRESSION: No acute findings Ordered By: LOLY BLACKWELL Interpreted By: Silvio Canales MD, 09/02/2024 10:20 AM Loly BARAKAT GENERAL IMAGING Final Result * (ABNORMAL) COMPREHENSIVE METABOLIC PANEL (09/02/2024 10:19 AM CDT) [facility] GLUCOSE 90 70 - 99 MG/DL 09/02/2024 10:54 AM CDT [facility] BUN 27(H) 7 - 18 MG/DL 09/02/2024 10:54 AM CDT [facility] CREATININE S/P/B 2.45(H) 0.55 - 1.02 MG/DL 09/02/2024 10:54 AM CDT [facility] SODIUM S/P/B 138 136 - 145 MMOL/L 09/02/2024 10:54 AM CDT [facility] POTASSIUM S/P/B 4.9 3.5 - 5.1 MMOL/L 09/02/2024 10:54 AM CDT [facility] CHLORIDE S/P/B 111 97 - 115 MMOL/L 09/02/2024 10:54 AM CDT [facility] CO2 21.3 21 - 32 MMOL/L 09/02/2024 10:54 AM CDT [facility] CALCIUM S/P/B 11.7(H) 8.5 - 10.1 MG/DL 09/02/2024 10:54 AM CDT [facility] BILIRUBIN TOTAL S/P/B 0.6 0.2 - 1.2 MG/DL 09/02/2024 10:54 AM CDT [facility] Comment: THIS ASSAY IS NOT RECOMMENDED FOR PATIENTS UNDERGOING TREATMENT WITH ELTROMBOPAG DUE TO THE POTENTIAL FOR FALSELY ELEVATED RESULTS. TOTAL PROTEIN S/P/B 7.5 6.4 - 8.2 G/DL 09/02/2024 10:54 AM CDT [facility] ALBUMIN S/P/B 3.8 3.4 - 5.0 G/DL 09/02/2024 10:54 AM CDT [facility] AST 21 15 - 37 U/L 09/02/2024 10:54 AM CDT [facility] ALT 22 14 - 55 U/L 09/02/2024 10:54 AM CDT [facility] ALKALINE PHOSPHATASE S/P/B 86 50 - 136 U/L 09/02/2024 10:54 AM CDT [facility] ANION GAP 5.7 2 - 10 MMOL/L 09/02/2024 10:54 AM CDT [facility] BUN CREATININE RATIO 11.0 6 - 26 09/02/2024 10:54 AM CDT [facility] A/G RATIO 1.0 1.0 - 2.0 RATIO 09/02/2024 10:54 AM T [facility] GFR ESTIMATE 20(L) >90 ML/MIN/1.7 3 M2 09/02/2024 10:54 AM CDT [facility] Comment: NOTE: eGFR is not calculated for patients <18 years of age or gender unknown. This is an estimated GFR calculation using the new CKD EPI creatinine equation without race and so does not require a correction factor for race. This estimated GFR should not be used for calculating drug doses. 09/02/2024 10:1 9 AM CDT [facility] Final Result [facility] [address] [place] [address], [place] [phone] * (ABNORMAL) CBC W/DIFF AUTOMATED (09/02/2024 10:19 AM CDT) WBC 10.94 4.5 - 11.0 x10'3/uL 09/02/2024 10:30 AM CDT [facility] RBC 5.00 4.20 - 5.40 x10'6/uL 09/02/2024 10:30 AM CDT [facility] HGB 14.5 12.0 - 16.0 G/DL 09/02/2024 10:30 AM CDT [facility] HCT 43.8 38.0 - 48.0 % 09/02/2024 10:30 AM CDT [facility] MCV 87.6 81.0 - 99.0 FL 09/02/2024 10:30 AM CDT [facility] MCH 29.0 27.0 - 31.0 PG 09/02/2024 10:30 AM CDT [facility] MCHC 33.1 32.0 - 36.0 G/DL 09/02/2024 10:30 AM CDT [facility] RDW 13.7 11.5 - 14.5 % 09/02/2024 10:30 AM CDT [facility] PLT 339 130 - 400 x10'3/uL 09/02/2024 10:30 AM CDT [facility] MPV 9.8 9.3 - 12.2 FL 09/02/2024 10:30 AM CDT [facility] DIFFERENTIAL TYPE AUTOMATED DIFFERENTIAL 09/02/2024 10:30 AM CDT [facility] NEUTROPHILS % 76.3 % 09/02/2024 10:30 AM CDT [facility] LYMPHOCYTES % 11.2 % 09/02/2024 10:30 AM CDT [facility] MONOCYTES % 8.7 % 09/02/2024 10:30 AM CDT [facility] EOSINOPHILS 2.9 % 09/02/2024 10:30 AM CDT [facility] BASOPHILS 0.5 % 09/02/2024 10:30 AM CDT [facility] IMMATURE GRANS % 0.4 % 09/03/19 10:30 AM CDT [facility] ABS. NEUTROPHILS 8.35(H) 1.80 - 7.70 x10'3/uL 09/02/2024 10:30 AM CDT [facility] ABS. LYMPHOCYTES 1.23 1.00 - 4.80 x10'3/uL 09/02/2024 10:30 AM CDT [facility] ABS. MONOCYTES 0.95(H) 0.24 - 0.86 x10'3/uL 09/02/2024 10:30 AM CDT [facility] ABS. EOSINOPHILS 0.32 0.04 - 0.36 x10'3/uL 09/02/2024 10:30 AM CDT [facility] ABS. BASOPHILS 0.05 0.01 - 0.08 x10'3/uL 09/02/2024 10:30 AM CDT [facility] ABS. IMMATURE GRANULOCYTES 0.04 0.00 - 0.49 x10'3/uL 09/02/2024 10:30 AM CDT [facility] 09/02/2024 10:1 9 AM CDT [facility] Final Result [facility] [address] [place] [address], * TROPONIN, QUANT (09/02/2024 10:19 AM CDT) TROPONIN I HIGH SENSITIVITY 17 <54 ng/L 09/02/2024 10:54 AM CDT [facility] Comment: HIGH DOSES OF BIOTIN, TROPONIN-SPECIFIC AUTOANTIBODIES, AND ANTIBODY THERAPY CONTAINING HAMA MAY INTERFERE WITH THIS TEST RESULT. CORRELATION TO CLINICAL HISTORY AND PRESENTATION RECOMMENDED. 09/02/2024 10:1 9 AM CDT [facility] Final Result Performing Organization Address City/[facility]/ZIP Co de Phone Number [facility] [address] [place] [address], [place] [phone] * LIPASE (09/02/2024 10:19 AM CDT) LIPASE 31 13 - 75 UNITS/L 09/02/2024 10:54 AM CDT [facility] 09/02/2024 10:1 9 AM CDT [facility] Final Result Performing Organization Address [facility] Co de Phone Number [facility] [address] [place] [address], [place] [phone] * Colonoscopy (05/25/2013 12:00 AM SAWMILLING OPERATOR) 05/25/2013 05/25/2013 Narrative [facility] TO EPIC CONVERSION - 05/25/2013 12:00 AM SAWMILLING OPERATOR Documented hx of procedure Procedure Note Md Generic ConversionMD - 02/25/2018 Documented hx of procedure Generic Conversion Md [facility] GI PROCEDURE ORDERABLES Final Result Performing Organization Address City/[facility] Co de Phone Number [facility] TO EPIC CONVERSION from Last 3 Months or Most Recently Relevant to Health Maintenance Insurance [facility] Advance Directives * Full Code (Latest Code Status on File) Date Activated Date Inactivated Comments 08/31/2022 12:07 AM 09/01/2022 4:43 PM * Full Code Date Activated Date Inactivated Comments 09/25/2019 8:26 PM 09/27/2019 2:56 PM * Full Code Date Activated Date Inactivated Comments 09/25/2019 7:59 PM 09/25/2019 8:26 PM Care Teams Traffic Signal Repairer Relationship Specialty Start Date End Date Bhavik Bah DO PCP - General 11/20/16 Rg Morgan MD [address] [address] Consulting Physician INTERVENTIONAL CARDIOLOGY 03/31/22
--- OUTSIDE RECORDS SUMMARY | 2024-11-07 17:52 | XMS_ITS | Encounter Summary ---
Author Organization [facility] Facility Care Team Providers Care Photoresist Contact Printer Name Role Phone Bhavik Bah DO Primary Care Provider Amisha Wilson MA Unavailable [phone] Encounter Details Date Type Department Care Team (Latest Contact Info) Description 05/26/2016 Orders Only [facility] CLINCONV Provider, MD Skyla [address] [place] [id number] Social History Tobacco Use Types Packs/Day Years Used Date Smoking Tobacco: Never Assessed Comments Unknown Sex and Gender Information Value Date Recorded Sex Assigned at Not on file Legal Sex Female 6:42 PM RADIOLOGIC TECH Gender Identity Not on file Sexual Orientation Not on file documented as of this encounter Plan of Treatment Not on file documented as of this encounter Procedures Procedure Name Priority Date/Time Associated Diagnosis Comments CARDIOLOGY REPORT 07/01/2016 12: 00 AM RADIOLOGIC TECH documented in this encounter Results * CARDIOLOGY REPORT (07/01/2016 12:00 AM RADIOLOGIC TECH) Anatomical Region Laterality Modality Other Narrative 07/01/2016 12:00 AM RADIOLOGIC TECH Ordered by an unspecified provider. Historical Provider [facility] LEXIE CARRENO Final Result documented in this encounter Visit Diagnoses Not on filedocumented in this encounter Additional Health Concerns Infection Onset Date Last Indicated Resolved Time COVID: Suspected 06/12/2023 06/12/2023 06/12/2023 12:05 PM RADIOLOGIC TECH Influenza, adult 06/12/2023 06/12/2023 06/19/2023 3:05 AM RADIOLOGIC TECH COVID: Suspected 05/24/2024 05/24/2024 05/24/2024 8:36 PM RADIOLOGIC TECH documented as of this encounter Care Teams Photoresist Contact Printer Relationship Specialty Start Date End Date Bhavik Bah DO Brandyn PCP - General 09/02/18 Amisha Wilson MA [address] [place] [address] [address] [place] [address] ACO Care Expense Clerk 08/30/24 09/01/24 documented as of this encounter
--- OUTSIDE RECORDS SUMMARY | 2024-11-07 17:52 | XMS_ITS | Encounter Summary ---
Author Organization [facility] Healthcare Address [address] [place] [address] Care Team Providers Care Guardian Ad Litem Name Role Phone Bhavik Bah DO Primary Care Provider Amisha Wilson MA Unavailable [phone] Encounter Details Date Type Department Care Team (Late st Contact Info) Description 01/17/2024 Orders Only [facility] Health Information Management [address] [place] [address] Scanning, Provider Social History Tobacco Use Types Packs/Day Years Used Date Smoking Tobacco: Former Cigarettes Smokeless Tobacco: Never [facility] Answer Date Recorded In the past 12 months has [employer] electric, gas, oil, or water company threatened to [...] any clubs o r organizations such as yazidism groups, unions, fraternal or athletic groups, or [...] place to sleep or slept in a mcfp (including now)? No 06/13/2023 Personal Safety Answer Date Recorded Have you ever been in or are you currently in a harmful physical or emotional relationship or is someone making you feel afraid or unsafe? Denies 06/22/2023 Comments No Sex and Gender Information Value Date Recorded Sex Assigned at Not on file Legal Sex Female 6:42 PM ANIMAL TRAINER SUPERVISOR Gender Identity Not on file Sexual Orientation [...] COVID: Suspected 05/24/2024 05/24/2024 05/24/2024 8:36 PM ANIMAL TRAINER SUPERVISOR documented as of this encounter Care Teams Guardian Ad Litem Relationship Specialty Start Date End Date Bhavik Bah DO PCP - General 09/02/18 Amsiha Wilson MA [address] [place] [address] [address] [place] [address] ACO Care Fleet Service Clerk 08/30/24 09/01/24 documented as of this encounter
--- OUTSIDE RECORDS SUMMARY | 2024-11-07 17:52 | XMS_ITS | Encounter Summary ---
Author Organization [facility] Healthcare Address [address] [place] [address] Care Team Providers Care Otolaryngologist Name Role Phone Bhavik Bah DO Primary Care Provider Reason for Visit * Reason Onset Date Comments Medical Question/Miscellaneous 11/05/2024 Encounter Details Date Type Department Care Team ([facility] st Contact Info) Description 11/05/2024 Telephone [facility] Primary Care [address] [facility] [address] [place] [phone] Bhavik Bah DO [address] [place] [address] [address] [place] [address] Medical Question/Miscellaneous Social History Tobacco Use Types Packs/Day Years Used Date Smoking Tobacco: Former Cigarettes 0.5 10 1 4 - 2003 Smokeless Tobacco: Never [facility] Utilities Answer Date Recorded In the past 12 months has [employer], gas, oil, or water [employer] threatened to shut off services in your [...] week 06/14/2023 How often do you attend [facility] or restoration services? 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 card to Dr Alcantara/[facility] @ [phone],which went through successfully. I informed Mrs Swan, too. I'm forwarding message to [facility], in case appt needs an insurance referral. ALLYSON and Claribel Ochoa * Telephone Encounter - Deb Oscar - 11/05/2024 3:14 PM CDT Medical Question/Miscellaneous Caller???s Concern: Please refax Pain Management referral for Dr. Alcantara to Does message need to be routed? Yes-Action Needed documented in this encounter Plan of Treatment Not on file documented as of this encounter Visit Diagnoses Not on filedocumented in this encounter Care Teams Otolaryngologist Relationship Specialty Start Date End Date Bhavik Bah DO PCP - General 09/02/18 documented as of this encounter
--- OUTSIDE RECORDS SUMMARY | 2024-11-07 17:52 | XMS_ITS | Encounter Summary ---
Author Organization [facility] Address [address] [place] [address] Care Team Providers Care Rider Ticket Worker Name Role Phone Bhavik Bah DO Primary Care Provider [phone] Rg Morgan MD Unavailable [phone] Encounter Details Date Type Department Care Team (Late Contact Info) Description 09/30/2019 Hospital Follow-up Call [facility] [place] [address] Tasia Blanca, RN Social History Tobacco Use [...] Department Care Team (Late Contact Info) Description 01/06/2025 1:45 PM CDT Office Visit [facility], [address] [place], [place] [phone] Rg Morgan MD [address] [facility]. [address] [place], [place] [id number] documented as of this encounter Visit Diagnoses Not on filedocumented in this encounter Care Teams Rider Ticket Worker Relationship Specialty Start Date End Date Bhavik Bah DO PCP - General 11/20/16 Rg Morgan MD [facility]. [address] [place], [place] [id number] Consulting Physician INTERVENTIONAL CARDIOLOGY 03/31/22 documented as of this encounter
--- NOTE | 2024-11-07 17:53 | ECG_ITS ---
Test Date: 2024-11-07 17:58:07 Measurements Intervals [place] Rate: 74 P: 3 SD: 167 QRS: 1 QRSD: 70 T: 90 QT: 349 QTc: 389 Interpretive Statements BASELINE ARTIFACT /POOR QUALITY ECG SINUS RHYTHM LOW QRS VOLTAGE IN PRECORDIAL LEADS [QRS DEFLECTION < 1.0 mV IN CHEST LEADS] NONSPECIFIC T-WAVE ABNORMALITY ABNORMAL ECG Compared to ECG 06/18/2024 02:43:33 NO OBVIOUS CHANGE Electronically Signed On 11-08-2024 07:36:26 CDT by Mauro Morelos M.D.
[2024-11-07 18:12] LABS: Hematocrit 40.8 % (37.0-47.0); Hemoglobin 13.4 g/dL (12.0-15.0); Immature Granulocyte Percent A 0.2 % (0-0.5); Lymphocytes Absolute Auto 1.85 K/mm3 (0.9-3.2); Mean Corpuscular HGB Conc 32.8 g/dl (32-36); Mean Corpuscular Hemoglobin 29.6 pg (26-34); Mean Corpuscular Volume 90.1 fl (80-100); Nucleated Red Blood Cells Absolute Auto 0.000 K/mm3 (0.0-0.012); Nucleated Red Blood Cells Perc 0.0 % (0.0-0.2); Platelet Count Result 314 k/mm3 (150-375); Red Blood Count 4.53 M/mm3 (4.2-5.4); White Blood Count 8.1 K/mm3 (4.5-10.0)
[2024-11-07 18:18] VITALS: BP 163/63; PULSE 75; RESP 18; TEMP 36.5; O2SAT 98
[2024-11-07 18:27] LABS: INR 1.0; Prothrombin Time 13.5 Seconds (11.1-14.7)
[2024-11-07 18:28] LABS: Partial Thromboplastin Time 35.1 Seconds (22.3-36.8)
[2024-11-07 18:58] LABS: Alanine Aminotransferase 18 U/L (6-35); Albumin Level 4.4 g/dL (3.5-5.1); Alkaline Phosphatase 83 U/L (38-126); Anion Gap 11 mmol/L (4-12); Aspartate Amino Transferase 30 U/L (14-36); Bilirubin,Total 0.4 mg/dL (0.2-1.3); Blood Urea Nitrogen 38 mg/dL (7-17); Calcium 10.7 mg/dL (8.4-10.2); Carbon Dioxide 15 mmol/L (22-30); Chloride 117 mmol/L (98-107); Estimated Glomerular Filt Rate 19; Glucose 101 mg/dL (65-110); Lipase 112 U/L (23-300); Potassium 5.6 mmol/L (3.4-5.0); Sodium 143 mmol/L (137-145); Total Protein 7.8 g/dL (6.3-8.2)
[2024-11-07 19:03] LABS: Troponin I 0.017 ng/mL (0.000-0.034)
--- NOTE | 2024-11-07 21:15 | ECG_ITS ---
Test Date: 2024-11-07 21:34:58 Measurements Intervals [place] Rate: 73 P: 0 NE: 0 QRS: -3 QRSD: 69 T: 90 QT: 347 QTc: 382 Interpretive Statements SINUS RHYTHM NONSPECIFIC T-WAVE ABNORMALITY BORDERLINE ECG Compared to ECG 11/07/2024 17:58:07 NO OBVIOUS CHANGE, BOTH ECGS HAVE BASELINE ARTIFACT NOISE Electronically Signed On 11-08-2024 07:44:30 CDT by Mauro Morelos M.D.
--- NOTE | 2024-11-07 22:18 | ED.CHESTPAIN ---
HPI - Chest Pain General Chief Complaint: Chest Pain Stated Complaint: chest pain, dizzy, FLORES, blurred vision Time Seen by Provider: 11/07/24 22:00 History of Present Illness HPI narrative: 79-year-old female with history of coronary artery disease, hypertension, hyperlipidemia, esophageal dose was strictures. She presents to the emergency department with chest pain as well as feeling dizzy and was short of breath this morning. She states she has also been having some muscle pain and saw her family doctor about this 2 days ago. Did not receive any kind lab work at that time. Patient states she received aspirin and nitro EN route by EMS and now has resolved symptoms. States she is very thirsty and feels slightly dehydrated. No recent hospitalizations but was seen previously several months ago for acute diverticulitis. No leg pain or calf cramping, no history of DVT or PE. She is on anticoagulation with aspirin Brilinta. Related Data Home Medications ?Medication ?Instructions ?Recorded ?Confirmed ?Last Taken ?Type amlodipine 5 mg tablet (Norvasc) 10 mg PO DAILY 05/01/19 01/17/24 03/12/20 History metoprolol tartrate 50 mg tablet 50 mg PO DAILY 05/01/19 01/17/24 03/12/20 History (Lopressor) rosuvastatin 40 mg tablet 40 mg PO HS 03/12/20 01/17/24 03/12/20 History ticagrelor 90 mg tablet (Brilinta) 90 mg PO DAILY 03/12/20 01/17/24 03/12/20 History aspirin 81 mg tablet,delayed 81 mg DIRECTED 01/17/24 01/17/24 Unknown History release (Adult Low Dose Aspirin) lisinopril 40 mg tablet 40 mg DIRECTED 01/17/24 01/17/24 Unknown History Allergies Allergy/AdvReac Type Severity Reaction Status Date / Time hydrocodone AdvReac Unknown Vomiting Verified 06/17/24 20:16 Review of Systems Review of Systems: As reviewed above in HPI [facility] Past Medical History Medical History Esophageal stricture Hiatal hernia GERD (gastroesophageal reflux disease) Erosive esophagitis NSAID long-term use HLD (hyperlipidemia) HTN (hypertension) CAD (coronary artery disease) Esophageal dilatation Esophageal stricture Surgical History Surgical History H/O: hysterectomy Status 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 She is a full code but does not have a power of workers compensation attorney. She is retired from the [employer] in [facility] [facility] and the [employer]. She lives with daughter and son-in-law. She denies any current tobacco use alcohol marijuana or illicit drugs. Smoking packs per day: 1 Smoking cigarettes per day: 20.0 Years smoked: 10 Smoking pack-years: 10.00 Smoking status: Former smoker Additional smoking assessment comments: Haven't had one in almost 12 years. Alcohol intake: never Substance use: never Occupation/Education: retired Gender identity (if verbalized by the patient): Female Spiritual care concerns: No Exam Narrative: GENERAL: [Well-appearing, well-nourished, and in no acute distress.] HEAD: [Normocephalic, atraumatic.] EYES: [PERRLA and EOMI.] ENT: Nares clear, no rhinorrhea or epistaxis. Mucous membranes dry. NECK: Supple. CHEST: [Clear to auscultation. No respiratory distress.] HEART: [Regular rate and rhythm]. No murmur heard. [Normal peripheral pulses.] ABDOMEN: [Soft, nondistended], [nontender], [No rigidity or guarding] EXTREMITIES: Normal range of motion. [No edema.] SKIN: Warm, dry, no rash. NEURO: [No focal deficits]. Alert and oriented [x3.] PSYCH: [Normal mood and affect.] Course Vital Signs Vital signs: Vital Signs Temperature 36.5 C 11/07/24 18:18 Pulse Rate 75 11/07/24 18:18 Respiratory Rate 18 11/07/24 18:18 Blood Pressure 163/63 H 11/07/24 18:18 Pulse Oximetry 98 11/07/24 18:18 Temperature 36.5 C 11/07/24 18:18 Pulse Rate 75 11/07/24 18:18 Respiratory Rate 18 11/07/24 18:18 Blood Pressure 163/63 H 11/07/24 18:18 Pulse Oximetry 98 11/07/24 18:18 Oxygen Delivery Room Air 11/07/24 22:00 MDM - Chest Pain MDM Narrative Medical decision making narrative: 79-year-old female with history of coronary artery disease, hypertension, hyperlipidemia, esophageal dose was strictures. She presents to the emergency department with chest pain as well as feeling dizzy and was short of breath this morning. She states she has also been having some muscle pain and saw her family doctor about this 2 days ago. Did not receive any kind lab work at that time. Patient states she received aspirin and nitro EN route by EMS and now has resolved symptoms. States she is very thirsty and feels slightly dehydrated. No recent hospitalizations but was seen previously several months ago for acute diverticulitis. No leg pain or calf cramping, no history of DVT or PE. She is on anticoagulation with aspirin Brilinta. Given patient's chest pain symptomatology as well as a history of coronary artery disease with symptomatology improving with aspirin nitro suspicion is raised for acute coronary syndrome, other pathology such as angina, pneumothorax, pneumonia, bronchitis, electrolyte imbalance, dehydration, less likely thromboembolic disease were her low Wells criteria. Multiple troponin was ordered including CBC, CMP, EKG, chest x-ray. Patient's initial set the labs came back with hyperkalemia and acute renal injury on top of chronic kidney disease she was given additional hydration through an IV, insulin, dextrose and calcium gluconate and oral Lokelma provided and repeat BMP is ordered. Patient's troponin is mildly elevated and delta troponin is greater than 20% delta which does rule in coronary disease as a diagnostic consideration at this time. Awaiting repeat labs and will be admitted to the hospital. Patient is presently asymptomatic and pain-free during reassessments, no acute ischemic evidence on EKG serially. Repeat lab show improvement in the potassium and creatinine after hydration and insulin. Slightly low glucose after the fact but improved with oral hydration and food. Third troponin is down trending which is reassuring. EKG remains without any ischemic evidence. Discussed the case with the hospitalist who accepted her to a telemetry monitored bed for further evaluation and treatment. Patient made aware of the plan and agreeable for admission Medical Records Data Attestation: I reviewed the patient's medical records. Lab Data Attestation: I reviewed the patient's lab results. 11/07/24 18:02 11/08/24 00:15 Labs: Lab Results 11/07/24 11/07/24 11/07/24 Range/Units 18:02 21:56 22:25 WBC 8.1 (4.5-10.0) K/mm3 RBC 4.53 (4.2-5.4) M/mm3 Hgb 13.4 (12.0-15.0) g/dL Hct 40.8 (37.0-47.0) % MCV 90.1 (80-100) fl MCH 29.6 (26-34) pg MCHC 32.8 (32-36) g/dl RDW 13.8 (11.5-14.5) % Plt Count 314 (150-375) k/mm3 MPV 10.0 (7.4-10.4) fl Immature Gran % (Auto) 0.2 (0-0.5) % Neut % (Auto) 60.9 (45.5-73.1) % Lymph % (Auto) 22.8 (18.3-44.2) % [place] % (Auto) 9.2 H (2.6-8.5) % Eos % (Auto) 6.3 H (0-4.4) % Baso % (Auto) 0.6 (0.2-1.2) % Lymph # (Auto) 1.85 (0.9-3.2) K/mm3 [place] # (Auto) 0.8 H (0.1-0.6) K/mm3 Eos # (Auto) 0.5 H (0-0.3) K/mm3 Baso # (Auto) 0.1 (0.0-0.1) K/mm3 Abs Immat Gran (auto) 0.02 (0.00-0.031) K/mm3 Absolute Neuts (auto) 5.0 (1.3-6.7) K/mm3 Absolute Nucleated RBC 0.000 (0.0-0.012) K/mm3 Nucleated RBC % 0.0 (0.0-0.2) % PT 13.5 (11.1-14.7) Seconds INR 1.0 APTT 35.1 (22.3-36.8) Seconds Sodium 143 (137-145) mmol/L Potassium 5.6 H (3.4-5.0) mmol/L Chloride 117 H (98-107) mmol/L Carbon Dioxide 15 L (22-30) mmol/L Anion Gap 11 (4-12) mmol/L BUN 38 H (7-17) mg/dL Creatinine 2.45 H (0.7-1.0) mg/dL Estim Creat Clear Calc Not Reportable Estimated GFR 19 L (59 - ) Glucose 101 (65-110) mg/dL POC Capillary Glucose 103 (65-105) mg/dl Calcium 10.7 H (8.4-10.2) mg/dL Total Bilirubin 0.4 (0.2-1.3) mg/dL AST 30 (14-36) U/L ALT 18 (6-35) U/L Alkaline Phosphatase 83 (38-126) U/L Troponin I 0.017 0.021 D (0.000-0.034) ng/mL Total Protein 7.8 (6.3-8.2) g/dL Albumin 4.4 (3.5-5.1) g/dL Lipase 112 (23-300) U/L 11/07/24 11/08/24 11/08/24 Range/Units 23:15 00:15 00:15 WBC (4.5-10.0) K/mm3 RBC (4.2-5.4) M/mm3 Hgb (12.0-15.0) g/dL Hct (37.0-47.0) % MCV (80-100) fl MCH (26-34) pg MCHC (32-36) g/dl RDW (11.5-14.5) % Plt Count (150-375) k/mm3 MPV (7.4-10.4) fl Immature Gran % (Auto) (0-0.5) % Neut % (Auto) (45.5-73.1) % Lymph % (Auto) (18.3-44.2) % [place] % (Auto) (2.6-8.5) % Eos % (Auto) (0-4.4) % Baso % (Auto) (0.2-1.2) % Lymph # (Auto) (0.9-3.2) K/mm3 [place] # (Auto) (0.1-0.6) K/mm3 Eos # (Auto) (0-0.3) K/mm3 Baso # (Auto) (0.0-0.1) K/mm3 Abs Immat Gran (auto) (0.00-0.031) K/mm3 Absolute Neuts (auto) (1.3-6.7) K/mm3 Absolute Nucleated RBC (0.0-0.012) K/mm3 Nucleated RBC % (0.0-0.2) % PT (11.1-14.7) Seconds INR APTT (22.3-36.8) Seconds Sodium 141 Cancelled (137-145) mmol/L Potassium 4.5 (3.4-5.0) mmol/L Chloride (98-107) mmol/L Carbon Dioxide (22-30) mmol/L Anion Gap (4-12) mmol/L BUN (7-17) mg/dL Creatinine (0.7-1.0) mg/dL Estim Creat Clear Calc Estimated GFR (59 - ) Glucose (65-110) mg/dL POC Capillary Glucose 118 H (65-105) mg/dl Calcium (8.4-10.2) mg/dL Total Bilirubin (0.2-1.3) mg/dL AST (14-36) U/L ALT (6-35) U/L Alkaline Phosphatase (38-126) U/L Troponin I (0.000-0.034) ng/mL Total Protein (6.3-8.2) g/dL Albumin (3.5-5.1) g/dL Lipase (23-300) U/L 11/08/24 11/08/24 11/08/24 Range/Units 00:15 00:15 00:15 WBC (4.5-10.0) K/mm3 RBC (4.2-5.4) M/mm3 Hgb (12.0-15.0) g/dL Hct (37.0-47.0) % MCV (80-100) fl MCH (26-34) pg MCHC (32-36) g/dl RDW (11.5-14.5) % Plt Count (150-375) k/mm3 MPV (7.4-10.4) fl Immature Gran % (Auto) (0-0.5) % Neut % (Auto) (45.5-73.1) % Lymph % (Auto) (18.3-44.2) % [place] % (Auto) (2.6-8.5) % Eos % (Auto) (0-4.4) % Baso % (Auto) (0.2-1.2) % Lymph # (Auto) (0.9-3.2) K/mm3 [place] # (Auto) (0.1-0.6) K/mm3 Eos # (Auto) (0-0.3) K/mm3 Baso # (Auto) (0.0-0.1) K/mm3 Abs Immat Gran (auto) (0.00-0.031) K/mm3 Absolute Neuts (auto) (1.3-6.7) K/mm3 Absolute Nucleated RBC (0.0-0.012) K/mm3 Nucleated RBC % (0.0-0.2) % PT (11.1-14.7) Seconds INR APTT (22.3-36.8) Seconds Sodium (137-145) mmol/L Potassium Cancelled (3.4-5.0) mmol/L Chloride 117 H Cancelled (98-107) mmol/L Carbon Dioxide 17 L Cancelled (22-30) mmol/L Anion Gap 7 (4-12) mmol/L BUN (7-17) mg/dL Creatinine (0.7-1.0) mg/dL Estim Creat Clear Calc Estimated GFR (59 - ) Glucose (65-110) mg/dL POC Capillary Glucose (65-105) mg/dl Calcium (8.4-10.2) mg/dL Total Bilirubin (0.2-1.3) mg/dL AST (14-36) U/L ALT (6-35) U/L Alkaline Phosphatase (38-126) U/L Troponin I (0.000-0.034) ng/mL Total Protein (6.3-8.2) g/dL Albumin (3.5-5.1) g/dL Lipase (23-300) U/L 11/08/24 11/08/24 11/08/24 Range/Units 00:15 00:15 00:15 WBC (4.5-10.0) K/mm3 RBC (4.2-5.4) M/mm3 Hgb (12.0-15.0) g/dL Hct (37.0-47.0) % MCV (80-100) fl MCH (26-34) pg MCHC (32-36) g/dl RDW (11.5-14.5) % Plt Count (150-375) k/mm3 MPV (7.4-10.4) fl Immature Gran % (Auto) (0-0.5) % Neut % (Auto) (45.5-73.1) % Lymph % (Auto) (18.3-44.2) % [place] % (Auto) (2.6-8.5) % Eos % (Auto) (0-4.4) % Baso % (Auto) (0.2-1.2) % Lymph # (Auto) (0.9-3.2) K/mm3 [place] # (Auto) (0.1-0.6) K/mm3 Eos # (Auto) (0-0.3) K/mm3 Baso # (Auto) (0.0-0.1) K/mm3 Abs Immat Gran (auto) (0.00-0.031) K/mm3 Absolute Neuts (auto) (1.3-6.7) K/mm3 Absolute Nucleated RBC (0.0-0.012) K/mm3 Nucleated RBC % (0.0-0.2) % PT (11.1-14.7) Seconds INR APTT (22.3-36.8) Seconds Sodium (137-145) mmol/L Potassium (3.4-5.0) mmol/L Chloride (98-107) mmol/L Carbon Dioxide (22-30) mmol/L Anion Gap Cancelled (4-12) mmol/L BUN 34 H Cancelled (7-17) mg/dL Creatinine 2.07 H Cancelled (0.7-1.0) mg/dL Estim Creat Clear Calc Not Reportable Estimated GFR (59 - ) Glucose (65-110) mg/dL POC Capillary Glucose (65-105) mg/dl Calcium (8.4-10.2) mg/dL Total Bilirubin (0.2-1.3) mg/dL AST (14-36) U/L ALT (6-35) U/L Alkaline Phosphatase (38-126) U/L Troponin I (0.000-0.034) ng/mL Total Protein (6.3-8.2) g/dL Albumin (3.5-5.1) g/dL Lipase (23-300) U/L 11/08/24 11/08/24 11/08/24 Range/Units 00:15 00:15 00:15 WBC (4.5-10.0) K/mm3 RBC (4.2-5.4) M/mm3 Hgb (12.0-15.0) g/dL Hct (37.0-47.0) % MCV (80-100) fl MCH (26-34) pg MCHC (32-36) g/dl RDW (11.5-14.5) % Plt Count (150-375) k/mm3 MPV (7.4-10.4) fl Immature Gran % (Auto) (0-0.5) % Neut % (Auto) (45.5-73.1) % Lymph % (Auto) (18.3-44.2) % [place] % (Auto) (2.6-8.5) % Eos % (Auto) (0-4.4) % Baso % (Auto) (0.2-1.2) % Lymph # (Auto) (0.9-3.2) K/mm3 [place] # (Auto) (0.1-0.6) K/mm3 Eos # (Auto) (0-0.3) K/mm3 Baso # (Auto) (0.0-0.1) K/mm3 Abs Immat Gran (auto) (0.00-0.031) K/mm3 Absolute Neuts (auto) (1.3-6.7) K/mm3 Absolute Nucleated RBC (0.0-0.012) K/mm3 Nucleated RBC % (0.0-0.2) % PT (11.1-14.7) Seconds INR APTT (22.3-36.8) Seconds Sodium (137-145) mmol/L Potassium (3.4-5.0) mmol/L Chloride (98-107) mmol/L Carbon Dioxide (22-30) mmol/L Anion Gap (4-12) mmol/L BUN (7-17) mg/dL Creatinine (0.7-1.0) mg/dL Estim Creat Clear Calc Cancelled Estimated GFR 23 L Cancelled (59 - ) Glucose 48 L* Cancelled (65-110) mg/dL POC Capillary Glucose (65-105) mg/dl Calcium 10.6 H (8.4-10.2) mg/dL Total Bilirubin (0.2-1.3) mg/dL AST (14-36) U/L ALT (6-35) U/L Alkaline Phosphatase (38-126) U/L Troponin I (0.000-0.034) ng/mL Total Protein (6.3-8.2) g/dL Albumin (3.5-5.1) g/dL Lipase (23-300) U/L 11/08/24 Range/Units 00:15 WBC (4.5-10.0) K/mm3 RBC (4.2-5.4) M/mm3 Hgb (12.0-15.0) g/dL Hct (37.0-47.0) % MCV (80-100) fl MCH (26-34) pg MCHC (32-36) g/dl RDW (11.5-14.5) % Plt Count (150-375) k/mm3 MPV (7.4-10.4) fl Immature Gran % (Auto) (0-0.5) % Neut % (Auto) (45.5-73.1) % Lymph % (Auto) (18.3-44.2) % [place] % (Auto) (2.6-8.5) % Eos % (Auto) (0-4.4) % Baso % (Auto) (0.2-1.2) % Lymph # (Auto) (0.9-3.2) K/mm3 [place] # (Auto) (0.1-0.6) K/mm3 Eos # (Auto) (0-0.3) K/mm3 Baso # (Auto) (0.0-0.1) K/mm3 Abs Immat Gran (auto) (0.00-0.031) K/mm3 Absolute Neuts (auto) (1.3-6.7) K/mm3 Absolute Nucleated RBC (0.0-0.012) K/mm3 Nucleated RBC % (0.0-0.2) % PT (11.1-14.7) Seconds INR APTT (22.3-36.8) Seconds Sodium (137-145) mmol/L Potassium (3.4-5.0) mmol/L Chloride (98-107) mmol/L Carbon Dioxide (22-30) mmol/L Anion Gap (4-12) mmol/L BUN (7-17) mg/dL Creatinine (0.7-1.0) mg/dL Estim Creat Clear Calc Estimated GFR (59 - ) Glucose (65-110) mg/dL POC Capillary Glucose (65-105) mg/dl Calcium Cancelled (8.4-10.2) mg/dL Total Bilirubin (0.2-1.3) mg/dL AST (14-36) U/L ALT (6-35) U/L Alkaline Phosphatase (38-126) U/L Troponin I 0.020 (0.000-0.034) ng/mL Total Protein (6.3-8.2) g/dL Albumin (3.5-5.1) g/dL Lipase (23-300) U/L Imaging Data Attestation: I personally reviewed and interpreted this imaging study as follows: My impression: Impressions Chest X-Ray 11/07/24 18:16 IMPRESSION: No acute cardiopulmonary process. Critical Care Time Critical Care Time Critical Care Time: Yes Total Critical Care Time: 35 Discharge Plan Discharge Clinical Impression: Acute hyperkalemia, Chest pain, Acute kidney injury superimposed on chronic kidney disease, Acute dehydration Patient Disposition: Still a Patient Condition: Stable
[2024-11-07 22:25] LABS: Troponin I 0.021 ng/mL (0.000-0.034)
[2024-11-07] MEDS: INSULIN HUMAN REGULAR (*BKC) 100 UNITS/ML IV PUSH (22:26)
[2024-11-07] MEDS: DEXTROSE 50% 25 GM/50 ML SYRINGE IV PUSH (22:29)
[2024-11-07] MEDS: LACTATED RINGERS 1,000 ML 999 ML IV CONT ×2 (22:30→22:31)
[2024-11-07] MEDS: SODIUM ZIRCONIUM CYCLOSILICATE 10 GM POWD.PACK PO (22:31)
--- OUTSIDE RECORDS SUMMARY | 2024-11-07 22:38 | XMS_ITS | Encounter Summary ---
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
--- OUTSIDE RECORDS SUMMARY | 2024-11-07 22:38 | XMS_ITS | Clinical Summary ---
Author Organization [facility] Address [address] [place] [address] Care Team Providers Care Track Oiler Name Role Phone LouisaBhavik monk Primary Care Provider Allergies Active Allergy Reactions Criticality Noted Date Comments Acetaminophen Stomach upset Low 09/14/2019 Stomach/GI Upset Hydrocodone Stomach upset Low 09/14/2019 Stomach/GI Upset Metronidazole Unknown 09/14/2019 unknown-is per outside record Rosuvastatin Muscle pain Medium 02/17/2023 Twdpsmg-Fxr-Rff Reductase Inhibitors Diarrhea Low 09/26/2024 Hydrocodone-Acetaminophen Nausea [...] her bath 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 06/12/2023 Overview (03/19/2024): [...] 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 Continue same medications and follow up with [...] Description 11/05/2024 3:15 PM CDT Office Visit [facility] [address] [place] [address] [address] [place] [address] Bhavik Bah DO Bilateral hip pain (Primary Dx); Sacroiliitis; Peripheral polyneuropathy 11/05/2024 Telephone [facility] [address] [place] [place] [address] [address] [place] [address] Bhavik Bah DO Medical Question/Miscellaneous 11/04/2024 Nurse Triage [facility] [address] [address] Bhavik Bah DO 09/26/2024 4:00 PM CDT Office Visit [address] [place] [address] Bhavik Bah DO Benign essential HTN (Primary Dx); Postmenopausal; Peripheral polyneuropathy; Chronic right-sided thoracic back pain 09/26/2024 Nurse Triage [address] [address] Bhavik Bah DO 09/26/[address] [address] Bhavik Bah DO Additional Services Or Orders 09/02/[address] [address] Bhavik Bah DO Hospital Follow Up (ED f/u from 08/28 and 09/02) 09/02/2024 [facility] Outreach [facility] Accountable Care Organization [address] [place] [address] Amisha Wilson MA 08/30/2024 [facility] ED Outreach [facility] Care [address] [address] Amisha Wilson MA 08/28/2024 9:13 PM CDT - 08/29/2024 2:06 AM CDT Emergency [address] [address] Ahsan Anderson DO Gastroenteritis (Primary Dx) Discharge [...] Tobacco Cessation:Counseling Given: Not Answered [facility] Utilities Answer Date Recorded In the past 12 months has [employer], gas, oil, or water company threatened to [...] often do you attend chur ch or [employer]beterian services? 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 Source: [facility] Current Interpretive Data was last revised on 2017 Protein, ur ql Negative Negative [facility] Glucose, ur ql Negative Negative [facility] Ketones, ur Negative Negative [facility] Bilirubin, ur Negative Negative [facility] Blood, ur Negative Negative [facility] Urobilinogen, ur <2.0 <2.0 mg/dL [facility] Nitrite, ur Negative Negative [facility] Leukocyte esterase, ur 2+(A) Negative [facility] UA reflex comment Reflex to microscopic UA will be performed. [facility] Urine 08/29/2024 12:5 8 AM CDT 08/29/2024 1:07 AM CDT [facility] MICROBIOLOGY - GENERAL ORD ERABLES Final Result Performing Organization Address [facility] de Phone Number [address] [place] [address] * (ABNORMAL) Urinalysis, microscopic only (08/29/2024 12:58 AM CDT) WBC, ur 0-5 0 - 5 /HPF RBC, ur 0-2 0 - 2 /HPF [facility] Epithelial cells, squamous, ur 1-5 0 - 5 /HPF [facility] Bacteria, ur Trace(A) [facility] Mucous, ur Present(A) [facility] Culture Reflex Comment Reflex conditions for urine culture (WBC >10) not met. [facility] Urine 08/29/2024 12:5 8 AM CDT 08/29/2024 1:07 AM CDT [facility] URINE ORDERABLES Final Res ult Performing Organization Address [facility] Co de Phone Number [address] [place] [employer] [address] * CT Abdomen Pelvis W Contrast (08/28/2024 [...] signed by Sherif SANTOS T: Report ID: [id number] Reading Location: [id number] Procedure Note Sherif Borjas MD - 08/29/2024 [...] signed by Sherif SANTOS T: Report ID: [id number] Reading Location: [place] [address] Ahsan Anderson DO IMG CT PROCEDURES Final Result * ECG 12 lead (08/28/2024 10:58 PM CDT) Ventricular Rate EKG/Min 84 BPM [facility] Atrial Rate 84 BPM [facility] CA-Interval (MSEC) 112 ms [facility] QRS-Interval (MSEC) 66 ms [facility] QT-Interval (MSEC) 350 ms [facility] QTc 413 ms [facility] P [place] 5 degrees [facility] R [place] 12 degrees [facility] T [place] 121 degrees [facility] Diagnosis Normal sinus rhythm Nonspecific T wave abnormality Confirmed by ERICH SOARES M.D. ([id number]) on 08/29/2024 10:16:52 PM [facility] 08/28/2024 10:5 8 PM CDT 08/29/2024 10:16 PM CDT Ahsan Anderson DO ECG ORDERABLES Final Result Performing Organization Address [facility] de Phone Number [facility] * (ABNORMAL) Troponin T high-sensitivity series (baseline, [...] ORDERABLES Final Res ult Performing Organization Address [facility] Co de Phone Number [facility] [address] [facility] [place] [address] * (ABNORMAL) eGFR (08/28/2024 9:30 PM CDT) [...] MD LAB BLOOD ORDERABLES Fi nal Result [place] [id number] [facility] [place] [address] * (ABNORMAL) Differential, auto (08/28/2024 9:30 PM CDT) Neutrophil abs 10.10(H) 1.50 - 6.50 K/cumm Imm gran abs 0.05 0.00 - 0.10 K/cumm [facility] Lymphocyte abs 1.34 0.80 - 3.30 K/cumm [facility] Monocyte abs 1.06(H) 0.20 - 0.80 K/cumm [facility] Eosinophil abs 0.49 0.00 - 0.50 K/cumm [facility] Basophil abs 0.05 0.00 - 0.10 K/cumm [facility] Neutrophil pct 77.2 % [facility] Comment: Interpretive Data Percent cell count reference ranges are not reported, since discordance with absolute values may lead to misinterpretation of CBC data. Current Interpretive Data was last revised on 2017. Imm gran pct 0.4 % [facility] Comment: Interpretive Data Percent cell count reference ranges are not reported, since discordance with absolute values may lead to misinterpretation of CBC data. Current Interpretive Data was last revised on 2017. Lymphocyte pct 10.2 % [facility] Comment: Interpretive Data Percent cell count reference ranges are not reported, since discordance with absolute values may lead to misinterpretation of CBC data. Current Interpretive Data was last revised on 2017. Monocyte pct 8.1 % [facility] Comment: Interpretive Data Percent cell count reference ranges are not reported, since discordance with absolute values may lead to misinterpretation of CBC data. Current Interpretive Data was last revised on 2017. Eosinophil pct 3.7 % [facility] Comment: Interpretive Data Percent cell count reference ranges are not reported, since discordance with absolute values may lead to misinterpretation of CBC data. Current Interpretive Data was last revised on 2017. Basophil pct 0.4 % [facility] Comment: Interpretive Data Percent cell count reference ranges are not reported, since discordance with absolute values may lead to misinterpretation of CBC data. Current Interpretive Data was last revised on 2017. Blood 08/28/2024 9:30 PM CDT 08/28/2024 9:32 PM CDT us Ahsan Anderson DO LAB BLOOD ORDERABLES Final Res ult [facility] [address] [facility] [place] [address] * (ABNORMAL) CBC with auto differential (08/28/2024 9:30 PM CDT) WBC 13.09(H) 3.80 - 9.90 K/cumm Hgb 13.6 11.9 - 15.5 g/dL [facility] Hct 42.0 35.6 - 45.5 % [facility] Plt 266 150 - 400 K/cumm [facility] MPV 10.3 9.1 - 12.3 fL [facility] RBC 4.66 3.90 - 5.20 M/cumm [facility] MCV 90.1 81.3 - 96.4 fL [facility] MCH 29.2 27.1 - 33.3 pg [facility] MCHC 32.4 32.3 - 35.7 g/dL [facility] RDW CV 13.9 11.1 - 14.9 % [facility] RDW SD 45.8 35.7 - 48.1 fL [facility] NRBC abs 0.00 0.00 - 0.01 K/cumm [facility] Blood Venous blood specimen / Unknown 08/28/2024 9:30 PM CDT 08/28/2024 9:32 PM CDT Ahsan Anderson DO LAB BLOOD ORDERABLES Final Res ult Performing Organization Address [facility] Co de Phone Number [address] [place] [address] * Lipase (08/28/2024 9:30 PM CDT) Pathologist [facility] Lipase 31 10 - 99 Units/L Blood Venous blood specimen / Unknown 08/28/2024 9:30 PM CDT 08/28/2024 9:32 PM CDT Ahsan Anderson LAB BLOOD ORDERABLES Final Res ult Performing Organization Address [facility] de Phone Number [address] [address] * (ABNORMAL) Comprehensive metabolic panel (08/28/2024 9:30 PM CDT) [facility] [address] Sodium 143 135 - 145 mmol/L Potassium, pl 3.9 3.3 - 4.9 mmol/L [facility] Comment:Hemolyzed; Potassium value may be falsely elevated by as much as 1.0 mmol/L. Suggest redraw and reanalysis. Chloride 121(H) 97 - 110 mmol/L [facility] CO2 10(L) 22 - 32 mmol/L [facility] Anion gap 12 2 - 15 mmol/L [facility] BUN 33(H) 6 - 25 mg/dL [facility] Creatinine 1.48(H) 0.60 - 1.10 mg/dL [facility] Glucose 78 70 - 199 mg/dL [facility] Comment: Interpretive Data Fasting glucose >/= [...] 2022. Calcium 7.3(L) 8.5 - 10.3 mg/dL [facility] Bilirubin, total 0.2 0.1 - 1.2 mg/dL [facility] Protein, pl 4.9(L) 6.5 - 8.5 g/dL [facility] Albumin 2.9(L) 3.5 - 5.0 g/dL [facility] Alk phos 62 40 - 130 Units/L [facility] ALT 13 7 - 45 Units/L [facility] AST See Comment 10 [facility] Comment:Credited; Hemolyzed Specimen Blood 08/28/2024 9:30 PM CDT 08/28/2024 9:32 PM CDT us Ahsan Anderson DO LAB BLOOD ORDERABLES Final Res ult [facility] [address] [facility] [place] [address] from Last 3 Months Insurance [facility] MDCR HMO REF [facility] MEDICARE ADVANTAGE Advance Directives For more information, please contact: [phone] * LIMITED - No CPR (Latest Code Status on File) Date Activated Date Inactivated Comments 06/12/2023 5:01 PM 06/16/2023 7:03 PM Care Teams Track Oiler Relationship Specialty Start Date End Date Bhavik Bah DO PCP - General 09/02/18
--- OUTSIDE RECORDS SUMMARY | 2024-11-07 22:38 | XMS_ITS | Encounter Summary ---
Author Organization [facility] Address [address] [place] [address] Care Team Providers Care Paper Coating Supervisor Name Role Phone Bhavik Bah DO Primary Care Provider [phone] Rg Morgan MD Unavailable [phone] Encounter Details Date Type Department Care Team (Late Contact Info) Description 09/30/2019 Hospital Follow-up Call [facility] [place] [address] Tasia Blanca, RN Social History Tobacco Use [...] Description 01/06/2025 1:45 PM CDT Office Visit [facility] [address] [place], [place] [phone] Rg Morgan MD [facility]. [address] [place], [place] [phone] documented as of this encounter Visit Diagnoses Not on filedocumented in this encounter Care Teams Paper Coating Supervisor Relationship Specialty Start Date End Date Bhavik Bah DO PCP - General 11/20/16 Rg Moragn MD Three [facility]. [address] [place], [place] [phone] Consulting Physician INTERVENTIONAL CARDIOLOGY 03/31/22 documented as of this encounter
--- OUTSIDE RECORDS SUMMARY | 2024-11-07 22:38 | XMS_ITS | Clinical Summary ---
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 Continue aspirin, brilinta, and atorvastatin. If shortness of breath continues consider repeat ischemic evaluation. Benign essential HTN 06/12/2023 Assessment & Plan (06/24/2024 3:57 PM QUOTER): Blood pressure well controlled in office today. Continue metoprolol, amlodipine, and lisinopril Chronic kidney disease (CKD) , stage IV (severe) ([facility]) 06/12/2023 Assessment & Plan (11/07/2023 9:39 AM CDT): She had an acute and chronic kidney injury during hospitalization in May. We'll check another basic metabolic panel. Chest pain 08/30/2022 Diastolic dysfunction 11/15/2021 Overview (11/15/2021): Noted on Echo October 2021 Skin tear of right forearm without complication 01/27/2021 Stage 4 chronic kidney disease ([facility]) 03/27/2020 Assessment & Plan (09/29/2021 2:04 PM CDT): Followed by nephrology Lisinopril Assessment & Plan (04/01/2021 10:44 AM QUOTER): Stable with re-initiation of lisinopril at last [...] infa rction involving left circumflex coronary artery ([facility]) 09/25/2019 STEMI involving oth coronary artery of inferior wall ([facility]) 09/25/2019 Stage 3 chronic kidney disease 08/28/2019 Trochanteric bursitis of left hip 06/15/2019 Right shoulder injury 11/02/2018 Hypertensive CHF ([facility]) 08/15/2018 Assessment & Plan (09/30/2021 9:15 AM CDT): Blood pressure is elevated today and confirmed at home - increasing lisinopril to 40mg daily Encouraged to continue to monitor at home and log and call office with any concerns in future. 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 Continue Aspirin, Ticagrelor. She is currently on a PCSK9 inhibitor, but has not been approved by insurance. We'll check with the pharmacy about a smaller Statin pill to see if that will help with insurance coverage. Assessment & Plan (05/11/2023 12:14 PM QUOTER): She is not having angina.Continue aspirin, ticagrelor, metoprolol and Repatha Assessment & Plan (07/17/2022 10:26 AM CDT): She is not having angina.Continue aspirin, ticagrelor, metoprolol and Repatha S/P AVR (aortic valve replacement) 06/13/2016 Assessment & Plan (06/24/2024 3:56 PM QUOTER): History of aortic valve replacement in 2017 with a 21 millimeter mosaic. Will repeat echo now. She requires antibiotic prophylaxis prior to all dental procedures. Assessment & Plan (11/07/2023 9:38 AM CDT): She has aortic valve replacement in 2017 with a 21 millimeter mosaic. We'll get another echo next year. Assessment & Plan (05/11/2023 12:15 PM QUOTER): She requires dental prophylaxis and her most recent echo showed appropriate valve function. Assessment & Plan (07/17/2022 10:28 AM CDT): She requires dental prophylaxis and her most recent echo showed appropriate valve function. Assessment & Plan (09/29/2021 2:03 PM CDT): Last echo 2019 revealed a well functioning bioprosthetic aortic valve Assessment & Plan (04/01/2021 10:43 AM QUOTER): Last echo 2019 revealed a well functioning [...] repatha Assessment & Plan (04/01/2021 11:08 AM QUOTER): S/p CABG S/p PCI CFX 09/2019 - Brilinta dose decreasing to 60mg BID continued with ASA 81mg daily Statin therapy was restarted at last APPT - will need repeat lipid panel in 4-6 weeks Assessment & Plan (02/26/2021 9:19 PM CDT): She is not having angina.Continue aspirin, ticagrelor, metoprolol and I restarted rosuvastatin today. CHF (congestive heart failure) ([facility]) 09/02/2013 Gastroesophageal reflux disease without esophagi tis 09/02/2013 Mixed hyperlipidemia 09/02/2013 Assessment & Plan (06/24/2024 4:01 PM QUOTER): Last lipid panel uncontrolled. Patient recently stopped [...] approved. Assessment & Plan (05/11/2023 12:15 PM QUOTER): Her most recent LDL is elevated. She [...] lisinopril. Assessment & Plan (04/01/2021 11:07 AM QUOTER): Blood pressure is midly increased - increasing [...] Type Department Care Team Description 10/03/2024 Telephone [facility], [address] [address] Tonie Jeter [facility] Patient Assistance (brilinta) 09/02/2024 10:15 AM CDT - 09/02/2024 2:15 PM CDT Emergency [facility] [place] [address] Jodie Carrero MD Back Pain; Weakness Discharge Disposition: Home or Self Care (Routine Discharge) 09/02/2024 Travel from Last 3 Months Immunizations Immunization Administration Dates Next Due Flublok (Quadrivalent) 02/05/2019 Influenza (Generic) 02/17/2017,02/23/2016,2013 Influenza Adult (Generic) 01/12/2023,09/2021,01/26/2021,2019,02/06/2018,03/09/2015 MODERNA COVID-19 (12+) MRNA, LNP-S, PF, 100 MCG/ 0.5 ML DOSE 06/16/2020,05/19/2020 MODERNA COVID-19 (DEAN OF ADMISSIONS FRANCISCA NAIN), MRNA, LNP-S, PF, 50 MCG/ [...] CDT Office Visit [facility], [address] [place], [place] [id number] Rg Morgan MD [facility]. 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 Procedure Name Priority Date/Time Associated Diagnosis Comments [...] AM CDT COLONOSCOPY Routine 05/25/2013 12:00 AM QUOTER from Last 3 Months or Most Recently Relevant to Health Maintenance Results * (ABNORMAL) Urinalysis, Auto, Complete (09/02/2024 12:16 PM CDT) SPECIMEN TYPE URINE CLEAN CATCH 09/02/2024 12:17 PM CDT [facility] COLOR (U) LIGHT YELLOW 09/02/2024 1:08 PM CDT [facility] TRANSPARENCY CLEAR 09/02/2024 1:08 PM CDT [facility] SPECIFIC GRAVITY (U) 1.015 1.001 - 1.030 09/02/2024 1:08 PM CDT [facility] U PH 5.0 5.0 - 9.0 09/02/2024 1:08 PM CDT [facility] LEUKOCYTES (U) 75(A) NEGATIVE 09/02/2024 1:08 PM CDT [facility] NITRITES NEGATIVE NEGATIVE 09/02/2024 1:08 PM CDT [facility] PROTEIN RANDOM (U) NEGATIVE <30 MG/DL 09/02/2024 1:08 PM CDT [facility] GLUCOSE (U) NORMAL NORMAL MG/DL 09/02/2024 1:08 PM CDT [facility] KETONES MG/DL (U) NEGATIVE NEGATIVE MG/DL 09/02/2024 1:08 PM CDT [facility] UROBILINOGEN NORMAL NORMAL MG/DL 09/02/2024 1:08 PM CDT [facility] BILIRUBIN (U) NEGATIVE NEGATIVE MG/DL 09/02/2024 1:08 PM CDT [facility] BLOOD (U) NEGATIVE NEGATIVE 09/02/2024 1:08 PM CDT [facility] MUCUS RARE /LPF 09/02/2024 1:08 PM CDT [facility] HYALINE CASTS RARE /LPF 09/02/2024 1:08 PM CDT [facility] WBC/HPF 3 <6 /HPF 09/02/2024 1:08 PM CDT [facility] RBC/HPF 2 <6 /HPF 09/02/2024 1:08 PM CDT [facility] BACTERIA (U) RARE(A) NONE /HPF 09/02/2024 1:08 PM CDT [facility] SQUAMOUS EPITHELIALS RARE /HPF 09/02/2024 1:08 PM CDT [facility] URINE SPECIMEN OBTAINED BY CLEAN CATCH PROCEDURE / Unknown 09/02/2024 12:16 PM CDT Jodie Carrero MD URINE ORDERABLES Final Result [facility] [address] [place] [address], [place] [phone] * CT ABD+PEL WO CON (09/02/2024 11:38 [...] 11:41 AM Narrative 09/02/2024 12:10 PM CDT [facility] [address] [place], [place] [address] IMAGING STUDIES: CT ABD+PEL WO CON DATE: 09/02/2024 11:32 AM HISTORY: flank pain 79-year-old female. Right lower flank pain, lower abdominal pain, and diarrhea since 08/28/2024. Patient reports also following that day and undergoing evaluation at [facility] emergency department with CT scan [...] Procedure Note Tone Arellano MD - 09/02/[address] [address] IMAGING STUDIES: CT ABD+PEL WO CONDATE: 09/02/2024 11:32 AM HISTORY: flank pain 79-year-old female. Right lower flank pain, lowerabdominal pain, and diarrhea since 08/28/2024. Patient reportsalso following that day and undergoing evaluation at [facility] department with CT scan reportedly performed at [...] CDT) 09/02/2024 10:2 3 AM CDT Narrative [facility] - 09/03/2024 4:[address] 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: : 1945 Requested By: LOLY BLACKWELL Order Number: [id number] Reading ARABELLA Syed Measurements Intervals [place] Rate: 76 P: 10 NM: 141 QRS: -1 QRSD: 74 T: 108 [...] Procedure Note Zurdo Syed MD - 09/03/[address] Test Date: 2024-09-02 Pat Name: DANIELLE JUAREZ Department: 41 Room: 3 Gender: Female Narrow Gauge Operator: : 1945 Requested By: LOLY BLACKWELL Order Number: [id number] Reading ARABELLA Syed Measurements Intervals [place] Rate: 76 P: 10 NM: 141 QRS: -1 QRSD: 74 T: 108 [...] us Loly BARAKAT ECG ORDERABLES Final Result [facility] ([facility] * XR CHEST PORTABLE (09/02/2024 10:19 AM CDT) Anatomical Region Laterality Modality Chest Radiographic Paige ging 09/02/2024 10:2 0 AM CDT Impressions 09/02/2024 10:20 AM CDT IMPRESSION: No acute findings Ordered By: LOLY BLACKWELL Interpreted By: Silvio Canales MD, 09/02/2024 10:20 AM Narrative 09/02/2024 10:20 AM CDT [place] [address] SINGLE VIEW OF THE CHEST Clinical history: Weakness Comparison: August 30, 2022 A single view of the chest demonstrates the cardiac silhouette to be at the upper limits of normal in size but appears stable. Sternotomy changes are again evident. The pulmonary vessels appear normal. The Lungs are clear. No consolidations or effusions are seen. Procedure Note Silvio Canales MD - 09/02/[address] [address] SINGLE VIEW OF THE CHEST Clinical history: [...] COMPREHENSIVE METABOLIC PANEL (09/02/2024 10:19 AM CDT) [facility] GLUCOSE 90 70 - 99 MG/DL 09/02/2024 10:54 AM CDT [facility] BUN 27(H) 7 - 18 MG/DL 09/02/2024 10:54 AM CDT [facility] CREATININE S/P/B 2.45(H) 0.55 - 1.02 MG/DL 09/02/2024 10:54 AM CDT [facility] SODIUM S/P/B 138 136 - 145 MMOL/L 09/02/2024 10:54 AM CDT [facility] POTASSIUM S/P/B 4.9 3.5 - 5.1 MMOL/L 09/02/2024 10:54 AM CDT [facility] CHLORIDE S/P/B 111 97 - 115 MMOL/L 09/02/2024 10:54 AM CDT [facility] CO2 21.3 21 - 32 MMOL/L 09/02/2024 10:54 AM CDT [facility] CALCIUM S/P/B 11.7(H) 8.5 - 10.1 MG/DL 09/02/2024 10:54 AM CDT [facility] BILIRUBIN TOTAL S/P/B 0.6 0.2 - 1.2 MG/DL 09/02/2024 10:54 AM CDT [facility] Comment: THIS ASSAY IS NOT RECOMMENDED FOR PATIENTS UNDERGOING TREATMENT WITH ELTROMBOPAG DUE TO THE POTENTIAL FOR FALSELY ELEVATED RESULTS. TOTAL PROTEIN S/P/B 7.5 6.4 - 8.2 G/DL 09/02/2024 10:54 AM CDT [facility] ALBUMIN S/P/B 3.8 3.4 - 5.0 G/DL 09/02/2024 10:54 AM CDT [facility] AST 21 15 - 37 U/L 09/02/2024 10:54 AM CDT [facility] ALT 22 14 - 55 U/L 09/02/2024 10:54 AM CDT [facility] ALKALINE PHOSPHATASE S/P/B 86 50 - 136 U/L 09/02/2024 10:54 AM CDT [facility] ANION GAP 5.7 2 - 10 MMOL/L 09/02/2024 10:54 AM CDT [facility] BUN CREATININE RATIO 11.0 6 - 26 09/02/2024 10:54 AM CDT [facility] A/G RATIO 1.0 1.0 - 2.0 RATIO 09/02/2024 10:54 AM T [facility] GFR ESTIMATE 20(L) >90 ML/MIN/1.7 3 M2 09/02/2024 10:54 AM CDT [facility] Comment: NOTE: eGFR is not calculated for patients <18 years of age or gender unknown. This is an estimated GFR calculation using the new CKD EPI creatinine equation without race and so does not require a correction factor for race. This estimated GFR should not be used for calculating drug doses. 09/02/2024 10:1 9 AM CDT L[facility] LABORATORY Final Result [facility] [address] [place] [address], [place] [phone] * (ABNORMAL) CBC W/DIFF AUTOMATED (09/02/2024 10:19 AM CDT) WBC 10.94 4.5 - 11.0 x10'3/uL 09/02/2024 10:30 AM CDT [facility] RBC 5.00 4.20 - 5.40 x10'6/uL 09/02/2024 10:30 AM CDT [facility] HGB 14.5 12.0 - 16.0 G/DL 09/02/2024 10:30 AM CDT [facility] HCT 43.8 38.0 - 48.0 % 09/02/2024 10:30 AM CDT [facility] MCV 87.6 81.0 - 99.0 FL 09/02/2024 10:30 AM CDT [facility] MCH 29.0 27.0 - 31.0 PG 09/02/2024 10:30 AM CDT [facility] MCHC 33.1 32.0 - 36.0 G/DL 09/02/2024 10:30 AM CDT [facility] RDW 13.7 11.5 - 14.5 % 09/02/2024 10:30 AM CDT [facility] PLT 339 130 - 400 x10'3/uL 09/02/2024 10:30 AM CDT [facility] MPV 9.8 9.3 - 12.2 FL 09/02/2024 10:30 AM CDT [facility] DIFFERENTIAL TYPE AUTOMATED DIFFERENTIAL 09/02/2024 10:30 AM CDT [facility] NEUTROPHILS % 76.3 % 09/02/2024 10:30 AM CDT [facility] LYMPHOCYTES % 11.2 % 09/02/2024 10:30 AM CDT [facility] MONOCYTES % 8.7 % 09/02/2024 10:30 AM CDT [facility] EOSINOPHILS 2.9 % 09/02/2024 10:30 AM CDT [facility] BASOPHILS 0.5 % 09/02/2024 10:30 AM CDT [facility] IMMATURE GRANS % 0.4 % 09/03/19 10:30 AM CDT [facility] ABS. NEUTROPHILS 8.35(H) 1.80 - 7.70 x10'3/uL 09/02/2024 10:30 AM CDT [facility] ABS. LYMPHOCYTES 1.23 1.00 - 4.80 x10'3/uL 09/02/2024 10:30 AM CDT [facility] ABS. MONOCYTES 0.95(H) 0.24 - 0.86 x10'3/uL 09/02/2024 10:30 AM CDT [facility] ABS. EOSINOPHILS 0.32 0.04 - 0.36 x10'3/uL 09/02/2024 10:30 AM CDT [facility] ABS. BASOPHILS 0.05 0.01 - 0.08 x10'3/uL 09/02/2024 10:30 AM CDT [facility] ABS. IMMATURE GRANULOCYTES 0.04 0.00 - 0.49 x10'3/uL 09/02/2024 10:30 AM CDT [facility] 09/02/2024 10:1 9 AM CDT [facility] Final Result [facility] [address] [place] [address], * TROPONIN, QUANT (09/02/2024 10:19 AM CDT) TROPONIN I HIGH SENSITIVITY 17 <54 ng/L 09/02/2024 10:54 AM CDT [facility] Comment: HIGH DOSES OF BIOTIN, TROPONIN-SPECIFIC AUTOANTIBODIES, AND ANTIBODY THERAPY CONTAINING HAMA MAY INTERFERE WITH THIS TEST RESULT. CORRELATION TO CLINICAL HISTORY AND PRESENTATION RECOMMENDED. 09/02/2024 10:1 9 AM CDT [facility] Final Result Performing Organization Address City/[facility]/ZIP Co de Phone Number [facility] [address] [place] [address], [place] [phone] * LIPASE (09/02/2024 10:19 AM CDT) LIPASE 31 13 - 75 UNITS/L 09/02/2024 10:54 AM CDT [facility] 09/02/2024 10:1 9 AM CDT [facility] Final Result Performing Organization Address [facility] Co de Phone Number [facility] [address] [place] [address], [place] [phone] * Colonoscopy (05/25/2013 12:00 AM QUOTER) 05/25/2013 05/25/2013 Narrative [facility] TO EPIC CONVERSION - 05/25/2013 12:00 AM QUOTER Documented hx of procedure Procedure Note Md Generic ConversionMD - 02/25/2018 Documented hx of procedure Generic Conversion Md [facility] GI PROCEDURE ORDERABLES Final Result Performing Organization Address City/[facility] Co de Phone Number [facility] TO EPIC CONVERSION from Last 3 Months or Most Recently Relevant to Health Maintenance Insurance [facility] Advance Directives * Full Code (Latest Code Status on File) Date Activated Date Inactivated Comments 08/31/2022 12:07 AM 09/01/2022 4:43 PM * Full Code Date Activated Date Inactivated Comments 09/25/2019 8:26 PM 09/27/2019 2:56 PM * Full Code Date Activated Date Inactivated Comments 09/25/2019 7:59 PM 09/25/2019 8:26 PM Care Teams Residential Team Leader Relationship Specialty Start Date End Date Bhavik Bah DO PCP - General 11/20/16 Rg Morgan MD [address] [address] Consulting Physician INTERVENTIONAL CARDIOLOGY 03/31/22
--- OUTSIDE RECORDS SUMMARY | 2024-11-07 22:38 | XMS_ITS | Encounter Summary ---
Author Organization [facility] Healthcare Address [address] [place] [address] Care Team Providers Care Sales Support Representative Name Role Phone Bhavik Bah DO Primary Care Provider Reason for Visit * Reason Onset Date Comments Medical Question/Miscellaneous 11/05/2024 Encounter Details Date Type Department Care Team ([facility] st Contact Info) Description 11/05/2024 Telephone [facility] Medical Group Primary Care [address] [facility] [address] [place] [phone] Bhavik Bah DO [address] [place] [address] [address] [place] [address] Medical Question/Miscellaneous Social History Tobacco Use Types Packs/Day Years Used Date Smoking Tobacco: Former Cigarettes 0.5 10 1 4 - 2003 Smokeless Tobacco: Never [facility] Utilities Answer Date Recorded In the past 12 months has [employer], gas, oil, or water [employer] threatened to shut off services in your [...] How often do you attend [facility] or worship services? 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 I informed Mrs Swan, [...] on filedocumented in this encounter Care Teams Sales Support Representative Relationship Specialty Start Date End Date Bhavik Bah DO PCP - General 09/02/18 documented as of this encounter
--- OUTSIDE RECORDS SUMMARY | 2024-11-07 22:38 | XMS_ITS | Referral Summary ---
Author Organization [facility] Address [address] [place] [address] Care Team Providers Care Hvac Installation Technician Name Role Phone Bhavik Bah DO Primary Care Provider Encounters Date Type Department Care Team Description 11/05/2024 Telephone [facility] [address] [place] [phone] Bhavik Bah DO Medical Question/Miscellaneous 11/05/2024 3:15 PM CDT Office Visit [facility] [address] [place] [phone] Bhavik Bah DO Bilateral hip pain (Primary Dx); Sacroiliitis; Peripheral polyneuropathy 11/04/2024 Nurse Triage [facility] Primary [facility] [address] [place] [phone] Bhavik Bah DO 09/26/2024 4:00 PM CDT Office Visit [facility] Primary [facility] [address] [place] [phone] Bhavik Bah DO Benign essential HTN (Primary Dx); Postmenopausal; Peripheral polyneuropathy; Chronic right-sided thoracic back pain 09/26/2024 Nurse Triage [facility] Primary Care [address] [place] [phone] Bhavik Bah DO 09/26/2024 Telephone [facility] Medical [facility] Primary Care [address] [place] [address] [address] [place] [phone] Bhavik Bah DO Additional Services Or Orders 09/02/2024 Telephone [facility] Care [address] [place] [address] [address] [place] [phone] Bhavik Bah DO Hospital Follow Up (ED f/u from 08/28 and 09/02) 09/02/2024 [facility] [address] [address] Amisha Wilson MA 08/30/2024 [facility] [address] [address] Amisha Wilson MA 08/28/2024 9:13 PM CDT - 08/29/2024 2:06 AM CDT Emergency [address] [address] Ahsan Anderson DO Gastroenteritis (Primary Dx) Discharge Disposition: Discharge to home or self care from Last 3 Months Allergies Active Allergy Reactions Criticality Noted Date Comments Acetaminophen Stomach upset Low 09/14/2019 Stomach/GI Upset Hydrocodone Stomach upset Low 09/14/2019 Stomach/GI Upset Metronidazole Unknown 09/14/2019 unknown-is per outside record Rosuvastatin Muscle pain Medium 02/17/2023 Eilfibg-Gdb-Kqq Reductase Inhibitors Diarrhea Low 09/26/2024 Hydrocodone-Acetaminophen Nausea [...] her bath 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 Utilities Answer Date Recorded In the past 12 months has [employer], gas, oil, or water [employer] threatened to shut off services in [...] any clubs o r organizations such as confucianism groups, unions, fraternal or athletic groups, or [...] place to sleep or slept in a alf (including now)? No 06/13/2023 Personal Safety Answer Date Recorded Have you ever been in or are you currently in a harmful physical or emotional relationship or is someone making you feel afraid or unsafe? 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 pH may affect urinary stone formation. For example, urine pH below 6.0 may help reduce the tendency for calcium phosphate stones and pH greater than 6.0 may reduce the tendency for uric acid stone formation. Source: [facility] Current Interpretive Data was last revised on 2017 Protein, ur ql Negative Negative [facility] Glucose, ur ql Negative Negative [facility] Ketones, ur Negative Negative [facility] Bilirubin, ur Negative Negative [facility] Blood, ur Negative Negative [facility] Urobilinogen, ur <2.0 <2.0 mg/dL [facility] Nitrite, ur Negative Negative [facility] Leukocyte esterase, ur 2+(A) Negative [facility] UA reflex comment Reflex to microscopic UA will be performed. [facility] Urine 08/29/2024 12:5 8 AM CDT 08/29/2024 1:07 AM CDT us Ahsan Anderson DO LAB MICROBIOLOGY - GENERAL ORD ERABLES Final Result [facility] [address] [facility] Department [place] [address] * (ABNORMAL) Urinalysis, microscopic only (08/29/2024 12:58 AM CDT) WBC, ur 0-5 0 - 5 /HPF RBC, ur 0-2 0 - 2 /HPF [facility] Epithelial cells, squamous, ur 1-5 0 - 5 /HPF [facility] Bacteria, ur Trace(A) [facility] Mucous, ur Present(A) [facility] Culture Reflex Comment Reflex conditions for urine culture (WBC >10) not met. [facility] Urine 08/29/2024 12:5 8 AM CDT 08/29/2024 1:07 AM CDT us Ahsan Anderson DO LAB URINE ORDERABLES Final Res ult [facility] [address] [facility] Department [place] [address] * CT Abdomen Pelvis W Contrast (08/28/2024 [...] signed by Sherif SANTOS T: Report ID: [id number] Reading Location: [id number] Procedure Note Sherif Borjas MD - 08/29/2024 [...] Sherif Borjas M.D. AR T: Report ID: [id number] Reading Location: [place] [address] Ahsan Anderson DO IMG CT PROCEDURES Final Result * ECG 12 lead (08/28/2024 10:58 PM CDT) Pathologist [facility] Ventricular Rate EKG/Min 84 BPM [facility] Atrial Rate 84 BPM [facility] MN-Interval (MSEC) 112 ms [facility] QRS-Interval (MSEC) 66 ms [facility] QT-Interval (MSEC) 350 ms [facility] QTc 413 ms [facility] P Acton 5 degrees [facility] R Acton 12 degrees [facility] T Acton 121 degrees [facility] Diagnosis Normal sinus rhythm Nonspecific T wave abnormality Confirmed by ERICH SOARES M.D. ([id number]) on 08/29/2024 10:16:52 PM [facility] 08/28/2024 10:5 8 PM CDT 08/29/2024 10:16 PM CDT Ahsan Anderson DO ECG ORDERABLES Final Result [facility] * (ABNORMAL) Troponin T high-sensitivity series (baseline, 2hr, 4hr, 6hr) (08/28/2024 9:30 PM CDT) Pathologist [facility] Trop T hs 28(H) <=14 ng/L Comment: Interpretive Data For further hscTnT resources including the diagnostic algorithm and an aid in interpretation, copy and paste this link: https://nrl.testcatalog.org/show/hsTrop Current Interpretive Data last revised 2020. Blood 08/28/2024 9:30 PM CDT 08/28/2024 9:32 PM CDT Ahsan Anderson DO LAB BLOOD ORDERABLES Final Res ult Performing Organization Address [facility] Co de Phone Number [facility] [address] [place] [address] * (ABNORMAL) eGFR (08/28/2024 9:30 PM CDT) [...] ORDERABLES Fi nal Result Performing Organization Address City/[facility]/ZIP Co de Phone Number MARIA TERESA[address] [place] [address] * (ABNORMAL) Differential, auto (08/28/2024 9:30 PM CDT) Neutrophil abs 10.10(H) 1.50 - 6.50 K/cumm Imm gran abs 0.05 0.00 - 0.10 K/cumm [facility] Lymphocyte abs 1.34 0.80 - 3.30 K/cumm [facility] Monocyte abs 1.06(H) 0.20 - 0.80 K/cumm [facility] Eosinophil abs 0.49 0.00 - 0.50 K/cumm [facility] Basophil abs 0.05 0.00 - 0.10 K/cumm [facility] Neutrophil pct 77.2 % [facility] Comment: Interpretive Data Percent cell count reference ranges are not reported, since discordance with absolute values may lead to misinterpretation of CBC data. Current Interpretive Data was last revised on 2017. Imm gran pct 0.4 % [facility] Comment: Interpretive Data Percent cell count reference ranges are not reported, since discordance with absolute values may lead to misinterpretation of CBC data. Current Interpretive Data was last revised on 2017. Lymphocyte pct 10.2 % [facility] Comment: Interpretive Data Percent cell count reference ranges are not reported, since discordance with absolute values may lead to misinterpretation of CBC data. Current Interpretive Data was last revised on 2017. Monocyte pct 8.1 % [facility] Comment: Interpretive Data Percent cell count reference ranges are not reported, since discordance with absolute values may lead to misinterpretation of CBC data. Current Interpretive Data was last revised on 2017. Eosinophil pct 3.7 % [facility] Comment: Interpretive Data Percent cell count reference ranges are not reported, since discordance with absolute values may lead to misinterpretation of CBC data. Current Interpretive Data was last revised on 2017. Basophil pct 0.4 % [facility] Comment: Interpretive Data Percent cell count reference ranges are not reported, since discordance with absolute values may lead to misinterpretation of CBC data. Current Interpretive Data was last revised on 2017. Blood 08/28/2024 9:30 PM CDT 08/28/2024 9:32 PM CDT us Ahsan Anderson DO LAB BLOOD ORDERABLES Final Res ult [facility] [address] [facility] Department [place] [address] * (ABNORMAL) CBC with auto differential (08/28/2024 9:30 PM CDT) [facility] WBC 13.09(H) 3.80 - 9.90 K/cumm Hgb 13.6 11.9 - 15.5 g/dL [facility] Hct 42.0 35.6 - 45.5 % [facility] Plt 266 150 - 400 K/cumm [facility] MPV 10.3 9.1 - 12.3 fL [facility] RBC 4.66 3.90 - 5.20 M/cumm [facility] MCV 90.1 81.3 - 96.4 fL [facility] MCH 29.2 27.1 - 33.3 pg [facility] MCHC 32.4 32.3 - 35.7 g/dL [facility] RDW CV 13.9 11.1 - 14.9 % [facility] RDW SD 45.8 35.7 - 48.1 fL [facility] NRBC abs 0.00 0.00 - 0.01 K/cumm [facility] Blood Venous blood specimen / Unknown 08/28/2024 9:30 PM CDT 08/28/2024 9:32 PM CDT Ahsan Anderson DO LAB BLOOD ORDERABLES Final Res ult Performing Organization Address City/[facility] Co de Phone Number [address] [place] [employer] [address] * Lipase (08/28/2024 9:30 PM CDT) [facility] Lipase 31 10 - 99 Units/L Blood Venous blood specimen / Unknown 08/28/2024 9:30 PM CDT 08/28/2024 9:32 PM CDT Ahsan Anderson DO LAB BLOOD ORDERABLES Final Res ult Performing Organization Address City/[facility]/ZIP Co de Phone Number [address] [place] [address] * (ABNORMAL) Comprehensive metabolic panel (08/28/2024 9:30 PM CDT) Sodium 143 135 - 145 mmol/L Potassium, pl 3.9 3.3 - 4.9 mmol/L [facility] Comment:Hemolyzed; Potassium value may be falsely elevated by as much as 1.0 mmol/L. Suggest redraw and reanalysis. Chloride 121(H) 97 - 110 mmol/L [facility] CO2 10(L) 22 - 32 mmol/L [facility] Anion gap 12 2 - 15 mmol/L [facility] BUN 33(H) 6 - 25 mg/dL [facility] Creatinine 1.48(H) 0.60 - 1.10 mg/dL [facility] Glucose 78 70 - 199 mg/dL [facility] Comment: Interpretive Data Fasting glucose >/= [...] 2022. Calcium 7.3(L) 8.5 - 10.3 mg/dL [facility] Bilirubin, total 0.2 0.1 - 1.2 mg/dL [facility] Protein, pl 4.9(L) 6.5 - 8.5 g/dL [facility] Albumin 2.9(L) 3.5 - 5.0 g/dL [facility] Alk phos 62 40 - 130 Units/L [facility] ALT 13 7 - 45 Units/L [facility] AST See Comment 10 - 45 [facility] Comment:Credited; Hemolyzed Specimen Blood 08/28/2024 9:30 PM CDT 08/28/2024 9:32 PM CDT us Ahsan Anderson DO LAB BLOOD ORDERABLES Final Res ult [facility] [address] [facility] Department [place] [address] from Last 3 Months Insurance MDCR HMO [facility] Address: [address] [address] [place] [address] MEDICARE ADVANTAGE [facility] Address: [address] [address] [place] [address] Advance Directives For more information, please contact: [phone] * LIMITED - No CPR (Latest Code Status on File) Date Activated Date Inactivated Comments 06/12/2023 5:01 PM 06/16/2023 7:03 PM Care Teams Hvac Installation Technician Relationship Specialty Start Date End Date Bhavik Bah DO PCP - General 09/02/18
--- OUTSIDE RECORDS SUMMARY | 2024-11-07 22:39 | XMS_ITS | Encounter Summary ---
Author Organization [facility] Address [address] [place] [address] Care Team Providers Care Criminology Professor Name Role Phone Bhavik Bah DO Primary Care Provider Amisha Wilson MA Unavailable [phone] Encounter Details Date Type Department Care Team (Late st Contact Info) Description 01/17/2024 Orders Only [facility] [address] [place] [address] Scanning, Provider Social History Tobacco Use Types Packs/Day Years Used Date Smoking Tobacco: Former Cigarettes Smokeless Tobacco: Never [facility] [employer] Answer Date Recorded In the past 12 months has [employer] electric, gas, oil, or water company threatened [...] any clubs o r organizations such as baptism groups, unions, fraternal or athletic groups, or [...] place to sleep or slept in a halfway (including now)? No 06/13/2023 Personal Safety Answer Date Recorded Have you ever been in or are you currently in a harmful physical or emotional relationship or is someone making you feel afraid or unsafe? 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
[2024-11-07] MEDS: CALCIUM GLUC 1,000 MG/NS 50 ML 1,000 MG/50 ML BAG 100 MG IVPB (23:13)
[2024-11-08] VITALS (8 sets, daily range): BP systolic 154–169; BP diastolic 52–55; PULSE 61–74; RESP 18–20; TEMP 35.9–36.9; O2SAT 95–98; BMI 29.9
--- NOTE | 2024-11-08 | ECHO_ITS ---
Patient Info Name: Danielle Swan Age: 79 years : 1945 Gender: Female Ht: 60 in Wt: 153 lbs BSA: 1.74 m2 HR: 62 bpm BP: 169 / 55 mmHg Heart Rhythm: Sinus Rhythm Technical Quality: Fair Exam Date: 11/08/2024 10:04 AM Patient Status: I Admit Date: 11/08/2024 Exam Type: CA echo doppler color flow Complete two-dimensional, color flow and Doppler transthoracic echocardiogram is performed. Staff Referring Physician: Darci Tobin Chargemaster Specialist: Tangela Galicia Attending Provider: Melissa Gregg Summary 1. Complete two-dimensional, color flow and Doppler transthoracic echocardiogram is performed. 2. Mild concentric LVH with well-preserved systolic function, grade 1 diastolic noncompliance. 3. Bioprosthetic aortic valve device which appears to be functioning properly. No AI, valve area 1.6 cm2 size and type of valve is unknown is not known. Left Ventricle Left ventricular systolic function is normal, estimated at 60-65. There is mild concentric increased left ventricular wall thickness. The left ventricular diastolic function is grade I diastolic dysfunction. Right Ventricle Right ventricular chamber dimension is normal. Left Atria Left atrial chamber dimension is normal. Right Atria Right atrial chamber dimension is normal. Aortic Valve There is no regurgitation of the bioprosthetic aortic valve. Pulmonic Valve The pulmonic valve is not well visualized. Mitral Valve The mitral valve has normal leaflets. Tricuspid Valve The tricuspid valve leaflets are normal. Pericardium/Pleural The pericardium appears normal. Aorta The aortic root size at the sinus of Valsalva is normal. Left Ventricular Outflow Tract Name Value Normal LVOT 2D LVOT Diameter 2.0 cm LVOT Doppler LVOT Peak Velocity 116 cm/s LVOT Peak Gradient 5 mmHg LVOT Mean Gradient 2 mmHg LVOT VTI 27 cm LVOT VTI/AV VTI Ratio 0.6 LVOT Stroke Volume 82 ml LVOT CO 4.5 l/min LVOT CI 2.6 l/min/m2 Pulmonic Valve Name Value Normal RVOT Doppler RVOT Peak Velocity 73 cm/s RVOT Peak Gradient 2 mmHg PV Doppler PV Peak Velocity 85 cm/s PV Peak Gradient 3 mmHg Mitral Valve Name Value Normal MV Doppler MV Peak Gradient 8 mmHg MV Mean Gradient 2 mmHg MV Area (Cont Eq VTI) 1.9 cm2 MV Diastolic Function MV E Peak Velocity 99 cm/s MV A Peak Velocity 135 cm/s MV E/A 0.7 MV Decel Time (PW) 302 ms Tricuspid Valve Name Value Normal TV Regurgitation Doppler TR Peak Velocity 218 cm/s TR Peak Gradient 19 mmHg Estimated PAP/RSVP RA Pressure 10 mmHg <=5 PA Systolic Pressure 29 mmHg <36 RV Systolic Pressure 29 mmHg <36 TV Annular TDI TV Lateral Patsy s' Velocity 10.8 cm/s >=9.5 Aorta Name Value Normal Ascending Aorta Ao Root Diameter (MM) 3.0 cm Ao Root Diam Index (MM) 1.7 cm/m2 Aortic Valve Name Value Normal AV Doppler AV Peak Velocity 228 cm/s AV Peak Gradient 17 mmHg AV Mean Gradient 9 mmHg AV VTI 49 cm AV Area (Cont Eq VTI) 1.7 cm2 >=3.0 AV Area (Cont Eq Deniz) 1.5 cm2 AV DI (Deniz) 0.51 AV Regurgitation 2D LVOT Area 3.0 cm2 Ventricles Name Value Normal LV Dimensions 2D/MM IVS Diastole Thickness (MM) 0.9 cm 0.6-0.9 LVID Diastole (MM) 7.0 cm 3.8-5.2 LVIW Diastolic Thickness (MM) 1.1 cm 0.6-0.9 LVID Systole (MM) 5.3 cm 2.2-3.5 LVOT Diameter 2.0 cm LV Mass (MM Cubed) 321.77 g 67.00-162.00 LV Mass Index (MM Cubed) 185 g/m2 43-95 Relative Wall Thickness (MM) 0.33 LV Fractional Shortening/Ejection Fraction 2D/MM LV Fractional Shortening (MM) 25 % 27-45 LV EF (MM Teichholz) 48 % LV Diastolic Volume (4C MOD) 43 ml LV EF (4C MOD) 62 % LV Diastolic Volume (2C MOD) 28 ml LV EF (2C MOD) 61 % LV Diastolic Volume (BP MOD) 35 ml 46-106 LV Diastolic Volume Index (BP MOD) 20 ml/m2 29-61 LV Systolic Volume (BP MOD) 14 ml 14-42 LV Systolic Volume Index (BP MOD) 8 ml/m2 8-24 LV EF (BP MOD) 61 % 54-74 LV Diastolic Length (4C) 6.2 cm LV Systolic Length (4C) 5.2 cm LV Stroke Volume (4C MOD) 27 ml Atria Name Value Normal LA Dimensions LA Dimension (MM) 3.7 cm 2.7-3.8 LA Volume (4C A-L) 46 ml LA Volume (BP A-L) 42 ml RA Dimensions RA Systolic Major Delmar Length (4C) 4.9 cm 2.2-2.8 RA Area (4C) 15.0 cm2 <=18.0 Report Signatures
--- NOTE | 2024-11-08 00:23 | ECG_ITS ---
Test Date: 2024-11-08 00:27:12 Measurements Intervals Lolita Rate: 71 P: 6 DC: 144 QRS: -4 QRSD: 78 T: 129 QT: 357 QTc: 390 Interpretive Statements SINUS RHYTHM MODERATE T-WAVE ABNORMALITY, CONSIDER LATERAL ISCHEMIA [-0.1+ mV T-WAVE IN I/aVL/V5/V6] BORDERLINE ECG Compared to ECG 11/07/2024 21:34:58 NO SIGNIFICANT CHANGE Electronically Signed On 11-08-2024 07:46:06 CDT by Mauro Morelos M.D.
[2024-11-08 00:37] LABS: Anion Gap 7 mmol/L (4-12); Blood Urea Nitrogen 34 mg/dL (7-17); Calcium 10.6 mg/dL (8.4-10.2); Carbon Dioxide 17 mmol/L (22-30); Chloride 117 mmol/L (98-107); Estimated Glomerular Filt Rate 23; Glucose 48 mg/dL (65-110); Potassium 4.5 mmol/L (3.4-5.0); Sodium 141 mmol/L (137-145)
[2024-11-08] MEDS: DEXTROSE 50% 25 GM/50 ML SYRINGE IV PUSH (00:44)
[2024-11-08 00:47] LABS: Troponin I 0.020 ng/mL (0.000-0.034)
--- NOTE | 2024-11-08 05:09 | ADMGEN ---
This patient, Danielle Swan, was admitted to 3 Med Surg Room 312-01. Patient/family oriented to hospital policies and general routines including ID bracelet, bed and alarms, visiting hours, pain management, procedures, bathroom and other care routines, personal items, smoking policy, room service/diet, and visiting hours. Information on how to activate the Rapid Response Team has been discussed. Patient/Family are encouraged to report perceived risks to care and to ask questions if they do not understand what they are told or what they should do.
[2024-11-08 06:31] LABS: Hematocrit 38.9 % (37.0-47.0); Hemoglobin 12.4 g/dL (12.0-15.0); Immature Granulocyte Percent A 0.3 % (0-0.5); Lymphocytes Absolute Auto 2.05 K/mm3 (0.9-3.2); Mean Corpuscular HGB Conc 31.9 g/dl (32-36); Mean Corpuscular Hemoglobin 28.9 pg (26-34); Mean Corpuscular Volume 90.7 fl (80-100); Nucleated Red Blood Cells Absolute Auto 0.000 K/mm3 (0.0-0.012); Nucleated Red Blood Cells Perc 0.0 % (0.0-0.2); Platelet Count Result 277 k/mm3 (150-375); Red Blood Count 4.29 M/mm3 (4.2-5.4); White Blood Count 7.2 K/mm3 (4.5-10.0)
[2024-11-08 06:51] LABS: Anion Gap 9 mmol/L (4-12); Blood Urea Nitrogen 31 mg/dL (7-17); Calcium 10.6 mg/dL (8.4-10.2); Carbon Dioxide 15 mmol/L (22-30); Chloride 118 mmol/L (98-107); Estimated CRCL calculation 19 ml/min; Estimated Glomerular Filt Rate 25; Glucose 85 mg/dL (65-110); Magnesium 1.9 mg/dL (1.6-2.3); Potassium 4.3 mmol/L (3.4-5.0); Sodium 142 mmol/L (137-145)
--- NOTE | 2024-11-08 08:43 | P.HP_ITS ---
H&P: HPI History of Present Illness Date/Time: 11/08/24 08:43 Chief Complaint: Dizziness Narrative: 79-year-old female with history of coronary artery disease, hypertension, hyperlipidemia, esophageal strictures. She presents to the emergency department with chest pain as well as feeling dizzy and was short of breath. She states she has also been having some muscle pain and saw her family doctor about this 2 days ago. Did not receive any kind lab work at that time. Patient states she received aspirin and nitro EN route by EMS and now has resolved symptoms. States she is very thirsty and feels slightly dehydrated. No recent hospitalizations but was seen previously several months ago for acute diverticulitis. No leg pain or calf cramping, no history of DVT or PE. She is on anticoagulation with aspirin Brilinta. Her dizziness has resolved. In the ED her vitals were stable except for mild hypertension. Laboratory studies revealed WBC of 8.1 hemoglobin of 13.4 platelet of 314. Chem panel showed sodium 143 potassium 5.6 chloride 117 bicarb of 15 creatinine of 2.45 calcium of 10.7 LFTs normal. Troponin was negative at 0.017. Lipase was 112. Patient received treatment for hyperkalemia with Lokelma calcium gluconate IV insulin and dextrose. Repeat BMP showed normal potassium 4.5. Creatinine is down to 2 and med metabolic acidosis improved to 17. Patient was then admitted for further treatment. Review of Systems Review of Systems: - CONSTITUTIONAL: Denies weight loss, fe jessenia and chills. - HEENT: Denies changes in vision and he aring - RESPIRATORY: Reports SOB and denies c ough. - CV: Denies palpitations and reports CP . - GI: Denies abdominal pain, nausea, vom iting and diarrhea. - : Denies dysuria and urinary frequen cy. - MSK: Denies myalgia and joint pain. - SKIN: Denies rash and pruritus. - NEUROLOGICAL: Denies headache and sync ope. - PSYCHIATRIC: Denies recent changes in mood. Denies anxiety and depression. [facility] Past Medical History Medical History Esophageal stricture Hiatal hernia GERD (gastroesophageal reflux disease) Erosive esophagitis NSAID long-term use HLD (hyperlipidemia) HTN (hypertension) CAD (coronary artery disease) Esophageal dilatation Esophageal stricture Surgical History Surgical History H/O: hysterectomy Status 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 She is a full code but does not have a power of commercial litigation attorney. She is retired from the [employer] in the [place] and the [employer]. She lives with daughter and son-in-law. She denies any current tobacco use alcohol marijuana or illicit drugs. Smoking packs per day: 1 Smoking cigarettes per day: 20.0 Years smoked: 10 Smoking pack-years: 10.00 Smoking status: Former smoker Tobacco type: cigarettes Additional smoking assessment comments: Haven't had one in almost 12 years. Alcohol intake: never Substance use: never Do You Feel Safe in your Home?: Yes Lack of Transportation: No Lack of Food: Never True Current Housing: I Have Housing Concerned About Future Housing: No Difficulty Paying Gas/Electric Bills: No Difficulty Paying for Meds: No Currently Unemployed: No Education: Grade School Difficulty w/ Childcare or Family Care: No Occupation/Education: retired Gender identity (if verbalized by the patient): Female Spiritual care concerns: No Meds Home Medications and Allergies Home Medications ?Medication ?Instructions ?Recorded ?Confirmed ?Type amlodipine 5 mg tablet (Norvasc) 10 mg PO DAILY 05/01/19 11/08/24 History ticagrelor 90 mg tablet (Brilinta) 60 mg PO Q12H 03/12/20 11/08/24 History aspirin 81 mg tablet,delayed 81 mg PO DIRECTED 01/17/24 11/08/24 History release (Adult Low Dose Aspirin) lisinopril 40 mg tablet 40 mg PO DAILY 01/17/24 11/08/24 History lansoprazole 30 mg capsule,delayed 30 mg PO DAILY 11/08/24 11/08/24 History release Allergies Allergy/AdvReac Type Severity Reaction Status Date / Time hydrocodone AdvReac Unknown Vomiting Verified 11/08/24 05:28 Vital Signs Vital Signs - 24 hr 11/07/24 18:18 11/07/24 22:00 11/08/24 05:23 Temperature 97.7 F 97.6 F Pulse Rate 75 72 Respiratory Rate 18 20 Blood Pressure 163/63 H 169/55 H Pulse Oximetry 98 98 Oxygen Delivery Room Air Exam Narrative: GENERAL: The patient is well developed, not in acute distress HEENT: Nonicteric sclerae, PERRLA, EOMI. Oropharynx clear. Moist mucous membranes. Conjunctivae appear well perfused. CHEST: Chest wall is tender. HEART: Regular rate and rhythm without murmur, rubs, or gallops LUNGS: Clear to auscultation bilaterally. no respiratory distress ABDOMEN: Soft, positive bowel sounds, non-tender, no organomegaly. SKIN: No rash, no excessive bruising, petechiae, or purpura. NEUROLOGIC: Cranial nerves II-XII intact, alert and oriented x 3, no gross motor deficits EXTREMITIES: no edema, cyanosis or clubbing H&P: Results Labs Labs: Short CBC 11/07/24 11/08/24 Range/Units 18:02 06:00 WBC 8.1 7.2 (4.5-10.0) K/mm3 Hgb 13.4 12.4 (12.0-15.0) g/dL Hct 40.8 38.9 (37.0-47.0) % Plt Count 314 277 (150-375) k/mm3 BMP 11/07/24 11/08/24 11/08/24 18:02 00:15 00:15 Sodium 143 141 Cancelled Potassium 5.6 H 4.5 Chloride 117 H Carbon Dioxide 15 L BUN 38 H Creatinine 2.45 H Glucose 101 Calcium 10.7 H 11/08/24 11/08/24 11/08/24 00:15 00:15 00:15 Sodium Potassium Cancelled Chloride 117 H Cancelled Carbon Dioxide 17 L Cancelled BUN 34 H Creatinine Glucose Calcium 11/08/24 11/08/24 11/08/24 00:15 00:15 00:15 Sodium Potassium Chloride Carbon Dioxide BUN Cancelled Creatinine 2.07 H Cancelled Glucose 48 L* Cancelled Calcium 10.6 H 11/08/24 11/08/24 00:15 06:00 Sodium 142 Potassium 4.3 Chloride 118 H Carbon Dioxide 15 L BUN 31 H Creatinine 1.97 H Glucose 85 Calcium Cancelled 10.6 H Cardiac Enzymes 11/07/24 11/07/24 11/08/24 Range/Units 18:02 21:56 00:15 Troponin I 0.017 0.021 D 0.020 (0.000-0.034) ng/mL Liver Function 11/07/24 Range/Units 18:02 Total Bilirubin 0.4 (0.2-1.3) mg/dL AST 30 (14-36) U/L ALT 18 (6-35) U/L Alkaline Phosphatase 83 (38-126) U/L Albumin 4.4 (3.5-5.1) g/dL Assessment and Plan Assessment and plan (1) HTN (hypertension): Code(s): I10 - Essential (primary) hypertension Status: Chronic (2) CAD (coronary artery disease): Code(s): I25.10 - Atherosclerotic heart disease of [place] coronary artery without angina pectoris Status: Acute (3) HLD (hyperlipidemia): Code(s): E78.5 - Hyperlipidemia, unspecified Status: Chronic (4) Chest pain: Code(s): R07.9 - Chest pain, unspecified Status: Acute (5) Esophageal stricture: Code(s): K22.2 - Esophageal obstruction Status: Acute (6) GERD (gastroesophageal reflux disease): Code(s): K21.9 - Gastro-esophageal reflux disease without esophagitis Status: Acute (7) Hiatal hernia: Code(s): K44.9 - Diaphragmatic hernia without obstruction or gangrene Status: Acute (8) PIPPA (acute kidney injury): Code(s): N17.9 - Acute kidney failure, unspecified Status: Acute (9) Acute hyperkalemia: Code(s): E87.5 - Hyperkalemia Status: Acute (10) Acute dehydration: Code(s): E86.0 - Dehydration Status: Acute Plan 79-year-old female with history of coronary artery disease, hypertension, hyperlipidemia, esophageal strictures. She presents to the emergency department with chest pain as well as feeling dizzy and was short of breath. She states she has also been having some muscle pain and saw her family doctor about this 2 days ago. Did not receive any kind lab work at that time. Patient states she received aspirin and nitro EN route by EMS and now has resolved symptoms. States she is very thirsty and feels slightly dehydrated. No recent hospitalizations but was seen previously several months ago for acute diverticulitis. No leg pain or calf cramping, no history of DVT or PE. She is on anticoagulation with aspirin Brilinta. Her dizziness has resolved. In the ED her vitals were stable except for mild hypertension. Laboratory studies revealed WBC of 8.1 hemoglobin of 13.4 platelet of 314. Chem panel showed sodium 143 potassium 5.6 chloride 117 bicarb of 15 creatinine of 2.45 calcium of 10.7 LFTs normal. Troponin was negative at 0.017. Lipase was 112. Patient received treatment for hyperkalemia with Lokelma calcium gluconate IV insulin and dextrose. Repeat BMP showed normal potassium 4.5. Creatinine is down to 2 and med metabolic acidosis improved to 17. Patient was then admitted for further treatment. dizziness; get ct head. PIPPA: cr 2.4 on ckd stage 3 baselin cr around high 1s. back to baseline with ivf. hyperkalemia: treated in [facility] ED. now resolved metabolic acidosis likely from renal failure. add oral bicarb cad s/p cabg and stents in the past. on atypical chest pain: likely musculoskeletal as focal tenderness on chest wall. trops negative. no actue ST T changes in EKG. esophageal strictures/gerd: contiue ppi htn: home medications. hlp not on statin. check lipid profile. .likely needs statin. dvt proph: lovenox code status: full code Hospitalist [facility] Advance Care Plan I have confirmed that the patient's Advanced Care Plan is present, code status is documented, or surrogate decision maker is listed in patient medical record.: Yes Medication Reconciliation I have utilized all available resources to obtain, update and review the patients current medications (includes all prescriptions, OTC, herbals, cannabis, and nutritional supplements).: Yes
[2024-11-08 09:04] LABS: Creatine Kinase 55 U/L (30-135)
[2024-11-08] MEDS: SODIUM BICARBONATE TAB 650 MG TABLET PO ×2 (09:26→17:30)
[2024-11-08] MEDS: TICAGRELOR 60 MG TABLET PO ×2 (09:26→20:26)
[2024-11-08 09:42] LABS: Parathyroid Intact 140.3 pg/mL (14.5-75.2)
[2024-11-08 12:36] LABS: Add Urine Microscopic? YES; Appearance Urine Clear (Clear); Glucose Urine UA Negative (Negative); Leukocyte Esterase Ur Trace LEU/UL (Negative); Nitrate Urine Negative (Negative); Non Pathogenic Casts 0-2; Specific Grav Ur 1.010 (1.001-1.035)
[2024-11-08 13:19] LABS: Cholesterol 219 mg/dL (0-200); HDL Direct 45 mg/dL; Triglycerides 185 mg/dL (<150)
[2024-11-09] VITALS: PULSE 71
[2024-11-09 04:00] VITALS: PULSE 55
[2024-11-09 06:00] VITALS: BP 156/63; PULSE 70; RESP 18; TEMP 36.7; O2SAT 96
[2024-11-09] MEDS: ENOXAPARIN 30 MG/0.3 ML SYRINGE SUB-Q (08:50)
[2024-11-09] MEDS: TICAGRELOR 60 MG TABLET PO (08:51)
[2024-11-09] MEDS: SODIUM BICARBONATE TAB 650 MG TABLET PO (08:51)
[2024-11-09] MEDS: PANTOPRAZOLE 40 MG TABLET PO (08:51)
--- NOTE | 2024-11-09 09:00 | P.DS_ITS ---
DS: Admitting Diagnosis Discharge Date 11/09/2024 Admitting Diagnosis Dizziness DS: Discharge Diagnosis Discharge Diagnosis (1) HTN (hypertension): Code(s): I10 - Essential (primary) hypertension Status: Chronic (2) CAD (coronary artery disease): Code(s): I25.10 - Atherosclerotic heart disease of [place] coronary artery without angina pectoris Status: Acute (3) HLD (hyperlipidemia): Code(s): E78.5 - Hyperlipidemia, unspecified Status: Chronic (4) Chest pain: Code(s): R07.9 - Chest pain, unspecified Status: Acute (5) Esophageal stricture: Code(s): K22.2 - Esophageal obstruction Status: Acute (6) GERD (gastroesophageal reflux disease): Code(s): K21.9 - Gastro-esophageal reflux disease without esophagitis Status: Acute (7) Hiatal hernia: Code(s): K44.9 - Diaphragmatic hernia without obstruction or gangrene Status: Acute (8) PIPPA (acute kidney injury): Code(s): N17.9 - Acute kidney failure, unspecified Status: Acute (9) Acute hyperkalemia: Code(s): E87.5 - Hyperkalemia Status: Acute (10) Acute dehydration: Code(s): E86.0 - Dehydration Status: Acute DS: Summary Hospital Course Hospital Course: 79-year-old female with history of coronary artery disease, hypertension, hyperlipidemia, esophageal strictures. She presents to the emergency department with chest pain as well as feeling dizzy and was short of breath. She states she has also been having some muscle pain and saw her family doctor about this 2 days ago. Did not receive any kind lab work at that time. Patient states she received aspirin and nitro EN route by EMS and now has resolved symptoms. States she is very thirsty and feels slightly dehydrated. No recent hospitalizations but was seen previously several months ago for acute diverticulitis. No leg pain or calf cramping, no history of DVT or PE. She is on anticoagulation with aspirin Brilinta. Her dizziness has resolved. In the ED her vitals were stable except for mild hypertension. Laboratory studies revealed WBC of 8.1 hemoglobin of 13.4 platelet of 314. Chem panel showed sodium 143 potassium 5.6 chloride 117 bicarb of 15 creatinine of 2.45 calcium of 10.7 LFTs normal. Troponin was negative at 0.017. Lipase was 112. Patient received treatment for hyperkalemia with Lokelma calcium gluconate IV insulin and dextrose. Repeat BMP showed normal potassium 4.5. Creatinine is down to 2 and med metabolic acidosis improved to 17. Patient was then admitted for further treatment. dizziness; CT came back normal. Dizziness resolved.. PIPPA: cr 2.4 on ckd stage 3 baselin cr around high 1s. back to baseline with ivf. IV fluid has been stopped. Follow-up as an outpatient basis hyperkalemia: treated in [facility] ED. now resolved metabolic acidosis likely from renal failure. add oral bicarb cad s/p cabg and stents in the past. on aspirin and Brilinta. Not on statin because of intolerance. Had been on Repatha but not able to afford atypical chest pain: likely musculoskeletal as focal tenderness on chest wall. trops negative. no actue ST T changes in EKG. esophageal strictures/gerd: contiue ppi htn: home medications. hlp not on statin. Lipid profile with LDL 133. Intolerant to statin. Had been on Repatha but not able to afford. Leg cramps chronic problem. COLLETTE suggestive of peripheral vascular disease. Follow-up as an outpatient basis. dvt proph: lovenox code status: full code Time Spent with Patient Time attestation: Total time spent providing and/or coordinating discharge services: 40 minutes Exam Narrative: GENERAL: The patient is well developed, not in acute distress HEENT: Nonicteric sclerae, PERRLA, EOMI. Oropharynx clear. Moist mucous membranes. Conjunctivae appear well perfused. CHEST: Chest wall is tender. HEART: Regular rate and rhythm without murmur, rubs, or gallops LUNGS: Clear to auscultation bilaterally. no respiratory distress ABDOMEN: Soft, positive bowel sounds, non-tender, no organomegaly. SKIN: No rash, no excessive bruising, petechiae, or purpura. NEUROLOGIC: Cranial nerves II-XII intact, alert and oriented x 3, no gross motor deficits EXTREMITIES: no edema, cyanosis or clubbing DS: Data Data Completed and Pending Labs on day of discharge: Labs from last 24 hours 11/08/24 11/08/24 11/08/24 16:54 12:26 12:14 POC Capillary Glucose 89 107 H Total Creatine Kinase Triglycerides Cholesterol LDL Cholesterol Direct HDL Direct PTH Intact Urine Color Yellow Urine Appearance Clear Urine pH 5.5 Ur Specific [place] 1.010 Urine Protein Negative Urine Glucose (UA) Negative Urine Ketones Negative Ur Blood (Man) Negative Urine Nitrate Negative Urine Bilirubin Negative Urine Urobilinogen 0.2 Ur Leukocyte Esterase Trace H Urine RBC 0-2 Urine WBC 0-5 Ur Squamous Epith Cells None seen Urine Bacteria None seen Urine Casts 0-2 11/08/24 06:00 POC Capillary Glucose Total Creatine Kinase 55 Triglycerides 185 H Cholesterol 219 H LDL Cholesterol Direct 133 HDL Direct 45 PTH Intact 140.3 H Urine Color Urine Appearance Urine pH Ur Specific [place] Urine Protein Urine Glucose (UA) Urine Ketones Ur Blood (Man) Urine Nitrate Urine Bilirubin Urine Urobilinogen Ur Leukocyte Esterase Urine RBC Urine WBC Ur Squamous Epith Cells Urine Bacteria Urine Casts Imaging Radiologist's impression: ITS Impressions Chest X-Ray 11/07/24 18:16 IMPRESSION: No acute cardiopulmonary process. Head CT 11/08/24 09:15 IMPRESSION: No acute intracranial findings. Ankle Brachial Index 11/08/24 12:48 IMPRESSION: 1. Diminished bilateral ankle and toe brachial indices consistent with moderate bilateral peripheral arterial disease. Discharge Plan Discharge Attending physician on discharge: Darci Tobin Consulting providers: Mauro Morelos; Jered Moon; Pillo,Tony Khan; Lan Perez Discharging Clinician: Darci Tobin Anticipated Discharge Date/Time: 11/09/24 09:02 Patient Disposition: Home Activity: as tolerated Diet: heart healthy Patient Instructions: Antibiotic Form Patient Language: Japanese Stand Alone Forms: General Discharge Information Follow-up/Referrals: Niurka,Bhavik Khan DO [Primary Care Provider] - 1 Week Discharge Medications: New sodium bicarbonate 650 mg Tablet 650 mg PO BID Qty: 30 0RF Continued lisinopril 40 mg tablet 40 mg PO DAILY aspirin [Adult Low Dose Aspirin] 81 mg Tablet,Delayed Release (Dr/Ec) 81 mg PO DIRECTED amlodipine [Norvasc] 5 mg Tablet 10 mg PO DAILY ticagrelor [Brilinta] 90 mg tablet 60 mg PO Q12H lansoprazole 30 mg capsule,delayed release(DR/EC) 30 mg PO DAILY Date of admission: 11/08/24 01:13 Primary Care Provider: Niurka,Bhavik Khan Admitting Provider: Melissa Gregg Attending physician on admission: Darci Tobin Condition: Stable
[2024-11-09 09:02] LABS: Hematocrit 43.2 % (37.0-47.0); Hemoglobin 14.3 g/dL (12.0-15.0); Immature Granulocyte Percent A 0.3 % (0-0.5); Lymphocytes Absolute Auto 1.64 K/mm3 (0.9-3.2); Mean Corpuscular HGB Conc 33.1 g/dl (32-36); Mean Corpuscular Hemoglobin 29.4 pg (26-34); Mean Corpuscular Volume 88.7 fl (80-100); Nucleated Red Blood Cells Absolute Auto 0.000 K/mm3 (0.0-0.012); Nucleated Red Blood Cells Perc 0.0 % (0.0-0.2); Platelet Count Result 300 k/mm3 (150-375); Red Blood Count 4.87 M/mm3 (4.2-5.4); White Blood Count 8.8 K/mm3 (4.5-10.0)
[2024-11-09 09:58] LABS: Alanine Aminotransferase 18 U/L (6-35); Albumin Level 4.3 g/dL (3.5-5.1); Alkaline Phosphatase 80 U/L (38-126); Anion Gap 10 mmol/L (4-12); Aspartate Amino Transferase 32 U/L (14-36); Bilirubin,Total 0.7 mg/dL (0.2-1.3); Blood Urea Nitrogen 25 mg/dL (7-17); Calcium 11.1 mg/dL (8.4-10.2); Carbon Dioxide 18 mmol/L (22-30); Chloride 116 mmol/L (98-107); Estimated CRCL calculation 20 ml/min; Estimated Glomerular Filt Rate 26; Glucose 102 mg/dL (65-110); Magnesium 1.8 mg/dL (1.6-2.3); Potassium 5.1 mmol/L (3.4-5.0); Sodium 144 mmol/L (137-145); Total Protein 7.5 g/dL (6.3-8.2)
[2024-11-09 10:00] VITALS: BP 130/64; BP 131/49; PULSE 66; PULSE 72
[2024-11-09 10:01] VITALS: BP 127/65; PULSE 87
== END 2024-11-09 11:05 | disposition home or self-care (01) ==
LOC: ANHED 11-08 01:05 → ANH3MEDSUR 11-08 05:12
PROVIDERS: Emergency Medicine; Admitting Provider General Practice; Emergency Provider Student in an Organized Health Care Education/Training Program; PCP Family Medicine; Visit Provider Internal Medicine
DX: R07.9 Chest pain, unspecified (principal); I25.10 Atherosclerotic heart disease of native coronary artery without angina pectoris; K22.2 Esophageal obstruction; E86.0 Dehydration; I10 Essential (primary) hypertension; K44.9 Diaphragmatic hernia without obstruction or gangrene; N17.9 Acute kidney failure, unspecified; E87.5 Hyperkalemia; E78.5 Hyperlipidemia, unspecified; K21.9 Gastro-esophageal reflux disease without esophagitis; Z87.891 Personal history of nicotine dependence; Z79.82 Long term (current) use of aspirin; Z95.1 Presence of aortocoronary bypass graft; M79.10 Myalgia, unspecified site
CPT/HCPCS: 36415; 70450; 71046; 80048; 80053; 80061; 81001; 82550; 82948; 83690; 83735; 83970; 84484; 85025; 85610; 85730; 93005; 93306; 93922; 96361; 96365; 96372; 96375; 96376; 99285; A9270; G0378; J0612; J1650; J1815; J7120

== ENCOUNTER 2024-12-29 12:19 | Emergency (ER) | payer MEDICARE, SELFPAY ==
--- NOTE | ~2024-12-29 | CT_ITS ---
EXAMINATION: CT abdomen pelvis wo con, 12/29/2024 13:35 CDT HISTORY: abdominal/pelvis pain COMPARISON: No comparisons available. TECHNIQUE: CT scan of the abdomen and pelvis was performed without IV contrast. One or more of the following dose reduction techniques were used: automated exposure control, adjustment of the mA and/or kV according to patient size, use of iterative reconstruction technique. Unless otherwise stated, incidental findings do not require dedicated follow up imaging FINDINGS: CT abdomen: LUNG BASES: The lung bases are clear. The visualized portions of the heart and pericardium are unremarkable. LIVER: Unremarkable, liver contours intact, no lesions. SPLEEN: The spleen appears atrophic.. KIDNEYS: Right Kidney: Right kidney lower pole simple cyst 2.5 x 2.5 cm. Left Kidney: Left kidney there are simple and probable complex appearing renal cysts the largest lower pole 2.5 x 2 cm incompletely evaluated, outpatient ultrasound recommended. ADRENAL GLANDS: Unremarkable. PANCREAS: Mild atrophy of the pancreas. GALLBLADDER/BILIARY: Unremarkable. No biliary dilatation. STOMACH AND ESOPHAGUS: Very large hiatal hernia. The remaining stomach is decompressed. BOWEL/MESENTERY: Moderate fecal content. Severe diverticulosis, no colitis or diverticulitis. Appendix is normal. Mesentery normal. Small bowel normal. ADENOPATHY/RETROPERITONEUM: No lymphadenopathy. AORTA/VASCULATURE: Normal caliber aorta. FREE FLUID OR FREE AIR: No free fluid.. CT pelvis: SOLID ORGANS/REPRODUCTIVE: Post hysterectomy. No adnexal mass. BLADDER: Mild distention of the bladder. OSSEOUS STRUCTURES: No acute osseous abnormality.No suspicious lesions. OVERLYING SOFT TISSUES: Epigastric ventral hernia containing fat, defect in the abdominal wall 1 cm. IMPRESSION: 1. No acute intra-abdominal process Reviewed, dictated and finalized at location A.
[2024-12-29 12:29] VITALS: BP 127/59; PULSE 87; RESP 16; TEMP 36.4; O2SAT 97
--- OUTSIDE RECORDS SUMMARY | 2024-12-29 12:30 | XMS_ITS | Encounter Summary ---
Author Organization [facility] Care Team Providers Care Automatic Blocker Name Role Phone Bhavik Bah DO Primary Care Provider Amisha Wilson MA Unavailable [phone] Encounter Details Date Type Department Care Team (Latest Contact Info) Description 05/26/2016 Orders Only [facility]INCON[facility] Provider, MD Skyla [address] [place] [id number] Social History Tobacco Use Types Packs/Day Years Used Date Smoking Tobacco: Never Assessed Comments Unknown Sex and Gender Information Value Date Recorded Sex Assigned at Not on file Legal Sex Female 6:42 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 Historical Provider [facility] LEXIE CARRENO Final Result documented in this encounter Visit Diagnoses Not on filedocumented in this encounter Additional Health Concerns Infection Onset Date Last Indicated Resolved Time COVID: Suspected 06/12/2023 06/12/2023 06/12/2023 12:05 PM C D REACTOR OPERATOR Influenza, adult 06/12/2023 06/12/2023 06/19/2023 3:05 AM C D REACTOR OPERATOR COVID: Suspected 05/24/2024 05/24/2024 05/24/2024 8:36 PM C D REACTOR OPERATOR documented as of this encounter Care Teams Automatic Blocker Relationship Specialty Start Date End Date Bhavik Bah DO Brandyn PCP - General 09/02/18 Amisha Wilson MA [address] [place] [address] [address] [place] [address] ACO Care Mba Intern 08/30/24 09/01/24 documented as of this encounter
--- OUTSIDE RECORDS SUMMARY | 2024-12-29 12:30 | XMS_ITS | Encounter Summary ---
Author Organization [facility] Healthcare Address [address] [place] [address] Care Team Providers Care Smoke Inspector Name Role Phone Bhavik Bah DO Primary Care Provider Amisha Wilson MA Unavailable [phone] Encounter Details Date Type Department Care Team (Late st Contact Info) Description 01/17/2024 Orders Only [facility] Health Information Management [address] [place] [address] Scanning, Provider Social History Tobacco Use Types Packs/Day Years Used Date Smoking Tobacco: Former Cigarettes Smokeless Tobacco: Never [facility] Utilities Answer Date Recorded In the past 12 months has [employer] electric, gas, oil, or water company threatened to shut off services in your home? No 06/13/2023 Social Connection and Isolation Panel Answer Date Recorded In a typical week, [...] any clubs o r organizations such as shinto groups, unions, fraternal or athletic groups, or [...] place to sleep or slept in a intermediate (including now)? No 06/13/2023 Personal Safety Answer Date Recorded Have you ever been in or are you currently in a harmful physical or emotional relationship or is someone making you feel afraid or unsafe? 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
--- OUTSIDE RECORDS SUMMARY | 2024-12-29 12:30 | XMS_ITS | Clinical Summary ---
Author Organization [facility] Office Center Address [address] [place] [address] Care Team Providers Care Machine Featheredger And Reducer Name Role Phone TarrantBhavik goldstein Primary Care Provider Allergies Active Allergy Reactions Criticality Noted Date Comments Acetaminophen Stomach upset Low 09/14/2019 Stomach/GI Upset Hydrocodone Stomach upset Low 09/14/2019 Stomach/GI Upset Metronidazole Unknown 09/14/2019 unknown-is per outside record Rosuvastatin Muscle pain Medium 02/17/2023 Zdimyei-Spd-Yxn Reductase Inhibitors Diarrhea Low 09/26/2024 Hydrocodone-Acetaminophen Nausea [...] Active Additional Information Patient not taking.Reported on 11/13/2024 lansoprazole (PREVACID) 30 mg capsuleIndications :Gastroesophageal reflux disease without esophagitis Take 1 capsule (30 mg total) by mouth daily 90 capsule 3 03/19/20 24 025 Active ondansetron ODT (ZOFRAN-ODT) 4 mg disintegrating tablet Take 1 tablet (4 mg total) by mouth every 4 (four) hours as needed for nausea or vomiting 20 tablet 08/30/19 25 Active Additional Information Patient not taking.Reported on 11/13/2024 cyclobenzaprine (FLEXERIL) 5 mg tablet Take 1 tablet (5 mg total) by mouth 2 (two) times a day as needed for muscle spasms 60 tablet 1 09/27/19 25 Active Additional Information Patient not taking.Reported on 11/13/2024 sodium bicarbonate 650 mg tablet Take 1 tablet (650 mg total) by mouth 2 (two) times a day 11/10/19 25 Active lisinopriL (PRINIVIL,ZESTRIL) 40 mg tablet 10/07/19 25 Active Active Problems Problem Noted Date Diagnosed [...] her bath Coronary artery disease invo lving afognak coronary artery of afognak heart without angina pectoris 06/12/2023 Overview (03/19/2024): Coronary artery disease status post 2 vessel CABG in May 2016 with AVR She is on Repatha and Brilinta Continue same medications and routine follow up with Cardiology Benign essential HTN 06/12/2023 Overview (03/19/2024): Chronic, stable condition on Norvasc Continue same medications Mixed hyperlipidemia 06/12/2023 Overview (11/13/2024): Chronic, stable condition previously on Repatha Does not tolerate statins Continue [...] artery disease status post CABG with old IN Continue same medications and follow up with [...] stay active Peripheral vascular disease 09/02/2013 Overview (11/13/2024): Chronic condition is stable She was on Repatha Does not tolerate statins Continue same medications Not sure Vascular intervention would be possible, if even indicated Resolved Problems Problem Noted Date Diagnosed Date Resolved Date Acute cystitis without hematuria 06/15/2023 03/19/2024 Influenza A 06/12/2023 03/19/2024 PIPPA (acute kidney injury) 06/12/2023 Chronic kidney disease (CKD) , stage IV (severe) 06/12/2023 03/19/2024 Rash 06/12/2023 03/19/2024 Encounters Date Type Department Care Team Description 11/22/2024 Telephone [facility] [address] [place] [phone] Bhavik Bah DO 11/14/2024 Results Follow-Up [facility] [address] [place] [phone] Bhavik Bah, Hepatitis C antibody Blood, Hepatitis B Surface Antigen Blood, Hepatitis B surface antibody (immune status) Blood, Additional followed-up results: 4 11/13/2024 3:30 PM CDT Lab [facility] Office Building [address] [place] [phone] Need for hepatitis C screening test; Need for hepatitis B screening test; Benign essential HTN 11/13/2024 3:00 PM CDT Office Visit [facility] [address] [place] [phone] Bhavik Bah, Need for hepatitis C screening test (Primary Dx); Need for hepatitis B screening test; Benign essential HTN; Nonrheumatic aortic valve stenosis; Chronic congestive heart failure, unspecified heart failure type (HCC); Chronic obstructive pulmonary disease with bronchospasm (HCC); Coronary artery disease involving afognak coronary artery of afognak heart without angina pectoris; Diastolic dysfunction; Hypertensive heart disease with congestive heart failure, unspecified heart failure type (HCC); Peripheral vascular disease; S/P AVR (aortic valve replacement); S/P CABG (coronary artery bypass graft) 11/12/2024 Telephone [facility] [address] [place] [address] [address] [place] [phone] Bhavik Bah DO JAXON Questions 11/08/[address] [facility] Health Information Management [address] [place], [place] [id number] Scanning, Provider 11/05/2024 3:15 PM CDT Office Visit [facility] [address] [place] [address] [address] [place] [phone] Bhavik Bah DO Bilateral hip pain (Primary Dx); Sacroiliitis; Peripheral polyneuropathy 11/05/2024 Telephone [facility] [address] [place] [address] [address] [place] [phone] Bhavik Bah DO Medical Question/Miscellaneou s 11/04/2024 Nurse Triage [facility] [address] [place] [address] [address] [place] [phone] Bhavik Bah DO from Last 3 Months Immunizations Immunization Administration [...] Smoking Tobacco: Former Cigarettes 0.5 10 1 2003 Smokeless Tobacco: Never Tobacco Cessation:Counseling Given: Not Answered [facility] Utilities Answer Date Recorded In the past 12 months has e electric, gas, oil, or water company threatened [...] often do you attend chur ch or anabaptist services? 1 to 4 times per year 06/14/2023 Do you belong to any clubs o r organizations such as yazdanism groups, unions, fraternal or athletic groups, or [...] in a senior care (including now)? No 06/13/2023 Personal Safety Answer Date Recorded Have you ever been in or are you currently in a harmful physical or emotional relationship or is someone making you feel afraid or unsafe? 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 Gender Identity Not on file Sexual Orientation Not on file Obstetrics History Last Filed Vital Signs Vital Sign Reading Time Taken Comments Blood Pressure 110/64 11/13/2024 2:37 PM CDT Pulse 82 11/13/2024 2:37 PM CDT Temperature 36.2 C (97.2 F) 11/13/2024 2:37 PM CDT Respiratory Rate 18 11/13/2024 2:37 PM CDT Oxygen Saturation 96% 11/13/2024 2:37 PM CDT Inhaled Oxygen Concentration - - Weight 66.7 kg (147 lb) 11/13/2024 2:37 PM CDT Height 152.4 cm (5') 11/13/2024 2:37 PM CDT Body Mass Index 28.71 11/13/2024 2:37 PM CDT Plan of Treatment Health Maintenance Due Date Last Done Comments Osteoporosis Screening-Bone Density Scan 1945 Zoster Vaccine (2 of 2) 04/11/2023 02/14/2023 Covid-19 Vaccine ( 2023-2 5 season) 2023 01/05/2022, 05/07/2021, 06/16/2020, Additional history exists Influenza Vaccine (#1) 2024 , 01/12/2023, 01/27/2022, Additional history exists Fall Risk Assessment 03/19/2025 03/19/2024, 06/16/19 24 Well Visit 65+ 03/19/2025 03/19/2024 Depression Screening 09/26/2025 09/26/2024, 03/19/20 24 DTaP/Tdap/Td Vaccine (2 - Td or Tdap) 10/02/2032 10/02/2022 Breast Cancer Screening-Mammogram Discontinued 016 Pneumococcal vaccine 65+ Completed 01/27/2022 Hepatitis B Screening Completed 11/13/2024 Hepatitis C Screening Completed 11/13/2024 Procedures Procedure Name Priority Date/Time Associated Diagnosis Comments EGFR Routine 11/13/2024 3:17 PM CDT Benign essential HTN CBC WITHOUT DIFFERENTIAL Routine 11/13/2024 3:17 PM CDT Benign essential HTN COMPREHENSIVE METABOLIC PANEL Routine 11/13/2024 3:17 PM CDT Benign essential HTN HEPATITIS B CORE ANTIBODY, TOTAL Routine 11/13/2024 3:17 PM CDT Need for hepatitis B screening test HEPATITIS B SURFACE ANTIBODY (IMMUNE STATUS) Routine 11/13/2024 3:17 PM CDT Need for hepatitis B screening test HEPATITIS B SURFACE ANTIGEN Routine 11/13/2024 3:17 PM CDT Need for hepatitis B screening test HEPATITIS C ANTIBODY Routine 11/13/2024 3:17 PM CDT Need for hepatitis C screening test SCAN - RADIOLOGY/IMAGING 11/08/2024 from Last 3 Months Results * (ABNORMAL) eGFR (11/13/2024 3:17 PM CDT) [facility] Signature eGFR 20(L) >=60 mL/min/1. 73 m2 Comment: Interpretive Data [...] Current interpretive data was last reviewed 2021. Testing performed by: [facility], [address] [place] [address]., [id number] Blood 11/13/2024 3:17 PM CDT 11/13/2024 4:30 PM CDT us Bhavik Bah DO LAB BLOOD ORDERABLES F inal Result [facility] [address] [facility] Department [place] [address] * Hepatitis C antibody Blood (11/13/2024 3:17 PM CDT) Hep C Ab Nonreactive Nonreactive Comment: Antibodies to HCV not detected. Does NOT exclude the possibility of recent exposure to HCV. Current interpretive data was last revised on 21 Interpretive Data Nonreactive: Antibodies to HCV not detected. Does NOT exclude the possibility of recent exposure to HCV. Equivocal: Equivocal for HCV antibodies. Supplemental molecular testing will be automatically performed to determine infection status in accordance with current CDC screening recommendations. Reactive: Positive for HCV antibodies. This may represent current or past HCV infection. Supplemental molecular testing will be automatically performed to determine current infection status in accordance with current CDC screening recommendations. Interpretive data was last revised on 2019. Blood 11/13/2024 3:17 PM CDT 11/13/2024 4:34 PM CDT Bhavik Ahumada Tarrant DO LAB MICROBIOLOGY - GEN ERAL ORDERABLES Final Result Performing Organization Address City/[facility]/ZIP Co de Phone Number [facility] [address] [address] * Hepatitis B core antibody, total Blood (11/13/2024 3:17 PM CDT) Pathologist [facility] Hep B core IgG/IgM Nonreactive Nonreactive Comment:Testing performed by : [facility], [address] [place]., [address] Blood 11/13/2024 3:17 PM CDT 11/13/2024 7:31 PM CDT [facility] - GEN ERAL ORDERABLES Final Result Performing Organization Address [facility] Co de Phone Number MARIA TERESA[address] [address] * Hepatitis B surface antibody (immune status) Blood (11/13/2024 3:17 PM CDT) Pathologist [facility] HBsAb (immune status) Nonreactive Comment: Interpretive Data Nonreactive: This result is consistent with a lack of immunity to Hepatitis B Virus when used in the setting of routine screening. Equivocal: The immune status of the individual should be further assessed, if appropriate, after consideration of clinical status, risk factors, and additional diagnostic information. Reactive: This result is consistent with immunity to Hepatitis B Virus when used in the setting of routine screening. Current interpretive data was last revised on 19. Blood 11/13/2024 3:17 PM CDT 11/13/2024 4:34 PM CDT Bhavik Ahumada Niurka DO LAB MICROBIOLOGY - GEN ERAL ORDERABLES Final Result Performing Organization Address City/[facility]/ZIP Co de Phone Number [facility] [address] Department [place] [address] * Hepatitis B Surface Antigen Blood (11/13/2024 3:17 PM CDT) Pathologist [facility] HepBsAg Nonreactive Nonreactive Blood 11/13/2024 3:17 PM CDT 11/13/2024 4:34 PM CDT Bhavik Bah LAB MICROBIOLOGY - GEN ERAL ORDERABLES Final Result [facility] [address] [facility] Department [place] [address] * CBC without differential (11/13/2024 3:17 PM CDT) [facility] WBC 8.95 3.80 - 9.90 K/cumm Comment:Testing performed by : [address] [address] Hgb 13.7 11.9 - 15.5 g/dL EDGAR Comment:Testing performed by : [address] [address] Hct 41.3 35.6 - 45.5 % ED[facility] Comment:Testing performed by : [address] [address] Plt 331 150 - 400 K/cumm EDGAR Comment:Testing performed by : [address] [address] MPV 10.7 9.1 - 12.3 fL EDGAR Comment:Testing performed by : [address] [address] RBC 4.72 3.90 - 5.20 M/cumm EDGAR Comment:Testing performed by : [address] [address] MCV 87.5 81.3 - 96.4 fL ED[facility]AR Comment:Testing performed by : [address] [address] MCH 29.0 27.1 - 33.3 pg EDGAR Comment:Testing performed by : [address] [address] MCHC 33.2 32.3 - 35.7 g/dL ED[facility]AR GUZMAN Comment:Testing performed by : [address] [address] RDW CV 13.8 11.1 - 14.9 % EDGAR GUZMAN Comment:Testing performed by : [address] [address] RDW SD 44.0 35.7 - 48.1 fL ED[facility]AR GUZMAN Comment:Testing performed by : [address] [address] NRBC abs 0.00 0.00 - 0.01 K/cumm ED[facility]AR GUZMAN Comment:Testing performed by : [address] [address] Blood 11/13/2024 3:17 PM CDT 11/13/2024 4:31 PM CDT Bhavik Ahumada Tarrant LAB BLOOD ORDERABLES F inal Result [facility] [address] [facility] Department of Laboratories [place], [place] [id number] * (ABNORMAL) Comprehensive metabolic panel (11/13/2024 3:17 PM CDT) Sodium 140 135 - 145 mmol/L Comment:Testing performed by : [address] [address] Potassium, pl 5.0(H) 3.3 - 4.9 mmol/L ED[facility]AR GUZMAN Comment:Testing performed by : [address] [address] Chloride 104 97 - 110 mmol/L ED[facility]AR GUZMAN Comment:Testing performed by : [address] [address] CO2 22 22 - 32 mmol/L ED[facility] GUZMAN Comment:Testing performed by : [address] [address] Anion gap 14 2 - 15 mmol/L [facility] GUZMAN Comment:Testing performed by : [address] [place]., [address] BUN 33(H) 6 - 25 mg/dL EDGAR Comment:Testing performed by : [address] [address] Creatinine 2.40(H) 0.60 - 1.10 mg/dL ED[facility]AR Comment:Testing performed by : [address] [address] Glucose 81 70 - 199 mg/dL EDGAR Comment: Interpretive Data Fasting glucose >/= 126 [...] Current interpretive data was last revised 2022. Testing performed by: [address] [address] Calcium 11.2(H) 8.5 - 10.3 mg/dL ED[facility]AR Comment:Testing performed by : [address] [address] Bilirubin, total 0.5 0.1 - 1.2 mg/dL EDGAR Comment:Testing performed by : [address] [address] Protein, pl 7.4 6.5 - 8.5 g/dL EDGAR Comment:Testing performed by : [address] [address] Albumin 4.3 3.5 - 5.0 g/dL EDGAR Comment:Testing performed by : [address] [address] Alk phos 82 40 - 130 Units/L ED[facility]AR Comment:Testing performed by : [address] [address] ALT 18 7 - 45 Units/L EDGAR Comment:Testing performed by : [address] [address] AST 25 10 - 45 Units/L ED[facility]AR GUZMAN Comment:Testing performed by : [facility], [address] [place]., [address] Blood 11/13/2024 3:17 PM CDT 11/13/2024 4:30 PM CDT Bhavik Bah DO LAB BLOOD ORDERABLES F inal Result [facility] [address] [facility] Department [place] [address] * SCAN - RADIOLOGY/IMAGING (11/08/2024) Anatomical Region Laterality Modality Other us Provider Scanning Final Result from Last 3 Months Insurance [address] [place] [address] [employer]CR HMO REF MEDICARE ADVANTAGE Advance Directives For more information, please contact: [phone] * LIMITED - No CPR (Latest Code Status on File) Date Activated Date Inactivated Comments 06/12/2023 5:01 PM 06/16/2023 7:03 PM Care Teams Machine Featheredger And Reducer Relationship Specialty Start Date End Date Bhavik Bah DO PCP - General 09/02/18
--- OUTSIDE RECORDS SUMMARY | 2024-12-29 12:30 | XMS_ITS | Encounter Summary ---
Author Organization [facility] Healthcare Address [address] [place] [address] Care Team Providers Care Senior Account Executive Name Role Phone Bhavik Bah DO Primary Care Provider Encounter Details Date Type Department Care Team (Late st Contact Info) Description 11/08/2024 Orders Only [facility] Health Information Management [address] [place] [id number] Scanning, Provider Social History Tobacco Use Types Packs/Day Years Used Date Smoking Tobacco: Former Cigarettes 0.5 10 1 4 - 2003 Smokeless Tobacco: Never [facility] Utilities Answer Date Recorded In the [...] often do you attend chur ch or yarsani services? 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 Gender Identity Not on file Sexual Orientation Not on file documented as of this encounter Plan of Treatment Not on file documented as of this encounter Procedures Procedure Name Priority Date/Time Associated Diagnosis Comments SCAN - RADIOLOGY/IMAGING 11/08/2024 documented in this encounter Results * SCAN - RADIOLOGY/IMAGING (11/08/2024) Anatomical Region Laterality Modality Other us Provider Scanning Final Result documented in this encounter Visit Diagnoses Not on filedocumented in this encounter Care Teams Senior Account Executive Relationship Specialty Start Date End Date Bhavik Bah DO PCP - General 09/02/18 documented as of this encounter
--- OUTSIDE RECORDS SUMMARY | 2024-12-29 12:30 | XMS_ITS | Encounter Summary ---
Author Organization [facility] Address [address] [place] [address] Care Team Providers Care Emery Grinder Name Role Phone Bhavik Bah DO Primary Care Provider [phone] Rg Morgan MD Unavailable [phone] Encounter Details Date Type Department Care Team (Late Contact Info) Description 09/30/2019 Hospital Follow-up Call [facility] [place] [address] Tasia Blanca, RN Social History Tobacco Use [...] Description 01/06/2025 1:45 PM CDT Office Visit [facility], [address] [place], [place] [phone] Rg Morgan MD [facility]. [address] [place], [place] [id number] documented as of this encounter Visit Diagnoses Not on filedocumented in this encounter Care Teams Emery Grinder Relationship Specialty Start Date End Date Bhavik Bah DO PCP - General 11/20/16 Rg Morgan MD [facility]. [address] [place], [place] [phone] Consulting Physician INTERVENTIONAL CARDIOLOGY 03/31/22 documented as of this encounter
--- NOTE | 2024-12-29 12:45 | ED_ITS ---
HPI - Abdominal Pain General Chief Complaint: Abdominal Pain Stated Complaint: abd pain Time Seen by Provider: 12/29/24 12:24 History of Present Illness HPI narrative: Patient is a 79-year-old female who presents to the ER with abdominal pain that started approximately 2 hours ago. She reports she has had this in the past but has never sought medical attention for treatment. Patient reports she took Pepto-Bismol without any relief. She endorses a history of a heart attack, triple bypass surgery, pig valve, and a mass on her kidney. Patient reports her last regular bowel movement was 2-3 days ago but this morning she has had 3 small bowel movements. She denies any chest pain, shortness of breath, urinary symptoms, back pain, or recent fevers. Related Data Home Medications ?Medication ?Instructions ?Recorded ?Confirmed ?Last Taken ?Type amlodipine 5 mg tablet (Norvasc) 10 mg PO DAILY 11/08/24 11/07/24 History ticagrelor 90 mg tablet (Brilinta) 60 mg PO Q12H 03/1211/08/24 11/07/24 History aspirin 81 mg tablet,delayed 81 mg PO DIRECTED 12/2411/08/24 11/07/24 History release (Adult Low Dose Aspirin) lisinopril 40 mg tablet 40 mg PO DAILY 01/17/2410/2211/07/24 History lansoprazole 30 mg capsule,delayed 30 mg PO DAILY 10/2211/08/24 11/07/24 History release Allergies Allergy/AdvReac Type Severity Reaction Status Date / Time hydrocodone AdvReac Unknown Vomiting Verified 12/29/24 12:45 Review of Systems 2 Review of Systems: All systems reviewed & are unremarkable except as noted in HPI and below PMFSH Past Medical History Medical History Esophageal stricture Hiatal hernia GERD (gastroesophageal reflux disease) Erosive esophagitis NSAID long-term use HLD (hyperlipidemia) HTN (hypertension) CAD (coronary artery disease) Esophageal dilatation Esophageal stricture Surgical History Surgical History H/O: hysterectomy Status 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 She is retired from the [employer] in [facility] and the [employer]. She lives with daughter and son-in-law. She denies any current tobacco use alcohol marijuana or illicit drugs. Smoking packs per day: 1 Smoking cigarettes per day: 20.0 Years smoked: 10 Smoking pack-years: 10.00 Smoking status: Former smoker Tobacco type: cigarettes Additional smoking assessment comments: Haven't had one in almost 12 years. Alcohol intake: never Substance use: never Do You Feel Safe in your Home?: Yes Lack of Transportation: No Lack of Food: Never True Current Housing: I Have Housing Concerned About Future Housing: No Difficulty Paying Gas/Electric Bills: No Difficulty Paying for Meds: No Currently Unemployed: No Education: Grade School Difficulty w/ Childcare or Family Care: No Occupation/Education: retired Gender identity (if verbalized by the patient): Female Spiritual care concerns: No Exam 2 Narrative: GENERAL: Ill-appearing, well-nourished, non-toxic, in no acute distress. HEAD: Normocephalic, atraumatic. NECK: Supple. No adenopathy, no masses. RESPIRATORY: Airway patent, respirations nonlabored. Clear to auscultation bilaterally, no rales, rhonchi, wheezing. CARDIOVASCULAR: Regular rate and rhythm without murmurs, rubs, or gallops. Peripheral pulses 2+ and equal bilaterally. ABDOMINAL: Soft, nontender, nondistended, no hepatosplenomegaly. Normoactive BS. Tender with palpation to pelvis area MUSCULOSKELETAL: Moves all extremities. Strength/ROM intact without gross deformities. SKIN: Warm, dry, normal color. No rashes. NEURO: A&O X3. Speech clear. Cranial nerves II-XII intact. No ataxic movements. PSYCHIATRIC: Appropriate mood and affect. Normal interaction. Course Vital Signs Vital signs: Vital Signs Temperature 36.4 C 12/29/24 12:29 Pulse Rate 87 12/29/24 12:29 Respiratory Rate 16 12/29/24 12:29 Blood Pressure 127/59 L 12/29/24 12:29 Pulse Oximetry 97 12/29/24 12:29 Temperature 36.4 C 12/29/24 12:29 Pulse Rate 84 12/29/24 16:30 Respiratory Rate 19 12/29/24 16:30 Blood Pressure 142/67 H 12/29/24 16:30 Pulse Oximetry 95 12/29/24 16:30 MDM - Abdominal Pain MDM Narrative Medical decision making narrative: Patient is a 79-year-old female who presents to the ER with abdominal pain that started approximately 2 hours ago. She reports she has had this in the past but has never sought medical attention for treatment. Patient reports she took Pepto-Bismol without any relief. She endorses a history of a heart attack, triple bypass surgery, pig valve, and a mass on her kidney. Patient reports her last regular bowel movement was 2-3 days ago but this morning she has had 3 small bowel movements. She denies any chest pain, shortness of breath, urinary symptoms, back pain, or recent fevers. Labs Ordered: CBC, CMP, lipase, PTT, INR, UA Imaging Ordered: CT abdomen pelvis Medications Ordered: 1 L normal saline IV bolus, morphine 2 mg IV, Zofran 4 mg IV Results: Patient's CBC results were unremarkable. Her CMP indicates a chloride of 112, carbon dioxide of 19, BUN of 20, creatinine of 2.04, estimated GFR of 24, glucose 123, calcium of 10.9. Patient's urinalysis does not indicate a UTI. Her CT scan indicates Right Kidney: Right kidney lower pole simple cyst 2.5 x 2.5 cm. Left Kidney: Left kidney there are simple and probable complex appearing renal cysts the largest lower pole 2.5 x 2 cm incompletely evaluated, outpatient ultrasound recommended. GALLBLADDER/BILIARY: Unremarkable. No biliary dilatation. STOMACH AND ESOPHAGUS: Very large hiatal hernia. The remaining stomach is decompressed. BOWEL/MESENTERY: Moderate fecal content. Severe diverticulosis, no colitis or diverticulitis. Appendix is normal. Mesentery normal. Small bowel normal. Diagnosis: Mild constipation, diverticulosis, renal cysts, hiatal hernia Patient Education/Shared MDM: Results of lab work and imaging shared with patient. She endorses improvement of symptoms following medication administration. Patient strongly advised to maintain hydration status upon discharge and follow-up with her PCP as soon as possible. She will be discharged home with a prescription for Bentyl and Zofran. Strict return precautions provided. Patient verbalized understanding and is in agreement with plan. Vital signs stable at time of discharge. All questions answered. Differential Diagnosis Differential diagnosis: Likely abdominal pain, calculus of kidney, constipation, gastroenteritis and small bowel obstruction Lab Data Attestation: I reviewed the patient's lab results. 12/29/24 12:45 12/29/24 12:45 Labs: Lab Results 12/29/24 12/29/24 Range/Units 12:45 15:24 WBC 7.8 (4.5-10.0) K/mm3 RBC 4.48 (4.2-5.4) M/mm3 Hgb 13.0 (12.0-15.0) g/dL Hct 40.1 (37.0-47.0) % MCV 89.5 (80-100) fl MCH 29.0 (26-34) pg MCHC 32.4 (32-36) g/dl RDW 14.0 (11.5-14.5) % Plt Count 316 (150-375) k/mm3 MPV 10.3 (7.4-10.4) fl Immature Gran % (Auto) 0.4 (0-0.5) % Neut % (Auto) 60.9 (45.5-73.1) % Lymph % (Auto) 22.2 (18.3-44.2) % [place] % (Auto) 9.6 H (2.6-8.5) % Eos % (Auto) 6.5 H (0-4.4) % Baso % (Auto) 0.4 (0.2-1.2) % Lymph # (Auto) 1.73 (0.9-3.2) K/mm3 [place] # (Auto) 0.8 H (0.1-0.6) K/mm3 Eos # (Auto) 0.5 H (0-0.3) K/mm3 Baso # (Auto) 0.0 (0.0-0.1) K/mm3 Abs Immat Gran (auto) 0.03 (0.00-0.031) K/mm3 Absolute Neuts (auto) 4.8 (1.3-6.7) K/mm3 Absolute Nucleated RBC 0.000 (0.0-0.012) K/mm3 Nucleated RBC % 0.0 (0.0-0.2) % PT 13.5 (11.1-14.7) Seconds INR 1.0 APTT 27.0 (22.3-36.8) Seconds Sodium 140 (137-145) mmol/L Potassium 4.7 (3.4-5.0) mmol/L Chloride 112 H (98-107) mmol/L Carbon Dioxide 19 L (22-30) mmol/L Anion Gap 9 (4-12) mmol/L BUN 20 H (7-17) mg/dL Creatinine 2.04 H (0.7-1.0) mg/dL Estim Creat Clear Calc 19 ml/min Estimated GFR 24 L (59 - ) Glucose 123 H (65-110) mg/dL Calcium 10.9 H (8.4-10.2) mg/dL Total Bilirubin 0.8 (0.2-1.3) mg/dL AST 36 (14-36) U/L ALT 21 (6-35) U/L Alkaline Phosphatase 84 (38-126) U/L Total Protein 7.3 (6.3-8.2) g/dL Albumin 4.3 (3.5-5.1) g/dL Lipase 69 (23-300) U/L Urine Color Yellow (Yellow) Urine Appearance Clear (Clear) Urine pH 6.0 (5.0-9.0) Ur Specific [place] 1.010 (1.001-1.035) Urine Protein Negative (Negative) mg/dL Urine Glucose (UA) Negative (Negative) mg/dL Urine Ketones Negative (Negative) mg/dL Ur Blood (Man) Negative (Negative) Urine Nitrate Negative (Negative) Urine Bilirubin Negative (Negative) Urine Urobilinogen 0.2 (<2.0) mg/dL Leukocyte Esterase Rfl Negative (Negative) WES/UL Imaging Data Attestation: I personally reviewed and interpreted this imaging study as follows: Radiologist's impression: ITS Impressions Abdomen/Pelvis CT 12/29/24 14:20 IMPRESSION: 1. No acute intra-abdominal process Discharge Plan Discharge Clinical Impression: Gastroenteritis, Constipation, Chronic kidney disease, Nausea & vomiting Patient Disposition: Home Condition: Stable Instructions: Antibiotic Form, Constipation (ED), Gastroenteritis (ED), Acute Nausea and Vomiting (ED) Additional Instructions: Please return to the ER with any worsening symptoms. Follow-up with primary care provider as soon as possible. Take all medications as prescribed, including regularly scheduled medications. You may take Bentyl as needed for abdominal pain and Zofran as needed for nausea/vomiting. Please take [id number] medications to help prevent constipation. Patient Language: Arabic Prescriptions: New dicyclomine 20 mg tablet 20 mg PO TID Qty: 20 0RF ondansetron 4 mg tablet,disintegrating 4 mg PO Q8H Qty: 20 0RF No Action lisinopril 40 mg tablet 40 mg PO DAILY aspirin [Adult Low Dose Aspirin] 81 mg Tablet,Delayed Release (Dr/Ec) 81 mg PO DIRECTED amlodipine [Norvasc] 5 mg Tablet 10 mg PO DAILY ticagrelor [Brilinta] 90 mg tablet 60 mg PO Q12H lansoprazole 30 mg capsule,delayed release(DR/EC) 30 mg PO DAILY sodium bicarbonate 650 mg Tablet 650 mg PO BID Qty: 30 0RF Follow-up/Referrals: Niurka,Bhavik Khan DO [Primary Care Provider, Unknown] Time of Disposition: 16:39
[2024-12-29] MEDS: MORPHINE SULFATE (*CRX) 4 MG/ML INJ 2 MG IV PUSH (12:51)
[2024-12-29] MEDS: SODIUM CHLORIDE 0.9% IV 1,000 ML 999 ML IV CONT (12:51)
[2024-12-29 12:52] LABS: Hematocrit 40.1 % (37.0-47.0); Hemoglobin 13.0 g/dL (12.0-15.0); Immature Granulocyte Percent A 0.4 % (0-0.5); Lymphocytes Absolute Auto 1.73 K/mm3 (0.9-3.2); Mean Corpuscular HGB Conc 32.4 g/dl (32-36); Mean Corpuscular Hemoglobin 29.0 pg (26-34); Mean Corpuscular Volume 89.5 fl (80-100); Nucleated Red Blood Cells Absolute Auto 0.000 K/mm3 (0.0-0.012); Nucleated Red Blood Cells Perc 0.0 % (0.0-0.2); Platelet Count Result 316 k/mm3 (150-375); Red Blood Count 4.48 M/mm3 (4.2-5.4); White Blood Count 7.8 K/mm3 (4.5-10.0)
[2024-12-29] MEDS: ONDANSETRON INJ 4 MG/2 ML VIAL IV PUSH (12:52)
[2024-12-29 13:03] LABS: Alanine Aminotransferase 21 U/L (6-35); Albumin Level 4.3 g/dL (3.5-5.1); Alkaline Phosphatase 84 U/L (38-126); Anion Gap 9 mmol/L (4-12); Aspartate Amino Transferase 36 U/L (14-36); Bilirubin,Total 0.8 mg/dL (0.2-1.3); Blood Urea Nitrogen 20 mg/dL (7-17); Calcium 10.9 mg/dL (8.4-10.2); Carbon Dioxide 19 mmol/L (22-30); Chloride 112 mmol/L (98-107); Estimated CRCL calculation 19 ml/min; Estimated Glomerular Filt Rate 24; Glucose 123 mg/dL (65-110); Lipase 69 U/L (23-300); Potassium 4.7 mmol/L (3.4-5.0); Sodium 140 mmol/L (137-145); Total Protein 7.3 g/dL (6.3-8.2)
[2024-12-29 13:12] LABS: INR 1.0; Prothrombin Time 13.5 Seconds (11.1-14.7)
[2024-12-29 13:13] LABS: Partial Thromboplastin Time 27.0 Seconds (22.3-36.8)
[2024-12-29 14:05] VITALS: BP 164/90; PULSE 85; RESP 22; O2SAT 99
--- NOTE | 2024-12-29 14:51 | PC.NURSE ---
Spoke with room 7 niece. She states she will be patients ride home. Her number is [phone]
[2024-12-29 15:47] LABS: Appearance Urine Clear (Clear); Specific Grav Ur 1.010 (1.001-1.035)
[2024-12-29 15:48] LABS: Add Urine Microscopic? NO; Glucose Urine UA Negative (Negative); Leukocyte Esterase Ur Negative LEU/UL (Negative); Nitrate Urine Negative (Negative)
[2024-12-29 16:30] VITALS: BP 142/67; PULSE 84; RESP 19; O2SAT 95
== END 2024-12-29 16:49 | disposition home or self-care (01) ==
PROVIDERS: Emergency Provider Registered Nurse; PCP Family Medicine
DX: K52.9 Noninfective gastroenteritis and colitis, unspecified (principal); K59.00 Constipation, unspecified; R11.2 Nausea with vomiting, unspecified; I12.9 Hypertensive chronic kidney disease with stage 1 through stage 4 chronic kidney disease, or unspecified chronic kidney disease; N18.9 Chronic kidney disease, unspecified; K21.9 Gastro-esophageal reflux disease without esophagitis; E78.5 Hyperlipidemia, unspecified; I25.10 Atherosclerotic heart disease of native coronary artery without angina pectoris
CPT/HCPCS: 36415; 74176; 80053; 81003; 83690; 85025; 85610; 85730; 96361; 96374; 96375; 99284; J2270; J2405; J7030

== ENCOUNTER 2025-04-02 08:14 | Emergency (ER) | payer MEDICARE, SELFPAY ==
--- NOTE | ~2025-04-02 | CT_ITS ---
EXAMINATION: CT abdomen pelvis wo con DATE: 04/02/2025 11:13 INDICATION: Abdominal pain, nausea, vomiting and diarrhea TECHNIQUE: Computed tomography (CT) of the abdomen and pelvis was performed with 100 mL Omnipaque-350 intravenous contrast. Automated exposure control and iterative reconstruction technique were employed. The dose-length product was 498.93 mGy-cm. COMPARISON: 12/29/2024 FINDINGS: Lung bases are clear. Heart size is normal. Postoperative change of prior median sternotomy and likely aortic valve repair. No pericardial effusion. Moderate- sized sliding-type hiatal hernia. Liver, gallbladder, spleen, pancreas and bilateral adrenal glands are normal. Likely age-related mild bilateral renal atrophy. There are exophytic cyst at the lower poles of both kidneys larger on the right measuring 2.3 cm. There is moderate diverticulosis along the sigmoid and descending colon without adjacent from trace stranding to suggest diverticulitis. Small bowel and appendix are normal. Bladder is normal. The uterus is not identified and has likely been surgically resected. No free intraperitoneal gas or fluid. No pathologically enlarged abdominal or pelvic lymphadenopathy. There is calcified atherosclerosis of the aorta and many of the other arteries. Severe spondylosis at the thoracolumbar junction and lower thoracic spine along with mild chronic appearing likely physiologic anterior wedging at T12. IMPRESSION: 1. No acute intra-abdominal/pelvic process. 2. Moderate colonic diverticulosis. 3. Moderate size sliding type hiatal hernia. Reviewed, dictated and finalized at location A. [employer]
--- NOTE | ~2025-04-02 | CT_ITS ---
EXAMINATION: CT brain wo con DATE: 04/02/2025 11:12 INDICATION: Dizziness TECHNIQUE: Computed tomography (CT) of the head was performed without intravenous contrast. Sagittal and coronal reconstructions were performed. The mA was adjusted according to patient size. Iterative reconstruction technique was employed. The dose-length product was 605.33 mGy-cm. COMPARISON: head CT dated 11/08/2024 FINDINGS: No acute intracranial hemorrhage, acute infarction or abnormal extra axial fluid collection. There is mild scattered white matter hypoattenuation consistent with chronic small vessel ischemic disease. Symmetric prominence of the sulci and ventricles consistent with mild to moderate age-appropriate diffuse cerebral volume loss. Ventricles are normal and symmetric. No mass/mass effect. Changes of bilateral intraocular lens replacement. The orbits and paranasal sinuses are normal. Unchanged minimal bilateral mastoid effusions. IMPRESSION: 1. Normal aging brain with mild to moderate diffuse volume loss and mild scattered white matter hypoattenuation consistent with chronic small vessel ischemic disease. No acute intracranial process. 2. Unchanged minimal bilateral mastoid effusions. Reviewed, dictated and finalized at location A. LE ARCHITECT IMPRESSION: 1. Normal aging brain with mild to moderate diffuse volume loss and mild scatte red white matter hypoattenuation consistent with chronic small vessel ischemic disease. No acute intracranial process. 2. Unchanged minimal bilateral mastoid effusions.
[2025-04-02 08:17] VITALS: BP 150/64; PULSE 66; RESP 16; TEMP 36.2; O2SAT 100
--- NOTE | 2025-04-02 10:11 | ED.NAVMDI ---
HPI - Nausea/Vomiting/Diarrhea General Chief complaint: Nausea/Vomiting/Diarrhea Stated complaint: n/v/d sudden onset 0600 Time Seen by Provider: 04/02/25 09:36 Source: patient Mode of arrival: EMS Limitations: no limitations History of Present Illness HPI Narrative: Patient is a 79-year-old female who presents the ED via EMS with report of nausea, vomiting, diarrhea, dizziness. Patient reports she woke up around 6:00 a.m. this morning with significant room spinning dizziness. She notes having difficulty ambulating due to the dizziness. She has had similar episodes of dizziness in the past. Dizziness worse with movement. Patient went to the bathroom and began having nausea, vomiting, diarrhea. States she did have similar nausea/diarrhea with her first episode of dizziness. Reports diffuse abdominal discomfort. Denies rectal bleeding, melena, fevers, focal numbness or weakness, vision changes, headache. Related Data Home Medications ?Medication ?Instructions ?Recorded ?Confirmed ?Last Taken ?Type amlodipine 5 mg tablet (Norvasc) 10 mg PO DAILY 05/01/19 11/08/24 11/07/24 History ticagrelor 90 mg tablet (Brilinta) 60 mg PO Q12H 03/12/20 11/08/24 11/07/24 History aspirin 81 mg tablet,delayed 81 mg PO DIRECTED 01/17/24 11/08/24 11/07/24 History release (Adult Low Dose Aspirin) lisinopril 40 mg tablet 40 mg PO DAILY 01/17/24 11/08/24 11/07/24 History lansoprazole 30 mg capsule,delayed 30 mg PO DAILY 11/08/24 11/08/24 11/07/24 History release Allergies Allergy/AdvReac Type Severity Reaction Status Date / Time hydrocodone AdvReac Unknown Vomiting Verified 04/02/25 10:29 Review of Systems Review of Systems: All systems reviewed & are unremarkable except as noted in HPI. All systems reviewed & are unremarkable except as noted in HPI and below PMFSH Past Medical History Medical History Esophageal stricture Hiatal hernia GERD (gastroesophageal reflux disease) Erosive esophagitis NSAID long-term use HLD (hyperlipidemia) HTN (hypertension) CAD (coronary artery disease) Esophageal dilatation Esophageal stricture Surgical History Surgical History H/O: hysterectomy Status 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 She is a full code but does not have a power of manager testing. She is retired from the [employer] in [facility] and the [employer]. She lives with daughter and son-in-law. She denies any current tobacco use alcohol marijuana or illicit drugs. Smoking packs per day: 1 Smoking cigarettes per day: 20.0 Years smoked: 10 Smoking pack-years: 10.00 Smoking status: Former smoker Tobacco type: cigarettes Additional smoking assessment comments: Haven't had one in almost 12 years. Alcohol intake: never Substance use: never Lack of Transportation: No Lack of Food: Never True Current Housing: I Have Housing Concerned About Future Housing: No Difficulty Paying Gas/Electric Bills: No Difficulty Paying for Meds: No Currently Unemployed: No Education: Grade School Difficulty w/ Childcare or Family Care: No Occupation/Education: retired Gender identity (if verbalized by the patient): Female Spiritual care concerns: No Exam Narrative: GENERAL: Elderly, mildly ill appearing, well-nourished, non-toxic, in no acute distress. HEAD: Normocephalic, atraumatic. EYES: PERRL/EOMI, conjunctiva clear, no nystagmus ENT: Normal TM elena, no cerumen impaction NECK: No meningeal signs RESPIRATORY: Airway patent, respirations nonlabored. Clear to auscultation bilaterally, no rales, rhonchi, wheezing. CARDIOVASCULAR: Regular rate and rhythm without murmurs, rubs, or gallops. ABDOMINAL: Soft, mild diffuse right-sided abdominal tenderness, nondistended. Normoactive BS. MUSCULOSKELETAL: Moves all extremities. No gross deformities. SKIN: Warm, dry, normal color. NEURO: A&O X3. Speech clear. Cranial nerves II-XII grossly intact. Steady gait. No ataxic movements. No focal deficits. 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 Normal interaction. Course Vital Signs Vital signs: Vital Signs Temperature 97.1 F L 04/02/25 08:17 Pulse Rate 66 04/02/25 08:17 Respiratory Rate 16 04/02/25 08:17 Blood Pressure 150/64 H 04/02/25 08:17 Pulse Oximetry 100 04/02/25 08:17 Oxygen Delivery Room Air 04/02/25 08:17 Temperature 97.9 F 04/02/25 10:25 Pulse Rate 74 04/02/25 14:23 Respiratory Rate 16 04/02/25 14:23 Blood Pressure 142/88 H 04/02/25 14:23 Pulse Oximetry 97 04/02/25 14:23 Oxygen Delivery Room Air 04/02/25 10:25 MDM MDM Narrative Medical decision making narrative: Patient presented to ED with report of nausea, vomiting, diarrhea, dizziness. History of similar dizziness in the past. Worse with movement. Vital signs are stable upon arrival. Patient is neurologically intact upon my evaluation. No focal deficits. Suspicious most for BPPV. CT brain without acute findings. Does show chronic small vessel ischemic disease. CBC with white blood cell count of 11.7. Neutrophil predominance. No bandemia. CMP with CKD. Creatinine 2.05. This is fairly consistent with previous records. Fluids are ongoing. Bicarb low at 19. Mild elevation of potassium at 5.6. Patient has had similar records in the past. Will obtain EKG. No hyperacute T-waves appreciated on EKG. Mag borderline at 1.7. Given IV replacement given acute GI losses. Normal LFTs and lipase. Lactic acid within normal range at 1.2. UA is clear. CT scan of abdomen/pelvis was obtained w/o significant abnormalities. Shows diverticulosis, no diverticulitis, as well as hiatal hernia. Discussed lab and imaging findings with patient. She is feeling significantly better with supportive therapy. Dizziness is resolved. Nausea is resolved. Able to tolerate p.o. intake. Was ambulatory to and from the bathroom without issue or requiring any assistance. Remains neurologically intact. Discussed kidney function and hyperkalemia with patient. She reports she has been told her kidney numbers were poor in the past, but she does not currently have a chief supply chain officer that she sees. States her PCP has tried to refer her in the past, but she was only told to stop eating certain foods. Discussed case with Dr. Back, nephrology, regarding CKD/hyperkalemia, recommended OP f/u in office, can Rx sodium bicarb 325mg bid as well as 2 week supply of oral lokelma to be taken M/W/F. Follow up in office. Recommend avoiding high potassium foods. Discussed overall patient presentation and nephrology recommendations/new medications with patient's PCP. They are in agreement, will f/u with patient in the office. Discussed these recommendations with patient. She is also in agreement. She feels very comfortable going home at this time. All questions answered regarding new medications. Will also prescribe meclizine for p.r.n. dizziness, Zofran for home. Discussed Abilio maneuver. Discussed very strict return precautions. Patient voiced understanding. Discharged in stable condition. Differential Diagnosis Differential Diagnosis: BPPV, CVA/TIA, gastroenteritis, intra-abdominal surgical abnormality, dehydration, electrolyte derangement Medical Records I have reviewed the following patient records and this information was taken into consideration when formulating the assessment and plan.: previous labs, previous ER visits, previous hospitalizations and previous clinic visits Lab Data MDM Lab Attestation statement: I personally reviewed the patient's lab results. 04/02/25 10:34 04/02/25 10:34 Labs: Lab Results 04/02/25 04/02/25 Range/Units 10:34 10:59 WBC 11.7 H (4.5-10.0) K/mm3 RBC 4.73 (4.2-5.4) M/mm3 Hgb 13.8 (12.0-15.0) g/dL Hct 42.6 (37.0-47.0) % MCV 90.1 (80-100) fl MCH 29.2 (26-34) pg MCHC 32.4 (32-36) g/dl RDW 14.3 (11.5-14.5) % Plt Count 294 (150-375) k/mm3 MPV 9.8 (7.4-10.4) fl Immature Gran % (Auto) 0.4 (0-0.5) % Neut % (Auto) 86.0 H (45.5-73.1) % Lymph % (Auto) 8.5 L (18.3-44.2) % [place] % (Auto) 4.3 (2.6-8.5) % Eos % (Auto) 0.6 (0-4.4) % Baso % (Auto) 0.2 (0.2-1.2) % Lymph # (Auto) 1.00 (0.9-3.2) K/mm3 [place] # (Auto) 0.5 (0.1-0.6) K/mm3 Eos # (Auto) 0.1 (0-0.3) K/mm3 Baso # (Auto) 0.0 (0.0-0.1) K/mm3 Abs Immat Gran (auto) 0.05 H (0.00-0.031) K/mm3 Absolute Neuts (auto) 10.1 H (1.3-6.7) K/mm3 Absolute Nucleated RBC 0.000 (0.0-0.012) K/mm3 Nucleated RBC % 0.0 (0.0-0.2) % Sodium 139 (137-145) mmol/L Potassium 5.6 H (3.4-5.0) mmol/L Chloride 114 H (98-107) mmol/L Carbon Dioxide 19 L (22-30) mmol/L Anion Gap 6 (4-12) mmol/L BUN 19 H (7-17) mg/dL Creatinine 2.05 H (0.7-1.0) mg/dL Estim Creat Clear Calc 18 ml/min Estimated GFR 23 L (59 - ) Glucose 94 (65-110) mg/dL Lactic Acid 1.2 (0.7-2.0) mmol/L Calcium 10.9 H (8.4-10.2) mg/dL Magnesium 1.7 (1.6-2.3) mg/dL Total Bilirubin 0.5 (0.2-1.3) mg/dL AST 31 (14-36) U/L ALT 21 (6-35) U/L Alkaline Phosphatase 88 (38-126) U/L Total Protein 7.3 (6.3-8.2) g/dL Albumin 4.3 (3.5-5.1) g/dL Lipase 68 (23-300) U/L Urine Color Yellow (Yellow) Urine Appearance Clear (Clear) Urine pH 5.5 (5.0-9.0) Ur Specific [place] 1.012 (1.001-1.035) Urine Protein Negative (Negative) mg/dL Urine Glucose (UA) Negative (Negative) mg/dL Urine Ketones Negative (Negative) mg/dL Ur Blood (Man) Negative (Negative) Urine Nitrate Negative (Negative) Urine Bilirubin Negative (Negative) Urine Urobilinogen 0.2 (<2.0) mg/dL Leukocyte Esterase Rfl Negative (Negative) WES/UL Imaging Data Attestation: I personally reviewed and interpreted this imaging study as follows: Radiologist's impression: ITS Impressions Head CT 04/02/25 11:21 IMPRESSION: 1. Normal aging brain with mild to moderate diffuse volume loss and mild scattered white matter hypoattenuation consistent with chronic small vessel ischemic disease. No acute intracranial process. 2. Unchanged minimal bilateral mastoid effusions. Abdomen/Pelvis CT 04/02/25 11:29 IMPRESSION: 1. No acute intra-abdominal/pelvic process. 2. Moderate colonic diverticulosis. 3. Moderate size sliding type hiatal hernia. ECG Data EKG #1: Attestation: I personally reviewed and interpreted this ECG as follows: ECG completion date: 04/02/25 ECG completion time: 12:35 normal rate (66), sinus rhythm, non-specific ST changes and other (no hyperacute T waves) Discharge Plan Discharge Clinical Impression: Hyperkalemia BPPV (benign paroxysmal positional vertigo) Qualifiers: Laterality: unspecified laterality Qualified Code(s): H81.10 - Benign paroxysmal vertigo, unspecified ear Nausea and vomiting Qualifiers: Vomiting type: unspecified Qualified Code(s): R11.2 - Nausea with vomiting, unspecified CKD (chronic kidney disease) Qualifiers: Chronic kidney disease stage: unspecified stage Qualified Code(s): N18.9 - Chronic kidney disease, unspecified Patient Disposition: Home Condition: Stable Instructions: Antibiotic Form, Chronic Kidney Disease (ED), Potassium Content of Foods List (ED), Hyperkalemia (ED), Acute Nausea and Vomiting (ED) Additional Instructions: Take meclizine as needed for further dizziness. Stay well-hydrated. Utilize Zofran as needed for nausea. You may try the Abilio maneuver to reposition crystals in urine help with dizziness. It is recommended you follow-up with a kidney specialist for your chronic kidney disease. Call office to make appointment. It is recommended you take sodium bicarb twice daily, as well as oral Lokelma 3 times per week for the next 2 weeks (Mondays, Wednesdays, Fridays). This will help with your potassium and kidney function. Avoid foods that are very high in potassium. Call your primary care doctor today to make follow-up appointment. Return to the ED if you expect worsening or severe dizziness, unable to keep down food or drink, severe pain, numbness or weakness of arm or leg, vision changes, persistent fevers, or any other symptoms of concern. Patient Language: Romansh Prescriptions: New sodium bicarbonate 325 mg tablet 325 mg PO BID Qty: 60 0RF Lokelma 10 gram powder in packet 10 g PO .three times per week Qty: 30 0RF meclizine 25 mg tablet 25 mg PO TID PRN (Reason: dizziness) Qty: 20 0RF ondansetron 4 mg tablet,disintegrating 4 mg PO Q8H PRN (Reason: nausea and vomiting) Qty: 15 0RF No Action lisinopril 40 mg tablet 40 mg PO DAILY aspirin [Adult Low Dose Aspirin] 81 mg Tablet,Delayed Release (Dr/Ec) 81 mg PO DIRECTED dicyclomine 20 mg tablet 20 mg PO TID Qty: 20 0RF ondansetron 4 mg tablet,disintegrating 4 mg PO Q8H Qty: 20 0RF amlodipine [Norvasc] 5 mg Tablet 10 mg PO DAILY ticagrelor [Brilinta] 90 mg tablet 60 mg PO Q12H lansoprazole 30 mg capsule,delayed release(DR/EC) 30 mg PO DAILY sodium bicarbonate 650 mg Tablet 650 mg PO BID Qty: 30 0RF Follow-up/Referrals: Niurka,Bhavik Khan DO [Primary Care Provider, Unknown] Harry Back MD [Physician, Nephrology] Time of Disposition: 13:59
[2025-04-02 10:25] VITALS: BP 155/58; PULSE 63; RESP 14; TEMP 36.6; O2SAT 100
[2025-04-02 10:40] LABS: Hematocrit 42.6 % (37.0-47.0); Hemoglobin 13.8 g/dL (12.0-15.0); Immature Granulocyte Percent A 0.4 % (0-0.5); Lymphocytes Absolute Auto 1.00 K/mm3 (0.9-3.2); Mean Corpuscular HGB Conc 32.4 g/dl (32-36); Mean Corpuscular Hemoglobin 29.2 pg (26-34); Mean Corpuscular Volume 90.1 fl (80-100); Nucleated Red Blood Cells Absolute Auto 0.000 K/mm3 (0.0-0.012); Nucleated Red Blood Cells Perc 0.0 % (0.0-0.2); Platelet Count Result 294 k/mm3 (150-375); Red Blood Count 4.73 M/mm3 (4.2-5.4); White Blood Count 11.7 K/mm3 (4.5-10.0)
[2025-04-02 10:50] LABS: Magnesium 1.7 mg/dL (1.6-2.3)
[2025-04-02 10:51] LABS: Alanine Aminotransferase 21 U/L (6-35); Albumin Level 4.3 g/dL (3.5-5.1); Alkaline Phosphatase 88 U/L (38-126); Anion Gap 6 mmol/L (4-12); Aspartate Amino Transferase 31 U/L (14-36); Bilirubin,Total 0.5 mg/dL (0.2-1.3); Blood Urea Nitrogen 19 mg/dL (7-17); Calcium 10.9 mg/dL (8.4-10.2); Carbon Dioxide 19 mmol/L (22-30); Chloride 114 mmol/L (98-107); Estimated CRCL calculation 18 ml/min; Estimated Glomerular Filt Rate 23; Glucose 94 mg/dL (65-110); Lipase 68 U/L (23-300); Potassium 5.6 mmol/L (3.4-5.0); Sodium 139 mmol/L (137-145); Total Protein 7.3 g/dL (6.3-8.2)
[2025-04-02] MEDS: MECLIZINE HCL 25 MG TABLET PO (10:59)
[2025-04-02] MEDS: SODIUM CHLORIDE 0.9% IV 1,000 ML 999 ML IV CONT (10:59)
[2025-04-02 11:00] VITALS: BP 125/49; PULSE 85; RESP 14; O2SAT 99
[2025-04-02 11:07] LABS: Add Urine Microscopic? NO; Appearance Urine Clear (Clear); Glucose Urine UA Negative (Negative); Leukocyte Esterase Ur Negative LEU/UL (Negative); Nitrate Urine Negative (Negative); Specific Grav Ur 1.012 (1.001-1.035)
--- NOTE | 2025-04-02 11:29 | ECG_ITS ---
Test Date: 2025-04-02 12:35:35 Measurements Intervals [place] Rate: 66 P: 22 PA: 145 QRS: 11 QRSD: 73 T: 75 QT: 370 QTc: 388 Interpretive Statements SINUS RHYTHM LOW QRS VOLTAGE IN PRECORDIAL LEADS ST-T WAVE ABNORMALITY IN HIGH LATERAL LEADS- CONSIDER ISCHEMIA BASELINE ARTIFACT- I, III, AVR, AVL, AVF, V1-V6 NONSPECIFIC T-WAVE ABNORMALITY ABNORMAL ECG Compared to ECG 11/08/2024 00:27:12 NO SIGNIFICANT CHANGE Electronically Signed On 04-02-2025 12:58:35 OFFICE SERVICES COORDINATOR by Howard Marino D.O.
[2025-04-02] MEDS: MAGNESIUM SULF 2 GM/WATER 50ML 2 GM/50 ML BAG IVPB (11:51)
[2025-04-02 11:53] VITALS: BP 125/49; PULSE 71; RESP 17; O2SAT 100
[2025-04-02 14:23] VITALS: BP 142/88; PULSE 74; RESP 16; O2SAT 97
== END 2025-04-02 14:28 | disposition home or self-care (01) ==
PROVIDERS: Emergency Provider Physician Assistant; PCP Family Medicine
DX: H81.10 Benign paroxysmal vertigo, unspecified ear (principal); R11.2 Nausea with vomiting, unspecified; E87.5 Hyperkalemia; I12.9 Hypertensive chronic kidney disease with stage 1 through stage 4 chronic kidney disease, or unspecified chronic kidney disease; N18.9 Chronic kidney disease, unspecified; I25.10 Atherosclerotic heart disease of native coronary artery without angina pectoris; E78.5 Hyperlipidemia, unspecified; K21.9 Gastro-esophageal reflux disease without esophagitis; K44.9 Diaphragmatic hernia without obstruction or gangrene; Z95.1 Presence of aortocoronary bypass graft; Z95.5 Presence of coronary angioplasty implant and graft; Z85.828 Personal history of other malignant neoplasm of skin; Z90.710 Acquired absence of both cervix and uterus; Z87.891 Personal history of nicotine dependence; R94.31 Abnormal electrocardiogram [ECG] [EKG]
CPT/HCPCS: 36415; 70450; 74176; 80053; 81003; 83605; 83690; 83735; 85025; 93005; 96361; 96365; 99284; A9270; J3475; J7030